=== PATIENT | female | born 1945 | race Caucasian/White ===

== ENCOUNTER 2018-06-11 03:56 | Emergency (ER) | payer MEDICARE, BC ==
[2018-06-11] MEDS: SINEMET 25-100 MG TAB PO (06:25)
== END 2018-06-11 06:48 | disposition home or self-care (01) ==
LOC: M ED 03:56
DX: F41.1 Generalized anxiety disorder (principal); G20 Parkinson's disease
CPT/HCPCS: 99284

== ENCOUNTER → 2019-07-09 | Outpatient (REF) | payer MEDICARE, BC ==
[2019-07-09 09:12] LABS: HEMATOCRIT 44.6 % (36.0-47.0); HEMOGLOBIN 15.5 g/dl (12.0-15.5); MEAN CORPUSCULAR HEMOGLOBIN 31.7 pg (27.0-33.0); MEAN CORPUSCULAR HGB CONC 34.8 g/dl (32.0-36.5); MEAN CORPUSCULAR VOLUME 91.2 fl (80.0-96.0); PLATELET COUNT, AUTOMATED 285 10^3/uL (150-450); RED BLOOD COUNT 4.89 10^6/uL (4.00-5.40); WHITE BLOOD COUNT 6.7 10^3/uL (4.0-10.0)
[2019-07-09 09:35] LABS: CALCIUM LEVEL 9.6 MG/DL (8.8-10.2); CREATININE FOR GFR 1.03 MG/DL (0.55-1.30); GLOMERULAR FILTRATION RATE 55.6 (>39); POTASSIUM SERUM 4.6 MEQ/L (3.5-5.1); THYROID STIMULATING HORMONE 1.45 uIU/ML (0.358-3.740)
== END ==
PROVIDERS: ATTEND Internal Medicine
DX: I12.9 Hypertensive chronic kidney disease with stage 1 through stage 4 chronic kidney disease, or unspecified chronic kidney disease (principal); K59.00 Constipation, unspecified

== ENCOUNTER → 2019-10-13 | Outpatient (CLI) | payer MEDICARE, BC ==
--- NOTE | 2019-10-13 13:54 | REP ---
Bilateral carotid duplex sonography: History: Followup carotid stenosis. No comparison study. Report of a previous outside study describes 16-49% narrowing in the right internal carotid artery. Findings: Flow could not be confirmed in the right vertebral artery. Antegrade flow was observed in the left vertebral artery. Right carotid: The right common carotid artery is unremarkable. There is moderate mixed plaquing in the bulb, proximal ICA and proximal ECA on the right side. Color flow and spectral Doppler interrogation are unremarkable. Velocity chart right carotid: PSV EDV Right CCA 55.0 cm/s Right ICA 109.0 26.0 Right ECA 89.0 Right ICA/CCA ratio normal 2.0. Impression: Less than 50% category narrowing in the right ICA by Doppler velocity criteria. Moderate mixed plaquing. Flow could not be confirmed in the right vertebral artery. Left carotid: The left common carotid artery is unremarkable. There is mild to moderate mixed plaquing in the left carotid bulb and proximal ICA. Color flow and spectral Doppler interrogation are unremarkable on the left. Velocity chart left carotid: PSV EDV Left CCA 82.0 cm/s Left ICA 107.0 30.0 Left ECA 44.0 Left ICA/CCA ratio 1.3. Impression: Less than 50% category narrowing in the left ICA. Electronically Signed by Jenaro Read MD 10/13/2019 03:32 P
== END ==
LOC: M RAD 12:35
PROVIDERS: ATTEND Internal Medicine
DX: I65.29 Occlusion and stenosis of unspecified carotid artery (principal)

== ENCOUNTER 2019-12-12 19:30 | Emergency (ER) | payer MEDICARE, BC ==
[~2019-12-12] VITALS: Ht 154.9 cm; Wt 65.4 kg
[2019-12-12] MEDS ORDERED: COLA100C5 PO (20:09)
[2019-12-12] MEDS ORDERED: CHILCHW27 PO (20:09)
[2019-12-12] MEDS ORDERED: ENTA1TAB PO (20:09)
[2019-12-12] MEDS ORDERED: CHLO1.4S2 MT (20:09)
[2019-12-12] MEDS ORDERED: MAGN400C2 PO (20:09)
[2019-12-12] MEDS ORDERED: PROC2.5C3 PR (20:09)
[2019-12-12] MEDS ORDERED: QC A650T3 PO (20:09)
[2019-12-12] MEDS ORDERED: PROP60TA18 PO (20:09)
[2019-12-12] MEDS ORDERED: CARB25TA9 PO (20:09)
[2019-12-12] MEDS ORDERED: AZEL0.1S NARES (20:09)
[2019-12-12] MEDS ORDERED: BISA10SU20 PR (20:09)
[2019-12-12] MEDS ORDERED: DICL1GEL3 TOP (20:09)
[2019-12-12] MEDS ORDERED: ASPI81CH2 PO (20:09)
[2019-12-12] MEDS ORDERED: LORA0.5T5 PO (20:09)
[2019-12-12] MEDS ORDERED: LOSA50TA88 PO (20:09)
[2019-12-12] MEDS ORDERED: HYDR1CRE93 TOP (20:09)
[2019-12-12] MEDS ORDERED: CITRTAB13 PO (20:09)
[2019-12-12] MEDS ORDERED: PRAV40TA2 PO (20:09)
[2019-12-12] MEDS ORDERED: MIRA3350 PO (20:09)
[2019-12-12] MEDS ORDERED: SERT50TA29 PO (20:09)
[2019-12-12] MEDS ORDERED: VITA500079 PO (20:09)
[2019-12-12] MEDS ORDERED: LOSARTAN 50 MG TAB PO ONE (20:30)
[2019-12-12] MEDS ORDERED: SINEMET 25-100 MG TAB PO ONE (20:30)
[2019-12-12] MEDS ORDERED: PROPRANOLOL 20 MG TAB PO ONE (20:30)
[2019-12-12 21:02] VITALS: BP 192/112
[2019-12-12 22:03] VITALS: BP 158/98
--- NOTE | 2019-12-13 09:02 | REP ---
Clinical: Trauma. Fall. Technique: AP and lateral views of the left tibia / fibula. Findings: No acute fracture or dislocation. Skeletal structures, joint spaces, and surrounding soft tissues are normal. Impression: No acute fracture or dislocation. Electronically Signed by Alex Lugo MD 12/13/2019 08:53 A
--- NOTE | 2019-12-13 09:07 | REP ---
Clinical: Trauma. Fall. Technique: AP and frog lateral views of the left femur. Findings: Age-related changes at the hip and knee joint. No acute fracture or dislocation. No subcutaneous emphysema or foreign body. Impression: Degenerative changes. No acute fracture or dislocation. Electronically Signed by Alex Lugo MD 12/13/2019 08:59 A
== END 2019-12-12 22:04 | disposition home or self-care (01) ==
LOC: M ED 19:30
DX: S76.212A Strain of adductor muscle, fascia and tendon of left thigh, initial encounter (principal); W01.0XXA Fall on same level from slipping, tripping and stumbling without subsequent striking against object, initial encounter; Y92.129 Unspecified place in nursing home as the place of occurrence of the external cause; I10 Essential (primary) hypertension; F41.9 Anxiety disorder, unspecified; Z79.52 Long term (current) use of systemic steroids; Z79.82 Long term (current) use of aspirin; Z79.899 Other long term (current) drug therapy

== ENCOUNTER → 2020-09-06 | Outpatient (REF) | payer MEDICARE, BC ==
[~2020-09-06] MED LIST: ASPI81CH2 PO; AZEL0.1S NARES; BISA10SU20 PR; CARB25TA9 PO; CHILCHW28 PO; CHLO1.4S2 MT; CITRTAB16 PO; COLA100C5 PO; DICL1GEL3 TOP; ENTA1TAB PO; HYDR1CRE93 TOP; LORA0.5T5 PO; LOSA50TA88 PO; MAGN400C2 PO; MIRA3350 PO; PRAV40TA2 PO; PROC2.5C3 PR; PROP60TA18 PO; QC A650T3 PO; SERT50TA29 PO; VITA500079 PO
== END ==
LOC: M LAB REF 17:06
PROVIDERS: ATTEND Radiology Diagnostic Radiology
DX: N60.92 Unspecified benign mammary dysplasia of left breast (principal); D24.2 Benign neoplasm of left breast

== ENCOUNTER → 2020-09-17 | Outpatient (CLI) | payer SELFPAY | LOC: M LABSMTC 10:56 | PROVIDERS: ATTEND Pediatrics | DX: Z20.828 Contact with and (suspected) exposure to other viral communicable diseases (principal) ==

== ENCOUNTER → 2020-10-08 | Outpatient (REF) | payer SELFPAY | PROVIDERS: ATTEND Internal Medicine | DX: Z20.828 Contact with and (suspected) exposure to other viral communicable diseases (principal) ==

== ENCOUNTER → 2020-10-13 | Outpatient (REF) | payer SELFPAY ==
[2020-10-14 09:23] LABS: INFLUENZA A AMPLIFICATION NEGATIVE (NEGATIVE); INFLUENZA B AMPLIFICATION NEGATIVE (NEGATIVE)
== END ==
PROVIDERS: ATTEND Internal Medicine
DX: Z20.828 Contact with and (suspected) exposure to other viral communicable diseases (principal)
CPT/HCPCS: 87502; U0003

== ENCOUNTER → 2020-10-18 | Outpatient (REF) | payer SELFPAY | PROVIDERS: ATTEND Internal Medicine | DX: Z20.828 Contact with and (suspected) exposure to other viral communicable diseases (principal) ==

== ENCOUNTER → 2020-10-25 | Outpatient (REF) | payer SELFPAY | PROVIDERS: ATTEND Internal Medicine | DX: Z20.828 Contact with and (suspected) exposure to other viral communicable diseases (principal) ==

== ENCOUNTER → 2020-11-01 | Outpatient (REF) | payer SELFPAY | PROVIDERS: ATTEND Internal Medicine | DX: Z11.52 Encounter for screening for COVID-19 (principal) ==

== ENCOUNTER → 2020-11-08 | Outpatient (REF) | payer SELFPAY | PROVIDERS: ATTEND Internal Medicine | DX: Z20.822 Contact with and (suspected) exposure to COVID-19 (principal) ==

== ENCOUNTER → 2020-11-15 | Outpatient (REF) | payer SELFPAY | PROVIDERS: ATTEND Internal Medicine | DX: Z20.822 Contact with and (suspected) exposure to COVID-19 (principal) ==

== ENCOUNTER → 2020-11-22 | Outpatient (REF) | payer SELFPAY | PROVIDERS: ATTEND Internal Medicine | DX: Z20.822 Contact with and (suspected) exposure to COVID-19 (principal) ==

== ENCOUNTER → 2020-11-29 | Outpatient (REF) | payer SELFPAY | PROVIDERS: ATTEND Internal Medicine | DX: Z20.822 Contact with and (suspected) exposure to COVID-19 (principal) ==

== ENCOUNTER → 2020-12-01 | Outpatient (CLI) | payer MEDICARE, BC, MEDICAID ==
--- NOTE | 2020-12-01 14:53 | REP ---
INDICATION: STENOSIS COMPARISON: 10/13/2019. TECHNIQUE: Real-time ultrasound evaluation and duplex Doppler interrogation of the extracranial carotid vasculature is performed. FINDINGS: There is mild plaquing and narrowing in both carotid bulbs extending into the internal and external carotid arteries. Luminal narrowing is less than 50%. There is no evidence of hemodynamically significant stenosis of either internal carotid artery. Normal flow velocities are seen. The vertebral arteries demonstrate normal direction of flow. RIGHT LEFT Peak systolic velocity ICA 114.0 cm/s 102.5 cm/s End diastolic velocity ICA 26.7 cm/s 25.8 cm/s Peak systolic velocity CCA 55.1 cm/s 66.3cm/s Peak systolic velocity ECA 101.4 cm/s 76.6 cm/s ICA/CCA ratio 2.0 1.5 IMPRESSION: Bilateral luminal narrowing of the internal carotid arteries less than 50%. No evidence of hemodynamically significant stenosis. <Electronically signed by Isael Chen > 12/01/20 [id number]
== END ==
LOC: M RAD 13:40
PROVIDERS: ATTEND Internal Medicine
DX: I65.23 Occlusion and stenosis of bilateral carotid arteries (principal)

== ENCOUNTER → 2020-12-06 | Outpatient (REF) | payer MEDICARE, BC, MEDICAID | PROVIDERS: ATTEND Internal Medicine | DX: Z20.822 Contact with and (suspected) exposure to COVID-19 (principal) ==

== ENCOUNTER → 2020-12-13 | Outpatient (REF) | payer MEDICARE, BC, MEDICAID | PROVIDERS: ATTEND Internal Medicine | DX: Z20.822 Contact with and (suspected) exposure to COVID-19 (principal) ==

== ENCOUNTER → 2020-12-20 | Outpatient (REF) | payer MEDICARE, BC, MEDICAID | PROVIDERS: ATTEND Internal Medicine | DX: Z20.822 Contact with and (suspected) exposure to COVID-19 (principal) ==

== ENCOUNTER → 2021-01-06 | Outpatient (CLI) | payer MEDICARE, BC, MEDICAID ==
[~2021-01-06] MED LIST changes: +ARTIDRO OP; +D3 +TAB PO; +LORA2CON5 PO; +[UNRECOGNIZED DRUG - CODE] PO
== END ==
LOC: M LABSMTC 10:36
PROVIDERS: ATTEND Anesthesiology
DX: Z01.812 Encounter for preprocedural laboratory examination (principal); Z20.822 Contact with and (suspected) exposure to COVID-19

== ENCOUNTER → 2021-01-07 | Outpatient (CLI) | payer MEDICARE, BC, MEDICAID ==
--- NOTE | 2021-01-07 13:05 | REP ---
INDICATION: UNSPECIFIED BENIGN MAMMARY DYSPLASIA OF UNSPECIFIED BREAST COMPARISON: 12/04/2008 TECHNIQUE: PA and lateral. FINDINGS: The mediastinum and cardiac silhouette are stable with mild cardiomegaly again suggested. The lung estevez are clear and without acute consolidation, effusion, or pneumothorax. The skeletal structures are intact and normal. IMPRESSION: No acute cardiopulmonary process. <Electronically signed by Alex Lugo > 01/07/21 [id number]
== END ==
LOC: M RAD 12:43
PROVIDERS: ATTEND Internal Medicine
DX: N60.99 Unspecified benign mammary dysplasia of unspecified breast (principal)

== ENCOUNTER 2021-01-11 06:08 | Day surgery (SDC) | payer MEDICARE, BC, MEDICAID ==
[~2021-01-11] VITALS: Ht 154.9 cm; Wt 63.7 kg
[2021-01-11] MEDS ORDERED: HEPARIN SOD (PORCINE) 5000UNITS/ML 1ML VIAL/SYRINGE SQ ONE (07:00)
[2021-01-11] MEDS ORDERED: LR 1,000 ML IV ONE (07:00)
[2021-01-11] MEDS ORDERED: ceFAZolin SOD 2 GM in IV 1 EA IV ONE (07:00)
[2021-01-11] MEDS ORDERED: BUPIVACAINE HCL 0.25% 30ML VIAL As Ordered ONE (07:14)
[2021-01-11] MEDS ORDERED: LIDOCAINE 1% SDV 30ML VIAL As Ordered ONE (07:14)
[2021-01-11] MEDS ORDERED: propofoL 200 MG/20 ML VIAL As Ordered ONE (07:25)
[2021-01-11] MEDS ORDERED: dexameTHASONE 4 MG/ML 1ML VIAL (J1100 PER 1MG) As Ordered ONE (07:25)
[2021-01-11] MEDS ORDERED: fentaNYL 250 MCG/5 ML INJECTION (J3010) As Ordered ONE (07:25)
[2021-01-11] MEDS ORDERED: LIDOCAINE 2% 100MG/5ML SDV (FOR ANES.) As Ordered ONE (07:25)
[2021-01-11] MEDS ORDERED: MIDAZOLAM INJ 2MG/2ML VIAL (J2250 PER 1MG) As Ordered ONE (07:26)
[2021-01-11] MEDS ORDERED: ONDANSETRON 4MG/2ML VIAL As Ordered ONE (08:15)
[2021-01-11] MEDS ORDERED: GLYCOPYRROLATE INJ 0.2 MG/ML 2 ML VIAL As Ordered ONE (08:20)
[2021-01-11] MEDS ORDERED: ACETAMINOPHEN 1000MG 100ML IV BTL (OFIRMEV) (J0131 PER 10MG) As Ordered ONE (08:24)
[2021-01-11] MEDS ORDERED: ePHEDrine SULFATE 25 MG/5 ML(5MG/ML) SYRINGE As Ordered ONE (08:25)
[2021-01-11] MEDS ORDERED: ROXI1TAB2 PO (09:29)
[2021-01-11] MEDS ORDERED: ONDANSETRON 4MG/2ML VIAL IV PRN (09:45)
[2021-01-11] MEDS ORDERED: fentaNYL 100 MCG/2 ML INJECTION (J3010) IV PRN (09:45)
[2021-01-11] MEDS ORDERED: LR 1,000 ML IV SCH (09:45)
[2021-01-11] MEDS ORDERED: oxyCODONE 5MG TAB PO PRN (09:45)
[2021-01-11] MEDS ORDERED: HYDROMORPHONE HCL 0.5 MG/ 0.5 ML SYRINGE (J1170 PER 1) IV PRN (09:45)
[2021-01-11 11:00] VITALS: BP 150/82
--- NOTE | 2021-01-11 11:09 | REP ---
INDICATION: LEFT BREAST EXCISIONAL BIOPSY. COMPARISON: Comparison mammography September 06, 2020.. TECHNIQUE: Sonographic guidance. FINDINGS: Ultrasound guidance is provided to Dr. Park performed a sonographically guided needle wire localization procedure. IMPRESSION: Ultrasound guidance. Procedural imaging. <Electronically signed by Arun Read > 01/11/21 1103
--- NOTE | 2021-01-11 21:04 | ROOPDOC ---
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 COMPLICATIONS: none REMARKS: clip and calcifications seen in the specimen DESCRIPTION OF PROCEDURE: INDICATIONS: Ms. Carole Becker is a 75 -year-old woman who was found to have a suspicious left breast nodule on screening mammogram. She underwent left breast stereotactic biopsy with radiology team. Hydromark clip was placed. Biopsy showed atypical ductal hyperplasia and atypical intraductal papilloma. Excisional biopsy of the left breast was offered to the patient. She was medically cleared for surgery by her primary care doctor. Risks and possible complications of surgical procedure including bleeding, inf ection and injury to surrounding structures were explained to the patient and she wished to proceed. Consent was signed. My initials were placed on the operative site. Subcutaneous injection of 5000 units of heparin was done. DETAILS: Patient was taken to the operating room and placed on the operating room table. A sign in was called stating patients name, date of and the procedure to be done. Preoperative antibiotics were infused. Smooth induction of general anesthesia was done. Patients hands were extended on arm rests. Care was taken not to over extend the arms. Pillow was placed under the knees and a foam was placed under the heels. Sequential compression devices were placed and assured to function correctly. Procedure was started with left breast intraop wire localization. Appropriate time out was done and patients name, date of , and the procedure to be done were confirmed. Left breast was cleaned by me. Intraoperative ultrasound was used to confirm location of the Hydromark clip. Location of the clip was marked on the skin as well. 21 G Kopans Breast Lesion Localization Needle was used to place 25 cm wire. The wire was placed next to the clip. The end of the wire was passed slightly distal to the clip. The images were captured confirming adequate placement of the localizing wire. Voip Technician assisted with the wire placement. Next, patients left breast and axilla were prepped and draped in the usual fashion. Care was taken not to displace the wire. Appropriate time out was done again prior second part of the procedure. Patients name, date of , and the procedure to be done were confirmed. Next, local anesthetic using 1% lidocaine and 0.25 % Marcaine 50/50 mix was injected at the site of planned periareolar incision. The incision was made with the scalpel. Subcutaneous skin flaps were raised and the guide wire was carefully pulled into the wound. Dissection was carries along the wire until the previously marked on the skin area of target lesion location was encountered. At this point, wider excision of the tissue surrounding the wire was done. The Hydromark clip was identified in the tissue with intraoperative hockey stick ultrasound probe. The end of the wire was identified with palpation. The excisional biopsy specimen was carefully removed from the breast keeping its proper orientation and moved to the back table where margins were marked with the surgical inking kit following the standard colors recommendations. Specimen was then placed on the grid and placed in [facility] Specimen Imaging System. The image revealed the wire, Hydromark in the specimen and some calcifications. The specimen measured 3.5 x 4.5 cm. It was labeled with patients name and left excisional biopsy and sent to pathology. Next, the wound was irrigated thoroughly and adequate hemostasis was assured. Additional local anesthetic was injected into surrounding tissues. space wa s approximated with 2-0 Vicryl. The dermis was closed with 3-0 Vicryl and skin was closed with 4-0 Monocryl. Surgical glue was placed over the incision. Patient emerged from the anesthesia without any problems. Fluffs were placed over the operative site and patients chest was wrapped snuggly in the IRIS wrap. Sponge and instrument counts were done and were correct. Patient tolerated procedure well and was taken to recovery unit in stable condition. PORTIA ORTA DO Jan 11, 2021 21:04
--- NOTE | 2021-01-12 10:14 | REP ---
INDICATION: NEEDLE BIOPSY. Left breast excisional biopsy. COMPARISON: Comparison mammography August 25, 2020 and August 19, 2020.. TECHNIQUE: Single specimen radiograph. FINDINGS: Specimen radiography demonstrates a Kopan's wire localization device adjacent to a needle biopsy marker clip which isr seen within ar 9 mm nodule centrally located in the specimen. IMPRESSION: Marker clip, soft tissue nodule, and Kopan's localization wire are seen within the specimen. <Electronically signed by Arun Read > 01/12/21 1012
== END 2021-01-11 11:17 | disposition home or self-care (01) ==
LOC: M SDC 06:08
PROVIDERS: ATTEND Surgery
DX: D05.12 Intraductal carcinoma in situ of left breast (principal); I10 Essential (primary) hypertension; E78.5 Hyperlipidemia, unspecified; I73.9 Peripheral vascular disease, unspecified; G20 Parkinson's disease; M81.0 Age-related osteoporosis without current pathological fracture; F41.9 Anxiety disorder, unspecified; Z79.82 Long term (current) use of aspirin; Z79.899 Other long term (current) drug therapy; Z88.8 Allergy status to other drugs, medicaments and biological substances
CPT/HCPCS: 19125; 36415; 76942; 86850; 86900; 86901; 88307; J0131; J0690; J1100; J1644; J2250; J2405; J3010

== ENCOUNTER → 2021-01-26 | Outpatient (CLI) | payer MEDICARE, BC, MEDICAID ==
[~2021-01-26] MED LIST changes: +PROC2.5C TOP; +ROXI1TAB2 PO
--- NOTE | 2021-01-26 16:18 | RADONC.CN ---
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 Park on 01/11/21. She is seen for consideration of adjuvant RT. Diagnosis/Treatment History Oncologic History 08/19/20 Mammogram with left 9 o'clock density 08/25/20 US and diagnostic mammogram with nodular density 09/06/20 biopsy with ADH and intraductal papilloma 01/11/21 Lumpectomy (Xavier) DCIS Grade 3 ER/MN+ background of ADH, margins <1mm superior and lateral 01/20/21 Medical oncology (Camila) AI discussed Interval History Here with her supportive daughter Norma. Carole reports no post-operative pain or numbness. No swelling or impaired ROM. Her energy levels are good. She does have PD and tremor which is worse when she is nervous. She expressed she is reticent to take AI after discussion of possible side effects at her recent medical oncology appointment. Lives in assisted living at [facility] Past Medical History: Anxiety CKD IPD HPL HTN Breast history: OCP for 2 years No HRT first @ 17 Menses @ 10 Menopause @ 48 Osteoporosis PVD Past Surgical History: C section x 2 Hernia repair Family History: Mother lung cancer Social History: Never smoker Non-drinker Allergies / Meds Allergies: Coded Allergies: enalaprilat (Verified Allergy, Unknown, anaphalaxis, 01/11/21) Home Meds Reported Medications Hydrocortisone (Proctosol-Hc) 28.35 Gm Crm.pe.gato, 1 APLCT TOP DAILY for 15 Days, #60 GRAM 01/20/21 Lorazepam (Lorazepam) 2 Mg/1 Ml Oral.conc, 0.25 MG PO BID PRN for ANXIETY, CON 01/05/21 Cholecalciferol (Vitd3)/Vit K2 (D3 + K2 Dots 1,000 Units Tab) 1 Each Tab.rapdis, 1 TAB PO DAILY 01/05/21 Multivitamin with Iron (Child Chew + Iron) 1 Each Tab.chew, 1 CHW PO DAILY 01/05/21 Glycerin/Propylene Glycol (Artificial Tears Drops) 15 Ml Drops, 1 HERIBERTO OP BID, CONTAINER 01/05/21 Magnesium Oxide (Magnesium) 400 Mg Capsule, 400 MG PO, CAP 12/12/19 Calcium Citrate/Vitamin D3 (Citracal + D Maximum Caplet) 1 Each Tablet, 1 TAB PO, TAB 12/12/19 Bisacodyl (Bisacodyl) 10 Mg Supp.rect, 10 MG MN 12/12/19 Polyethylene Glycol 3350 (Miralax) 119 Gm Powder, 17 GM PO DAILY PRN for CONSTIPATION, #1 BOTTLE dilute in 8 ounces of water or juice 12/12/19 Azelastine HCl (Azelastine HCl) 0.1% [place].pump, 2 SPRAY NARES BID for 30 Days, #30 ML 12/12/19 Docusate Sodium (Colace) 100 Mg Capsule, 100 MG PO DAILY, CAP 12/12/19 Aspirin (Aspirin) 81 Mg Tab.chew, 81 MG PO QHS 12/12/19 Acetaminophen (Acetaminophen 8 Hour) 650 Mg Tablet.er, 650 MG PO TID 12/12/19 Hydrocortisone/Aloe Vera (Hydrocortisone-Aloe 1% Cream) 28 Gm Cream..g., 1 APLCT TOP BID for 10 Days, #60 GRAM apply to affected area(s) 12/12/19 Diclofenac Sodium (Diclofenac Sodium) 1% 100GM Gel..gram., 4 GM TOP TIDP 12/12/19 Propranolol HCl (Propranolol HCl) 60 Mg Tablet, 60 MG PO BID 12/12/19 Sertraline HCl (Sertraline HCl) 50 Mg Tablet, 100 MG PO QHS 12/12/19 Entacapone (Entacapone) 200 Mg Tablet, 200 MG PO QID 12/12/19 Pravastatin Sodium (Pravastatin Sodium) 40 Mg Tablet, 40 MG PO QHS 12/12/19 Losartan Potassium (Losartan Potassium) 50 Mg Tablet, 50 MG PO QHS 12/12/19 Carbidopa/Levodopa (Carbidopa-Levodopa 25-100 Tab) 1 Each Tablet, 25-100 TAB PO QID 12/12/19 Discontinued Reported Medications Hydrocortisone (Procto-Med Hc) 30 Gm Crm.pe.gato, 1 % MN 12/12/19 Discontinued Scripts Oxycodone HCl (Roxicodone) 5 Mg Tablet, 5 MG PO Q6HP PRN for pain MDD 4 Tablet(s) for 3 Days, #10 TAB Prov:PORTIA PARK DO 01/11/21 Review of Systems General: Reports: Normal Appetite Constitutional: Denies: Chills, Fever, Night Sweats Eyes: Denies: Pain, Vision change HEENT: Denies: Head Aches, Dysphagia, Sore Throat Skin: Denies: Rash, Lesions, Bruising Pulmonary: Denies: Dyspnea, Cough Cardiovascular: Denies: Chest Pain, Palpitations, Edema Breast: Denies: New Breast Lumps / Masses, Nipple Retraction, Nipple Discharge, Breast Skin Changes, Breast Pain or Tenderness Gastrointestinal: Denies: Nausea, Vomiting, Abdominal Pain, Diarrhea Genitourinary: Denies: Dysuria, Frequency, Incontinence Hematologic: Denies: Bruising, Petecchia, Enlarged Lymph Nodes Musculoskeletal: Denies: Neck pain, Back pain Neurological: Denies: Weakness, Numbness, Incoordination Psych: Reports: Mood Normal; Denies: Memory Issues, Thoughts of Self Harm Vital Signs Ht 61" Wt 142 BMI 27 T 98 P 61 RR 18 BP 180/91 O2 98 Pain 0 Fatigue 1 General Exam: Positive: Alert, Cooperative, No Acute Distress Eye Exam: Positive: PERRLA, EOMI ENT EXAM: Positive: Other ENT (Masked facies) Neck Exam: Positive: Supple Breast Exam: Positive: Symmetric Bilaterally (Atrophic, mild ptosis), Other Breast Findings (Healed left medial periareolar incision); Negative: Lumps or Masses, Nipple Retraction Extremity Exam: Negative: Edema Skin Exam: Positive: Nl turgor and temperature Neuro Exam: Positive: Normal Speech, Cranial Nerves 3-12 NL Psych Exam: Positive: Mental status NL Diagnostic and Laboratory Diagnostic Review Radiologic images, relevant labs and pathology reports were personally reviewed and discussed with Ms. Becker. Assessment and Plan Impression Ms. 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 Park on 01/11/21. She is seen for consideration of adjuvant RT. Stage Stage 0 pTisNXMX ER/MN+ Grade 3 Performance Status ECOG 1 Plan We had an extensive discussion with Ms. Becker regarding the diagnosis at hand and available therapeutic options. She is reasonably fit. The resection margins were close but negative. She is reticent to consider AI due to side effects and is overall averse to side effects. I reviewed her pathology in detail with her. I do not think that she would benefit from additional margin directed re-excision. I think left whole breast RT without a boost would be the optimal strategy to mitigate the risk of local recurrence and maximally spare her unnecessary toxicity and treatment time. I recommended 40 Gy in 15 fractions WBI. I think her anatomy is conducive to supine treatment and that this will confer minimal toxicity risk. She could then consider at the end of treatment [id number] endocrine therapy would be in her best interests with Dr. Jensen. We discussed the logistics of receiving radiation therapy in detail including the need for a 1-time planning session. This can occur next week. We reviewed anticipated side effects of treatment including fatigue, skin reaction and late fibrosis. After discussing the risks, benefits and alternatives to radiation therapy, Ms. Becker was amenable to pursuing radiotherapy. All questions were answered to the patient's satisfaction. We instructed the patient that if there were any questions,concerns or changes in clinical status in the interim to contact us. Recommendations Whole breast RT 40 Gy in 15 fractions Simulation in the next week Can follow up with Dr. Jensen after RT for AI decision making Billing Statement Total time of [35] minutes was spent preparing for the visit [2], obtaining HPI [3], examining the patient [2], reviewing diagnostic tests [5], discussing management options [15], coordinating care [1], and writing this note [7]. CAROL CAMACHO MD Jan 26, 2021 16:18
== END ==
LOC: M ONCR 14:49
PROVIDERS: ATTEND General Practice
DX: D05.12 Intraductal carcinoma in situ of left breast (principal); N18.9 Chronic kidney disease, unspecified; I12.9 Hypertensive chronic kidney disease with stage 1 through stage 4 chronic kidney disease, or unspecified chronic kidney disease; E78.5 Hyperlipidemia, unspecified; Z79.899 Other long term (current) drug therapy

== ENCOUNTER → 2021-02-25 | Outpatient (RCR) | payer MEDICARE, BC, MEDICAID | LOC: M ONCR 02-04 13:55 | PROVIDERS: ATTEND General Practice | DX: D05.12 Intraductal carcinoma in situ of left breast (principal) ==

== ENCOUNTER 2021-03-11 12:40 | Outpatient (RCR) | payer MEDICARE, BC, MEDICAID | END 2021-03-28 | LOC: M ONCR 12:40 | PROVIDERS: ATTEND General Practice | DX: D05.12 Intraductal carcinoma in situ of left breast (principal) ==

== ENCOUNTER 2021-05-02 10:24 | Emergency (ER) | payer MEDICARE, BC, MEDICAID ==
[~2021-05-02] VITALS: Ht 154.9 cm; Wt 61.4 kg
[~2021-05-02 10:24] MED LIST changes: -HYDR1CRE93 TOP; +HYDR28CR33 TOP
--- NOTE | 2021-05-02 11:09 | REP ---
INDICATION: fall, right sided head injury COMPARISON: None. TECHNIQUE: Axial noncontrast images from the skull base to the thoracic inlet with coronal reformations. This CT examination was performed using the following dose reduction techniques: Automated exposure control, adjustment of mA and/or kv according to the patient's size, and use of iterative reconstruction technique. FINDINGS: Atrophy with periventricular leukomalacia and microvascular ischemic changes are appreciated. The ventricles and sulci are symmetric. Chen-white differentiation is maintained. There is no evidence for acute intracranial hemorrhage, mass/mass effect, pathology or infarction. No extra-axial fluid collection. Calvarium is intact. Mild right periorbital soft tissue swelling noted. There is a fluid level in the right maxillary sinus with suggestions for possible orbital floor and lateral maxillary wall fracture. IMPRESSION: Atrophy and microvascular ischemic changes. No acute intracranial hemorrhage, infarction, or mass/mass effect. Possible right facial trauma. <Electronically signed by Alex Lugo > 05/02/21 [id number]
--- NOTE | 2021-05-02 11:09 | REP ---
INDICATION: fall COMPARISON: 01/07/2021 TECHNIQUE: Portable AP view of the chest FINDINGS: The mediastinum and cardiac silhouette are stable and within normal limits for portable technique. The lung estevez are clear without acute consolidation, effusion, or pneumothorax. Skeletal structures are intact. Incidental prior left neck/thyroid surgery. IMPRESSION: No acute cardiopulmonary process appreciated. <Electronically signed by Alex Lugo > 05/02/21 1103
--- NOTE | 2021-05-02 11:10 | REP ---
INDICATION: fall COMPARISON: None. TECHNIQUE: Internal rotation, external rotation, and Y view. FINDINGS: Age-related degenerative changes noted. No acute fracture or dislocation. The acromioclavicular and glenohumeral joints are intact. Sub acromial space is normal. Surrounding soft tissues are unremarkable. IMPRESSION: Age-related changes. No evidence for acute fracture or dislocation. <Electronically signed by Alex Lugo > 05/02/21 [id number]
--- NOTE | 2021-05-02 11:13 | REP ---
INDICATION: fall, right sided head injury COMPARISON: None. TECHNIQUE: Axial noncontrast images from the skull base to the thoracic inlet with coronal and sagittal re-formations This CT examination was performed using the following dose reduction techniques: Automated exposure control, adjustment of mA and/or kv according to the patient's size, and use of iterative reconstruction technique. FINDINGS: Alignment and lordosis is relatively maintained. Moderate to advanced multilevel degenerative changes centered at C1-2 and C4-6 include osteophytosis, endplate sclerosis/heterogeneity, disc space narrowing, and facet hypertrophy. No obvious acute fracture/compression injury or subluxation. Spinal canal is relatively patent. Paravertebral soft tissues are grossly normal.. IMPRESSION: Moderate to advanced degenerative spondylosis. No acute fracture/compression injury or acute subluxation appreciated. <Electronically signed by Alex Lugo > 05/02/21 [id number]
--- NOTE | 2021-05-02 11:20 | REP ---
INDICATION: fall, right sided head injury COMPARISON: None. TECHNIQUE: Axial noncontrast images through the facial bones to include the mandible with coronal and sagittal re-formations. FINDINGS: Coronal images best demonstrate a depressed fracture of the right orbital floor with subtle associated herniation of the inferior rectus muscle and orbital fat along with possible subtle fracture along the lateral right maxillary wall as well. There is subtle traumatic infiltration to the right intraorbital and intraconal fat with mild traumatic proptosis and overlying right periorbital soft tissue swelling. The right globe itself appears intact. A 2 mm density is identified along the lateral aspect of the globe which may represent small foreign body (series 302; image 17). There is an associated hemorrhagic fluid level in the right maxillary sinus. Remainder of the examination appears normal. IMPRESSION: Depressed right orbital floor fracture with herniated fat and partial herniation to the inferior rectus muscle as well as associated posttraumatic changes detailed above. <Electronically signed by Alex Lugo > 05/02/21 1118
[2021-05-02 12:28] LABS: BASO % 0.3 % (0.0-1.0); EOS # 0.2 10^3/uL (0.0-0.5); EOS % 1.4 % (0.0-3.0); HEMOGLOBIN 14.4 g/dl (12.0-15.5); LYMPH # 0.9 10^3/uL (1.5-5.0); LYMPH % 8.1 % (24.0-44.0); MEAN CORPUSCULAR HEMOGLOBIN 30.8 pg (27.0-33.0); MEAN CORPUSCULAR HGB CONC 33.5 g/dl (32.0-36.5); MEAN CORPUSCULAR VOLUME 91.9 fl (80.0-96.0); MONO # 0.5 10^3/uL (0.0-0.8); MONO % 4.6 % (2.0-8.0); PLATELET COUNT, AUTOMATED 257 10^3/uL (150-450); RED BLOOD COUNT 4.68 10^6/uL (4.00-5.40); WHITE BLOOD COUNT 10.5 10^3/uL (4.0-10.0)
[2021-05-02 12:55] LABS: BLOOD UREA NITROGEN 16 MG/DL (7-18); CALCIUM LEVEL 9.2 MG/DL (8.8-10.2); CARBON DIOXIDE LEVEL 31 MEQ/L (21-32); CHLORIDE LEVEL 107 MEQ/L (98-107); CREATININE FOR GFR 0.87 MG/DL (0.55-1.30); GLOMERULAR FILTRATION RATE > 60.0 (>39); GLUCOSE, FASTING 132 MG/DL (70-100); SODIUM LEVEL 140 MEQ/L (136-145)
[2021-05-02 14:12] VITALS: BP 235/105
[2021-05-02] MEDS ORDERED: LOSARTAN 50MG TABLET PO ONE (14:30)
[2021-05-02 14:34] VITALS: BP 235/105
== END 2021-05-02 14:42 | disposition short-term general hospital (02) ==
LOC: M ED 10:24 → EDBD 10:24 → M ED 14:42
DX: S09.90XA Unspecified injury of head, initial encounter (principal); S02.31XA Fracture of orbital floor, right side, initial encounter for closed fracture; H49.9 Unspecified paralytic strabismus; S20.211A Contusion of right front wall of thorax, initial encounter; S40.011A Contusion of right shoulder, initial encounter; W01.0XXA Fall on same level from slipping, tripping and stumbling without subsequent striking against object, initial encounter; Y92.122 Bedroom in nursing home as the place of occurrence of the external cause; Y93.9 Activity, unspecified; Y99.9 Unspecified external cause status; M47.812 Spondylosis without myelopathy or radiculopathy, cervical region; I10 Essential (primary) hypertension; E78.5 Hyperlipidemia, unspecified; G20 Parkinson's disease; E11.9 Type 2 diabetes mellitus without complications; Z79.899 Other long term (current) drug therapy

== ENCOUNTER → 2021-05-13 | Outpatient (REF) | payer MEDICARE, BC, MEDICAID, SELFPAY ==
[2021-05-13 15:58] LABS: HEMATOCRIT 43.2 % (36.0-47.0); HEMOGLOBIN 14.1 g/dl (12.0-15.5); MEAN CORPUSCULAR HEMOGLOBIN 30.3 pg (27.0-33.0); MEAN CORPUSCULAR HGB CONC 32.6 g/dl (32.0-36.5); MEAN CORPUSCULAR VOLUME 92.7 fl (80.0-96.0); PLATELET COUNT, AUTOMATED 301 10^3/uL (150-450); RED BLOOD COUNT 4.66 10^6/uL (4.00-5.40); WHITE BLOOD COUNT 5.1 10^3/uL (4.0-10.0)
[2021-05-13 16:33] LABS: BLOOD UREA NITROGEN 16 MG/DL (7-18); CALCIUM LEVEL 9.4 MG/DL (8.8-10.2); CARBON DIOXIDE LEVEL 26 MEQ/L (21-32); CHLORIDE LEVEL 110 MEQ/L (98-107); CREATININE FOR GFR 0.83 MG/DL (0.55-1.30); GLOMERULAR FILTRATION RATE > 60.0 (>39); GLUCOSE, FASTING 86 MG/DL (70-100); MAGNESIUM LEVEL 2.2 MG/DL (1.8-2.4); POTASSIUM SERUM 4.3 MEQ/L (3.5-5.1); SODIUM LEVEL 141 MEQ/L (136-145)
== END ==
PROVIDERS: ATTEND Internal Medicine
DX: R53.83 Other fatigue (principal)

== ENCOUNTER → 2021-07-14 | Outpatient (REF) | payer MEDICARE, BC, MEDICAID ==
[2021-07-14 09:09] LABS: HEMATOCRIT 36.7 % (36.0-47.0); HEMOGLOBIN 12.5 g/dl (12.0-15.5); MEAN CORPUSCULAR HEMOGLOBIN 31.9 pg (27.0-33.0); MEAN CORPUSCULAR HGB CONC 34.1 g/dl (32.0-36.5); MEAN CORPUSCULAR VOLUME 93.6 fl (80.0-96.0); PLATELET COUNT, AUTOMATED 286 10^3/uL (150-450); RED BLOOD COUNT 3.92 10^6/uL (4.00-5.40); WHITE BLOOD COUNT 5.7 10^3/uL (4.0-10.0)
[2021-07-14 09:44] LABS: ALBUMIN 3.1 GM/DL (3.2-5.2); BILIRUBIN,TOTAL 0.5 MG/DL (0.2-1.0); CALCIUM LEVEL 8.8 MG/DL (8.8-10.2); CREATININE FOR GFR 1.04 MG/DL (0.55-1.30); GLOMERULAR FILTRATION RATE 54.7 (>39); THYROID STIMULATING HORMONE 1.57 uIU/ML (0.358-3.740); TOTAL PROTEIN 6.2 GM/DL (6.4-8.2)
== END ==
PROVIDERS: ATTEND Internal Medicine
DX: R25.1 Tremor, unspecified (principal)

== ENCOUNTER → 2021-07-22 | Outpatient (REF) | payer MEDICARE, BC, MEDICAID ==
[2021-07-22 21:41] LABS: BLOOD UREA NITROGEN 20 MG/DL (7-18); CALCIUM LEVEL 9.1 MG/DL (8.8-10.2); CARBON DIOXIDE LEVEL 26 MEQ/L (21-32); CHLORIDE LEVEL 112 MEQ/L (98-107); CREATININE FOR GFR 0.92 MG/DL (0.55-1.30); GLOMERULAR FILTRATION RATE > 60.0 (>39); GLUCOSE, FASTING 114 MG/DL (70-100); POTASSIUM SERUM 3.9 MEQ/L (3.5-5.1); SODIUM LEVEL 143 MEQ/L (136-145)
== END ==
PROVIDERS: ATTEND Internal Medicine
DX: R00.9 Unspecified abnormalities of heart beat (principal)

== ENCOUNTER → 2021-07-27 | Outpatient (CLI) | payer MEDICARE, BC, MEDICAID ==
--- NOTE | 2021-07-27 11:37 | REPVR ---
PROCEDURE INFORMATION: Exam: CT Head Without Contrast Exam date and time: 07/27/2021 11:11 AM Age: 76 years old Clinical indication: Injury or trauma; Fall; Concussion/head injury; Additional info: Parkinsons TECHNIQUE: Imaging protocol: Computed tomography of the head without contrast. Radiation optimization: All CT scans at this facility use at least one of these dose optimization techniques: automated exposure control; mA and/or kV adjustment per patient size (includes targeted exams where dose is matched to clinical indication); or iterative reconstruction. COMPARISON: CT Head without contrast 05/02/2021 10:47 AM FINDINGS: Brain: There is no acute intracranial hemorrhage or mass effect. Mild diffuse volume loss is within the range of normal for patient age. There are small vessel ischemic changes within the periventricular and subcortical white matter, but the normal vargas/white matter delineation is maintained. Cerebral ventricles: No ventriculomegaly. Paranasal sinuses: Visualized sinuses are unremarkable. No fluid levels. Mastoid air cells: Visualized mastoid air cells are well aerated. Bones/joints: Unremarkable. No acute fracture. Soft tissues: Unremarkable. IMPRESSION: No acute hemorrhage or calvarial fracture. Electronically signed by: Hilda River On 07/27/2021 11:37:09 AM
== END ==
LOC: M PLAIMG 10:48
PROVIDERS: ATTEND Physician Assistant
DX: G20 Parkinson's disease (principal)

== ENCOUNTER → 2021-07-29 | Outpatient (REF) | payer MEDICARE, BC, MEDICAID ==
[~2021-07-29] MED LIST changes: +ARTIDRO OU; +ENEMENE PR; +LORA1TAB4 PO; +TRAZ-252 PO; +ZOLO100T PO
[2021-07-29 22:57] LABS: HEMATOCRIT 37.5 % (36.0-47.0); HEMOGLOBIN 12.6 g/dl (12.0-15.5); MEAN CORPUSCULAR HEMOGLOBIN 31.6 pg (27.0-33.0); MEAN CORPUSCULAR HGB CONC 33.6 g/dl (32.0-36.5); PLATELET COUNT, AUTOMATED 290 10^3/uL (150-450); RED BLOOD COUNT 3.99 10^6/uL (4.00-5.40)
[2021-07-29 23:03] LABS: CALCIUM LEVEL 9.1 MG/DL (8.8-10.2); CREATININE FOR GFR 1.52 MG/DL (0.55-1.30); GLOMERULAR FILTRATION RATE 35.2 (>39); POTASSIUM SERUM 4.1 MEQ/L (3.5-5.1)
[2021-07-29 23:10] LABS: APPEARANCE, URINE MANUAL HAZY (CLEAR); BILIRUBIN, URINE MANUAL OBSCURED (NEGATIVE); BLOOD URINE MANUAL OBSCURED (NEGATIVE); COLOR, URINE MANUAL ORANGE (YELLOW); GLUCOSE, URINE (UA) MANUAL OBSCURED mg/dL (NEGATIVE); KETONE, URINE MANUAL OBSCURED mg/dL (NEGATIVE); LEUKOCYTE ESTERASE, URINE MAN OBSCURED (NEGATIVE); NITRITE, URINE MANUAL OBSCURED (NEGATIVE); PROTEIN, URINE MANUAL OBSCURED mg/dL (NEGATIVE); UROBILINOGEN, URINE MANUAL OBSCURED mg/dl (NORMAL)
[2021-07-29 23:29] LABS: BACTERIA, URINE SMALL AMOUNT; MUCUS, URINE LARGE AMOUNT (NEGATIVE); RBC, URINE NONE SEEN /hpf (0-3); SQUAMOUS EPITHELIAL CELL URINE SMALL AMOUNT /hpf (SMALL AMT)
[2021-07-29 23:31] LABS: CALCIUM OXALATE CRYSTALS,URINE MOD AMOUNT /hpf; HYALINE CAST, URINE 0-1 /lpf (0-1)
== END ==
PROVIDERS: ATTEND Physician Assistant
DX: N39.0 Urinary tract infection, site not specified (principal)

== ENCOUNTER → 2021-07-30 | Outpatient (REF) | payer MEDICARE, BC, MEDICAID ==
[2021-07-30 17:51] LABS: COLOR, URINE MANUAL ORANGE (YELLOW)
[2021-07-30 17:52] LABS: BILIRUBIN, URINE MANUAL OBSCURED (NEGATIVE); BLOOD URINE MANUAL NEGATIVE (NEGATIVE); GLUCOSE, URINE (UA) MANUAL NEGATIVE (NEGATIVE); KETONE, URINE MANUAL NEGATIVE (NEGATIVE); LEUKOCYTE ESTERASE, URINE MAN NEGATIVE (NEGATIVE); NITRITE, URINE MANUAL OBSCURED (NEGATIVE); PROTEIN, URINE MANUAL TRACE mg/dL (NEGATIVE); UROBILINOGEN, URINE MANUAL OBSCURED mg/dl (NORMAL)
[2021-07-30 17:53] LABS: APPEARANCE, URINE MANUAL CLEAR (CLEAR)
[2021-07-30 18:05] LABS: SQUAMOUS EPITHELIAL CELL URINE NONE SEEN /hpf (SMALL AMT)
[2021-07-30 18:06] LABS: BACTERIA, URINE SMALL AMOUNT
[2021-07-30 18:07] LABS: HYALINE CAST, URINE 20-30 /lpf (0-1); MUCUS, URINE MOD AMOUNT (NEGATIVE)
== END ==
PROVIDERS: ATTEND Internal Medicine
DX: N39.0 Urinary tract infection, site not specified (principal)

== ENCOUNTER 2021-08-01 14:06 | Inpatient (IN) | payer MEDICARE, BC, MEDICAID ==
[~2021-08-01] VITALS: Ht 154.9 cm; Wt 56.4 kg
[~2021-08-01 14:06] MED LIST changes: -ARTIDRO OU; -ENEMENE PR; -LORA1TAB4 PO; -TRAZ-252 PO; -ZOLO100T PO
[2021-08-01] MEDS ORDERED: ARTIDRO OU (15:37)
[2021-08-01] MEDS ORDERED: ZOLO100T PO (15:37)
[2021-08-01] MEDS ORDERED: LORA1TAB4 PO (15:37)
[2021-08-01] MEDS ORDERED: ENEMENE PR (15:37)
[2021-08-01] MEDS ORDERED: TRAZ-252 PO (15:37)
[2021-08-01] MEDS ORDERED: HOME MED LIST COMPLETE! XX SCH (15:40)
--- NOTE | 2021-08-01 15:55 | REP ---
INDICATION: Altered Mental Status COMPARISON: 07/27/2021 TECHNIQUE: Axial noncontrast images from the skull base to the thoracic inlet with coronal reformations. This CT examination was performed using the following dose reduction techniques: Automated exposure control, adjustment of mA and/or kv according to the patient's size, and use of iterative reconstruction technique. FINDINGS: Evaluation is significantly limited due to motion artifact. Atrophy with periventricular leukomalacia and microvascular ischemic changes are appreciated. The ventricles and cisterns appear patent. There is no evidence for acute intracranial hemorrhage, mass/mass effect, pathology or infarction. No extra-axial fluid collection. Calvarium is intact. Paranasal sinuses and mastoid air cells are clear. IMPRESSION: Limited examination. Atrophy and microvascular ischemic changes. No obvious acute intracranial hemorrhage, or mass/mass effect. <Electronically signed by Alex Lugo > 08/01/21 0939
[2021-08-01] MEDS ORDERED: LORazepam 2 MG/ML VIAL IV STA (16:35)
[2021-08-01 16:36] LABS: BASO % 0.6 % (0.0-1.0); EOS # 0.2 10^3/uL (0.0-0.5); EOS % 3.8 % (0.0-3.0); HEMATOCRIT 35.8 % (36.0-47.0); HEMOGLOBIN 12.4 g/dl (12.0-15.5); LYMPH # 1.3 10^3/uL (1.5-5.0); LYMPH % 25.2 % (24.0-44.0); MEAN CORPUSCULAR HGB CONC 34.6 g/dl (32.0-36.5); MEAN CORPUSCULAR VOLUME 92.5 fl (80.0-96.0); MONO # 0.6 10^3/uL (0.0-0.8); MONO % 11.3 % (2.0-8.0); NEUTROPHILS # 3.1 10^3/uL (1.5-8.5); NEUTROPHILS % 58.7 % (36.0-66.0); PLATELET COUNT, AUTOMATED 276 10^3/uL (150-450); RED BLOOD COUNT 3.87 10^6/uL (4.00-5.40); WHITE BLOOD COUNT 5.3 10^3/uL (4.0-10.0)
[2021-08-01 17:30] LABS: ALBUMIN 3.1 GM/DL (3.2-5.2); ALT/SGPT 10 U/L (12-78); BILIRUBIN,DIRECT 0.1 MG/DL (0.0-0.2); BILIRUBIN,TOTAL 0.6 MG/DL (0.2-1.0); BLOOD UREA NITROGEN 16 MG/DL (7-18); CALCIUM LEVEL 9.2 MG/DL (8.8-10.2); CARBON DIOXIDE LEVEL 27 MEQ/L (21-32); CHLORIDE LEVEL 110 MEQ/L (98-107); CK-MB VALUE MASS 1.7 NG/ML (<3.6); CPK CREATINE PHOSPHOKINASE 130 U/L (26-192); CREATININE FOR GFR 0.83 MG/DL (0.55-1.30); GLOMERULAR FILTRATION RATE > 60.0 (>39); GLUCOSE, FASTING 100 MG/DL (70-100); MB/CK RELATIVE INDEX 1.31 (< OR =4); POTASSIUM SERUM 4.6 MEQ/L (3.5-5.1); SODIUM LEVEL 142 MEQ/L (136-145); TROPONIN I < 0.02 NG/ML (< 0.10)
[2021-08-01] MEDS ORDERED: LORazepam 1 MG TAB PO STA (19:22)
[2021-08-01 19:36] LABS: RSV AMPLIFICATION NEGATIVE (NEGATIVE)
[2021-08-01] MEDS ORDERED: MAALOX 30 ML SUSP *UDC PO PRN (20:35)
--- NOTE | 2021-08-01 21:12 | HPEPDOC ---
[facility] Medical History & Physical Date of Admission Aug 01, 2021 Date of Service: Aug 01, 2021 History and Physical CHIEF COMPLAINT: frequent falls HISTORY OF PRESENT ILLNESS: 76 yo F with a PMHx of breast Ca, Parkinson's dis ease with dyskinesia, CKD, HTN, frequent falls, sent to ER from [facility] for unsteady gait and frequent falls. She follows with Dr. Aranda of [facility]. She has been taking carbidopa/levidopa since her diagnosis, and has been started on aracept, which was discontinued in the past week as it was thought to cause short term memory loss and atypical behaviours, such as undressing and worsening confusion. A urine culture was obtained at [facility] which was negative for infection on 07/29/21. Her UA today shows mild LE+ and WBC of 16. She is afebrile without leukocytosis. LA 1.3. Trop < 0.02. CT head wo contrast negative in ER. Patient will be admitted to hospitalist service. Neurology consult was placed with Dr. Bustillos. 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 Park SOCIAL HISTORY: [facility] resident Denies hx of smoking, etoh use FAMILY HISTORY: unable to obtain from patient ALLERGIES: Please see below. REVIEW OF SYSTEMS: 10 point ROS conducted, relevant findings are noted in HPI. HOME MEDICATIONS: Please see below. PHYSICAL EXAMINATION: VITAL SIGNS: please see below General: NAD, comfortable HEENT: PERRLA, EOMI, sclerae clear Neck: supple, normal ROM, no JVD Respiratory: lungs CTAB, no wheeze, no rales, no crackles CVS: RRR, normal S1, S2, no murmurs Abdo: soft, no masses, no hepatosplenomegaly, BS+, no rebound tenderness Extremities: no edema, pulses 2+ MSK: no joint deformities, normal ROM Neuro: no focal neuro deficits, moving all 4 extremities, CN2-12 intact. Strength 5/5 in all 4 extremities. No nystagmus. Rigidity noted in upper extre mities. Dyskinesia noted in upper extremities. Psych: calm, cooperative, AAO x 1-2 LABORATORY DATA: See below. IMAGING: CT head wo contrast (10/4/21): IMPRESSION: Limited examination. Atrophy and microvascular ischemic changes. No obvious acute intracranial hemorrhage, or mass/mass effect. MICROBIOLOGY: Please see below. ASSESSMENT: HISTORY OF PRESENT ILLNESS: 76 yo F with a PMHx of breast Ca, Parkinson's disease with dyskinesia, CKD, HTN, frequent falls, sent to ER from [facility] for unsteady gait and frequent falls. . PLAN: Frequent falls/Parkinsonism with dyskinesia: increasing frequency of fall, no report of head injury this episode. Takes carbidopa/levodopa.Aracept stopped 1 week ago as thought to cause short term memory issues and behaviours. Neurology service Dr. Bustillos has been consulted. CKD: Cr 0.83. Monitor. Breast Ca/DCIS: ER/NH+ Grade 3, s/p lumpectomy by Dr. Park on 01/11/21. Follows with Dr. Archuleta and Dr. Martin. Has not been seen since 12/2020. States she is in remission? Needs to be confirmed with rad onc. HTN: c/w propranolol. Depression: c/w sertraline. Vital Signs Vital Signs Date Time Temp Pulse Resp B/P (MAP) Pulse Ox O2 Delivery O2 Flow Rate FiO2 08/01/21 19:05 97.6 94 20 115/79 (91) 94 Room Air Laboratory Data Labs 24H Laboratory Tests 2 08/01/21 15:05: Immature Granulocyte % (Auto) 0.4, Neutrophils (%) (Auto) 58.7, Lymphocytes (%) (Auto) 25.2, Monocytes (%) (Auto) 11.3H, Eosinophils (%) (Auto) 3.8H, Basophils (%) (Auto) 0.6, Neutrophils # (Auto) 3.1, Lymphocytes # (Auto) 1.3L, Monocytes # (Auto) 0.6, Eosinophils # (Auto) 0.2, Basophils # (Auto) 0.0, Nucleated Red Blood Cells % (auto) 0.0, Anion Gap 5L, Glomerular Filtration Rate > 60.0, Lactic Acid Level 1.3, Calcium Level 9.2, Total Bilirubin 0.6, Direct Bilirubin 0.1, Aspartate Amino Transf (AST/SGOT) 20, Alanine Aminotransferase (ALT/SGPT) 10L, Alkaline Phosphatase 59, Ammonia 12, Total Creatine Kinase 130, Creatine Kinase MB 1.7, Creatine Kinase MB Relative Index 1.31, Troponin I < 0.02, Total Protein 6.0L, Albumin 3.1L, Albumin/Globulin Ratio 1.1L, Thyroid Stimulating Hormone (TSH) 1.210 08/01/21 16:20: Urine Color TUCKER, Urine Appearance CLEAR, Urine pH 5.0, Urine Specific [place] 1.025, Urine Protein NEGATIVE, Urine Glucose (UA) NEGATIVE, Urine Ketones TRACEH, Urine Blood NEGATIVE, Urine Nitrite NEGATIVE, Urine Bilirubin 1+H, Urine Urobilinogen 0.2, Urine Leukocyte Esterase 1+H, Urine WBC (Auto) 16H, Urine RBC (Auto) 3, Urine Hyaline Casts (Auto) 0, Urine Bacteria (Auto) NEGATIVE, Urine Squamous Epithelial Cells 1, Urine Transitional Epithelial Cells 2, Urine Calcium Oxalate Cryst (Auto) MODERATE, Urine Mucus (Auto) SMALL, Urine Sperm (Auto) 08/01/21 18:37: Coronavirus (COVID-19)(PCR) NEGATIVE, Influenza Type A (RT-PCR) NEGATIVE, Influenza Type B (RT-PCR) NEGATIVE, Respiratory Syncytial Virus (PCR) NEGATIVE CBC/BMP Laboratory Tests 08/01/21 15:05 Microbiology Microbiology 08/01/21 Urine Culture, Received Pending Home Medications Scheduled Acetaminophen (Acetaminophen 8 Hour) 650 Mg Tablet.er, 650 MG PO TID Aspirin (Aspirin) 81 Mg Tab.chew, 81 MG PO DAILY Azelastine HCl (Azelastine HCl) 0.1% [place].pump, 2 SPRAY NARES BID 0800, 1600 Carbidopa/Levodopa (Carbidopa-Levodopa 25-100 Tab) 1 Each Tablet, 25-100 TAB PO QID Diclofenac Sodium (Diclofenac Sodium) 1% 100GM Gel..gram., 4 GM TOP TID APPLY TO NECK Entacapone (Entacapone) 200 Mg Tablet, 200 MG PO QID Glycerin/Propylene Glycol (Artificial Tears Drops) 15 Ml Drops, 1 DROP OU QHS Losartan Potassium (Losartan Potassium) 50 Mg Tablet, 50 MG PO DAILY Pravastatin Sodium (Pravastatin Sodium) 40 Mg Tablet, 40 MG PO DAILY Propranolol HCl (Propranolol HCl) 60 Mg Tablet, 60 MG PO DAILY Sertraline Hcl (Zoloft) 100 Mg Tablet, 100 MG PO DAILY Trazodone HCl (Trazodone HCl) 50 Mg Tablet, 50 MG PO QHS Scheduled PRN Bisacodyl (Bisacodyl) 10 Mg Supp.rect, 10 MG NH DAILY PRN for CONSTIPATION Lorazepam (Lorazepam) 1 Mg Tablet, 1 MG PO TID PRN for ANXIETY/AGITATION Polyethylene Glycol 3350 (Miralax) 119 Gm Powder, 17 GM PO DAILY PRN for CONSTIPATION dilute in 8 ounces of water or juice Sodium Phosphate,Bennett-Dibasic (Enema) 133 Ml Enema, 1 JP NH DAILY PRN for CONSTIPATION Allergies Coded Allergies: enalaprilat (Verified Allergy, Unknown, anaphalaxis, 05/02/21) A-FIB/CHADSVASC A-FIB History Current/History of A-Fib/PAF?: No KALEY LING MD Aug 01, 2021 21:12
[2021-08-01] MEDS: HEPARIN SOD (PORCINE) 5000UNITS/ML 1ML VIAL/SYRINGE SC SCH (22:03)
[2021-08-01] MEDS: PRAVASTATIN 20 MG TAB PO SCH (22:04)
[2021-08-01] MEDS: traZODone 50 MG TAB PO SCH (22:04)
[2021-08-01 22:50] VITALS: BP 173/98
[2021-08-02] MEDS: ENTACAPONE 200MG TABLET (COMTAN) PO SCH ×5 (00:54→21:15)
[2021-08-02] MEDS: SINEMET 25-100 MG TAB PO SCH ×5 (00:54→21:16)
[2021-08-02] MEDS: PROPRANOLOL 20 MG TAB PO SCH ×3 (00:54→21:16)
[2021-08-02] MEDS: HEPARIN SOD (PORCINE) 5000UNITS/ML 1ML VIAL/SYRINGE SC SCH ×3 (05:23→21:17)
[2021-08-02 05:47] LABS: BASO % 0.6 % (0.0-1.0); EOS # 0.2 10^3/uL (0.0-0.5); EOS % 5.1 % (0.0-3.0); HEMATOCRIT 34.2 % (36.0-47.0); HEMOGLOBIN 11.7 g/dl (12.0-15.5); LYMPH # 0.8 10^3/uL (1.5-5.0); LYMPH % 23.3 % (24.0-44.0); MEAN CORPUSCULAR HEMOGLOBIN 31.6 pg (27.0-33.0); MEAN CORPUSCULAR HGB CONC 34.2 g/dl (32.0-36.5); MEAN CORPUSCULAR VOLUME 92.4 fl (80.0-96.0); MONO # 0.5 10^3/uL (0.0-0.8); NEUTROPHILS % 56.7 % (36.0-66.0); PLATELET COUNT, AUTOMATED 259 10^3/uL (150-450); WHITE BLOOD COUNT 3.6 10^3/uL (4.0-10.0)
[2021-08-02 06:24] LABS: ALBUMIN 2.8 GM/DL (3.2-5.2); ALT/SGPT 12 U/L (12-78); BILIRUBIN,TOTAL 0.5 MG/DL (0.2-1.0); BLOOD UREA NITROGEN 14 MG/DL (7-18); CALCIUM LEVEL 8.7 MG/DL (8.8-10.2); CARBON DIOXIDE LEVEL 27 MEQ/L (21-32); CHLORIDE LEVEL 111 MEQ/L (98-107); CREATININE FOR GFR 0.77 MG/DL (0.55-1.30); GLOMERULAR FILTRATION RATE > 60.0 (>39); GLUCOSE, FASTING 89 MG/DL (70-100); MAGNESIUM LEVEL 1.8 MG/DL (1.8-2.4); POTASSIUM SERUM 3.6 MEQ/L (3.5-5.1); SODIUM LEVEL 143 MEQ/L (136-145); TOTAL PROTEIN 5.5 GM/DL (6.4-8.2)
[2021-08-02 07:00] VITALS: BP_SYST 137; BP_SYST 164; BP_DIAS 72; BP_DIAS 85
[2021-08-02 07:05] VITALS: BP_SYST 137; BP_SYST 164; BP_SYST 94; BP_DIAS 57; BP_DIAS 72; BP_DIAS 85
[2021-08-02] MEDS: AZELASTINE 137MCG NASAL SPY 30 ML (ASTELIN) SCH ×2 (09:29→16:20)
[2021-08-02] MEDS: ASPIRIN 81 MG CHEW TABLET PO SCH (09:31)
[2021-08-02] MEDS: SERTRALINE 100 MG TAB PO SCH (09:32)
[2021-08-02] MEDS: LOSARTAN 50MG TABLET PO SCH (09:32)
--- NOTE | 2021-08-02 11:55 | IPNPDOC ---
Subjective Date Seen The patient was seen on 08/02/21. Subjective Chief Complaint/HPI Patient did not offer any complaints this morning. As per staff patient needed to be fed this morning. She just answered yes or no to questions. She wanted to sleep. denied any abdominal pain. Denied any dizziness or lightheadedness. Objective Physical Examination General Exam: Positive: Alert, Cooperative, No Acute Distress Eye Exam: Positive: PERRLA, Conjunctiva & lids normal, EOMI; Negative: Sclera icteric Neck Exam: Positive: Supple; Negative: JVD, thyromegaly Chest Exam: Positive: Clear to auscultation, Normal air movement Heart Exam: Positive: Rate Normal, Regular Rhythm, Normal S1, Normal S2; Negative: Murmurs, Rubs Abdomen Exam: Positive: Normal bowel sounds, Soft; Negative: Tenderness Extremity Exam: Negative: Clubbing, Cyanosis, Edema Assessment /Plan Assessment 76 yo F with a PMHx of breast Ca (left atypical ductal hyperplasia and atypical intraductal papilloma) status for left excisional biopsy with intraop wire placement on 01/11/21, Parkinson's disease with dyskinesia, CKD, HTN, frequent fa lls, LBBB sent to ER from [facility] for unsteady gait and frequent falls. She follows with Dr. Aranda of [facility]. She has been taking carbidopa/levidopa since her diagnosis, and has been started on aracept, which was discontinued in the past week as it was thought to cause short term memory loss and atypical behaviours, such as undressing and worsening confusion. A urine culture was obtained at [facility] which was negative for infection on 07/29/21. Her UA on admission showed mild LE+ and WBC of 16. She is afebrile without leukocytosis. LA 1.3. Trop < 0.02. CT head wo contrast negative in ER. She was admitted for evaluation of increased confusion and frequent falls. Neurology consult was placed with Dr. Bustillos. Frequent falls No injury Patient's vital signs are positive for orthostatic changes. Falls are likely due to gait instability from progressive Parkinson's disease and orthostatic hypotension Patient did get an IV fluid. Parkinsonism with dyskinesia/dementia Takes carbidopa/levodopa and entacapone Also on lorazepam and trazodone Aricept stopped 1 week ago as thought to cause short term memory issues and behaviours. Neurology service Dr. Bustillos has been consulted. Dementia Worsening memory issues for the past 3 months On lorazepam, trazodone and sertraline Breast Ca/DCIS: ER/TN+ Grade 3, s/p lumpectomy by Dr. Park on 01/11/21. Follows with Dr. Archuleta and Dr. Martin. Has not been seen since 12/2020. States she is in remission. HTN Has supine hypertension with orthostatic hypotension On propranolol, losartan Depression/insomnia sertraline, trazodone Plan/VTE VTE Prophylaxis Ordered?: Yes VS, I&O, 24H, Fishbone Vital Signs/I&O Vital Signs Date Time Temp Pulse Resp B/P (MAP) Pulse Ox O2 Delivery O2 Flow Rate FiO2 08/02/21 09:31 78 162/78 08/01/21 22:50 98.7 16 94 Room Air I&O- Last 24 Hours up to 6 AM 08/02/21 06:00 Intake Total 120 ml Output Total 275 ml Balance -155 ml Laboratory Data 24H LABS Laboratory Tests 2 08/01/21 15:05: Immature Granulocyte % (Auto) 0.4, Neutrophils (%) (Auto) 58.7, Lymphocytes (%) (Auto) 25.2, Monocytes (%) (Auto) 11.3H, Eosinophils (%) (Auto) 3.8H, Basophils (%) (Auto) 0.6, Neutrophils # (Auto) 3.1, Lymphocytes # (Auto) 1.3L, Monocytes # (Auto) 0.6, Eosinophils # (Auto) 0.2, Basophils # (Auto) 0.0, Nucleated Red Blood Cells % (auto) 0.0, Anion Gap 5L, Glomerular Filtration Rate > 60.0, Lactic Acid Level 1.3, Calcium Level 9.2, Total Bilirubin 0.6, Direct Bilirubin 0.1, Aspartate Amino Transf (AST/SGOT) 20, Alanine Aminotransferase (ALT/SGPT) 10L, Alkaline Phosphatase 59, Ammonia 12, Total Creatine Kinase 130, Creatine Kinase MB 1.7, Creatine Kinase MB Relative Index 1.31, Troponin I < 0.02, Total Protein 6.0L, Albumin 3.1L, Albumin/Globulin Ratio 1.1L, Thyroid Stimulating Hormone (TSH) 1.210 08/01/21 16:20: Urine Color TUCKER, Urine Appearance CLEAR, Urine pH 5.0, Urine Specific [place] 1.025, Urine Protein NEGATIVE, Urine Glucose (UA) NEGATIVE, Urine Ketones TRACEH, Urine Blood NEGATIVE, Urine Nitrite NEGATIVE, Urine Bilirubin 1+H, Urine Urobilinogen 0.2, Urine Leukocyte Esterase 1+H, Urine WBC (Auto) 16H, Urine RBC (Auto) 3, Urine Hyaline Casts (Auto) 0, Urine Bacteria (Auto) NEGATIVE, Urine Squamous Epithelial Cells 1, Urine Transitional Epithelial Cells 2, Urine Calcium Oxalate Cryst (Auto) MODERATE, Urine Mucus (Auto) SMALL, Urine Sperm (Auto) 08/01/21 18:37: Coronavirus (COVID-19)(PCR) NEGATIVE, Influenza Type A (RT-PCR) NEGATIVE, Influenza Type B (RT-PCR) NEGATIVE, Respiratory Syncytial Virus (PCR) NEGATIVE 08/02/21 05:13: Immature Granulocyte % (Auto) 0.3, Neutrophils (%) (Auto) 56.7, Lymphocytes (%) (Auto) 23.3L, Monocytes (%) (Auto) 14.0H, Eosinophils (%) (Auto) 5.1H, Basophils (%) (Auto) 0.6, Neutrophils # (Auto) 2.0, Lymphocytes # (Auto) 0.8L, Monocytes # (Auto) 0.5, Eosinophils # (Auto) 0.2, Basophils # (Auto) 0.0, Nucleated Red Blood Cells % (auto) 0.0, Anion Gap 5L, Glomerular Filtration Rate > 60.0, Calcium Level 8.7L, Total Bilirubin 0.5, Aspartate Amino Transf (AST/SGOT) 13, Alanine Aminotransferase (ALT/SGPT) 12, Alkaline Phosphatase 57, Total Protein 5.5L, Albumin 2.8L, Albumin/Globulin Ratio 1.0L, Magnesium Level 1.8 CBC/BMP Laboratory Tests 08/01/21 15:05 08/02/21 05:13 Microbiology Microbiology 08/01/21 Urine Culture, Received Pending Sultana Goodman MD Aug 02, 2021 11:55
[2021-08-02 14:00] VITALS: BP 198/86
[2021-08-02 14:05] VITALS: BP_SYST 142; BP_SYST 184; BP_SYST 98; BP_DIAS 60; BP_DIAS 76; BP_DIAS 80
[2021-08-02] MEDS: traZODone 50 MG TAB PO SCH (21:15)
[2021-08-02] MEDS: PRAVASTATIN 20 MG TAB PO SCH (21:16)
[2021-08-02 22:00] VITALS: BP 201/85
[2021-08-02 22:45] VITALS: BP_SYST 106; BP_SYST 162; BP_SYST 167; BP_DIAS 58; BP_DIAS 79
[2021-08-02] MEDS ORDERED: NS 1,000 ML IV SCH (23:15)
[2021-08-03] MEDS: HEPARIN SOD (PORCINE) 5000UNITS/ML 1ML VIAL/SYRINGE SC SCH ×3 (05:12→20:32)
[2021-08-03 05:39] LABS: BASO % 0.8 % (0.0-1.0); EOS # 0.2 10^3/uL (0.0-0.5); EOS % 3.8 % (0.0-3.0); HEMATOCRIT 34.7 % (36.0-47.0); LYMPH % 26.4 % (24.0-44.0); MEAN CORPUSCULAR HEMOGLOBIN 31.4 pg (27.0-33.0); MEAN CORPUSCULAR HGB CONC 34.6 g/dl (32.0-36.5); MEAN CORPUSCULAR VOLUME 90.8 fl (80.0-96.0); MONO # 0.5 10^3/uL (0.0-0.8); MONO % 12.4 % (2.0-8.0); NEUTROPHILS # 2.2 10^3/uL (1.5-8.5); NEUTROPHILS % 56.1 % (36.0-66.0); PLATELET COUNT, AUTOMATED 249 10^3/uL (150-450); RED BLOOD COUNT 3.82 10^6/uL (4.00-5.40); WHITE BLOOD COUNT 3.9 10^3/uL (4.0-10.0)
[2021-08-03 06:00] VITALS: BP 208/88
[2021-08-03 06:04] LABS: BLOOD UREA NITROGEN 14 MG/DL (7-18); CALCIUM LEVEL 8.6 MG/DL (8.8-10.2); CARBON DIOXIDE LEVEL 27 MEQ/L (21-32); CHLORIDE LEVEL 113 MEQ/L (98-107); CREATININE FOR GFR 0.71 MG/DL (0.55-1.30); GLOMERULAR FILTRATION RATE > 60.0 (>39); GLUCOSE, FASTING 99 MG/DL (70-100); POTASSIUM SERUM 3.8 MEQ/L (3.5-5.1); SODIUM LEVEL 144 MEQ/L (136-145)
[2021-08-03 06:15] VITALS: BP_SYST 120; BP_SYST 205; BP_SYST 208; BP_DIAS 68; BP_DIAS 88; BP_DIAS 91
[2021-08-03] MEDS: ENTACAPONE 200MG TABLET (COMTAN) PO SCH ×4 (09:50→20:32)
[2021-08-03] MEDS: PROPRANOLOL 20 MG TAB PO SCH ×2 (09:52→19:26)
[2021-08-03] MEDS: SINEMET 25-100 MG TAB PO SCH ×4 (09:52→20:32)
[2021-08-03] MEDS: ASPIRIN 81 MG CHEW TABLET PO SCH (09:53)
[2021-08-03] MEDS: LOSARTAN 50MG TABLET PO SCH (09:53)
[2021-08-03] MEDS: SERTRALINE 100 MG TAB PO SCH (09:53)
[2021-08-03] MEDS: AZELASTINE 137MCG NASAL SPY 30 ML (ASTELIN) SCH ×2 (09:54→16:00)
--- NOTE | 2021-08-03 17:23 | ECGEPIP ---
[facility] - ED Test Date: 2021-08-01 Pat Name: CHRISTIAN CHAMPION Department: Room: - Gender: Female Location Director: alexandra : 1945 Requested By: YOAN PALOMINO Order Number: [id number] Reading MD: Noemi Babb Measurements Intervals [place] Rate: 64 P: 65 MT: 178 QRS: 72 QRSD: 124 T: -82 QT: 466 QTc: 480 Interpretive Statements Normal sinus rhythm Left ventricular hypertrophy with QRS widening and repolarization abnormality ( Kulwinder product ) ST elevation, consider acute infarct, clinical correlation baseline artifact may affect interpretation Electronically Signed on 08-03-2021 17:23:19 EDT by Noemi Babb
--- NOTE | 2021-08-03 19:01 | IPNPDOC ---
Subjective Date Seen The patient was seen on 08/03/21. Subjective Chief Complaint/HPI Patient more interactive today. Answers questions appropriately. Says that has been really bad for the past 2 to 3 months. During interviews continues ot have constant movement of legs and fidgety movement of the upper extremities. Says has not been able to eat much in last month. Spoke with Son Ernesto and updated him on the patient. Objective Physical Examination General Exam: Positive: Alert, Cooperative, No Acute Distress Eye Exam: Positive: PERRLA, Conjunctiva & lids normal, EOMI; Negative: Sclera icteric Neck Exam: Positive: Supple; Negative: JVD, thyromegaly Chest Exam: Positive: Clear to auscultation, Normal air movement Heart Exam: Positive: Rate Normal, Regular Rhythm, Normal S1, Normal S2; Negative: Murmurs, Rubs Abdomen Exam: Positive: Normal bowel sounds, Soft; Negative: Tenderness Extremity Exam: Negative: Clubbing, Cyanosis, Edema Assessment /Plan Assessment 76 yo F with a PMHx of breast Ca (left atypical ductal hyperplasia and atypical intraductal papilloma) status for left excisional biopsy with intraop wire placement on 01/11/21, Dementia, essential tremors, Parkinson's disease, dyskinesia, CKD, HTN, frequent falls, LBBB sent to ER from [facility] for unsteady gait and frequent falls. She follows with Dr. Aranda of [facility]. She has been taking carbidopa/levidopa since her diagnosis, and has been started on aricept, which was discontinued in the past week as it was thought to cause short term memory loss and atypical behaviours, such as undressing and worsening confusion. A urine culture was obtained at [facility] which was negative for infection on 07/29/21. Her UA on admission showed mild LE+ and WBC of 16. She is afebrile without leukocytosis. LA 1.3. Trop < 0.02. CT head wo contrast negative in ER. She was admitted for evaluation of increased confusion and frequent falls. Neurology consult was placed with Dr. Bustillos. Frequent falls No injury Patient's vital signs are positive for orthostatic changes. Falls are likely due to gait instability from dyskinesias, Parkinson's disease and orthostatic hypotension PT/OT Essential tremors/ Parkinson's dis + dyskinesias Spoke with neurology here they think it it most likely essential tremors as present from when patient was in her 30s. Though she was diagnosed as a combination of parkinsons and essential tremors by a neurologist in [place]. Now complicated by dyskinesias related to antiparkinsonian medications. Sinemet (25/100) dose has been reduced by 50 % from 2 tabs qid to 1 tab qid. Will also reduce entacapone by 50% as dyskinesia is persisting causing problem with ambulation. Entacapone for 200 mg qid to 100 mg qid . Discussed with Dr Bustillos Continue propranolol for essential tremors. Alzheimer Dementia with behaviors ( paranoia, aggression) worsening symptoms in the past 3 months Donepezil stopped 1 week ago as thought to cause short term memory issues and behaviours. On orazepam prn Also on trazodone and sertraline. Breast Ca/DCIS: ER/GA+ Grade 3, s/p lumpectomy by Dr. Park on 01/11/21. Follows with Dr. Archuleta and Dr. Martin. Has not been seen since 12/2020. States she is in remission. HTN Has supine hypertension with orthostatic hypotension On propranolol 60 mg bid, losartan 50 mg daily. Depression/insomnia sertraline, trazodone H/o Right orbital floor # in april 2021 after a fall was managed at [facility] will request records from there. Plan/VTE VTE Prophylaxis Ordered?: Yes VS, I&O, 24H, Fishbone Vital Signs/I&O Vital Signs Date Time Temp Pulse Resp B/P (MAP) Pulse Ox O2 Delivery O2 Flow Rate FiO2 08/03/21 09:53 120/68 08/03/21 09:52 67 08/03/21 06:00 98.9 18 96 Room Air I&O- Last 24 Hours up to 6 AM 08/03/21 07:00 Intake Total 1035 ml Output Total 375 ml Balance 660 ml Laboratory Data 24H LABS Laboratory Tests 2 08/03/21 05:14: Immature Granulocyte % (Auto) 0.5, Neutrophils (%) (Auto) 56.1, Lymphocytes (%) (Auto) 26.4, Monocytes (%) (Auto) 12.4H, Eosinophils (%) (Auto) 3.8H, Basophils (%) (Auto) 0.8, Neutrophils # (Auto) 2.2, Lymphocytes # (Auto) 1.0L, Monocytes # (Auto) 0.5, Eosinophils # (Auto) 0.2, Basophils # (Auto) 0.0, Nucleated Red Blood Cells % (auto) 0.0, Anion Gap 4L, Glomerular Filtration Rate > 60.0, Calcium Level 8.6L CBC/BMP Laboratory Tests 08/03/21 05:14 Microbiology Microbiology 08/01/21 Urine Culture - Final, Complete Sultana Goodman MD Aug 03, 2021 18:25
[2021-08-03 19:57] VITALS: BP 202/92
[2021-08-03 20:03] VITALS: BP 198/88
[2021-08-03] MEDS: PRAVASTATIN 20 MG TAB PO SCH (20:32)
[2021-08-03] MEDS: traZODone 50 MG TAB PO SCH (20:32)
[2021-08-03] MEDS ORDERED: **hydrALAZINE** 10 MG TAB PO ONE (21:05)
[2021-08-03 22:54] VITALS: BP 132/62
[2021-08-04] VITALS (9 sets, daily range): BP systolic 114–226; BP diastolic 63–110
[2021-08-04] MEDS ORDERED: **hydrALAZINE HCL** 25 MG TAB PO SCH (06:00)
[2021-08-04 06:01] LABS: BASO % 0.6 % (0.0-1.0); EOS # 0.1 10^3/uL (0.0-0.5); EOS % 2.4 % (0.0-3.0); HEMATOCRIT 35.6 % (36.0-47.0); HEMOGLOBIN 12.2 g/dl (12.0-15.5); LYMPH % 20.3 % (24.0-44.0); MEAN CORPUSCULAR HEMOGLOBIN 31.4 pg (27.0-33.0); MEAN CORPUSCULAR HGB CONC 34.3 g/dl (32.0-36.5); MEAN CORPUSCULAR VOLUME 91.8 fl (80.0-96.0); MONO # 0.4 10^3/uL (0.0-0.8); MONO % 8.8 % (2.0-8.0); NEUTROPHILS # 3.4 10^3/uL (1.5-8.5); NEUTROPHILS % 67.5 % (36.0-66.0); PLATELET COUNT, AUTOMATED 254 10^3/uL (150-450); RED BLOOD COUNT 3.88 10^6/uL (4.00-5.40)
[2021-08-04] MEDS: HEPARIN SOD (PORCINE) 5000UNITS/ML 1ML VIAL/SYRINGE SC SCH ×3 (06:02→21:27)
[2021-08-04 06:23] LABS: BLOOD UREA NITROGEN 11 MG/DL (7-18); CALCIUM LEVEL 8.9 MG/DL (8.8-10.2); CARBON DIOXIDE LEVEL 26 MEQ/L (21-32); CHLORIDE LEVEL 108 MEQ/L (98-107); CREATININE FOR GFR 0.68 MG/DL (0.55-1.30); GLOMERULAR FILTRATION RATE > 60.0 (>39); GLUCOSE, FASTING 100 MG/DL (70-100); POTASSIUM SERUM 3.4 MEQ/L (3.5-5.1); SODIUM LEVEL 140 MEQ/L (136-145)
[2021-08-04] MEDS: LOSARTAN 50MG TABLET PO SCH (06:29)
[2021-08-04] MEDS: PROPRANOLOL 20 MG TAB PO SCH ×2 (06:30→21:26)
[2021-08-04] MEDS ORDERED: POTASSIUM CHLORIDE 10MEQ SR TABLET PO ONE (06:40)
--- NOTE | 2021-08-04 08:57 | IPNPDOC ---
Subjective Date Seen The patient was seen on 08/04/21. Subjective Chief Complaint/HPI Doing much better today. Just has some tremors in her hands. I did not see any dyskinetic movements. She was able to get out of bed by herself and use the bed side commode. Needed some direction to pull her pants down. Her blood pressures have been a challenge. Will wide fluctuations and orthostatic hypotensive changes. This am SBP 210/110 added hydralazine and increased losartan. Objective Physical Examination General Exam: Positive: Alert, Cooperative, No Acute Distress Eye Exam: Positive: PERRLA, Conjunctiva & lids normal, EOMI; Negative: Sclera icteric Neck Exam: Positive: Supple; Negative: JVD, thyromegaly Chest Exam: Positive: Clear to auscultation, Normal air movement Heart Exam: Positive: Rate Normal, Regular Rhythm, Normal S1, Normal S2; Negative: Murmurs, Rubs Abdomen Exam: Positive: Normal bowel sounds, Soft; Negative: Tenderness Extremity Exam: Negative: Clubbing, Cyanosis, Edema Assessment /Plan Assessment 76 yo F with a PMHx of breast Ca (left atypical ductal hyperplasia and atypical intraductal papilloma) status for left excisional biopsy with intraop wire placement on 01/11/21, Dementia, essential tremors, Parkinson's disease, dyskinesia, CKD, HTN, frequent falls, LBBB sent to ER from [facility] for unsteady gait and frequent falls. She follows with Dr. Aranda of [facility]. She has been taking carbidopa/levidopa since her diagnosis, and has been started on aricept, which was discontinued in the past week as it was thought to cause short term memory loss and atypical behaviours, such as undressing and worsening confusion. A urine culture was obtained at [facility] which was negative for infection on 07/29/21. Her UA on admission showed mild LE+ and WBC of 16. She is afebrile without leukocytosis. LA 1.3. Trop < 0.02. CT head wo contrast negative in ER. She was admitted for evaluation of increased confusion and frequent falls. Neurology consult was placed with Dr. Bustillos. Frequent falls No injury Patient's vital signs are positive for orthostatic changes. Falls are likely due to gait instability from dyskinesias, Parkinson's disease and orthostatic hypotension PT/OT Essential tremors/ Parkinson's dis + dyskinesias Spoke with neurology here they think it it most likely essential tremors as present from when patient was in her 30s. Though she was diagnosed as a comb ination of parkinsons and essential tremors by a neurologist in [place]. Now complicated by dyskinesias related to antiparkinsonian medications. Sinemet (25/100) dose has been reduced by 50 % from 2 tabs qid to 1 tab qid. Will also reduce entacapone by 50% as dyskinesia is persisting causing problem with ambulation. Entacapone for 200 mg qid to 100 mg qid . Discussed with Dr Bustillos Continue propranolol for essential tremors. Alzheimer Dementia with behaviors ( paranoia, aggression) worsening symptoms in the past 3 months Donepezil stopped 1 week ago as thought to cause short term memory issues and behaviours. On orazepam prn Also on trazodone and sertraline. Breast Ca/DCIS: ER/AL+ Grade 3, s/p lumpectomy by Dr. Park on 01/11/21. Follows with Dr. Archuleta and Dr. Martin. Has not been seen since 12/2020. States she is in remission. HTN often uncontrolled with wide variations Has supine hypertension with orthostatic hypotension On propranolol 60 mg bid, losartan 50 mg daily. started on hydralazine and added losartan 25 at HS also. Depression/insomnia sertraline, trazodone H/o Right orbital floor # in april 2021 after a fall was managed at [facility] will request records from there. Plan/VTE VTE Prophylaxis Ordered?: Yes VS, I&O, 24H, Fishbone Vital Signs/I&O Vital Signs Date Time Temp Pulse Resp B/P (MAP) Pulse Ox O2 Delivery O2 Flow Rate FiO2 08/04/21 08:28 204/102 (136) 08/04/21 07:56 72 08/04/21 06:00 98.7 14 95 08/03/21 19:57 Room Air I&O- Last 24 Hours up to 6 AM 08/04/21 06:00 Intake Total 120 ml Output Total 1040 ml Balance -920 ml Laboratory Data 24H LABS Laboratory Tests 2 08/04/21 05:14: Immature Granulocyte % (Auto) 0.4, Neutrophils (%) (Auto) 67.5H, Lymphocytes (%) (Auto) 20.3L, Monocytes (%) (Auto) 8.8H, Eosinophils (%) (Auto) 2.4, Basophils (%) (Auto) 0.6, Neutrophils # (Auto) 3.4, Lymphocytes # (Auto) 1.0L, Monocytes # (Auto) 0.4, Eosinophils # (Auto) 0.1, Basophils # (Auto) 0.0, Nucleated Red Blood Cells % (auto) 0.0, Anion Gap 6L, Glomerular Filtration Rate > 60.0, Calcium Level 8.9 CBC/BMP Laboratory Tests 08/04/21 05:14 Microbiology Microbiology 08/01/21 Urine Culture - Final, Complete RaySultana MD Aug 04, 2021 08:57
[2021-08-04] MEDS: AZELASTINE 137MCG NASAL SPY 30 ML (ASTELIN) SCH ×2 (09:42→17:24)
[2021-08-04] MEDS: ASPIRIN 81 MG CHEW TABLET PO SCH (09:42)
[2021-08-04] MEDS: SINEMET 25-100 MG TAB PO SCH ×4 (09:42→21:25)
[2021-08-04] MEDS: SERTRALINE 100 MG TAB PO SCH (09:42)
[2021-08-04] MEDS: ENTACAPONE 200MG TABLET (COMTAN) PO SCH ×4 (09:43→21:26)
[2021-08-04] MEDS: **hydrALAZINE HCL** 25 MG TAB PO SCH ×2 (11:25→17:22)
[2021-08-04] MEDS ORDERED: LOSARTAN 25 MG TAB PO SCH (21:00)
[2021-08-04] MEDS: PRAVASTATIN 20 MG TAB PO SCH (21:25)
[2021-08-04] MEDS: traZODone 50 MG TAB PO SCH (21:26)
[2021-08-05] MEDS: **hydrALAZINE HCL** 25 MG TAB PO SCH ×4 (00:33→17:16)
[2021-08-05] MEDS: ACETAMINOPHEN TAB 650MG DOSE (2X325MG) PO PRN (01:20)
[2021-08-05] MEDS: LORazepam 1 MG TAB PO PRN ×2 (01:20→09:40)
[2021-08-05 05:49] LABS: BASO % 0.6 % (0.0-1.0); EOS # 0.1 10^3/uL (0.0-0.5); EOS % 2.1 % (0.0-3.0); HEMATOCRIT 34.4 % (36.0-47.0); HEMOGLOBIN 11.7 g/dl (12.0-15.5); LYMPH # 1.3 10^3/uL (1.5-5.0); LYMPH % 27.3 % (24.0-44.0); MEAN CORPUSCULAR HEMOGLOBIN 31.3 pg (27.0-33.0); MONO # 0.5 10^3/uL (0.0-0.8); MONO % 10.7 % (2.0-8.0); NEUTROPHILS # 2.8 10^3/uL (1.5-8.5); NEUTROPHILS % 58.7 % (36.0-66.0); PLATELET COUNT, AUTOMATED 241 10^3/uL (150-450); RED BLOOD COUNT 3.74 10^6/uL (4.00-5.40); WHITE BLOOD COUNT 4.8 10^3/uL (4.0-10.0)
[2021-08-05 06:00] VITALS: BP 130/57
[2021-08-05 06:17] LABS: CREATININE FOR GFR 0.98 MG/DL (0.55-1.30); GLOMERULAR FILTRATION RATE 58.4 (>39); POTASSIUM SERUM 3.9 MEQ/L (3.5-5.1)
[2021-08-05] MEDS: HEPARIN SOD (PORCINE) 5000UNITS/ML 1ML VIAL/SYRINGE SC SCH ×3 (06:17→21:45)
[2021-08-05] MEDS: SERTRALINE 100 MG TAB PO SCH (08:55)
[2021-08-05] MEDS: ENTACAPONE 200MG TABLET (COMTAN) PO SCH ×5 (08:55→19:58)
[2021-08-05] MEDS: ASPIRIN 81 MG CHEW TABLET PO SCH (08:55)
[2021-08-05] MEDS: SINEMET 25-100 MG TAB PO SCH ×4 (08:55→19:59)
[2021-08-05] MEDS: PROPRANOLOL 20 MG TAB PO SCH ×2 (08:55→19:58)
[2021-08-05] MEDS: LOSARTAN 50MG TABLET PO SCH (08:56)
[2021-08-05] MEDS: AZELASTINE 137MCG NASAL SPY 30 ML (ASTELIN) SCH ×2 (08:56→15:31)
[2021-08-05 11:33] VITALS: BP 108/70
--- NOTE | 2021-08-05 12:41 | CR ---
NEUROLOGY CONSULTATION DATE: 08/05/2021 REFERRING PROVIDER: Sultana Goodman M.D. REASON FOR CONSULTATION: Dyskinesias, unsteady gait, frequent falls. HISTORY OF PRESENT ILLNESS: The patient is a 76-year-old female with history of Parkinson's disease and essential tremor with significant dyskinesias and unsteady gait. The patient is currently at [facility]. She has been experiencing unsteady gait. She responded extremely well in the outpatient setting to propranolol for controlling her essential tremors. She has been asked numerous times by her neurologist to cut back on her carbidopa/levodopa; however, the patient herself will increase her dosage back up again, as she feels convinced that her tremors may improve with carbidopa/levodopa. The patient is taking 25/100 mg two tablets by mouth four times a day dosage at home with entacapone 200 mg four times a day as well. She was placed on Aricept but due to increased tremor, insomnia, mood and appetite changes, donepezil was discontinued. The patient was admitted to [facility] and placed on a 50% lower dosage of carbidopa/levodopa one tablet by mouth four times a day. She was noted to have less dyskinesias during her hospital stay so far. Patient continues to have short term memory loss and is suspected of having dementia. The patient denies any diplopia, dysarthria, dysphagia, vertigo or dizziness at the present time. She denies any headache, chest pain, shortness of breath or weakness. PAST MEDICAL HISTORY: 1. Breast cancer, left atypical ductal hyperplasia, atypical intraductal papilloma. 2. Chronic kidney disease. 3. Hypertension. 4. Parkinson's disorder. 5. Chronic low back pain. 6. Hypomagnesemia. 7. Essential tremor. PAST SURGICAL HISTORY: Excisional biopsy with intraoperative wire placement 01/11/[address] Santos. SOCIAL HISTORY: Patient denies use of alcohol, tobacco or illicit drugs. FAMILY HISTORY: Significant for multiple other family members with tremors. PHYSICAL EXAMINATION: VITAL SIGNS: Blood pressure 162/79, pulse rate 71, respiratory rate 20, temperature 98.6 degrees Fahrenheit, oxygenation 96% on room air. GENERAL: Patient is oriented to her name and location. She follows basic commands. HEENT: Pupils are 2.5 mm, reactive to light. Extraocular movements are intact. NEUROLOGICAL: There is no facial weakness. Tongue is midline. Hearing is equal to finger rub. There is no ataxia, dysmetria, or tremor. There is no pronator drift. There is no resting tremor. There is no increased tome. There is no cogwheel rigidity. Very minimal dyskinesia of the head is noted. There is no increased tone of the lower extremities. Patient has normal strength in bilateral deltoids, biceps, triceps, quadriceps, anterior tibialis. She has weakness in bilateral iliopsoas, grade 4/5. Sensory is intact to light touch in all four extremities. Cranial nerves II-XII are intact. IMAGING DATA: Patient had a head CT on 08/01/2021 revealing atrophy and microvascular disease. ASSESSMENT: A 76-year-old female with essential tremor and suspected Parkinsonism as diagnosed by Dr. Yaya Jones at [place], [place] many years ago, seen at [facility], diagnosed with Parkinsonism and essential tremor with ongoing increased dyskinesias, likely secondary to higher dosages of dopaminergic therapy. The patient has been proved in regards to dyskinesias in lower dosage of carbidopa/levodopa. PLAN: Plan for now to remain at 25/100 mg one tablet by mouth four times a day of carbidopa/levodopa. Continue entacapone 200 mg by mouth four times a day. Consider gradually lowering that dosage in the future. Continue propranolol 60 mg twice a day, which is quite helpful. Patient will follow up in the [facility] Neurology Office with Dr. Aranda, as scheduled, recently seen in the clinic on 07/26/2021. Patient was encouraged to use a rolling walker at all times to ambulate to prevent falls. Recommend physical therapy (PT) and occupational therapy (OT) evaluation and rehabilitation evaluation.
[2021-08-05 14:00] VITALS: BP 100/54
[2021-08-05 15:36] VITALS: BP 100/54
--- NOTE | 2021-08-05 17:10 | IPNPDOC ---
Text Note Date of Service The patient was seen on 08/05/21. NOTE COVID exposure quarantine till 08/15/21 VS,Kavitha, I+O VS, Kavitha, I+O Laboratory Tests 08/05/21 05:14 Vital Signs Date Time Temp Pulse Resp B/P (MAP) Pulse Ox O2 Delivery O2 Flow Rate FiO2 08/05/21 15:36 100/54 (69) 08/05/21 14:00 98.3 68 17 95 Room Air I&O- Last 24 Hours up to 6 AM 08/05/21 07:00 Intake Total 120 ml Output Total 550 ml Balance -430 ml Sultana Goodman MD Aug 05, 2021 17:10
[2021-08-05 17:13] VITALS: BP 114/68
[2021-08-05] MEDS: traZODone 50 MG TAB PO SCH (19:59)
[2021-08-05] MEDS: PRAVASTATIN 20 MG TAB PO SCH (19:59)
[2021-08-05] MEDS: LORazepam 0.5 MG TAB PO PRN (19:59)
[2021-08-05 22:00] VITALS: BP 109/70
[2021-08-06 06:00] VITALS: BP 141/64
[2021-08-06] MEDS: **hydrALAZINE HCL** 25 MG TAB PO SCH ×4 (06:00→17:19)
[2021-08-06] MEDS: HEPARIN SOD (PORCINE) 5000UNITS/ML 1ML VIAL/SYRINGE SC SCH ×3 (06:31→22:37)
[2021-08-06] MEDS: SINEMET 25-100 MG TAB PO SCH ×4 (08:03→22:37)
[2021-08-06] MEDS: SERTRALINE 100 MG TAB PO SCH (08:03)
[2021-08-06] MEDS: ENTACAPONE 200MG TABLET (COMTAN) PO SCH ×4 (08:03→22:37)
[2021-08-06] MEDS: ASPIRIN 81 MG CHEW TABLET PO SCH (08:03)
[2021-08-06] MEDS: LORazepam 0.5 MG TAB PO PRN ×3 (08:03→22:37)
[2021-08-06] MEDS: PROPRANOLOL 20 MG TAB PO SCH ×2 (08:04→22:41)
[2021-08-06] MEDS: AZELASTINE 137MCG NASAL SPY 30 ML (ASTELIN) SCH ×2 (08:04→16:00)
[2021-08-06] MEDS: LOSARTAN 50MG TABLET PO SCH (08:04)
[2021-08-06 08:11] LABS: BASO # 0.1 10^3/uL (0.0-0.2); BASO % 0.9 % (0.0-1.0); EOS # 0.2 10^3/uL (0.0-0.5); EOS % 3.1 % (0.0-3.0); HEMATOCRIT 36.5 % (36.0-47.0); HEMOGLOBIN 12.4 g/dl (12.0-15.5); LYMPH # 1.2 10^3/uL (1.5-5.0); LYMPH % 20.8 % (24.0-44.0); MEAN CORPUSCULAR HEMOGLOBIN 31.4 pg (27.0-33.0); MEAN CORPUSCULAR VOLUME 92.4 fl (80.0-96.0); MONO # 0.6 10^3/uL (0.0-0.8); MONO % 10.1 % (2.0-8.0); NEUTROPHILS # 3.7 10^3/uL (1.5-8.5); NEUTROPHILS % 64.6 % (36.0-66.0); PLATELET COUNT, AUTOMATED 252 10^3/uL (150-450); RED BLOOD COUNT 3.95 10^6/uL (4.00-5.40); WHITE BLOOD COUNT 5.7 10^3/uL (4.0-10.0)
[2021-08-06 08:34] LABS: BLOOD UREA NITROGEN 21 MG/DL (7-18); CALCIUM LEVEL 9.1 MG/DL (8.8-10.2); CARBON DIOXIDE LEVEL 26 MEQ/L (21-32); CHLORIDE LEVEL 111 MEQ/L (98-107); CREATININE FOR GFR 0.87 MG/DL (0.55-1.30); GLOMERULAR FILTRATION RATE > 60.0 (>39); GLUCOSE, FASTING 92 MG/DL (70-100); POTASSIUM SERUM 4.2 MEQ/L (3.5-5.1); SODIUM LEVEL 141 MEQ/L (136-145)
[2021-08-06] MEDS: MIRALAX *UNIT DOSE* 17GM PACKET PO PRN (13:08)
[2021-08-06] MEDS: MOM 30ML SUSPENSION UDC PO PRN (13:09)
[2021-08-06 14:00] VITALS: BP 145/67
[2021-08-06 22:00] VITALS: BP 159/89
[2021-08-06] MEDS: traZODone 50 MG TAB PO SCH (22:37)
[2021-08-06] MEDS: PRAVASTATIN 20 MG TAB PO SCH (22:37)
[2021-08-07 06:00] VITALS: BP 169/85
[2021-08-07] MEDS: HEPARIN SOD (PORCINE) 5000UNITS/ML 1ML VIAL/SYRINGE SC SCH ×3 (06:23→22:00)
[2021-08-07] MEDS: **hydrALAZINE HCL** 25 MG TAB PO SCH ×5 (06:23→23:50)
[2021-08-07 06:40] LABS: BASO % 0.4 % (0.0-1.0); EOS # 0.3 10^3/uL (0.0-0.5); EOS % 4.8 % (0.0-3.0); HEMOGLOBIN 11.8 g/dl (12.0-15.5); LYMPH # 1.1 10^3/uL (1.5-5.0); LYMPH % 22.1 % (24.0-44.0); MEAN CORPUSCULAR HEMOGLOBIN 31.5 pg (27.0-33.0); MEAN CORPUSCULAR HGB CONC 33.7 g/dl (32.0-36.5); MEAN CORPUSCULAR VOLUME 93.3 fl (80.0-96.0); MONO # 0.6 10^3/uL (0.0-0.8); MONO % 11.4 % (2.0-8.0); NEUTROPHILS # 3.1 10^3/uL (1.5-8.5); NEUTROPHILS % 60.7 % (36.0-66.0); PLATELET COUNT, AUTOMATED 235 10^3/uL (150-450); RED BLOOD COUNT 3.75 10^6/uL (4.00-5.40); WHITE BLOOD COUNT 5.2 10^3/uL (4.0-10.0)
[2021-08-07 06:54] LABS: BLOOD UREA NITROGEN 17 MG/DL (7-18); CALCIUM LEVEL 9.1 MG/DL (8.8-10.2); CARBON DIOXIDE LEVEL 27 MEQ/L (21-32); CHLORIDE LEVEL 110 MEQ/L (98-107); CREATININE FOR GFR 0.81 MG/DL (0.55-1.30); GLOMERULAR FILTRATION RATE > 60.0 (>39); GLUCOSE, FASTING 84 MG/DL (70-100); SODIUM LEVEL 141 MEQ/L (136-145)
[2021-08-07] MEDS: AZELASTINE 137MCG NASAL SPY 30 ML (ASTELIN) SCH ×2 (08:00→16:00)
[2021-08-07] MEDS: MIRALAX *UNIT DOSE* 17GM PACKET PO PRN (08:19)
[2021-08-07] MEDS: SERTRALINE 100 MG TAB PO SCH (08:20)
[2021-08-07] MEDS: SINEMET 25-100 MG TAB PO SCH ×4 (08:20→19:56)
[2021-08-07] MEDS: ACETAMINOPHEN TAB 650MG DOSE (2X325MG) PO PRN (08:20)
[2021-08-07] MEDS: ASPIRIN 81 MG CHEW TABLET PO SCH (08:20)
[2021-08-07] MEDS: ENTACAPONE 200MG TABLET (COMTAN) PO SCH ×4 (08:20→19:56)
[2021-08-07] MEDS: LOSARTAN 50MG TABLET PO SCH (08:23)
[2021-08-07] MEDS: PROPRANOLOL 20 MG TAB PO SCH ×2 (08:24→22:00)
[2021-08-07] MEDS: QUEtiapine FUMARATE 12.5 MG HALF-TAB PO SCH ×2 (11:29→19:56)
[2021-08-07] MEDS: PRAVASTATIN 20 MG TAB PO SCH (19:56)
[2021-08-07] MEDS: traZODone 50 MG TAB PO SCH (19:56)
[2021-08-08] MEDS ORDERED: hydrOXYzine 50 MG TAB PO ONE (01:05)
[2021-08-08] MEDS: **hydrALAZINE HCL** 25 MG TAB PO SCH ×4 (05:25→23:58)
[2021-08-08] MEDS: HEPARIN SOD (PORCINE) 5000UNITS/ML 1ML VIAL/SYRINGE SC SCH ×3 (05:26→22:01)
[2021-08-08 06:00] VITALS: BP 148/86
[2021-08-08 06:17] LABS: BASO % 0.6 % (0.0-1.0); EOS # 0.2 10^3/uL (0.0-0.5); HEMATOCRIT 34.8 % (36.0-47.0); HEMOGLOBIN 11.7 g/dl (12.0-15.5); LYMPH # 1.1 10^3/uL (1.5-5.0); LYMPH % 22.3 % (24.0-44.0); MEAN CORPUSCULAR HEMOGLOBIN 31.5 pg (27.0-33.0); MEAN CORPUSCULAR HGB CONC 33.6 g/dl (32.0-36.5); MEAN CORPUSCULAR VOLUME 93.8 fl (80.0-96.0); MONO # 0.5 10^3/uL (0.0-0.8); MONO % 11.3 % (2.0-8.0); NEUTROPHILS # 2.9 10^3/uL (1.5-8.5); PLATELET COUNT, AUTOMATED 231 10^3/uL (150-450); RED BLOOD COUNT 3.71 10^6/uL (4.00-5.40); WHITE BLOOD COUNT 4.7 10^3/uL (4.0-10.0)
[2021-08-08 06:46] LABS: BLOOD UREA NITROGEN 16 MG/DL (7-18); CALCIUM LEVEL 8.6 MG/DL (8.8-10.2); CARBON DIOXIDE LEVEL 29 MEQ/L (21-32); CHLORIDE LEVEL 106 MEQ/L (98-107); CREATININE FOR GFR 0.89 MG/DL (0.55-1.30); GLOMERULAR FILTRATION RATE > 60.0 (>39); GLUCOSE, FASTING 86 MG/DL (70-100); POTASSIUM SERUM 3.9 MEQ/L (3.5-5.1); SODIUM LEVEL 139 MEQ/L (136-145)
[2021-08-08] MEDS: ASPIRIN 81 MG CHEW TABLET PO SCH (08:19)
[2021-08-08] MEDS: AZELASTINE 137MCG NASAL SPY 30 ML (ASTELIN) SCH ×2 (08:19→16:05)
[2021-08-08] MEDS: PROPRANOLOL 20 MG TAB PO SCH ×2 (08:19→20:53)
[2021-08-08] MEDS: SINEMET 25-100 MG TAB PO SCH ×4 (08:20→20:48)
[2021-08-08] MEDS: QUEtiapine FUMARATE 12.5 MG HALF-TAB PO SCH ×3 (08:20→20:50)
[2021-08-08] MEDS: LOSARTAN 50MG TABLET PO SCH (08:20)
[2021-08-08] MEDS: ENTACAPONE 200MG TABLET (COMTAN) PO SCH ×4 (08:20→20:48)
[2021-08-08] MEDS: SERTRALINE 100 MG TAB PO SCH (08:20)
[2021-08-08] MEDS: PRAVASTATIN 20 MG TAB PO SCH (20:49)
[2021-08-08] MEDS: traZODone 50 MG TAB PO SCH (20:50)
[2021-08-08 22:00] VITALS: BP 165/88
[2021-08-09] MEDS: **hydrALAZINE HCL** 25 MG TAB PO SCH ×4 (05:51→23:43)
[2021-08-09 05:52] VITALS: BP 200/96
[2021-08-09] MEDS: HEPARIN SOD (PORCINE) 5000UNITS/ML 1ML VIAL/SYRINGE SC SCH ×3 (05:52→20:11)
[2021-08-09 06:30] LABS: BASO % 0.6 % (0.0-1.0); EOS # 0.2 10^3/uL (0.0-0.5); EOS % 4.8 % (0.0-3.0); HEMATOCRIT 35.2 % (36.0-47.0); HEMOGLOBIN 11.6 g/dl (12.0-15.5); LYMPH # 1.1 10^3/uL (1.5-5.0); LYMPH % 22.4 % (24.0-44.0); MEAN CORPUSCULAR HEMOGLOBIN 30.9 pg (27.0-33.0); MEAN CORPUSCULAR VOLUME 93.6 fl (80.0-96.0); MONO # 0.5 10^3/uL (0.0-0.8); MONO % 10.8 % (2.0-8.0); NEUTROPHILS % 60.6 % (36.0-66.0); PLATELET COUNT, AUTOMATED 235 10^3/uL (150-450); RED BLOOD COUNT 3.76 10^6/uL (4.00-5.40)
[2021-08-09 07:03] LABS: BLOOD UREA NITROGEN 14 MG/DL (7-18); CALCIUM LEVEL 9.4 MG/DL (8.8-10.2); CARBON DIOXIDE LEVEL 28 MEQ/L (21-32); CHLORIDE LEVEL 109 MEQ/L (98-107); CREATININE FOR GFR 0.86 MG/DL (0.55-1.30); GLOMERULAR FILTRATION RATE > 60.0 (>39); GLUCOSE, FASTING 89 MG/DL (70-100); POTASSIUM SERUM 4.3 MEQ/L (3.5-5.1); SODIUM LEVEL 141 MEQ/L (136-145)
[2021-08-09] MEDS: ENTACAPONE 200MG TABLET (COMTAN) PO SCH ×4 (08:03→20:11)
[2021-08-09] MEDS: SINEMET 25-100 MG TAB PO SCH ×4 (08:03→20:11)
[2021-08-09] MEDS: ASPIRIN 81 MG CHEW TABLET PO SCH (08:03)
[2021-08-09] MEDS: QUEtiapine FUMARATE 12.5 MG HALF-TAB PO SCH ×2 (08:03→20:11)
[2021-08-09] MEDS: AZELASTINE 137MCG NASAL SPY 30 ML (ASTELIN) SCH ×2 (08:03→16:16)
[2021-08-09] MEDS: SERTRALINE 100 MG TAB PO SCH (08:03)
[2021-08-09] MEDS: LOSARTAN 50MG TABLET PO SCH (08:05)
[2021-08-09] MEDS: PROPRANOLOL 20 MG TAB PO SCH ×2 (08:10→20:14)
[2021-08-09 09:29] VITALS: BP 138/70
[2021-08-09 11:46] VITALS: BP 142/75
[2021-08-09] MEDS: PRAVASTATIN 20 MG TAB PO SCH (20:11)
[2021-08-09] MEDS: traZODone 50 MG TAB PO SCH (20:12)
[2021-08-10] MEDS: **hydrALAZINE HCL** 25 MG TAB PO SCH ×4 (05:41→23:22)
[2021-08-10] MEDS: HEPARIN SOD (PORCINE) 5000UNITS/ML 1ML VIAL/SYRINGE SC SCH ×3 (05:41→20:18)
[2021-08-10 06:00] VITALS: BP 162/72
[2021-08-10] MEDS: AZELASTINE 137MCG NASAL SPY 30 ML (ASTELIN) SCH ×2 (08:29→16:16)
[2021-08-10] MEDS: QUEtiapine FUMARATE 12.5 MG HALF-TAB PO SCH ×2 (08:30→20:18)
[2021-08-10] MEDS: PROPRANOLOL 20 MG TAB PO SCH ×2 (08:30→20:24)
[2021-08-10] MEDS: ENTACAPONE 200MG TABLET (COMTAN) PO SCH ×4 (08:30→20:18)
[2021-08-10] MEDS: SERTRALINE 100 MG TAB PO SCH (08:30)
[2021-08-10] MEDS: LOSARTAN 50MG TABLET PO SCH (08:30)
[2021-08-10] MEDS: ASPIRIN 81 MG CHEW TABLET PO SCH (08:31)
[2021-08-10] MEDS: SINEMET 25-100 MG TAB PO SCH ×4 (08:31→20:18)
[2021-08-10] MEDS: PRAVASTATIN 20 MG TAB PO SCH (20:18)
[2021-08-10] MEDS: ACETAMINOPHEN TAB 650MG DOSE (2X325MG) PO PRN (20:18)
[2021-08-10] MEDS: RAMELTEON 8 MG TAB (ROZEREM) PO PRN (20:18)
[2021-08-10] MEDS: traZODone 50 MG TAB PO SCH (20:18)
[2021-08-11 06:00] VITALS: BP 131/74
[2021-08-11] MEDS: **hydrALAZINE HCL** 25 MG TAB PO SCH ×4 (06:00→23:46)
[2021-08-11] MEDS: HEPARIN SOD (PORCINE) 5000UNITS/ML 1ML VIAL/SYRINGE SC SCH ×3 (06:31→20:55)
[2021-08-11] MEDS: MIRALAX *UNIT DOSE* 17GM PACKET PO PRN (06:32)
[2021-08-11] MEDS: SINEMET 25-100 MG TAB PO SCH ×4 (08:23→20:43)
[2021-08-11] MEDS: QUEtiapine FUMARATE 12.5 MG HALF-TAB PO SCH ×3 (08:23→20:43)
[2021-08-11] MEDS: ACETAMINOPHEN TAB 650MG DOSE (2X325MG) PO PRN ×2 (08:23→20:44)
[2021-08-11] MEDS: ASPIRIN 81 MG CHEW TABLET PO SCH (08:25)
[2021-08-11] MEDS: ENTACAPONE 200MG TABLET (COMTAN) PO SCH ×4 (08:25→20:43)
[2021-08-11] MEDS: SERTRALINE 100 MG TAB PO SCH (08:25)
[2021-08-11] MEDS: PROPRANOLOL 20 MG TAB PO SCH ×2 (08:25→20:49)
[2021-08-11] MEDS: LOSARTAN 50MG TABLET PO SCH ×2 (08:25→09:00)
[2021-08-11] MEDS: AZELASTINE 137MCG NASAL SPY 30 ML (ASTELIN) SCH ×2 (08:34→16:00)
[2021-08-11] MEDS ORDERED: ONDANSETRON 4 MG TAB PO PRN (10:00)
[2021-08-11 12:30] VITALS: BP 172/70
[2021-08-11] MEDS: PRAVASTATIN 20 MG TAB PO SCH (20:43)
[2021-08-11] MEDS: traZODone 50 MG TAB PO SCH (20:43)
[2021-08-11] MEDS: RAMELTEON 8 MG TAB (ROZEREM) PO PRN (20:43)
[2021-08-12 05:50] VITALS: BP 152/74
[2021-08-12] MEDS: **hydrALAZINE HCL** 25 MG TAB PO SCH ×3 (06:00→17:13)
[2021-08-12] MEDS: HEPARIN SOD (PORCINE) 5000UNITS/ML 1ML VIAL/SYRINGE SC SCH ×3 (06:16→21:03)
[2021-08-12] MEDS: SINEMET 25-100 MG TAB PO SCH ×4 (09:07→20:14)
[2021-08-12] MEDS: SERTRALINE 100 MG TAB PO SCH (09:07)
[2021-08-12] MEDS: PROPRANOLOL 20 MG TAB PO SCH ×2 (09:08→20:15)
[2021-08-12] MEDS: QUEtiapine FUMARATE 12.5 MG HALF-TAB PO SCH ×2 (09:08→20:14)
[2021-08-12] MEDS: ENTACAPONE 200MG TABLET (COMTAN) PO SCH ×4 (09:08→20:13)
[2021-08-12] MEDS: LOSARTAN 50MG TABLET PO SCH (09:08)
[2021-08-12] MEDS: ASPIRIN 81 MG CHEW TABLET PO SCH (09:08)
[2021-08-12] MEDS: AZELASTINE 137MCG NASAL SPY 30 ML (ASTELIN) SCH ×3 (09:09→15:32)
[2021-08-12] MEDS: MOM 30ML SUSPENSION UDC PO PRN (15:03)
--- NOTE | 2021-08-12 16:25 | IPNPDOC ---
Text Note Date of Service The patient was seen on 08/12/21. NOTE Subjective: 76-year-old female presented to the hospital with frequent falls and increased confusion. Patient is doing much better. Patient does not have any complaints at this time. Patient was exposed to a COVID-19 positive staff member and is currently on quarantine. Review of systems: General: Patient denies fevers HEENT: Patient denies headaches Cardiovascular: Patient denies chest pain Respiratory: Patient denies shortness of breath, cough GI: Patient denies abdominal pain, nausea, vomiting, diarrhea : Patient denies increased frequency or pain with urination Extremities: Patient denies swelling or pain in extremities Neurological: Patient denies numbness or tingling in legs Physical exam: Vitals: See below General: Alert and oriented female patient who was sleeping in bed when I walked in. Patient was easily awoken and did not appear to be in any acute distress. HEENT: Normocephalic, atraumatic, moist mucous membranes. Neck: No lymphadenopathy or thyromegaly Cardiac: Regular rate and rhythm, no murmurs, normal S1, normal S2 Pulm: Clear to auscultation bilaterally. No wheezes, rhonchi, rales Abd: Nondistended, nontender to palpation, normal bowel sounds Ext: No edema bilateral lower extremities Labs: See below Imaging: No new imaging is been performed Assessment/plan: 76-year-old female past medical history of breast cancer status post left excisional biopsy with Intra-Op wire placement, dementia, essential tremors, Parkinson's disease, dyskinesia, CKD, hypertension, frequent falls who was sent to the ER from [facility] for unsteady gait and frequent falls. She follows with Dr. Aranda of [facility] neurology. Patient has been taking carbidopa/levodopa since her diagnosis. 1. Frequent falls. No injury. We will continue to monitor. Patient will work with PT and OT until she is able to be discharged back to [facility] on Sunday. 2. Essential tremor/Parkinson's disease. Neurology most likely thinks there are essential tremors that have been present since the patient was in her 30s. Sinemet has been reduced by 50% and her entacapone was also decreased by 50%. Continue propanolol. 3. Alzheimer's dementia with behaviors (paranoia and aggression) worsening symptoms with past 3 months. Donepezil stopped 1 week ago as it was thought to be the cause. Olanzapine as needed. Trazodone and sertraline. 4. Breast cancer. Has not been seen since December and states she is in remission. 5. Hypertension. Wide variations in her blood pressure most likely due to Parkinson's disease. Continue to monitor. 6. Depression and insomnia. Sertraline and trazodone. DVT Prophylaxis: Heparin Disposition: Discharge to [facility] on Sunday after Covid quarantine VS,Kavitha, I+O VS, Kavitha, I+O Vital Signs Date Time Temp Pulse Resp B/P (MAP) Pulse Ox O2 Delivery O2 Flow Rate FiO2 08/12/21 12:00 116/74 08/12/21 09:08 66 08/12/21 05:50 98.1 16 97 Room Air I&O- Last 24 Hours up to 6 AM 08/12/21 06:00 Intake Total 340 ml Output Total 100 ml Balance 240 ml ALYSA ALCARAZ DO Aug 12, 2021 16:25
[2021-08-12] MEDS: traZODone 50 MG TAB PO SCH (20:13)
[2021-08-12] MEDS: PRAVASTATIN 20 MG TAB PO SCH (20:14)
[2021-08-12] MEDS: OLANZapine INTRAMUSCULAR 10MG VIAL IM PRN (23:02)
[2021-08-13 06:00] VITALS: BP 137/63
[2021-08-13] MEDS: HEPARIN SOD (PORCINE) 5000UNITS/ML 1ML VIAL/SYRINGE SC SCH ×3 (06:00→20:06)
[2021-08-13] MEDS: **hydrALAZINE HCL** 25 MG TAB PO SCH ×5 (06:00→23:58)
[2021-08-13] MEDS: ASPIRIN 81 MG CHEW TABLET PO SCH (11:08)
[2021-08-13] MEDS: SINEMET 25-100 MG TAB PO SCH ×4 (11:08→20:03)
[2021-08-13] MEDS: QUEtiapine FUMARATE 12.5 MG HALF-TAB PO SCH ×2 (11:08→20:03)
[2021-08-13] MEDS: AZELASTINE 137MCG NASAL SPY 30 ML (ASTELIN) SCH ×2 (11:08→16:00)
[2021-08-13] MEDS: LOSARTAN 50MG TABLET PO SCH (11:13)
[2021-08-13] MEDS: SERTRALINE 100 MG TAB PO SCH (11:13)
[2021-08-13] MEDS: ENTACAPONE 200MG TABLET (COMTAN) PO SCH ×4 (11:13→20:04)
[2021-08-13] MEDS: PROPRANOLOL 20 MG TAB PO SCH ×2 (11:17→20:05)
[2021-08-13] MEDS: PRAVASTATIN 20 MG TAB PO SCH (20:03)
[2021-08-13] MEDS: traZODone 50 MG TAB PO SCH (20:04)
[2021-08-14] MEDS: ACETAMINOPHEN TAB 650MG DOSE (2X325MG) PO PRN ×2 (03:51→09:40)
[2021-08-14] MEDS: **hydrALAZINE HCL** 25 MG TAB PO SCH ×3 (05:02→18:00)
[2021-08-14] MEDS: HEPARIN SOD (PORCINE) 5000UNITS/ML 1ML VIAL/SYRINGE SC SCH ×3 (05:03→21:43)
[2021-08-14 06:00] VITALS: BP 150/68
[2021-08-14] MEDS: AZELASTINE 137MCG NASAL SPY 30 ML (ASTELIN) SCH ×2 (08:00→16:00)
[2021-08-14] MEDS: ENTACAPONE 200MG TABLET (COMTAN) PO SCH ×4 (09:33→21:44)
[2021-08-14] MEDS: SINEMET 25-100 MG TAB PO SCH ×4 (09:33→21:44)
[2021-08-14] MEDS: ASPIRIN 81 MG CHEW TABLET PO SCH (09:33)
[2021-08-14] MEDS: PROPRANOLOL 20 MG TAB PO SCH ×2 (09:33→21:45)
[2021-08-14] MEDS: QUEtiapine FUMARATE 12.5 MG HALF-TAB PO SCH ×2 (09:33→21:44)
[2021-08-14] MEDS: SERTRALINE 100 MG TAB PO SCH (09:34)
[2021-08-14] MEDS: LOSARTAN 50MG TABLET PO SCH (09:34)
[2021-08-14] MEDS: OLANZapine INTRAMUSCULAR 10MG VIAL IM PRN (10:20)
[2021-08-14] MEDS: traZODone 50 MG TAB PO SCH (21:44)
[2021-08-14] MEDS: PRAVASTATIN 20 MG TAB PO SCH (21:45)
[2021-08-15 00:02] VITALS: BP 138/50
[2021-08-15] MEDS: **hydrALAZINE HCL** 25 MG TAB PO SCH ×4 (05:00→17:02)
[2021-08-15] MEDS: HEPARIN SOD (PORCINE) 5000UNITS/ML 1ML VIAL/SYRINGE SC SCH ×3 (05:00→21:20)
[2021-08-15 05:48] VITALS: BP 156/74
[2021-08-15] MEDS: OLANZapine INTRAMUSCULAR 10MG VIAL IM PRN (10:28)
[2021-08-15] MEDS: PROPRANOLOL 20 MG TAB PO SCH ×2 (10:29→21:23)
[2021-08-15] MEDS: LOSARTAN 50MG TABLET PO SCH (10:29)
[2021-08-15] MEDS: SERTRALINE 100 MG TAB PO SCH (10:29)
[2021-08-15] MEDS: SINEMET 25-100 MG TAB PO SCH ×4 (10:29→21:20)
[2021-08-15] MEDS: ENTACAPONE 200MG TABLET (COMTAN) PO SCH ×4 (10:29→21:20)
[2021-08-15] MEDS: QUEtiapine FUMARATE 12.5 MG HALF-TAB PO SCH ×2 (10:30→21:19)
[2021-08-15] MEDS: ASPIRIN 81 MG CHEW TABLET PO SCH (10:30)
[2021-08-15] MEDS: AZELASTINE 137MCG NASAL SPY 30 ML (ASTELIN) SCH ×2 (10:30→17:02)
--- NOTE | 2021-08-15 14:14 | DS.PDOC ---
Discharge Summary General Date of Admission Aug 01, 2021 at 20:31 Date of Discharge 08/19/2021 Primary Care Physician: FRANSISCO ALVAREZ DO Attending Physician: ALYSA SENIOR DO Specialist/Consultants Involve: HANNAH ESCOBAR MD Discharge Summary Addendum to Dr. Senior's Discharge summary by Dr. Oconnor on 08/19/2021 Patient's discharge was delayed due to concerns of agitation and dyskinesia. Patient's IM Zyprexa was discontinued, and patient was kept on Seroquel. Upon return to [facility], patient may not need Seroquel as she is in a more familiar environment. The sitter was discontinued and patient did well. In terms of dyskinesia, I reached out to neurology, Dr. Escobar. Neurology felt that patient had more essential tremor than parkinsonism. Recommended weaning off of the carbidopa/levodopa and entacapone. Carbidopa/levodopa was switched from QID to TID. Entacapone was decreased from 200mg QID to 100mg TID. Otherwise, on 08/18/2020, we had planned return to [facility], but patient developed an acute episode of dyskinesia and hypotension of 76/44. It was manually rechecked and confirmed. Patient denied any lightheadedness or dizziness, chest pain, shortness of breath. The dyskinesia rapidly resolved. She was able to get up and ambulate despite having this low blood pressure. Patient was given IV fluids and hydralazine was discontinued. Blood pressure rapidly improved. Also, we decreased her losartan from 50 mg at bedtime to 25 mg at bedtime. The following morning, she did well. Denied any chest pain or dyspnea. She was asking to return home blood pressure was controlled with SBP in the 140s to 150s. Heart rate was in the 60s. Patient was returned to [facility] today. Discharge Physical Exam GENERAL: Comfortable, in no apparent distress NECK: Supple CARDIOVASCULAR EXAMINATION: Regular rate and rhythm RESPIRATORY EXAMINATION: Lungs clear to auscultation bilaterally ABDOMINAL EXAMINATION: Soft, non-tender, normal bowel sounds EXTREMITIES: No pitting edema bilaterally SKIN: Warm and dry PSYCHIATRIC EXAMINATION: Normal mood and affect End of Dr. Oconnor's addendum PROCEDURES PERFORMED DURING STAY: None. ADMITTING DIAGNOSES: 1. Frequent falls. 2. Parkinsonism with dyskinesia 3. CKD 4. History of breast cancer 5. Hypertension 6. Depression DISCHARGE DIAGNOSES: 1. Frequent falls. 2. Parkinsonism with dyskinesia 3. CKD 4. History of breast cancer 5. Hypertension 6. Depression COMPLICATIONS/CHIEF COMPLAINT: Multiple Falls, Parkinsons Disease. HISTORY OF PRESENT ILLNESS: Patient is a 68-year-old female who presented to the emergency department from [facility] for unsteady gait and frequent falls. Patient follows with Dr. Aranda of [facility] neurology. Patient has been taking carbidopa/levodopa since her diagnosis and has been started on Aricept which was discontinued in the past week as is not the cause short-term memory loss and atypical behavior such as undressing worsening confusion. Urine culture was obtained at [facility] which was negative for infection on 07/29/2021. Urinalysis today shows mild leukocyte esterase and white blood cell count of 16. She is afebrile at leukocytosis. Lactic acid 1.3. Troponin negative. CT head without contrast negative in the emergency department. Patient was admitted to the hospital service. Neurology consult was placed. HOSPITAL COURSE: Patient worked with physical and Occupational Therapy throughout her time here. Neurology consultation was performed and was recommended to remain at 25/100 mg 1 tablet by mouth 4 times a day of carbidopa/levodopa. Continue entacapone 200 mg by mouth 4 times a day as well. The plan was to gradually lower the dose in the future. Continue propranolol 60 mg twice a day which is quite helpful. Patient can be seen in the clinic as scheduled for neurology. Patient was doing well physical therapy. Patient was going to be discharged back to [facility] however, patient was exposed to a staff member who was tested positive for COVID-19. Patient needed to remain in the hospital for the duration of her quarantine. Patient did well throughout the time that she was here and the patient was deemed ready for discharge back to [facility] after her quarantine ended on 08/16/2021. Patient will be going back in the morning on 08/16/2021. DISCHARGE MEDICATIONS: Please see below. ALLERGIES: Please see below. PHYSICAL EXAMINATION ON DISCHARGE: VITAL SIGNS: Please see below. General: Alert but not oriented female who was sitting up in bed when I walked in. Patient did not appear to be in any acute distress. HEENT: Normocephalic, atraumatic, moist mucous membranes. Neck: No lymphadenopathy or thyromegaly Cardiac: Regular rate and rhythm, no murmurs, normal S1, normal S2 Pulm: Clear to auscultation bilaterally. No wheezes, rhonchi, rales Abd: Nondistended, nontender to palpation, normal bowel sounds Ext: No edema bilateral lower extremities LABORATORY DATA: Please see below. IMAGING: CT of the head performed without contrast on 08/01/2021 was reported to show limited examination. Atrophy and microvascular ischemic change. No obvious acute intracranial hemorrhage or mass/mass-effect PROGNOSIS: Fair ACTIVITY: As tolerated. DIET: Regular DISCHARGE PLAN: Discharge to [facility] DISPOSITION: . DISCHARGE INSTRUCTIONS: 1. Follow-up with your provider [facility] ITEMS TO FOLLOWUP ON ON OUTPATIENT: 1. None. DISCHARGE CONDITION: Stable. TIME SPENT ON DISCHARGE: 35 minutes. Vital Signs/I&Os Vital Signs Date Time Temp Pulse Resp B/P (MAP) Pulse Ox O2 Delivery O2 Flow Rate FiO2 08/15/21 06:00 98.3 64 17 96 Room Air 08/15/21 05:48 156/74 (101) I&O- Last 24 Hours up to 6 AM 08/15/21 06:00 Intake Total 600 ml Output Total 0 ml Balance 600 ml Laboratory Data Labs 24H Laboratory Tests 2 08/15/21 12:46: Coronavirus (COVID-19)(PCR) NEGATIVE Discharge Medications Scheduled Acetaminophen (Acetaminophen 8 Hour) 650 Mg Tablet.er, 650 MG PO TID, (Reported) Aspirin (Aspirin) 81 Mg Tab.chew, 81 MG PO DAILY, (Reported) Azelastine HCl (Azelastine HCl) 0.1% [place].pump, 2 SPRAY NARES BID, (Reported) 0800, 1600 Carbidopa/Levodopa (Carbidopa-Levodopa 25-100 Tab) 1 Each Tablet, 25-100 TAB PO TID Diclofenac Sodium (Diclofenac Sodium) 1% 100GM Gel..gram., 4 GM TOP TID, (Reported) APPLY TO NECK Entacapone (Entacapone) 200 Mg Tablet, 100 MG PO TID Glycerin/Propylene Glycol (Artificial Tears Drops) 15 Ml Drops, 1 DROP OU QHS, (Reported) Losartan Potassium (Losartan Potassium) 25 Mg Tablet, 25 MG PO QHS Pravastatin Sodium (Pravastatin Sodium) 40 Mg Tablet, 40 MG PO DAILY, (Reported) Propranolol HCl (Propranolol HCl) 60 Mg Tablet, 60 MG PO DAILY, (Reported) Quetiapine Fumarate (Quetiapine Fumarate) 25 Mg Tablet, 12.5 MG PO BID Sertraline Hcl (Zoloft) 100 Mg Tablet, 100 MG PO DAILY, (Reported) Trazodone HCl (Trazodone HCl) 50 Mg Tablet, 50 MG PO QHS, (Reported) Scheduled PRN Bisacodyl (Bisacodyl) 10 Mg Supp.rect, 10 MG NH DAILY PRN for CONSTIPATION, (Reported) Lorazepam (Lorazepam) 1 Mg Tablet, 1 MG PO TID PRN for ANXIETY/AGITATION, (Reported) Polyethylene Glycol 3350 (Miralax) 119 Gm Powder, 17 GM PO DAILY PRN for CONSTIPATION, (Reported) dilute in 8 ounces of water or juice Sodium Phosphate,Bland-Dibasic (Enema) 133 Ml Enema, 1 JP NH DAILY PRN for CONSTIPATION, (Reported) Allergies Coded Allergies: enalaprilat (Verified Allergy, Unknown, anaphalaxis, 05/02/21) ALYSA SENIOR DO Aug 15, 2021 14:14 REMY OCONNOR DO Aug 19, 2021 21:31
[2021-08-15] MEDS: PRAVASTATIN 20 MG TAB PO SCH (21:20)
[2021-08-15] MEDS: traZODone 50 MG TAB PO SCH (21:20)
[2021-08-16] MEDS: **hydrALAZINE HCL** 25 MG TAB PO SCH ×4 (05:11→18:00)
[2021-08-16] MEDS: HEPARIN SOD (PORCINE) 5000UNITS/ML 1ML VIAL/SYRINGE SC SCH ×3 (05:13→21:18)
[2021-08-16 07:20] VITALS: BP 130/52
[2021-08-16] MEDS: AZELASTINE 137MCG NASAL SPY 30 ML (ASTELIN) SCH ×2 (08:00→16:13)
[2021-08-16] MEDS: ASPIRIN 81 MG CHEW TABLET PO SCH (10:15)
[2021-08-16] MEDS: SERTRALINE 100 MG TAB PO SCH (10:15)
[2021-08-16] MEDS: LOSARTAN 50MG TABLET PO SCH (10:15)
[2021-08-16] MEDS: ENTACAPONE 200MG TABLET (COMTAN) PO SCH ×4 (10:15→21:17)
[2021-08-16] MEDS: QUEtiapine FUMARATE 12.5 MG HALF-TAB PO SCH (10:15)
[2021-08-16] MEDS: SINEMET 25-100 MG TAB PO SCH ×4 (10:15→21:17)
[2021-08-16] MEDS: PROPRANOLOL 20 MG TAB PO SCH ×2 (10:15→21:22)
[2021-08-16] MEDS: MOM 30ML SUSPENSION UDC PO PRN (14:21)
--- NOTE | 2021-08-16 17:52 | IPNPDOC ---
Subjective Date Seen The patient was seen on 08/16/21. Subjective Chief Complaint/HPI Mrs. Becker is a 76-year-old female with Parkinson's disease who is here with frequent falls. Patient had completed her Covid quarantine and was supposed to go back to [facility] today. They delayed her discharge, because she was on PRN Zyprexa. When I saw patient this afternoon, she appeared calm. She was rocking back and forth in bed. Denied any chest pain or dyspnea. Objective Physical Examination General Exam: Positive: Alert, Cooperative, No Acute Distress Eye Exam: Negative: Sclera icteric Neck Exam: Positive: Supple Chest Exam: Positive: Clear to auscultation Heart Exam: Positive: Rate Normal, Regular Rhythm Abdomen Exam: Positive: Normal bowel sounds, Soft; Negative: Tenderness Extremity Exam: Negative: Edema Neuro Exam: Positive: Normal Speech Assessment /Plan Assessment Mrs. Becker is a 76-year-old female with Parkinson's disease who is here with frequent falls. While here, patient was seen by neurology. Recommend continuing carbidopa/levodopa and continuing entacapone. Patient was medically ready to return to [facility], but then she was exposed to Covid positive person. She was quarantined and completed quarantine on 08/16/2021. Patient was supposed to be discharged today, but delayed due to IM Zyprexa being on her med list. I have discontinued the IM Zyprexa. Plan/VTE VTE Prophylaxis Ordered?: Yes Plan 1. Frequent falls Most likely secondary to Parkinson's disease Neurology evaluated patient, recommended continue carbidopa levodopa and entacapone PT/OT following 2. Dementia Donepezil was discontinued as it was thought to be the cause Continue trazodone and Seroquel 3. Hypertension Continue losartan and propanolol 4. Hyperlipidemia Continue pravastatin 5. DVT prophylaxis Subcu heparin Disposition: PRN olanzapine discontinued so that patient may return to [facility] tomorrow. VS, I&O, 24H, Fishbone Vital Signs/I&O Vital Signs Date Time Temp Pulse Resp B/P (MAP) Pulse Ox O2 Delivery O2 Flow Rate FiO2 08/16/21 12:00 140/75 08/16/21 10:15 93 08/16/21 07:20 98.1 18 94 Room Air I&O- Last 24 Hours up to 6 AM 08/16/21 06:00 Intake Total 0 ml Balance 0 ml REMY WYMAN DO Aug 16, 2021 17:52
[2021-08-16] MEDS: PRAVASTATIN 20 MG TAB PO SCH (21:17)
[2021-08-16] MEDS: traZODone 50 MG TAB PO SCH (21:17)
[2021-08-16] MEDS: QUEtiapine FUMARATE 25 MG TAB PO SCH (21:18)
[2021-08-17] MEDS: **hydrALAZINE HCL** 25 MG TAB PO SCH ×4 (00:50→18:00)
[2021-08-17 06:00] VITALS: BP 147/62
[2021-08-17] MEDS: HEPARIN SOD (PORCINE) 5000UNITS/ML 1ML VIAL/SYRINGE SC SCH ×3 (06:00→21:26)
--- NOTE | 2021-08-17 07:23 | ECGEPIP ---
[facility] Test Date: 2021-08-16 Pat Name: CHRISTIAN CHAMPION Department: Room: [place] [address] Gender: Female Sink Maker: GUERDA : 1945 Requested By: REMY Dasilva Order Number: [id number] Reading MD: Lucas Gale Measurements Intervals [place] Rate: 58 P: 57 TN: 194 QRS: 7 QRSD: 130 T: 158 QT: 484 QTc: 475 Interpretive Statements Sinus bradycardia Left bundle branch block No significant change when compared to prior tracing of 08/01/2021 Electronically Signed on 08-17-2021 7:22:54 EDT by Lucsa Gale
[2021-08-17] MEDS: AZELASTINE 137MCG NASAL SPY 30 ML (ASTELIN) SCH ×2 (08:00→15:18)
[2021-08-17] MEDS: ASPIRIN 81 MG CHEW TABLET PO SCH (09:25)
[2021-08-17] MEDS: SERTRALINE 100 MG TAB PO SCH (09:26)
[2021-08-17] MEDS: QUEtiapine FUMARATE 25 MG TAB PO SCH (09:26)
[2021-08-17] MEDS: SINEMET 25-100 MG TAB PO SCH ×3 (09:26→20:34)
[2021-08-17] MEDS: ENTACAPONE 200MG TABLET (COMTAN) PO SCH ×3 (09:26→20:33)
[2021-08-17] MEDS: LOSARTAN 50MG TABLET PO SCH (09:26)
[2021-08-17] MEDS: PROPRANOLOL 20 MG TAB PO SCH ×2 (09:28→20:34)
[2021-08-17] MEDS ORDERED: QUET1TAB17 PO (09:39)
[2021-08-17] MEDS ORDERED: PILL CUTTER 1 EACH XX PRN (13:05)
--- NOTE | 2021-08-17 20:29 | IPNPDOC ---
Subjective Date Seen The patient was seen on 08/17/21. Subjective Chief Complaint/HPI Mrs. Becker is a 76-year-old female with Parkinson's disease who is here with frequent falls. Initially planned for discharge back to [facility], but there was concerns about patient's agitation and movement disorder. [facility] does not have a sitter available if needed. Will discontinue sitter and I have decreased patient's Seroquel from 25 mg twice a day to 12.5 mg twice a day. Otherwise, I reached out to neurology. They feel that patient's movement disorder is more essential tremors. Recommend weaning down on carbidopa levodopa and entacapone. I decreased both medications today. Objective Physical Examination General Exam: Positive: Alert, Cooperative Eye Exam: Negative: Sclera icteric Neck Exam: Positive: Supple Chest Exam: Positive: Clear to auscultation Heart Exam: Positive: Rate Normal, Regular Rhythm Abdomen Exam: Positive: Normal bowel sounds, Soft; Negative: Tenderness Extremity Exam: Negative: Edema Neuro Exam: Positive: Normal Speech Assessment /Plan Assessment Mrs. Becker is a 76-year-old female with Parkinson's disease who is here with frequent falls. While here, patient was seen by neurology. Recommend continuing carbidopa/levodopa and continuing entacapone. Patient was medically ready to return to [facility], but then she was exposed to Covid positive person. She was quarantined and completed quarantine on 08/16/2021. Plan/VTE VTE Prophylaxis Ordered?: Yes Plan 1. Frequent falls Most likely secondary to Parkinson's disease versus essential tremor Neurology evaluated patient, recommended decreasing carbidopa levodopa and entacapone PT/OT following 2. Dementia Donepezil was discontinued as it was thought to be the cause Continue trazodone and Seroquel 3. Hypertension Continue losartan and propanolol 4. Hyperlipidemia Continue pravastatin 5. DVT prophylaxis Subcu heparin VS, I&O, 24H, Fishbone Vital Signs/I&O Vital Signs Date Time Temp Pulse Resp B/P (MAP) Pulse Ox O2 Delivery O2 Flow Rate FiO2 08/17/21 06:00 97.8 60 18 147/62 (90) 97 Room Air I&O- Last 24 Hours up to 6 AM 08/17/21 06:00 Intake Total 600 ml Balance 600 ml REMY WYMAN DO Aug 17, 2021 20:29
[2021-08-17] MEDS: QUEtiapine FUMARATE 12.5 MG HALF-TAB PO SCH (20:33)
[2021-08-17] MEDS: RAMELTEON 8 MG TAB (ROZEREM) PO PRN (20:33)
[2021-08-17] MEDS: traZODone 50 MG TAB PO SCH (20:33)
[2021-08-17] MEDS: ACETAMINOPHEN TAB 650MG DOSE (2X325MG) PO PRN (20:33)
[2021-08-17] MEDS: PRAVASTATIN 20 MG TAB PO SCH (20:34)
[2021-08-18 05:04] VITALS: BP 157/72
[2021-08-18] MEDS: **hydrALAZINE HCL** 25 MG TAB PO SCH ×2 (05:04)
[2021-08-18] MEDS: HEPARIN SOD (PORCINE) 5000UNITS/ML 1ML VIAL/SYRINGE SC SCH ×3 (05:05→19:42)
[2021-08-18] MEDS: MIRALAX *UNIT DOSE* 17GM PACKET PO PRN (05:05)
[2021-08-18] MEDS ORDERED: BISACODYL 10 MG SUPP PR ONE (07:55)
[2021-08-18] MEDS ORDERED: DOCUSATE SODIUM 100MG CAPSULE PO ONE (07:55)
[2021-08-18] MEDS: MOM 30ML SUSPENSION UDC PO PRN (08:37)
[2021-08-18] MEDS: ASPIRIN 81 MG CHEW TABLET PO SCH (08:43)
[2021-08-18] MEDS: ENTACAPONE 200MG TABLET (COMTAN) PO SCH ×3 (08:43→19:34)
[2021-08-18] MEDS: QUEtiapine FUMARATE 12.5 MG HALF-TAB PO SCH ×2 (08:43→19:35)
[2021-08-18] MEDS: SINEMET 25-100 MG TAB PO SCH ×3 (08:43→19:34)
[2021-08-18] MEDS: LOSARTAN 50MG TABLET PO SCH (08:44)
[2021-08-18] MEDS: AZELASTINE 137MCG NASAL SPY 30 ML (ASTELIN) SCH ×2 (08:44→16:00)
[2021-08-18] MEDS: SERTRALINE 100 MG TAB PO SCH (08:46)
[2021-08-18] MEDS: PROPRANOLOL 20 MG TAB PO SCH ×2 (08:47→19:36)
[2021-08-18] MEDS ORDERED: QUET1TAB17 PO (10:40)
[2021-08-18] MEDS ORDERED: ENTA1TAB PO (11:39)
[2021-08-18] MEDS ORDERED: CARB25TA9 PO (11:39)
[2021-08-18 12:10] VITALS: BP 76/44
[2021-08-18] MEDS ORDERED: NS 1,000 ML IV ONE (12:15)
[2021-08-18 13:00] VITALS: BP 157/65
[2021-08-18 13:23] LABS: HEMATOCRIT 34.9 % (36.0-47.0); HEMOGLOBIN 11.6 g/dl (12.0-15.5); MEAN CORPUSCULAR HEMOGLOBIN 31.9 pg (27.0-33.0); MEAN CORPUSCULAR HGB CONC 33.2 g/dl (32.0-36.5); MEAN CORPUSCULAR VOLUME 95.9 fl (80.0-96.0); PLATELET COUNT, AUTOMATED 265 10^3/uL (150-450); RED BLOOD COUNT 3.64 10^6/uL (4.00-5.40); WHITE BLOOD COUNT 4.2 10^3/uL (4.0-10.0)
[2021-08-18 13:44] LABS: ALBUMIN 2.7 GM/DL (3.2-5.2); ALT/SGPT 14 U/L (12-78); BILIRUBIN,TOTAL 0.4 MG/DL (0.2-1.0); BLOOD UREA NITROGEN 16 MG/DL (7-18); CALCIUM LEVEL 9.1 MG/DL (8.8-10.2); CARBON DIOXIDE LEVEL 25 MEQ/L (21-32); CHLORIDE LEVEL 115 MEQ/L (98-107); CREATININE FOR GFR 0.93 MG/DL (0.55-1.30); GLOMERULAR FILTRATION RATE > 60.0 (>39); GLUCOSE, FASTING 119 MG/DL (70-100); POTASSIUM SERUM 3.8 MEQ/L (3.5-5.1); SODIUM LEVEL 144 MEQ/L (136-145); TOTAL PROTEIN 6.1 GM/DL (6.4-8.2)
[2021-08-18 14:00] VITALS: BP 165/71
[2021-08-18 14:29] VITALS: BP 162/73
--- NOTE | 2021-08-18 18:23 | IPNPDOC ---
Subjective Date Seen The patient was seen on 08/18/21. Subjective Chief Complaint/HPI Mrs. Becker is a 76-year-old female with Parkinson's disease who is here with frequent falls. Yesterday, patient seizure was discontinued and she did well overnight. This morning plan for return to [facility], but as patient's last blood pressure was checked, it was low at 76/44. It was manually rechecked and confirmed. Patient denied any lightheadedness or dizziness, chest pain, shortness of breath. She is able to get up and ambulate despite having this low blood pressure. Patient was given IV fluids and hydralazine was discontinued. We will decrease her losartan from 50 mg at bedtime to 25 mg at bedtime. Objective Physical Examination General Exam: Positive: Alert, Cooperative Eye Exam: Negative: Sclera icteric Neck Exam: Positive: Supple Chest Exam: Positive: Clear to auscultation Heart Exam: Positive: Rate Normal, Regular Rhythm Abdomen Exam: Positive: Normal bowel sounds, Soft; Negative: Tenderness Extremity Exam: Negative: Edema Neuro Exam: Positive: Normal Speech Assessment /Plan Assessment Mrs. eBcker is a 76-year-old female with Parkinson's disease who is here with frequent falls. While here, patient was seen by neurology. Recommend continuing carbidopa/levodopa and continuing entacapone. Patient was medically ready to return to [facility], but then she was exposed to Covid positive person. She was quarantined and completed quarantine on 08/16/2021. Plan/VTE VTE Prophylaxis Ordered?: Yes Plan 1. Frequent falls Most likely secondary to Parkinson's disease versus essential tremor Neurology evaluated patient, recommended decreasing carbidopa levodopa and entacapone PT/OT following 2. Dementia Donepezil was discontinued as it was thought to be the cause Continue trazodone and Seroquel 3. Hypertension Continue propanolol. May help with essential tremors Discontinue hydralazine Decrease losartan from 50 mg at bedtime to 25 mg at bedtime 4. Hyperlipidemia Continue pravastatin 5. DVT prophylaxis Subcu heparin VS, I&O, 24H, Fishbone Vital Signs/I&O Vital Signs Date Time Temp Pulse Resp B/P (MAP) Pulse Ox O2 Delivery O2 Flow Rate FiO2 08/18/21 14:29 63 162/73 (102) 08/18/21 14:00 97.2 18 96 Room Air I&O- Last 24 Hours up to 6 AM 08/18/21 06:00 Intake Total 180 ml Balance 180 ml Laboratory Data 24H LABS Laboratory Tests 2 08/18/21 13:01: Nucleated Red Blood Cells % (auto) 0.0, Anion Gap 4L, Glomerular Filtration Rate > 60.0, Calcium Level 9.1, Total Bilirubin 0.4, Aspartate Amino Transf (AST/SGOT) 19, Alanine Aminotransferase (ALT/SGPT) 14, Alkaline Phosphatase 55, Total Protein 6.1L, Albumin 2.7L, Albumin/Globulin Ratio 0.8L CBC/BMP Laboratory Tests 08/18/21 13:01 REMY WYMAN DO Aug 18, 2021 18:23
[2021-08-18 19:27] VITALS: BP 164/72
[2021-08-18] MEDS: traZODone 50 MG TAB PO SCH (19:34)
[2021-08-18] MEDS: ACETAMINOPHEN TAB 650MG DOSE (2X325MG) PO PRN (19:34)
[2021-08-18] MEDS: PRAVASTATIN 20 MG TAB PO SCH (19:34)
[2021-08-18] MEDS: RAMELTEON 8 MG TAB (ROZEREM) PO PRN (19:35)
[2021-08-18] MEDS ORDERED: LOSARTAN 25 MG TAB PO SCH (21:00)
[2021-08-19] MEDS: HEPARIN SOD (PORCINE) 5000UNITS/ML 1ML VIAL/SYRINGE SC SCH (05:23)
[2021-08-19 05:24] VITALS: BP 144/67
[2021-08-19 08:46] VITALS: BP 180/90
[2021-08-19 08:54] VITALS: BP 180/90
[2021-08-19] MEDS: AZELASTINE 137MCG NASAL SPY 30 ML (ASTELIN) SCH (08:54)
[2021-08-19] MEDS: PROPRANOLOL 20 MG TAB PO SCH (08:54)
[2021-08-19] MEDS: ASPIRIN 81 MG CHEW TABLET PO SCH (08:55)
[2021-08-19] MEDS: ENTACAPONE 200MG TABLET (COMTAN) PO SCH (08:55)
[2021-08-19] MEDS: QUEtiapine FUMARATE 12.5 MG HALF-TAB PO SCH (08:55)
[2021-08-19] MEDS: SERTRALINE 100 MG TAB PO SCH (08:55)
[2021-08-19] MEDS: SINEMET 25-100 MG TAB PO SCH (08:55)
[2021-08-19] MEDS ORDERED: QUET1TAB17 PO (10:02)
[2021-08-19] MEDS ORDERED: **hydrALAZINE HCL** 25 MG TAB PO ONE (10:15)
[2021-08-19 10:25] VITALS: BP 149/76
[2021-08-19] MEDS ORDERED: LOSA25TA14 PO (11:47)
== END 2021-08-19 13:15 | DRG 92 ==
LOC: M ED 14:06 → M ED INP 20:31 → ENRESERV 22:21 → M MSPAV 22:53
PROVIDERS: ADMIT Family Medicine; ATTEND Internal Medicine
DX: R29.6 Repeated falls (principal); F02.81 Dementia in other diseases classified elsewhere, unspecified severity, with behavioral disturbance; G20 Parkinson's disease; I95.1 Orthostatic hypotension; I10 Essential (primary) hypertension; G24.9 Dystonia, unspecified; Z85.3 Personal history of malignant neoplasm of breast; Z79.899 Other long term (current) drug therapy; Z79.82 Long term (current) use of aspirin; Z88.8 Allergy status to other drugs, medicaments and biological substances; G30.9 Alzheimer's disease, unspecified; G47.00 Insomnia, unspecified; Z20.818 Contact with and (suspected) exposure to other bacterial communicable diseases; E78.5 Hyperlipidemia, unspecified

== ENCOUNTER → 2021-08-01 | Outpatient (REF) | payer MEDICARE, BC, MEDICAID ==
[2021-08-01 11:38] LABS: HEMATOCRIT 36.5 % (36.0-47.0); HEMOGLOBIN 12.4 g/dl (12.0-15.5); MEAN CORPUSCULAR HEMOGLOBIN 31.4 pg (27.0-33.0); MEAN CORPUSCULAR VOLUME 92.4 fl (80.0-96.0); PLATELET COUNT, AUTOMATED 257 10^3/uL (150-450); RED BLOOD COUNT 3.95 10^6/uL (4.00-5.40); WHITE BLOOD COUNT 3.5 10^3/uL (4.0-10.0)
[2021-08-01 12:50] LABS: ALT/SGPT 13 U/L (12-78); BILIRUBIN,DIRECT 0.2 MG/DL (0.0-0.2); BILIRUBIN,TOTAL 0.5 MG/DL (0.2-1.0); BLOOD UREA NITROGEN 18 MG/DL (7-18); CALCIUM LEVEL 9.5 MG/DL (8.8-10.2); CARBON DIOXIDE LEVEL 29 MEQ/L (21-32); CHLORIDE LEVEL 110 MEQ/L (98-107); CREATININE FOR GFR 0.82 MG/DL (0.55-1.30); GLOMERULAR FILTRATION RATE > 60.0 (>39); GLUCOSE, FASTING 110 MG/DL (70-100); POTASSIUM SERUM 3.8 MEQ/L (3.5-5.1); SODIUM LEVEL 142 MEQ/L (136-145); TOTAL PROTEIN 5.6 GM/DL (6.4-8.2)
== END ==
PROVIDERS: ATTEND Physician Assistant
DX: G20 Parkinson's disease (principal)

== ENCOUNTER → 2021-08-15 | Outpatient (REF) | payer MEDICARE, BC, MEDICAID ==
[~2021-08-15] MED LIST changes: +ARTIDRO OU; +ENEMENE PR; +LORA1TAB4 PO; +LOSA25TA14 PO; +QUET1TAB17 PO; +TRAZ-252 PO; +ZOLO100T PO
== END ==
PROVIDERS: ATTEND Internal Medicine
DX: Z53.8 Procedure and treatment not carried out for other reasons (principal)

== ENCOUNTER → 2021-08-30 | Outpatient (REF) | payer MEDICARE, BC, MEDICAID ==
[2021-08-30 15:52] LABS: HEMOGLOBIN 9.5 g/dl (12.0-15.5); MEAN CORPUSCULAR HEMOGLOBIN 31.5 pg (27.0-33.0); MEAN CORPUSCULAR HGB CONC 31.7 g/dl (32.0-36.5); MEAN CORPUSCULAR VOLUME 99.3 fl (80.0-96.0); PLATELET COUNT, AUTOMATED 354 10^3/uL (150-450); RED BLOOD COUNT 3.02 10^6/uL (4.00-5.40); WHITE BLOOD COUNT 5.1 10^3/uL (4.0-10.0)
[2021-08-30 16:12] LABS: BLOOD UREA NITROGEN 12 MG/DL (7-18); CALCIUM LEVEL 9.3 MG/DL (8.8-10.2); CARBON DIOXIDE LEVEL 25 MEQ/L (21-32); CHLORIDE LEVEL 114 MEQ/L (98-107); CREATININE FOR GFR 0.84 MG/DL (0.55-1.30); GLOMERULAR FILTRATION RATE > 60.0 (>39); GLUCOSE, FASTING 93 MG/DL (70-100); POTASSIUM SERUM 4.4 MEQ/L (3.5-5.1); SODIUM LEVEL 144 MEQ/L (136-145)
== END ==
PROVIDERS: ATTEND Internal Medicine
DX: G20 Parkinson's disease (principal); I10 Essential (primary) hypertension

== ENCOUNTER 2021-09-07 10:35 | Inpatient (IN) | payer MEDICARE, BC, MEDICAID ==
[~2021-09-07 10:35] MED LIST changes: -APAP325T4 PO; -ASPI-161 PO; -CARB-89 PO; -COMT200T PO; -ENSU1LIQ50 PO; -MILKSUS3 PO; -PROP20TA PO; -SERO1TAB3 PO; -[UNRECOGNIZED DRUG - CODE] IM
--- NOTE | 2021-09-07 11:17 | REP ---
INDICATION: CVA - Nursing interventions must not delay CT. COMPARISON: 08/01/2021 TECHNIQUE: 5 mm axial images through the head without contrast. FINDINGS: Scans windowed for bone demonstrate normal appearing paranasal sinuses with no air-fluid levels. The mastoids are normally aerated. Evidence for previous cataract surgery is incidentally noted. Scans windowed for brain parenchyma show no mass, hemorrhage or extra axial fluid collections. Low-density areas adjacent to the anterior horns of the lateral ventricles are consistent with ischemic demyelinization. No evidence of an acute infarct is identified. If the patient has symptoms of CVA then follow-up exam in 24 hours may be of value. IMPRESSION: No acute change is identified. <Electronically signed by Lawson Rios > 09/07/21 [id number]
--- OUTSIDE RECORDS SUMMARY | 2021-09-07 11:35 | CCD ---
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 [id number] ALLERGIES Allergen (clinical drug ingredient) Drug/Non Drug Allergy do cumented on EMR Reaction Allergy Type Onset Date Status enalapril Vasotec([facility] Code:[address]-59) throat swells Drug Allergy Active ENCOUNTERS from 1945 to 2021-08-30 Encounter Location Date Provider Diagnosis [facility] [address] [place] [address] [place] [address] Jun, Sonia Park IMMUNIZATIONS No Information SOCIAL HISTORY Tobacco Use: Social History Observation Description Date Details (start date - stop date) Never Smoker Sex Assigned At : Social History Observation Description Sex Assigned At Unknown Tobacco Use: Question Answer Notes Are you a: never smoker REASON FOR REFERRAL No Information VITAL SIGNS No information MEDICATIONS Medication SIG (Take, Route, Frequency, Duration) Notes Start Da te End Date Status Carbidopa-Levodopa 25-100 MG 1 tablet Orally Once a day Active Tylenol Extra Strength 500 MG 1 tablet as needed Orally every 6 hrs Active Multivitamin Adults - as directed Orally with iron Active Entacapone 200 MG 1 tablet Orally Twice a day Active Hydrocortisone 1 % 1 application Externally Once a day Active Vitamin D3 1.25 MG (33473 UT) 1 tablet Orally Active Colace 100 MG 1 capsule as needed Orally Once a day Not-Taking Pravastatin Sodium 40 MG 1 tablet Orally Once a day Active MiraLax 17 GM/SCOOP as directed Orally Active Procto-Med HC 2.5 % 1 application Externally Twice a day Active Sertraline HCl 100 MG 1 tablet Orally Once a day Active Losartan Potassium 50 MG 1 tablet Orally Once a day Active Voltaren 1 % as directed Externally Active LORazepam 0.5 MG 1 tablet at bedtime as needed Orally Once a day as n eeded Active Propranolol HCl 60 MG 1 tablet Orally Once a day Active Magnesium 400 MG as directed Orally Active Bisacodyl 10 MG 1 suppository as needed Rectal Once a day Not-Taking Aspir-81 Active Azelastine HCl 137 MCG/SPRAY 1 puff in each nostril Nasally Twice a d ay Not-Taking Calcium Citrate + D3 315-250 MG-UNIT 1 tablet Orally Twice a day Active PROCEDURES No Information RESULTS No Results REASON FOR VISIT Breast center follow up/ missed mammo MEDICAL (GENERAL) HISTORY Type Description Date Medical History hypertension Medical History high cholesterol Medical History parkinsons Medical History htn ckd w/ stage 1-4 ckd/uns Medical History ckd stage 3 moderate Medical History isabelle depress d/o single epis uns Medical History anxiety disorder Medical History essential tremor Medical History peripheral vascular disease Medical History constipation Medical History age related osteoporosis Medical History DCIS, left breast Surgical History two cessarians Surgical History hernia Surgical History left breast lump removed December 2020 Goals Section No Information Health Concerns No Information MEDICAL EQUIPMENT No Information MENTAL STATUS No Information FUNCTIONAL STATUS No Information ASSESSMENTS No Information PLAN OF TREATMENT Next Appt Details Provider Name:Sonia Park, [birth year] 09:30:00 AM, [address] [facility], , [place], [address], Insurance Providers Payer Name Payer Address Payer Phone Insured Name Patient Relati onship to Insured Coverage Start Date Coverage End Date MEDICARE Part A and B [address] [facility] [phone] Carole Champion MEDICAID digitalbox [address] [facility] [id number] Carole Champion
--- OUTSIDE RECORDS SUMMARY | 2021-09-07 11:35 | CCD | Continuity of Care Document ---
Author Author Carole ALVAREZ Organization Unknown Address [address] [facility] [address] [place] [address] Phone [phone] Care Team Providers Care Professional Application Designer Name Role Phone Lashell Gonzalez MD AUTM [phone] Michelle Aranda MD AUTM [phone] Ajit Dias OD AUTM [phone] [facility] AUTM [phone] [facility] AUTM [phone] Problems Active Problems Provider Date Gastroesophageal reflux disease Lashell Gonzalez M.D. Onse t: 07/07/2011 Benign essential hypertension Lashell Gonzalez M.D. Onset: 07/07/2011 Pure hypercholesterolemia Lashell Gonzalez M.D. Onset: 06/2011 Depressive disorder Lashell Gonzalez M.D. Onset: 1 Essential hypertension Lashell Gonzalez M.D. Onset: 2014 Osteopenia Lashell Gonzalez M.D. Onset: 7 Social History Type Date Description Comments Sex Unknown ETOH Use Denies alcohol use Tobacco Use Start: Unknown Negative For Patient has never s moked Allergies and adverse reactions Active Allergies Criticality Reaction | Severity Comments Date Vasotec Unable to assess criticality Throat Tight ness 09/08/2008 Medications Active Medications SIG Qnty Indications Ordering Provide r Date Lorazepam 1mg Tablets 1 by mouth three times a day as needed for anxiety and agitation 90tabs Cinda Alvarez DO 07/19/2021 Tab-A-Iftikhar Tablet Take One Tablet By Mouth Daily 30tabs Lashell Gonzalez M.D. 03/14/20 21 Trazodone HCL 50mg Tablets take one tablet by mouth at bedtime 30tabs Cinda Alvarez DO 02/22/2021 Multi Vitamin And Minerals Tablet s 1 by mouth every day 30tabs Lashell Gonzalez M.D. 02/15/20 21 Magnesium-Oxide 400(241.3Mg) mg Ta blets 1 by mouth every day 30tabs Lashell Gonzalez M.D. 02/11 Proctofoam HC 1-1% Foam instill by way of rectum and topical four times a day as needed 10gm Pinky Gonzalez M.D. 09/09/2020 Sertraline HCL 100mg Tablets take 1 tablet qhs 30tabs Lashell Gonzalez M.D. 08/02/20 20 Tylenol Extra Strength 500mg Table ts 1 pill 2x/d as needed for mild pain 60tabs Lashell aguayo M.D. 06/22/2020 Tylenol Extra Strength 500mg Table ts 2 pills 2x/d as needed for moderate-severe pain 60tabs Pinky Gonzalez M.D. 06/22/2020 Hydrocortisone 1% Cream apply twice a day to rash for 2wks then as needed May Keep Bedside 28.350gm Lashell Gonzalez M.D. 12/09/2019 Propranolol HCL 60mg Tablets take one tablet by mouth twice daily 180tabs Jeanette Corrales 08/14/2019 Chloraseptic Mouth Pain 1.4% Liqui d 1 Leadore Q2H/prn. May Keep AT Bedside And Self Administer 1Bottle Lashell Gonzalez M.D. 05/13/2019 Voltaren 1% Gel apply up to 4 grams qid/prn for pain to affected sites, may keep at bedside and self administer 1month Lashell Gonzalez M.D. 04/16/2019 Dulcolax 10mg Suppository [address] of rectum once day as needed may keep at bedside 16units Lashell Gonzalez M.D. 02/28/2019 Miralax Powder dissolve 17 grams in juice or water once daily as needed for constipation May Keep AT Bedside And Self Administer 1Can Lashell Gonzalez M.D. 02/28/20 19 Carbidopa-Levodopa 25-100mg Tablet s 2 by mouth qid 240tabs Lashell Gonzalez M.D. 12/26/19 19 Losartan Potassium 50mg Tablets 1 by mouth every day 30tabs Lashell Gonzalez M.D. 12/03/19 19 Azelastine HCL (Nasal) 0.1% Soluti on Use 1 Sprays In Each Nostril Twice Daily/prn May Keep AT Bedside May Self Admininster 30ml Lashell Gonzalez M.D. 04/26/20 17 Colace 100mg Capsules 1 po hs/prn 30caps Lashell Gonzalez M.D. 07/31/2013 Vitamin D3 5000Unit Tablets 1 po qd 30tabs Lashell Gonzalez M.D. 07/31/2013 Citracal Maximum 064-830xw-Idju Ta blets 1 by mouth three times a day 90tabs Julia Corrales 02/08/2011 Aspir-Low 81mg Tablets DR 1 po qd 30tabs Lashell Gonzalez M.D. 02/08/2011 Pravastatin Sodium 40mg Tablets Take One Tablet By Mouth AT Bedtime 30tabs Julia Corrales 12/22/2009 Entacapone 200mg Tablets 1 four times a day Unknown History Medications Lorazepam 0.5mg Tablets 1/4 tab po bid prn 10tabs Jose Antonio Licea MD 02/28/2021 - 07/19/2021 Buspirone HCL 10mg Tablets 1 by mouth by mouth twice a day 60tabs Cinda Alvarez DO 02/22/2021 - 0 07/15/2021 Magnesium Oxide 400 240mg Packet 1 by mouth twice a day 60units Lashell Gonzalez M.D. 2020 - 02/11/2021 Medications Administered in Office Medication SIG Qnty Indications Ordering Provider Date Covid-19 vaccine, Unspecified Inj ection Unknown 12/13/2020 Covid-19 vaccine, Unspecified Inj ection Unknown 11/22/2020 Administration Of Flu Vaccine Inj albin Gonzalez M.D. 08/02/20 20 Immunization Adminstration,1 Vaccine/Tox oid Injection Lashell Gonzalez M.D. 11/2019 Administration Of Flu Vaccine Inj albin Gonzalez M.D. 08/08/20 18 Administration Of Flu Vaccine Inj philipion Lashell Gonzalez M.D. 07/27/20 16 Administration Of Flu Vaccine Inj philipion Lashell Gonzalez M.D. 09/07/20 15 Administration Of Flu Vaccine Inj philipion Lashell Gonzalez M.D. 08/05/20 14 Administration Of Flu Vaccine Inj philipion Lashell Gonzalez M.D. 07/31/20 13 Administration Of Flu Vaccine Inj albin Gonzalez M.D. 08/14/20 12 Administration Of Flu Vaccine Inj ection Madeleine Woodruff FNP 09/06/2011 Administration Of Flu Vaccine Inj ection Lashell Gonzalez M.D. 08/27/20 08 Immunizations CPT Code Status Date Vaccine Reaction Lot # [id number] Given 08/02/2020 Influenza Vaccin e Quadrivalent Preser/Antibiotic Free Im Use [id number] 01103 Given 03/30/2020 Adacel- Tetanus Diphtheria Pertussis [id number] Given 02/04/2019 PPD -- 0mm negative C5 [id number] 91699 Given 08/08/2018 Influenza Virus Vaccine, Quadrivalent ([id number]), Derived From Cell Q2037 Given 07/27/2016 Fluvirin Virus Vaccine 16 87985 U-PneuC Given 07/14/2016 Prevnar 13 Q2037 Given 09/07/2015 Fluvirin Virus Vaccine 15 31469 Q2037 Given 08/05/2014 Fluvirin Virus Vaccine 14 27596 Q2037 Given 07/31/2013 Fluvirin Virus Vaccine 13 96856 Q2037 Given 08/14/2012 Fluvirin Virus Vaccine 12 15153 74471 Given 02/06/2012 Zoster Vaccine [id number] Q2037 Given 09/06/2011 Fluvirin Virus Vaccine 11 71927 53796 Given 06/17/2009 Pneumovax 23 89389 Given 08/27/2008 Influenza Virus Vaccine Vital Signs Date Vital Result Comment 02/22/2021 9:01am BP Systolic 112 mmHg RT Arm BP Diastolic 54 mmHg RT Arm Heart Rate 76 /min Height 61 inches 5'1" Weight 140.50 lb BMI (Body Mass Index) 26.5 kg/m2 01/04/2021 10:02am BP Systolic 108 mmHg RT Arm BP Diastolic 64 mmHg RT Arm Heart Rate 61 /min Height 61 inches 5'1" Weight 142.00 lb O2 Saturation Level with Exercise 96 % RM Air BMI (Body Mass Index) 26.8 kg/m2 Results Test Acquired Date Facility Test Result H/L Range Note Influenza A/B RSV Covid Amp 08/01/[address] [id number] [phone] Influenza A Amplification NEGATIVE Normal Negati ve 1 Influenza B Amplification NEGATIVE Normal Negative 2 RSV Amplification NEGATIVE Normal Negative 3 Sars Covid-19 Amplification NEGATIVE Normal Negative 4 Ua W/ Reflex To Culture 08/01/[address] [id number] [phone] Appearance, Urine RFX CLEAR Normal Clear Color, Urine RFX TUCKER Normal Yellow PH,Urine RFX 5.0 units Normal 5.0-9.0 Specific Ava Ur Auto RFX 1.025 Normal 1.002-1.035 Protein, Urine Auto RFX NEGATIVE mg/dL Normal Negative Glucose, Urine (Ua) Auto RFX NEGATIVE mg/dL Normal Negative Ketone, Urine Auto RFX TRACE mg/dL High Negative Urobilinogen, Urine Auto RFX 0.2 mg/dL Normal 0.0-2.0 Bilirubin, Urine Auto RFX 1+ High Negative Nitrite, Urine Auto RFX NEGATIVE Normal Negative Leukocyte Esterase Ur Auto RFX 1+ High Negative Blood, Urine Blood RFX NEGATIVE Normal Negative WBC, Urine Auto RFX 16 /HPF High 0-3 RBC, Urine Auto RFX 3 /HPF Normal 0-3 Bacteria, Urine Auto RFX NEGATIVE Normal Negative Squam Epithelial Cell Ur Aurfx 1 /HPF Normal 0-6 Transitional Epithelial AU RFX 2 /HPF Normal None Mucus, Urine RFX SMALL Normal Negative Hyaline Cast, Urine Auto RFX 0 /LPF Normal 0-1 Calcium Oxalate Crystals RFX MODERATE Normal None CBC With Differential 08/01/2021 [address] [place] [address] [phone] White Blood Count 5.3 10 Normal 4.0-10.0 Red Blood Count 3.87 10 Low 4.00-5.40 Hemoglobin 12.4 g/dL Normal 12.0-15.5 Hematocrit 35.8 % Low 36.0-47.0 Mean Corpuscular Volume 92.5 fl Normal 80.0-96.0 Mean Corpuscular Hemoglobin 32.0 pg Normal 27.0-33.0 Mean Corpuscular HGB Conc 34.6 g/dL Normal 32.0-36.5 Red Cell Distribution Width 13.6 % Normal 11.5-14.5 Platelet Count, Automated 276 10 Normal 150-450 Neutrophils % 58.7 % Normal 36.0-66.0 Lymph % 25.2 % Normal 24.0-44.0 Coles % 11.3 % High 2.0-8.0 Eos % 3.8 % High 0.0-3.0 Baso % 0.6 % Normal 0.0-1.0 Immature Granulocyte % 0.4 % Normal 0-3.0 Nucleated Red Blood Cell % 0.0 % Normal 0-0 Neutrophils # 3.1 10 Normal 1.5-8.5 Lymph # 1.3 10 Low 1.5-5.0 Coles # 0.6 10 Normal 0.0-0.8 Eos # 0.2 10 Normal 0.0-0.5 Baso # 0.0 10 Normal 0.0-0.2 Laboratory test finding 08/01/2021 [facility] [address] [place] [address] [phone] Ammonia 12 uMOL/L Normal <32 Lactic Acid Sepsis Protocol 1.3 mmol/L Normal 0.4-2.0 5 Cardiac Marker Panel 08/01/[address] [address] [phone] CPK Creatine Phosphokinase 130 U/L Normal 26-19 2 CK-MB Value Mass 1.7 NG/ML Normal <3.6 MB/CK Relative Index 1.31 Normal < Or =4 6 Troponin I < 0.02 NG/ML Normal < 0.10 7 Liver Profile 08/01/2021 [facility] [address] [place] [address] [phone] Ast/Sgot 20 U/L Normal 7-37 Alt/SGPT 10 U/L Low 12-78 Alkaline Phosphatase 59 U/L Normal 45-117 Bilirubin,Total 0.6 mg/dL Normal 0.2-1.0 Bilirubin,Direct 0.1 mg/dL Normal 0.0-0.2 Total Protein 6.0 GM/DL Low 6.4-8.2 Albumin 3.1 GM/DL Low 3.2-5.2 Albumin/Globulin Ratio 1.1 Low 1.2-2.2 Basic Metabolic Profile 08/01/[address] [address] [phone] Glucose, Fasting 100 mg/dL Normal 70-100 Blood Urea Nitrogen 16 mg/dL Normal 7-18 Creatinine For GFR 0.83 mg/dL Normal 0.55-1.30 Glomerular Filtration Rate > 60.0 Normal >39 8 Sodium Level 142 mEq/L Normal 136-145 Potassium Serum 4.6 mEq/L Significant change down 3.5-5.1 Chloride Level 110 mEq/L High 98-107 Carbon Dioxide Level 27 mEq/L Normal 21-32 Anion Gap 5 mEq/L Low 8-16 Calcium Level 9.2 mg/dL Normal 8.8-10.2 Laboratory test finding 08/01/[address] [address] [phone] Thyroid Stimulating Hormone 1.210 uIU/ML Normal 0. 358-3.740 1 Negative results do not prec lude influenza or RSV virus infection and should not be used as the sole basis for treatment or other patient management decisions. 2 Negative results do not prec lude influenza or RSV virus infection and should not be used as the sole basis for treatment or other patient management decisions. 3 Negative results do not prec lude influenza or RSV virus infection and should not be used as the sole basis for treatment or other patient management decisions. 4 A false negative result may occur if a specimen is improperly collected, transported or handled. False negative results may also occur if inadequate numbers of organisms are present in the specimen. As with any molecular test, mutations within the target regions of Xpert Xpress SARS-CoV-2 could affect primer and/or probe binding resulting in failure to detect the presence of virus. This test cannot rule out diseases caused by other bacterial or viral pathogens. DISCLAIMER: Testing was performed using the [employer] SARS-CoV-2 test. This test was developed and its performance characteristics determined by [employer]. This test has not been FDA cleared or approved. This test has been authorized by FDA under an Emergency Use Authorization (EUA). This test is only authorized for the duration of time the declaration that circumstances exist justifying the authorization of the emergency use of in vitro diagnostic tests for detection of SARS-CoV-2 virus and/or diagnosis of COVID-19 infection under section 564(b)(1) of the Act, 21 U.S.C. 360bbb-3(b)(1), unless the authorization is terminated or revoked sooner. 5 Y/N query for Sepsis Lactate Rule: Y 6 DIAGNOSIS CRITERIA MMB ng/ml Relative Index (RI) NON-AMI < or = 5 N/A WESBTER ZONE > 5 < or = 4 AMI > 5 > 4 7 Troponin I Reference Interva l for Siemens [place] LOCI: 99th Percentile= 0.00-0.045 ng/ml Risk Stratification: <= 0.10 ng/ml Decreased Risk for Adverse Clinical Events. 0.10-1.50 ng/ml Increased Risk for Adv erse Clinical Events. Evaluation of additional criterion and/or repeat testing in 2-6 hours is suggested to rule out myocardial damage. >= 1.50 ng/ml Indicative of Myocardial Injury. 8 Units are mL/min/1.73 m2 Chronic Kidney Disease Staging per NKF: Stage I & II GFR >=60 Normal to Mildly Decreased Stage III GFR 30-59 Moderately Decreased Stage IV GFR 15-29 Severely Decreased Stage V GFR <15 Very Little GFR Left ESRD GFR <15 on RFP WRITER Procedures Date Code Description Status 06/22/2021 10207 Chronic Care MGMT 20 Mins Clinical Staff Time Per Calendar Month Completed 05/12/2021 59044 Initial Nurs Home Exam Level 3 C ompleted 03/10/2021 02780 Chronic Care MGMT 20 Mins Clinical Staff Time Per Calendar Month Completed 02/22/2021 41071 Office/Outpatient Established Mo d MDM 30-39 Min Completed 09/06/2020 [id number] Mammogram Completed 08/26/2020 [id number] Mammogram Completed 08/25/2020 [id number] Mammogram Completed 08/19/2020 [id number] Mammogram Completed 08/13/2019 [id number] Mammogram Completed 07/11/2018 [id number] Mammogram Completed 11/30/2017 [id number] Bone Mineral Density Test Comple benito 06/11/2017 [id number] Mammogram Completed 05/02/2016 [id number] Mammogram Completed 09/14/2015 [id number] Bone Mineral Density Test Comple benito 03/30/2015 [id number] Mammogram Completed 01/13/2015 [id number] Colonoscopy Completed 03/18/2014 [id number] Mammogram Completed 03/12/2013 [id number] Mammogram Completed 03/12/2013 [id number] Bone Mineral Density Test Comple benito 01/08/2013 [id number] Colonoscopy Completed 02/19/2012 [id number] Mammogram Completed 02/15/2011 [id number] Mammogram Completed 02/15/2011 [id number] Bone Mineral Density Test [facility] 01/03/2010 [id number] Mammogram Completed 12/28/2008 [id number] Bone Mineral Density Test Comple [facility] 12/30/2007 [id number] Colonoscopy Completed Medical Devices Description No Information Available Encounters Type Date Location Provider Dx Diagnosis Office Visit 02/22/2021 9:00a [facility] Ad Gonzalez M.D. C50.912 Malignant neoplasm of unspec ified site of left female breast I12.9 Hypertensive chronic kidney disease w stg 1-4/unsp chr kdny N18.31 Chronic kidney disease, stag e 3a G25.0 Essential tremor G20 Parkinson's disease F41.9 Anxiety disorder, unspecifie d K59.00 Constipation, unspecified E78.00 Pure hypercholesterolemia, u nspecified M81.0 Age-related osteoporosis w/o current pathological fracture M19.90 Unspecified osteoarthritis, unspecified site Assessments Date Code Description Provider 06/22/2021 E78.00 Pure hypercholesterolemia, unspe cified Lashell Gonzalez M.D. 06/22/2021 F41.9 Anxiety disorder, unspecified Pinky Gonzalez M.D. 06/22/2021 I12.9 Hypertensive chronic kidney disease with stage 1 through stage 4 chronic kidney disease, or unspecified chronic kidney disease Lashell Gonzalez M.D. 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 03/10/2021 F41.9 Anxiety disorder, unspecified Pinky Gonzalez M.D. 03/10/2021 I12.9 Hypertensive chronic kidney disease with stage 1 through stage 4 chronic kidney disease, or unspecified chronic kidney disease Lashell Gonzalez M.D. 02/22/2021 C50.912 Malignant neoplasm of unspecifie d site of left female breast Lashell Gonzalez M.D. 02/22/2021 I12.9 Hypertensive chronic kidney dise ase with stage 1 through sta Lashell Gonzalez M.D. 02/22/2021 N18.31 Chronic kidney disease, stage 3a Lashell Gonzalez M.D. 02/22/2021 G25.0 Essential tremor Lashell gruber M.D. 02/22/2021 G20 Parkinson's disease Lashell walker M.D. 02/22/2021 F41.9 Anxiety disorder, unspecified Pinky Gonzalez M.D. 02/22/2021 K59.00 Constipation, unspecified Lashell Gonzalez M.D. 02/22/2021 E78.00 Pure hypercholesterolemia, unspe cified Lashell Gonzalez M.D. 02/22/2021 M81.0 Age-related osteoporosis without current pathological fracture Lashell Gonzalez M.D. 02/22/2021 M19.90 Unspecified osteoarthritis, unsp ecified site Lashell Gonzalez M.D. Plan of Treatment Future Appointment(s):* 08/24/2021 1:00 pm - Lashell Gonzalez M.D. at [facility] 02/22/2021 - Lashell Gonzalez M.D.* C50.912 Malignant neoplasm of unspecified site of left female breast * I12.9 Hypertensive chronic kidney disease with stage 1 through sta * N18.31 Chronic kidney disease, stage 3a * G25.0 Essential tremor * G20 Parkinson's disease * F41.9 Anxiety disorder, unspecified * K59.00 Constipation, unspecified * E78.00 Pure hypercholesterolemia, unspecified * M81.0 Age-related osteoporosis without current pathological fracture * M19.90 Unspecified osteoarthritis, unspecified site * All * New Medication:* Trazodone HCL 50 mg - take one tablet by mouth at bedtime * Buspirone HCL 10 mg - 1 by mouth by mouth twice a day * Comments:* 12. Allergic rhinitis. She has Azelastine to use as needed.13. Health maintenance. She's had her COVID vaccine. Functional Status Description No Information Available Mental Status Description No Information Available Referrals Refer to Reason for Referral Status Appt Date Bandar Baker MD CONSULT FOR DOUBLE VISION Created [place] [facility] [address] [facility], [address] [place] [id number] [phone]
--- OUTSIDE RECORDS SUMMARY | 2021-09-07 11:35 | CCD | Continuity of Care Document ---
Author Author Carole ALVAREZ Organization Unknown Address [address] [facility] [address] [place] [address] Phone [phone] Care Team Providers Care Bottle Blower Name Role Phone Lashell Gonzalez MD AUTM [phone] Michelle Aranda MD AUTM [phone] Ajit Dias OD AUTM [phone] [facility] AUTM [phone] [facility] AUTM [phone] Problems Active Problems Provider Date Gastroesophageal reflux [...] Chloraseptic Mouth Pain 1.4% Liqui d 1 [place] Q2H/prn. May Keep AT Bedside And Self [...] AT Bedside And Self Administer 1Can Lashell Gonazlez M.D. 02/28/20 19 Carbidopa-Levodopa 25-100mg Tablet s [...] 30tabs Lashell Gonzalez M.D. 07/31/2013 Citracal Maximum 028-932vs-Iibr Ta blets 1 by mouth three times [...] Code Status Date Vaccine Reaction Lot # [id number] Given 08/02/2020 Influenza Vaccin e Quadrivalent Preser/Antibiotic Free Im Use [id number] 94274 Given 03/30/2020 Adacel- Tetanus Diphtheria Pertussis [id number] 03582 Given 02/04/2019 PPD -- 0mm negative C5 [id number] 11317 Given 08/08/2018 Influenza Virus Vaccine, Quadrivalent (Cciiv4), Derived From Cell Q2037 Given 07/27/2016 Fluvirin Virus Vaccine 16 47274 U-PneuC Given 07/14/2016 Prevnar 13 Q2037 Given 09/07/2015 Fluvirin Virus Vaccine 15 91983 Q2037 Given 08/05/2014 Fluvirin Virus Vaccine 14 59758 Q2037 Given 07/31/2013 Fluvirin Virus Vaccine 13 96810 Q2037 Given 08/14/2012 Fluvirin Virus Vaccine 12 28857 61578 Given 02/06/2012 Zoster Vaccine [id number] Q2037 Given 09/06/2011 Fluvirin Virus Vaccine 11 77705 03803 Given 06/17/2009 Pneumovax 23 29306 Given 08/27/2008 Influenza Virus Vaccine Vital Signs [...] Note Influenza A/B RSV Covid Amp 08/01/[address] [id number] [phone] Influenza A Amplification NEGATIVE Normal Negati ve 1 Influenza B Amplification NEGATIVE Normal Negative 2 RSV Amplification NEGATIVE Normal Negative 3 Sars Covid-19 Amplification NEGATIVE Normal Negative 4 Ua W/ Reflex To Culture 08/01/[address] [id number] [phone] Appearance, Urine RFX CLEAR Normal Clear Color, Urine RFX TUCKER Normal Yellow PH,Urine RFX 5.0 units Normal 5.0-9.0 Specific [place] Ur Auto RFX 1.025 Normal 1.002-1.035 Protein, [...] MODERATE Normal None CBC With Differential 08/01/2021 [address] [place] [address] [phone] White Blood Count 5.3 10 Normal 4.0-10.0 [...] 36.0-66.0 Lymph % 25.2 % Normal 24.0-44.0 [place] % 11.3 % High 2.0-8.0 Eos % 3.8 % High 0.0-3.0 Baso % 0.6 % Normal 0.0-1.0 Immature Granulocyte % 0.4 % Normal 0-3.0 Nucleated Red Blood Cell % 0.0 % Normal 0-0 Neutrophils # 3.1 10 Normal 1.5-8.5 Lymph # 1.3 10 Low 1.5-5.0 [place] # 0.6 10 Normal 0.0-0.8 Eos # 0.2 10 Normal 0.0-0.5 Baso # 0.0 10 Normal 0.0-0.2 Laboratory test finding 08/01/2021 [facility] [address] [place] [address] [phone] Ammonia 12 uMOL/L Normal <32 Lactic Acid Sepsis Protocol 1.3 mmol/L Normal 0.4-2.0 5 Cardiac Marker Panel 08/01/[address] [address] [phone] CPK Creatine Phosphokinase 130 U/L Normal 26-19 2 CK-MB Value Mass 1.7 NG/ML Normal <3.6 MB/CK Relative Index 1.31 Normal < Or =4 6 Troponin I < 0.02 NG/ML Normal < 0.10 7 Liver Profile 08/01/2021 [facility] nter [address] [place] [address] [phone] Ast/Sgot 20 U/L Normal 7-37 Alt/SGPT 10 U/L Low 12-78 Alkaline Phosphatase 59 U/L Normal 45-117 Bilirubin,Total 0.6 mg/dL Normal 0.2-1.0 Bilirubin,Direct 0.1 mg/dL Normal 0.0-0.2 Total Protein 6.0 GM/DL Low 6.4-8.2 Albumin 3.1 GM/DL Low 3.2-5.2 Albumin/Globulin Ratio 1.1 Low 1.2-2.2 Basic Metabolic Profile 08/01/[address] [address] [phone] Glucose, Fasting 100 mg/dL Normal 70-100 Blood [...] mg/dL Normal 8.8-10.2 Laboratory test finding 08/01/[address] [address] [phone] Thyroid Stimulating Hormone 1.210 uIU/ML Normal 0. [...] pathogens. DISCLAIMER: Testing was performed using the [employer] SARS-CoV-2 test. This test was developed and its performance characteristics determined by [employer]. This test has not been FDA cleared [...] (RI) NON-AMI < or = 5 N/A WEBSTER ZONE > 5 < or = 4 AMI > 5 > 4 7 Troponin I Reference Interva l for Siemens [place] LOCI: 99th Percentile= 0.00-0.045 ng/ml Risk Stratification: [...] Little GFR Left ESRD GFR <15 on [employer] Procedures Date Code Description Status 06/22/2021 69196 Chronic Care MGMT 20 Mins Clinical Staff Time Per Calendar Month Completed 05/12/2021 41855 Initial Nurs Home Exam Level 3 C ompleted 03/10/2021 69565 Chronic Care MGMT 20 Mins Clinical Staff Time Per Calendar Month Completed 02/22/2021 72306 Office/Outpatient Established Mo d MDM 30-39 Min Completed 09/06/2020 [id number] Mammogram Completed 08/26/2020 [id number] Mammogram Completed 08/25/2020 [id number] Mammogram Completed 08/19/2020 [id number] Mammogram Completed 08/13/2019 [id number] Mammogram Completed 07/11/2018 [id number] Mammogram Completed 11/30/2017 [id number] Bone Mineral Density Test Comple benito 06/11/2017 [id number] Mammogram Completed 05/02/2016 [id number] Mammogram Completed 09/14/2015 [id number] Bone Mineral Density Test Comple benito 03/30/2015 [id number] Mammogram Completed 01/13/2015 [id number] Colonoscopy Completed 03/18/2014 [id number] Mammogram Completed 03/12/2013 [id number] Mammogram Completed 03/12/2013 [id number] Bone Mineral Density Test Comple benito 01/08/2013 [id number] Colonoscopy Completed 02/19/2012 [id number] Mammogram Completed 02/15/2011 [id number] Mammogram Completed 02/15/2011 [id number] Bone Mineral Density Test [facility] 01/03/2010 [id number] Mammogram Completed 12/28/2008 [id number] Bone Mineral Density Test Comple [facility] 12/30/2007 [id number] Colonoscopy Completed Medical Devices Description No Information Available Encounters Type Date Location Provider Dx Diagnosis Office Visit 02/22/2021 9:00a [facility] Ad Gonzalez M.D. C50.912 Malignant [...] 1:00 pm - Lashell Gonzalez M.D. at [facility] 02/22/2021 - Lashell Gonzalez M.D.* C50.912 [...] Baker MD CONSULT FOR DOUBLE VISION Created [facility] [address] [facility], [address] [place] [id number] [phone]
--- OUTSIDE RECORDS SUMMARY | 2021-09-07 11:36 | CCD | Continuity of Care Document ---
Author Author Carole ARANDA M.D. Organization Unknown Address [address] [place] [address] Phone [phone] Care Team Providers Care Equipment Associate Name Role Phone Lashell Brady M.D. AUTM [phone] Cinda Daugherty D.O. AUTM [phone] Problems Active Problems Provider Date Parkinson's disease Michelle Aranda M.D. Onset: 03/09/2016 Essential tremor Michelle Aranda M.D. Onset: 03/09/2016 Parkinsonism with calcification of basal ganglia Michelle Aranda M.D. 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 Onset: Mild cognitive disorder Michelle Aranda M.D. Onset: Social History Type Date Description Comments Sex Unknown ETOH Use Denies alcohol use Recreational Drug Use Never Used Drugs Tobacco Use Start: Unknown Patient has never smoked Allergies, Adverse Reactions, Alerts Active Allergies Criticality Reaction | Severity Comments Date Primidone Unable to assess criticality drowsiness 07/22/2018 Lorazepam Unable to assess criticality dowsiness 07/22/2018 Donepezil Unable to assess criticality mood, appeti te chnages and tremor 07/26/2021 Inactive Allergies NKDA Unable to assess criticality 03/09/2016 Medications Active Medications SIG Qnty Indications Ordering Provide r Date Propranolol HCL 60mg Tablets take one tablet by mouth 2 times a day 180tabs Michelle Aranda M.D. 0 01/01/2020 Carbidopa-Levodopa 25-100mg Tablet s Take 2 Tablets 4 Times Daily. Maximum Daily Dose: 4 720tajosué Aranda M.D. 06/12/2018 Entacapone 200mg Tablets 1 po qid with Carbidopa/Levodopa. 360manjit Aranda M.D. 03/09/2016 History Medications Donepezil HCL 10mg Tablets half a tab by mouth every morning for 2 weeks, then 1 by mouth qam. 30manjit Aranda M.D. 05/27/2021 - 07/26/2021 Immunizations Description No Information Available Vital Signs Date Vital Result Comment 03/09/2016 9:39am BP Systolic 150 mmHg BP Diastolic 90 mmHg Heart Rate 78 /min Respiratory Rate 16 /min Height 61 inches 5'1" Weight 130.00 lb BMI (Body Mass Index) 24.6 kg/m2 [place] Body Weight 105 lb Results Description No Information Available Procedures Date Code Description Status 07/26/2021 97709 Office/Outpatient Established Mo d MDM 30-39 Min Completed 05/27/2021 80235 Office/Outpatient Established Hi gh MDM 40-54 Min Completed 02/08/2021 45449 Phone Evaluation/Management Phys ician 11-20 Mins Completed Medical Devices Description No Information Available Encounters Type Date Location Provider Dx Diagnosis Office Visit 07/26/2021 3:00p Main office - Julia Herrera G20 Parkinson's disease G25.0 Essential tremor 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 07/26/2021 G24.8 Other dystonia Michelle Aranda M.D. 07/26/2021 S06.0x0S Concussion without loss of consc iousness, sequela Michelle Aranda M.D. 07/26/2021 G31.84 Mild cognitive impairment, so st ated Michelle Aranda M.D. 05/27/2021 G20 Parkinson's disease Michelle Aranda M.D. 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 05/27/2021 G24.8 Other dystonia Michelle Aranda M.D. 02/08/2021 G20 Parkinson's disease Michelle Aranda M.D. 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 02/08/2021 G24.8 Other dystonia Michelle Aranda M.D. Plan of Treatment Future Appointment(s):* 10/12/2021 3:00 pm - Michelle Aranda M.D. at Main office - [place] Functional Status Description No Information Available Mental Status Description No Information Available Referrals Description No Information Available
--- OUTSIDE RECORDS SUMMARY | 2021-09-07 11:36 | CCD | Continuity of Care Document ---
Author Author Carole ARANDA M.D. Organization Unknown Address [address] [place] [address] Phone [phone] Care Team Providers Care Block Hacker Name Role Phone Lashell Brady M.D. AUTM [phone] Cinda Daugherty D.O. AUTM [phone] Problems Active Problems Provider Date Parkinson's disease [...] lb BMI (Body Mass Index) 24.6 kg/m2 [place] Body Weight 105 lb Results Description No Information Available Procedures Date Code Description Status 07/26/2021 29064 Office/Outpatient Established Mo d MDM 30-39 Min Completed 05/27/2021 67274 Office/Outpatient Established Hi gh MDM 40-54 Min Completed 02/08/2021 28463 Phone Evaluation/Management Phys ician 11-20 Mins Completed [...] Michelle Aranda M.D. at Main office - [place] Functional Status Description No Information Available Mental Status Description No Information Available Referrals Description No Information Available
--- OUTSIDE RECORDS SUMMARY | 2021-09-07 11:36 | CCD | Continuity of Care Document ---
Author Author Carole ALVAREZ Organization Unknown Address [address] [facility] [address] [place] [address] Phone [phone] Care Team Providers Care Md Allergy Immunology Name Role Phone Lashell Gonzalez MD AUTM [phone] Michelle Aarnda MD AUTM [phone] Ajit Dias OD AUTM [phone] [facility] AUTM [phone] [facility] AUTM [phone] Problems Active Problems Provider Date Gastroesophageal reflux [...] Chloraseptic Mouth Pain 1.4% Liqui d 1 [place] Q2H/prn. May Keep AT Bedside And Self [...] 30tabs Lashell Gonzalez M.D. 07/31/2013 Citracal Maximum 709-219fo-Ayda Ta blets 1 by mouth three times [...] Code Status Date Vaccine Reaction Lot # [id number] Given 08/02/2020 Influenza Vaccin e Quadrivalent Preser/Antibiotic Free Im Use [id number] 31989 Given 03/30/2020 Adacel- Tetanus Diphtheria Pertussis [id number] 27966 Given 02/04/2019 PPD -- 0mm negative C5 [id number] 60565 Given 08/08/2018 Influenza Virus Vaccine, Quadrivalent (Cciiv4), Derived From Cell Q2037 Given 07/27/2016 Fluvirin Virus Vaccine 16 66345 U-PneuC Given 07/14/2016 Prevnar 13 Q2037 Given 09/07/2015 Fluvirin Virus Vaccine 15 23490 Q2037 Given 08/05/2014 Fluvirin Virus Vaccine 14 64441 Q2037 Given 07/31/2013 Fluvirin Virus Vaccine 13 22135 Q2037 Given 08/14/2012 Fluvirin Virus Vaccine 12 90420 36864 Given 02/06/2012 Zoster Vaccine [id number] Q2037 Given 09/06/2011 Fluvirin Virus Vaccine 11 38861 48932 Given 06/17/2009 Pneumovax 23 92698 Given 08/27/2008 Influenza Virus Vaccine Vital Signs [...] Note Influenza A/B RSV Covid Amp 08/01/[address] 2145398 [phone] Influenza A Amplification NEGATIVE Normal Negati ve 1 Influenza B Amplification NEGATIVE Normal Negative 2 RSV Amplification NEGATIVE Normal Negative 3 Sars Covid-19 Amplification NEGATIVE Normal Negative 4 Ua W/ Reflex To Culture 08/01/[address] [id number] [phone] Appearance, Urine RFX CLEAR Normal Clear Color, Urine RFX TUCKER Normal Yellow PH,Urine RFX 5.0 units Normal 5.0-9.0 Specific [place] Ur Auto RFX 1.025 Normal 1.002-1.035 Protein, [...] MODERATE Normal None CBC With Differential 08/01/2021 [address] [place] [address] [phone] White Blood Count 5.3 10 Normal 4.0-10.0 [...] 36.0-66.0 Lymph % 25.2 % Normal 24.0-44.0 [place] % 11.3 % High 2.0-8.0 Eos % 3.8 % High 0.0-3.0 Baso % 0.6 % Normal 0.0-1.0 Immature Granulocyte % 0.4 % Normal 0-3.0 Nucleated Red Blood Cell % 0.0 % Normal 0-0 Neutrophils # 3.1 10 Normal 1.5-8.5 Lymph # 1.3 10 Low 1.5-5.0 [place] # 0.6 10 Normal 0.0-0.8 Eos # 0.2 10 Normal 0.0-0.5 Baso # 0.0 10 Normal 0.0-0.2 Laboratory test finding 08/01/2021 [facility] [address] [place] [address] [phone] Ammonia 12 uMOL/L Normal <32 Lactic Acid Sepsis Protocol 1.3 mmol/L Normal 0.4-2.0 5 Cardiac Marker Panel 08/01/[address] [address] [phone] CPK Creatine Phosphokinase 130 U/L Normal 26-19 2 CK-MB Value Mass 1.7 NG/ML Normal <3.6 MB/CK Relative Index 1.31 Normal < Or =4 6 Troponin I < 0.02 NG/ML Normal < 0.10 7 Liver Profile 08/01/2021 [facility] nter [address] [place] [address] [phone] Ast/Sgot 20 U/L Normal 7-37 Alt/SGPT 10 U/L Low 12-78 Alkaline Phosphatase 59 U/L Normal 45-117 Bilirubin,Total 0.6 mg/dL Normal 0.2-1.0 Bilirubin,Direct 0.1 mg/dL Normal 0.0-0.2 Total Protein 6.0 GM/DL Low 6.4-8.2 Albumin 3.1 GM/DL Low 3.2-5.2 Albumin/Globulin Ratio 1.1 Low 1.2-2.2 Basic Metabolic Profile 08/01/[address] [address] [phone] Glucose, Fasting 100 mg/dL Normal 70-100 Blood [...] mg/dL Normal 8.8-10.2 Laboratory test finding 08/01/[address] [address] [phone] Thyroid Stimulating Hormone 1.210 uIU/ML Normal 0. [...] pathogens. DISCLAIMER: Testing was performed using the [employer] SARS-CoV-2 test. This test was developed and its performance characteristics determined by [employer]. This test has not been FDA cleared [...] Troponin I Reference Interva l for Siemens [place] LOCI: 99th Percentile= 0.00-0.045 ng/ml Risk Stratification: [...] Little GFR Left ESRD GFR <15 on [employer] Procedures Date Code Description Status 06/22/2021 43296 Chronic Care MGMT 20 Mins Clinical Staff Time Per Calendar Month Completed 05/12/2021 01152 Initial Nurs Home Exam Level 3 C ompleted 03/10/2021 50857 Chronic Care MGMT 20 Mins Clinical Staff Time Per Calendar Month Completed 02/22/2021 10131 Office/Outpatient Established Mo d MDM 30-39 Min Completed 09/06/2020 [id number] Mammogram Completed 08/26/2020 [id number] Mammogram Completed 08/25/2020 [id number] Mammogram Completed 08/19/2020 [id number] Mammogram Completed 08/13/2019 [id number] Mammogram Completed 07/11/2018 [id number] Mammogram Completed 11/30/2017 [id number] Bone Mineral Density Test Comple benito 06/11/2017 [id number] Mammogram Completed 05/02/2016 [id number] Mammogram Completed 09/14/2015 [id number] Bone Mineral Density Test Comple benito 03/30/2015 [id number] Mammogram Completed 01/13/2015 [id number] Colonoscopy Completed 03/18/2014 [id number] Mammogram Completed 03/12/2013 [id number] Mammogram Completed 03/12/2013 [id number] Bone Mineral Density Test Comple benito 01/08/2013 [id number] Colonoscopy Completed 02/19/2012 [id number] Mammogram Completed 02/15/2011 [id number] Mammogram Completed 02/15/2011 [id number] Bone Mineral Density Test [facility] 01/03/2010 [id number] Mammogram Completed 12/28/2008 [id number] Bone Mineral Density Test Comple [facility] 12/30/2007 [id number] Colonoscopy Completed Medical Devices Description No Information Available Encounters Type Date Location Provider Dx Diagnosis Office Visit 02/22/2021 9:00a [facility] Ad Gonzalez M.D. C50.912 Malignant [...] 1:00 pm - Lashell Gonzalez M.D. at [facility] 02/22/2021 - Lashell Gonzalez M.D.* [...] Baker MD CONSULT FOR DOUBLE VISION Created [facility] [address] [facility], [address] [place] [id number] [phone]
[2021-09-07 11:39] LABS: BASO % 0.8 % (0.0-1.0); EOS # 0.1 10^3/uL (0.0-0.5); EOS % 2.9 % (0.0-3.0); HEMOGLOBIN 9.3 g/dl (12.0-15.5); LYMPH # 0.7 10^3/uL (1.5-5.0); LYMPH % 13.8 % (24.0-44.0); MEAN CORPUSCULAR HEMOGLOBIN 31.1 pg (27.0-33.0); MEAN CORPUSCULAR HGB CONC 32.1 g/dl (32.0-36.5); MONO # 0.5 10^3/uL (0.0-0.8); MONO % 9.6 % (2.0-8.0); NEUTROPHILS # 3.5 10^3/uL (1.5-8.5); NEUTROPHILS % 72.5 % (36.0-66.0); PLATELET COUNT, AUTOMATED 317 10^3/uL (150-450); RED BLOOD COUNT 2.99 10^6/uL (4.00-5.40); WHITE BLOOD COUNT 4.8 10^3/uL (4.0-10.0)
[2021-09-07 11:53] LABS: CK-MB VALUE MASS 1.1 NG/ML (<3.6); CPK CREATINE PHOSPHOKINASE 40 U/L (26-192); MB/CK RELATIVE INDEX 2.75 (< OR =4); TROPONIN I < 0.02 NG/ML (< 0.10)
--- NOTE | 2021-09-07 11:59 | REP ---
INDICATION: CVA. COMPARISON: Multiple the latest 05/02/2021 TECHNIQUE: Portable FINDINGS: The technique utilized in obtaining the radiograph has magnified the cardiac silhouette and accentuated the interstitial markings. There is mild cardiomegaly accentuated by technique. The interstitial markings are mildly increased and accentuated by technique. Patchy right upper lobe opacities may be developing. The pleural angles are again seen to be sharp. The osseous structures are stable and intact. IMPRESSION: Possible mild interstitial edema. <Electronically signed by Kadeem Garcia > 09/07/21 0002
[2021-09-07 12:19] LABS: RSV AMPLIFICATION NEGATIVE (NEGATIVE)
[2021-09-07] MEDS ORDERED: MOM 30ML SUSPENSION UDC PO PRN ×2 (13:35→17:10)
[2021-09-07] MEDS ORDERED: ACETAMINOPHEN TAB 650MG DOSE (2X325MG) PO PRN ×2 (13:35→18:33)
--- OUTSIDE RECORDS SUMMARY | 2021-09-07 13:53 | CCD ---
Author Author [facility] Organization [facility] Address Unknown Phone Unavailable Care Team Providers Care Animal Nutrition Consultant Name Role Phone May, Makeda FOREST RANGER Unavailable Unavailable May, Makeda FOREST RANGER Unavailable Unavailable May, Makeda FOREST RANGER Unavailable Unavailable May, Makeda FOREST RANGER Unavailable Unavailable May, Makeda FOREST RANGER Unavailable Unavailable May, Makeda FOREST RANGER Unavailable Unavailable May, Makeda FOREST RANGER Unavailable Unavailable May, Makeda FOREST RANGER Unavailable Unavailable May, Makeda FOREST RANGER Unavailable Unavailable May, Makeda FOREST RANGER Unavailable Unavailable May, Makeda FOREST RANGER Unavailable Unavailable May, Makeda FOREST RANGER Unavailable Unavailable May, Makeda FOREST RANGER Unavailable Unavailable May, Makeda FOREST RANGER Unavailable Unavailable May, Makeda FOREST RANGER Unavailable Unavailable May, Makeda FOREST RANGER Unavailable Unavailable May, Makeda FOREST RANGER Unavailable Unavailable May, Makeda FOREST RANGER Unavailable Unavailable May, Makeda FOREST RANGER Unavailable Unavailable May, Makeda FOREST RANGER Unavailable Unavailable May, Makeda FOREST RANGER Unavailable Unavailable May, Makeda FOREST RANGER Unavailable Unavailable May, Makeda FOREST RANGER Unavailable Unavailable May, Makeda FOREST RANGER Unavailable Unavailable May, Makeda FOREST RANGER Unavailable Unavailable May, Makeda FOREST RANGER Unavailable Unavailable May, Makeda FOREST RANGER Unavailable Unavailable May, Makeda FOREST RANGER Unavailable Unavailable May, Makeda FOREST RANGER Unavailable Unavailable May, Makeda FOREST RANGER Unavailable Unavailable May, Makeda FOREST RANGER Unavailable Unavailable May, Makeda FOREST RANGER Unavailable Unavailable May, Makeda FOREST RANGER Unavailable Unavailable May, Makeda FOREST RANGER Unavailable Unavailable May, Makeda FOREST RANGER Unavailable Unavailable DOMBROWSKA, K PORTIA DO Unavailable Unavailable DOMBROWSKA, K PORTIA DO Unavailable Unavailable DOMBROWSKA, K PORTIA DO Unavailable Unavailable DOMBROWSKA, K PORTIA DO Unavailable Unavailable DOMBROWSKA, K PORTIA DO Unavailable Unavailable DOMBROWSKA, K PORTIA DO Unavailable Unavailable DOMBROWSKA, K PORTIA DO Unavailable Unavailable DOMBROWSKA, K PORTIA DO Unavailable Unavailable DOMBROWSKA, K PORTIA DO Unavailable Unavailable DOMBROWSKA, K PORTIA DO Unavailable Unavailable DOMBROWSKA, K PORTIA DO Unavailable Unavailable DOMBROWSKA, K PORTIA DO Unavailable Unavailable DOMBROWSKA, K PORTIA DO Unavailable Unavailable DOMBROWSKA, K PORTIA DO Unavailable Unavailable DOMBROWSKA, K PROTIA DO Unavailable Unavailable DOMBROWSKA, K PORTIA DO Unavailable Unavailable DOMBROWSKA, K PORTIA DO Unavailable Unavailable DOMBROWSKA, K PORTIA DO Unavailable Unavailable DOMBROWSKA, K PORTIA DO Unavailable Unavailable DOMBROWSKA, K PORTIA DO Unavailable Unavailable DOMBROWSKA, K PORTIA DO Unavailable Unavailable DOMBROWSKA, K PORTIA DO Unavailable Unavailable DOMBROWSKA, K PORTIA DO Unavailable Unavailable Durga, M Sriharsha Unavailable Unavailable Durga, M Sriharsha Unavailable Unavailable Durga, M Sriharsha Unavailable Unavailable Durga, M Sriharsha Unavailable Unavailable Durga, M Sriharsha Unavailable Unavailable Durga, M Sriharsha Unavailable Unavailable Durga, M Sriharsha Unavailable Unavailable Durga, M Sriharsha Unavailable Unavailable Durga, M Sriharsha Unavailable Unavailable Durga, M Sriharsha Unavailable Unavailable Durga, M Sriharsha Unavailable Unavailable Durga, M Sriharsha Unavailable Unavailable Durga, M Sriharsha Unavailable Unavailable Durga, M Sriharsha Unavailable Unavailable Durga, M Sriharsha Unavailable Unavailable Durga, M Sriharsha Unavailable Unavailable Durga, M Sriharsha Unavailable Unavailable Durga, M Sriharsha Unavailable Unavailable Durga, M Sriharsha Unavailable Unavailable Durga, M Sriharsha Unavailable Unavailable Durga, M Sriharsha Unavailable Unavailable Durga, M Sriharsha Unavailable Unavailable Durga, M Sriharsha Unavailable Unavailable Durga, M Sriharsha Unavailable Unavailable Durga, M Sriharsha Unavailable Unavailable Durga, M Sriharsha Unavailable Unavailable Durga, M Sriharsha Unavailable Unavailable Durga, M Sriharsha Unavailable Unavailable Durga, M Sriharsha Unavailable Unavailable Durga, M Sriharsha Unavailable Unavailable VIRGINIA CARABALLO MD Unavailable Unavailable CONCETTA, ALFONZO BOSTON Unavailable Unavailable CONCETTA, ALFONZO BOSTON Unavailable Unavailable CONCETTA, ALFONZO BOSTON Unavailable Unavailable CONCETTA, ALFONZO BOSTON Unavailable Unavailable CONCETTA, ALFONZO BOSTON Unavailable Unavailable CONCETTA, ALFONZO BOSTON Unavailable Unavailable CONCETTA, ALFONZO BOSTON Unavailable Unavailable CHEPAK, ILONA Unavailable Unavailable Concetta, S Amitpal Unavailable Concetta, S Amitpal Unavailable Concetta, S Amitpal Unavailable Concetta, S Amitpal Unavailable Newton Rasta, L Yue DO Unavailable Unavailable Herminio Rasta, L Yue DO Unavailable Unavailable Herminio Rasta, L Yue DO Unavailable Unavailable Newton Rasta, L Yue DO Unavailable Unavailable Newton Rasta, L Yue DO Unavailable Unavailable Newton Rasta, L Yue DO Unavailable Unavailable Newton Rasta, L Yue DO Unavailable Unavailable Michelle Aranda MD Unavailable Unavailable Michelle Aranda MD Unavailable Unavailable Michelle Aranda MD Unavailable Unavailable Michelle Aranda MD Unavailable Unavailable Ali, Michelle MD Unavailable Unavailable Ali, Michelle MD Unavailable Unavailable Ali, Michelle MD Unavailable Unavailable Ali, Michelle MD Unavailable Unavailable Ali, Michelle MD Unavailable Unavailable Ali, Michelle MD Unavailable Unavailable Ali, Michelle MD Unavailable Unavailable Ali, Michelle MD Unavailable Unavailable Ali, Michelle MD Unavailable Unavailable Ali, Michelle MD Unavailable Unavailable Ali, Michelle MD Unavailable Unavailable Ali, Michelle MD Unavailable Unavailable Ali, Michelle MD Unavailable Unavailable Ali, Michelle MD Unavailable Unavailable Ali, Michelle MD Unavailable Unavailable Ali, Michelle MD Unavailable Unavailable Ali, Michelle MD Unavailable Unavailable Ali, Michelle MD Unavailable Unavailable Ali, Michelle MD Unavailable Unavailable Ali, Michelle MD Unavailable Unavailable Ali, Michelle MD Unavailable Unavailable Ali, Michelle MD Unavailable Unavailable Ali, Michelle MD Unavailable Unavailable Ali, Michelle MD Unavailable Unavailable Ali, Michelle MD Unavailable Unavailable Ali, Michelle MD Unavailable Unavailable Ali, Michelle MD Unavailable Unavailable Ali, Michelle MD Unavailable Unavailable Ali, Michelle MD Unavailable Unavailable Ali, Michelle MD Unavailable Unavailable Ali, Michelle MD Unavailable Unavailable Ali, Michelle MD Unavailable Unavailable Ali, Michelle MD Unavailable Unavailable Ali, Michelle MD Unavailable Unavailable Ali, Michelle MD Unavailable Unavailable Ali, Michelle MD Unavailable Unavailable Ali, Michelle MD Unavailable Unavailable Ali, Michelle MD Unavailable Unavailable Ali, Michelle MD Unavailable Unavailable Ali, Michelle MD Unavailable Unavailable Ali, Michelle MD Unavailable Unavailable Ali, Michelle MD Unavailable Unavailable Ali, Michelle MD Unavailable Unavailable Ali, Michelle MD Unavailable Unavailable Ali, Michelle MD Unavailable Unavailable Ali, Michelle MD Unavailable Unavailable Ali, Michelle MD Unavailable Unavailable Zekri, A Hina Unavailable Unavailable Zekri, A Hina Unavailable Unavailable Zekri, A Hina Unavailable Unavailable Zekri, A Hina Unavailable Unavailable Zekri, A Hina Unavailable Unavailable Zekri, A Hina Unavailable Unavailable Zekri, A Hina Unavailable Unavailable Zekri, A Hina Unavailable Unavailable Zekri, A Hina Unavailable Unavailable Zekri, A Hina Unavailable Unavailable Zekri, A Hina Unavailable Unavailable Zekri, A Hina Unavailable Unavailable Zekri, A Hina Unavailable Unavailable Zekri, A Hina Unavailable Unavailable Zekri, A Hina Unavailable Unavailable Zekri, A Hina Unavailable Unavailable Zekri, A Hina Unavailable Unavailable Zekri, A Hina Unavailable Unavailable Zekri, A Hina Unavailable Unavailable Zekri, A Hina Unavailable Unavailable Zekri, A Hina Unavailable Unavailable Zekri, A Hina Unavailable Unavailable Zekri, A Hina Unavailable Unavailable Zekri, A Hina Unavailable Unavailable Zekri, A Hina Unavailable Unavailable Zekri, A Hina Unavailable Unavailable Zekri, A Hina Unavailable Unavailable Zekri, A Hina Unavailable Unavailable Zekri, A Hina Unavailable Unavailable Sharonda Jacobs MD Unavailable [email or web address] Sharonda Jacobs MD Unavailable [email or web address] Sharonda Jacobs MD Unavailable [email or web address] Naranjo, Terrence Unavailable Unavailable Naranjo, Terrence Unavailable Unavailable Naranjo, Terrence Unavailable Unavailable Naranjo, Terrence Unavailable Unavailable Naranjo, Terrence Unavailable Unavailable Naranjo, Terrence Unavailable Unavailable Jeanette Gonzalez MD Unavailable Unavailable Jeanette Gonzalez MD Unavailable Unavailable Jeanette Gonzalez MD Unavailable Unavailable Jeanette Gonzalez MD Unavailable Unavailable Jeanette Gonzalez MD Unavailable Unavailable Jeanette Gonzalez MD Unavailable Unavailable Jeanette Gonzalez MD Unavailable Unavailable Jeanette Gonzalez MD Unavailable Unavailable Jeanette Gonzalez MD Unavailable Unavailable Jeanette Gonzalez MD Unavailable Unavailable Jeanette Gonzalez MD Unavailable Unavailable Jeanette Gonzalez MD Unavailable Unavailable Jeanette Gonzalez MD Unavailable Unavailable Jeanette Gonzalez MD Unavailable Unavailable Jeanette Gonzalez MD Unavailable Unavailable Jeanette Gonzalez MD Unavailable Unavailable Jeanette Gonzalez MD Unavailable Unavailable Jeanette Gonzalez MD Unavailable Unavailable Jeanette Gonzalez MD Unavailable Unavailable Jeanette Gonzalez MD Unavailable Unavailable Jeanette Gonzalez MD Unavailable Unavailable Jeanette Gonzalez MD Unavailable Unavailable Jeanette Gonzalez MD Unavailable Unavailable Jeanette Gonzalez MD Unavailable Unavailable Jeanette Gonzalez MD Unavailable Unavailable Jeanette Gonzalez MD Unavailable Unavailable Jeanette Gonzalez MD Unavailable Unavailable Jeanette Gonzalez MD Unavailable Unavailable Jeanette Gonzalez MD Unavailable Unavailable Jeanette Gonzalez MD Unavailable Unavailable Jeanette Gonzalez MD Unavailable Unavailable Jeanette Gonzalez MD Unavailable Unavailable CarlosJeanette MD Unavailable Unavailable CarlosJeanette MD Unavailable Unavailable CarlosJeanette MD Unavailable Unavailable CarlosJeanette MD Unavailable Unavailable CarlosJeanette MD Unavailable Unavailable CarlosJeanette MD Unavailable Unavailable CarlosJeanette MD Unavailable Unavailable CarlosJeanette MD Unavailable Unavailable CarlosJeanette MD Unavailable Unavailable CarlosJeanette MD Unavailable Unavailable CarlosJeanette MD Unavailable Unavailable CarlosJeanette MD Unavailable Unavailable CarlosJeanette MD Unavailable Unavailable CarlosJeanette MD Unavailable Unavailable CarlosJeanette MD Unavailable Unavailable CarlosJeanette MD Unavailable Unavailable CarlosJeanette MD Unavailable Unavailable CarlosJeanette MD Unavailable Unavailable CarlosJeanette MD Unavailable Unavailable CarlosJeanette MD Unavailable Unavailable Jeanette Gonzalez MD Unavailable Unavailable Jeanette Gonzalez MD Unavailable Unavailable Jeanette Gonzalez MD Unavailable Unavailable CarlosJeanette castle MD Unavailable Unavailable Jeanette Gonzalez MD Unavailable Unavailable Jeanette Gonzalez MD Unavailable Unavailable Jeanette Gonzalez MD Unavailable Unavailable Jeanette Gonzalez MD Unavailable Unavailable Jeanette Gonzalez MD Unavailable Unavailable Jeanette Gonzalez MD Unavailable Unavailable Jeanette Gonzalez MD Unavailable Unavailable Jeanette Gonzalez MD Unavailable Unavailable Jeanette Gonzalez MD Unavailable Unavailable Jeanette Gonzalez MD Unavailable Unavailable Jeanette Gonzalez MD Unavailable Unavailable Jeanette Gonzalez MD Unavailable Unavailable Jeanette Gonzalez MD Unavailable Unavailable Jeanette Gonzalez MD Unavailable Unavailable Jeanette Gonzalez MD Unavailable Unavailable Jeanette Gonzalez MD Unavailable Unavailable Jaenette Gonzalez MD Unavailable Unavailable Jeanette Gonzalez MD Unavailable Unavailable Jeanette Gonzalez MD Unavailable Unavailable Jeanette Gonzalez MD Unavailable Unavailable CarlosJeanette MD Unavailable Unavailable Jeanette Gonzalez MD Unavailable Unavailable Jeanette Gonzalez MD Unavailable Unavailable Jeanette Gonzalez MD Unavailable Unavailable Jeanette Gonzalez MD Unavailable Unavailable CarlosJeanette MD Unavailable Unavailable CarlosJeanette MD Unavailable Unavailable Jeanette Gonzalez MD Unavailable Unavailable Michele Jose Unavailable Michele Jose Unavailable JENNY MILLER MD Unavailable Unavailable JENNY MILLER MD Unavailable Unavailable JENNY MILLER MD Unavailable Unavailable JENNY MILLER MD Unavailable Unavailable JENNY MILLER MD Unavailable Unavailable MILLERJENNY MD Unavailable Unavailable MILLERJENNY MD Unavailable Unavailable MILLERJENNY MD Unavailable Unavailable Re-disclosure Warning The records that you are about to access may contain information from federally-assisted alcohol or drug abuse programs. If such information is present, then the following federally mandated warning applies: This information has been disclosed to you from records protected by federal confidentiality rules (42 CFR part 2). The federal rules prohibit you from making any further disclosure of this information unless further disclosure is expressly permitted by the written consent of the person to whom it pertains or as otherwise permitted by 42 CFR part 2. A general authorization for the release of medical or other information is NOT sufficient for this purpose. The Federal rules restrict any use of the information to criminally investigate or prosecute any alcohol or drug abuse patient.The records that you are about to access may contain highly sensitive health information, the redisclosure of which is protected by Article 27-F of the [facility] Public Health law. If you continue you may have access to information: Regarding HIV / AIDS; Provided by facilities licensed or operated by the [facility] Office of Mental Health; or Provided by the [facility] Office for People With Developmental Disabilities. If such information is present, then the following [facility] mandated warning applies: This information has been disclosed to you from confidential records which are protected by state law. State law prohibits you from making any further disclosure of this information without the specific written consent of the person to whom it pertains, or as otherwise permitted by law. Any unauthorized further disclosure in violation of state law may result in a fine or [place] [facility] sentence or both. A general authorization for the release of medical or other information is NOT sufficient authorization for further disc losure. Allergies and Adverse Reactions Type Description Substance Reaction Status Data Source(s ) Drug allergy ENALAPRILAT ENALAPRILAT Anaphylaxis [facility] Family History Family Member Name Family Member Gender Family Member Status Date o f Status Description Data Source(s) Unknown Female Problem [facility] ([facility] Unknown Female Problem [facility] ([facility]) Unknown Female Problem [facility] ([facility]) Encounters Encounter Providers Location Date Indications Data Source(s ) Outpatient Attender: Michelle Aranda MD Main office - [place] 07/26/2021 03:00:00 PM EDT [facility] ([facility]) [place] [address] [address] 07/15/2021 12:00:00 AM EDT eC ([facility]) Outpatient 06/23/2021 12:00:00 AM [facility] Outpatient Attender: Michelle Aranda MD Main office - [place] 05/27/2021 09:45:00 AM EDT [facility] ([facility]) Outpatient Attender: JENNY MILLER MD 05/19/2021 12:00:00 AM [facility] Outpatient 05/17/2021 12:00:00 AM [facility] Inpatient Attender: Hina Israeltender : Juan J Jacobs MDAttender: Terrence LamasanAttender: Michele ArciniegapakAttender: MICHELE ARCINIEGAPAKAttender: VIRGINIA POLLACK MDAttender: Amitpal NatAttender: ALFONZO CONCETTA MDAttender: Yue Tranh DOAdmitter: ALFONZO CONCETTA MDReferrer: Terrence Ballultant: Aiden Calixto [id number] 05/02/2021 12:00:00 AM EDT - 05/12/2021 01:38:00 PM [facility] Patient discharged. Outpatient Attender: Lashell Kingsley 09:00:00 AM EDT [facility] ([facility] ) Office Visit Attender: Michelle Aranda MD Main office - [place] 02/08/2021 11:30:00 AM EDT [facility] ([facility]) ([facility] PO) [facility] [address] [place] [address] 02/07/2021 12:00:00 AM EDT eCW1 ([facility]) [place] [address] [address] 01/31/2021 12:00:00 AM EDT eCW1 ([facility]) [place] [address] [address] 01/20/2021 12:00:00 AM EDT eCW1 ([facility]) ([facility] PO) [facility] [address] [place] [address] 01/17/2021 12:00:00 AM EDT eCW1 ([facility]) Outpatient Admitter: PORTIA Shah: ZACK ORTA DO 01/13/2021 12:00:00 AM EDT Malignant neoplasm of unspecified site o f unspecified female [facility] Malignant neoplasm of unspecified site o f unspecified female breast Outpatient Attender: Lashell Kingsley 09:00:00 AM EST [facility] ([facility] ) [place] [address] [address] 12/31/2020 12:00:00 AM EST eCW1 ([facility]) [place] [address] [address] 12/17/2020 12:00:00 AM EST eCW1 ([facility]) Outpatient Attender: Lashell Kingsley 08:15:00 AM EST [facility] ([facility] ) [place] [address] [address] 12/09/2020 12:00:00 AM EST eCW1 ([facility]) Outpatient Attender: Lashell Kingsley 12:30:00 PM EST [facility] ([facility] ) Outpatient Attender: Lashell Kingsley 09:45:00 AM EST [facility] ([facility] ) Outpatient Attender: Makeda Kingsley 10:40:00 AM EDT [facility] ([facility] ) Office Visit Attender: Michelle Aranda MD Main office - [place] 08/05/2020 02:15:00 PM EDT [facility] ([facility]) Outpatient Attender: Lashell Kingsley 03:15:00 PM EDT [facility] ([facility] ) Immunizations Vaccine Date Status Description Data Source(s) COVID-19 VACCINE Pfizer 12/13/2020 12:00:00 AM EST completed [facility] Vaccine Series Complete: YESThis Data wa s Submitted to [facility] Via [employer]. COVID-19 VACCINE Pfizer 11/22/2020 12:00:00 AM EST completed [facility] Vaccine Series Complete: NOThis Data was Submitted to [facility] Via [employer]. Influenza, injectable, MDCK, preservative free, narayan valent 08/02/2020 02:48:00 PM EDT completed [facility]) Medications Medication Brand Name Start Date Product Form Dose Route Admi nistrative Instructions Pharmacy Instructions Status Indications Reaction Description Data Source(s) Lorazepam 1 MG Oral Tablet Lorazepam 07/19/2021 12:00:00 AM EDT ORAL active [facility] ([facility]) Donepezil hydrochloride 10 MG Oral Tablet Donepezil HCL 05/27/2021 12:00:00 AM EDT ORAL completed [facility] ([facility]) Losartan Potassium 100 MG Oral Tablet Lo sartan Potassium 100 MG Oral Tablet (COZAAR) Losartan Potassium 100 MG Oral Tablet (COZAAR) 021 12:00:00 AM EDT 100 mg Oral active Take 1 tablet by mouth daily [facility] Cholecalciferol 400 UNT Oral Tablet Liz min D (Cholecalciferol) 10 MCG (400 UNIT) Oral Tablet (CHOLECALCIFEROL) Vitamin D (Cholecalciferol) 10 MCG (400 UNIT) Oral Tablet (CHOLECALCIFEROL) 05/13/2021 12:00:00 AM EDT 400 U Oral active Take 1 tablet by mouth daily [facility] Amlodipine 5 MG Oral Tablet amLODIPine Besylate 5 MG O ral Tablet (NORVASC) amLODIPine Besylate 5 MG Oral Tablet (NORVASC) 05/13/2021 12:00:00 AM EDT 5 mg Oral active Take 1 tablet by mouth d jessica [facility] hypromellose 25 MG/ML Ophthalmic Solutio n Hypromellose 2.5 % Ophthalmic Solution (GONIOSOL) Hypromellose 2.5 % Ophthalmic Solution (GONIOSOL) 04/28 12:00:00 AM EDT 1 [drp] Both Eyes active Place 1 drop into both eyes as needed [facility] Mineral Oil 0.15 MG/MG / Petrolatum 0.83 MG/MG Ophthalmic Ointment [Lubrifresh P.M.] LubriFresh P.M. Ophthalmic Ointment LubriFresh P.M. Ophthalmic Ointment 05/12/2021 12:00:00 AM EDT 0.5 [in_us] Both Eyes active Place 0.5 inches into both eyes Four times daily as needed [facility] Melatonin 5 MG Oral Tablet Melatonin 5 MG Oral Tablet 2020 12:00:00 AM EDT 5 mg Oral active Take 1 tablet by mouth nightly [facility] sennosides, MCFP 8.6 MG Oral Tablet Senna 8.6 MG Oral T ablet Senna 8.6 MG Oral Tablet 05/12/2021 12:00:00 AM EDT 2 {tbl} Oral active Take 2 tablets by mouth nightly as needed [facility] Pravastatin Sodium 40 MG Oral Tablet pravastatin (PRAV ACHOL) tablet 40 mg pravastatin (PRAVACHOL) tablet 40 mg 05/10/2021 09:00:00 AM EDT 40 mg Oral active 40 mg, Oral, Modesta ly Standard, First dose (after last reorder) on Sun05/10/21 at 0900, For 7 doses [facility] Medication administered onsite POLYETHYLENE GLYCOL 3350 142 MG/ML Oral Solution polyethylene glycol (MIRALAX) packet 17 g polyethylene glycol (MIRALAX) packet 17 g 05/08/2021 1 0:00:00 AM EDT 17 g Oral active 17 g, Or al, Daily Standard, First dose on Sun05/08/21 at 1000, For 30 days
Mix in 8 ounces of water, juice or milk. Avoid use in patients who require thickened liquids due to potential increased risk for aspiration.
[facility] Medication administered onsite Amlodipine 5 MG Oral Tablet amlodipine (NORVASC) table t 5 mg amlodipine (NORVASC) tablet 5 mg 05/08/2021 10:00:00 AM EDT 5 mg Oral active 5 mg, Oral, Daily Standard, First dose on 05/08/21 at 1000, For 30 days
Check vital signs before administering
[facility] Medication administered onsite sennosides, MCFP 8.6 MG Oral Tablet senna tablet 2 tablet sen na tablet 2 tablet 05/08/2021 09:49:43 AM EDT 2 {tbl} Oral active 2 tablet, Oral, Nightly PRN, Constipation, Starting on 05/08/21 at 0949, For 30 days [facility] Medication administered onsite Propranolol Hydrochloride 40 MG Oral Tablet propranolo l (INDERAL) tablet 60 mg propranolol (INDERAL) tablet 60 mg 05/07/2021 09:00:00 PM EDT 60 mg Oral active 60 mg, Oral, 2 Times Daily, First dose on 05/07/21 at 2100, For 30 days
Check vital signs before administering
[facility] Medication administered onsite Acetaminophen 325 MG Oral Tablet acetaminophen (TYLENO L) tablet 650 mg acetaminophen (TYLENOL) tablet 650 mg 05/07/2021 07:00:13 AM EDT 65 0 mg Oral active 650 mg, Oral, E very 6 hours PRN, Mild Pain (Pain Scale Score 1- 3), Starting on 05/07/21 at 0700, For 30 days
Maximum daily dose of acetaminophen is 3,000 mg from all sources in 24 hours.
[facility] Medication administered onsite Losartan Potassium 50 MG Oral Tablet losartan (COZAAR) tablet 100 mg losartan (COZAAR) tablet 100 mg 05/06/2021 09:00:00 AM EDT 100 mg Oral active 100 mg, Oral, Daily Standard, First dose (after last modification) on Sun05/06/21 at 0900, For 28 doses
Check vital signs before administering
[facility] Medication administered onsite quetiapine 25 MG Oral Tablet QUEtiapine (SEROquel) tab let 12.5 mg QUEtiapine (SEROquel) tablet 12.5 mg 05/05/2021 10:00:00 PM EDT 12.5 mg Oral aborted 12.5 mg, Oral, Nightly, First dose on 05/05/21 at 2200, For 30 days [facility] Medication administered onsite NaCl infusion 0.9 % [id number] 05/05/2021 12:30:00 PM EDT Intravenous completed at 100 mL/hr, Intrav enous, Continuous, Starting on Sun05/05/21 at 1230, For 24 hours [facility] Medication administered onsite Melatonin 5 MG Oral Tablet melatonin tablet 5 mg melatonin t ablet 5 mg 05/04/2021 10:00:00 PM EDT 5 mg Oral active 5 mg, Oral, Nightly, First dose on Sun05/04/21 at 2200, For 30 days [facility] Medication administered onsite hypromellose 25 MG/ML Ophthalmic Solutio n hydroxypropyl methylcellulose (GONIOSOL) 2.5 % ophthalmic solution 1 drop hydroxypropyl methylcellulose (GONIOSOL) 2.5 % ophthalmic solution 1 drop 05/04/2021 02:48:29 AM EDT 1 [drp] Both Eyes active 1 drop, Sarath th Eyes, PRN, Dry Eyes, Starting on Sun05/04/21 at 0248, For 30 days [facility] Medication administered onsite ondansetron (ZOFRAN) injection 4 mg [id number] 05/04/2021 02:15:0 0 AM EDT 4 mg Intravenous completed 4 mg, In travenous, Once, On Sun05/04/21 at 0215, For 1 dose [facility] Medication administered onsite Melatonin 3 MG Oral Tablet melatonin tablet 3 mg melatonin t ablet 3 mg 05/04/2021 01:15:00 AM EDT 3 mg Oral completed 3 mg, Oral, Once, On Sun05/04/21 at 0115, For 1 dose [facility] Medication administered onsite Mineral Oil 0.15 MG/MG / Petrolatum 0.83 MG/MG Ophthalmic Ointment [Lubrifresh P.M.] lubrifresh P.M. ophthalmic ointment lubrifresh P.M. ophthalmic ointment 05/03/2021 05:09:06 PM EDT Right Eye active Right Eye, Four Times Daily-PRN, Dry Eyes, Starting on Sun05/03/21 at 1709, For 10 days 23 hours [facility] Medication administered onsite NIFEdipine (PROCARDIA XL) 24 hr tablet 30 mg [id number] 05/03/2021 12:30:00 PM EDT 30 mg Oral aborted 30 mg, O ral, Daily Standard, First dose (after last modification) on Sun05/03/21 at 1230, For 29 doses
Do not crush or chew
[facility] Medication administered onsite multivitamin tablet 1 tablet [id number] 05/03/2021 09:00:00 AM EDT 1 {tbl} Oral active 1 tablet, Oral , Daily Standard, First dose on Sun05/03/21 at 0900, For 30 days [facility] Medication administered onsite Cholecalciferol 400 UNT Oral Tablet Liz min D (CHOLECALCIFEROL) tablet 400 Units Vitamin D (CHOLECALCIFEROL) tablet 400 Units 05/03/2021 09:00:00 AM EDT 400 U Oral active 400 Units, Ora l, Daily Standard, First dose on Sun05/03/21 at 0900, For 30 days [facility] Medication administered onsite Magnesium Oxide 400 MG Oral Tablet Magnesium Oxide (MA G-OX) tablet 400 mg Magnesium Oxide (MAG-OX) tablet 400 mg 05/03/2021 09:00:00 AM EDT 4 00 mg Oral active 400 mg, Oral, D aily Standard, First dose on Sun05/03/21 at 0900, For 30 days [facility] Medication administered onsite Pravastatin Sodium 40 MG Oral Tablet pravastatin (PRAV ACHOL) tablet 40 mg pravastatin (PRAVACHOL) tablet 40 mg 05/03/2021 09:00:00 AM EDT 40 mg Oral active 40 mg, Oral, Modesta ly Standard, First dose on Sun05/03/21 at 0900, For 7 doses [facility] Medication administered onsite Losartan Potassium 50 MG Oral Tablet losartan (COZAAR) tablet 100 mg losartan (COZAAR) tablet 100 mg 05/03/2021 09:00:00 AM EDT 100 mg Oral aborted 100 mg, Oral, Daily Standard, First dose (after last modification) on Sun05/03/21 at 0900, For 30 days
Check vital signs before administering
[facility] Medication administered onsite Calcium Citrate 950 MG Oral Tablet calcium citrate (CA LCITRATE) tablet 950 mg calcium citrate (CALCITRATE) tablet 950 mg 05/03/2021 09:00:00 AM EDT 950 mg Oral active 950 mg, Oral, Daily Standard, First dose on Sun05/03/21 at 0900, For 30 days [facility] Medication administered onsite Carbidopa 25 MG / Levodopa 100 MG Oral T ablet carbidopa-levodopa (SINEMET) 25- 100 MG per tablet 2 tablet carbidopa-levodopa (SINEMET) 25-100 MG p er tablet 2 tablet 05/03/2021 09:00:00 AM EDT 2 {tbl} Oral active 2 tablet, Oral, Four Times Daily Standard, First dose on Sun05/03/21 at 0900, For 30 days [facility] Medication administered onsite Docusate Sodium 100 MG Oral Capsule docusate sodium (C OLACE) capsule 100 mg docusate sodium (COLACE) capsule 100 mg 05/03/2021 09:00:00 AM EDT 100 mg Oral aborted 100 mg, Oral, 2 Times Daily, First dose on Sun05/03/21 at 0900, For 30 days [facility] Medication administered onsite entacapone 200 MG Oral Tablet entacapone (COMTAN) tabl et 200 mg entacapone (COMTAN) tablet 200 mg 05/03/2021 09:00:00 AM EDT 200 mg Oral active 200 mg, Oral, Four Times Daily Standard, First dose on Sun05/03/21 at 0900, For 30 days [facility] Medication administered onsite propranolol (INDERAL) tablet 60 mg 05/03/2021 09:00:00 AM EDT 60 mg Oral aborted 60 mg, Oral, 2 T imes Daily, First dose on Sun05/03/21 at 0900, For 30 days
Check vital signs before administering
[facility] Medication administered onsite Sertraline 50 MG Oral Tablet sertraline (ZOLOFT) table t 100 mg sertraline (ZOLOFT) tablet 100 mg 05/03/2021 09:00:00 AM EDT 100 mg Oral active 100 mg, Oral, Daily Standard, First dose on Sun05/03/21 at 0900, For 30 days [facility] Medication administered onsite iohexol (OMNIPAQUE) 350 MG/ML contrast injection 75 mL [id number] 05/03/2021 04:00:00 AM EDT 75 mL Given by IV completed 75 mL, Given by IV, 1 TIME IMAGING, On Sun05/03/21 at 0400, For 1 dose [facility] Medication administered onsite Losartan Potassium 50 MG Oral Tablet losartan (COZAAR) tablet 50 mg losartan (COZAAR) tablet 50 mg 05/02/2021 11:30:00 PM EDT 50 mg Oral completed 50 mg, Oral, Daily Standard, First dose on Sun05/02/21 at 2330, For 1 dose
Check vital signs before administering
[facility] Medication administered onsite Acetaminophen 325 MG Oral Tablet acetaminophen (TYLENO L) tablet 650 mg acetaminophen (TYLENOL) tablet 650 mg 05/02/2021 11:19:06 PM EDT 65 0 mg Oral completed 650 mg, Oral, E very 6 hours PRN, Pain, Starting on Sun05/02/21 at 2319, For 3 days
Maximum dose of acetaminophen is 4000 mg from all sources in 24 hours.
[facility] Medication administered onsite Hydralazine Hydrochloride 20 MG/ML Injec table Solution hydrALAZINE (APRESOLINE) injection 10 mg hydrALAZINE (APRESOLINE) injection 10 mg 05/02/2021 09 :15:00 PM EDT 10 mg Intravenous completed 10 mg, Intravenous, Once, On Sun05/02/21 at 2115, For 1 dose
Dilute in 25-50 mL normal saline. Administer over 30 minutes.
[facility] Medication administered onsite Acetaminophen 325 MG Oral Tablet acetaminophen (TYLENO L) tablet 975 mg acetaminophen (TYLENOL) tablet 975 mg 05/02/2021 06:30:00 PM EDT 97 5 mg Oral completed 975 mg, Oral, O nce, On Sun05/02/21 at 1830, For 1 dose
Maximum daily dose of acetaminophen from all sources 75 mg/kg/day.
[facility] Medication administered onsite Losartan Potassium 50 MG Oral Tablet losartan (COZAAR) tablet 50 mg losartan (COZAAR) tablet 50 mg 05/02/2021 06:30:00 PM EDT 50 mg Oral completed 50 mg, Oral, Once, On Sun05/02/21 at 1830, For 1 dose
Check vital signs before administering
[facility] Medication administered onsite Tab-A-Iftikhar 03/14/2021 12:00:00 AM EDT active [facility] ([facility]) Lorazepam 0.5 MG Oral Tablet Lorazepam 02/28/2021 12:00:00 AM EDT ORAL completed [facility] ([facility]) buspirone hydrochloride 10 MG Oral Tablet Buspirone HCL 02/22/2021 12:00:00 AM EDT ORAL completed [facility] ([facility]) Trazodone Hydrochloride 50 MG Oral Tablet Trazodone HCL 02/22/2021 12:00:00 AM EDT ORAL active [facility] ([facility]) Multi Vitamin And Minerals 02/14/2021 12:00:00 AM EDT OR AL active [facility] ([facility]) Magnesium Oxide 400 02/11/2021 12:00:00 AM EDT ORAL completed [facility] ([facility]) Magnesium Oxide 400 MG Oral Tablet Magnesium-Oxide 02/11/2021 12:00 :00 AM EDT ORAL active [facility] ([facility]) Glycerin 2 MG/ML / hypromellose 2 MG/ML / Polyethylene Glycol 400 10 MG/ML Ophthalmic Solution Artificial Tears 01/04/2021 12:00:00 AM EST OPHTHALMIC completed [facility] ([facility]) Covid-19 vaccine, Unspecified 12/13/2020 12:00:00 AM EST completed [facility] Medication administered onsite Covid-19 vaccine, Unspecified 11/22/2020 12:00:00 AM EST completed [facility] ([facility]) Medication administered onsite hydrocortisone acetate 10 MG/ML / Pramox ine hydrochloride 10 MG/ML Rectal Foam [Proctofoam-HC] Proctofoam HC 09/09/2020 12:00:00 AM EST RECTAL active [facility] ([facility]) Sertraline 100 MG Oral Tablet Sertraline HCL 08/02/2020 12:00:00 AM EDT active [facility] ([facility]) Administration Of Flu Vaccine 08/02/2020 12:00:00 AM EDT completed [facility]) Medication administered onsite Lorazepam 0.5 MG Oral Tablet LORazepam 0.5 MG Oral Tab let (ATIVAN) LORazepam 0.5 MG Oral Tablet (ATIVAN) 0.25 mg Oral aborted Take 0.25 mg by mouth Two times daily as needed for Anxiety [facility] Calcium Citrate 950 MG Oral Tablet Calci um Citrate 950 (200 Ca) MG Oral Tablet (CALCITRATE) Calcium Citrate 950 (200 Ca) MG Oral Tablet (CALCITRATE) 1 {tbl} Oral aborted Take 1 tablet by mouth d [facility] Cholecalciferol 400 UNT Oral Tablet Liz min D (Cholecalciferol) 10 MCG (400 UNIT) Oral Tablet (CHOLECALCIFEROL) Vitamin D (Cholecalciferol) 10 MCG (400 UNIT) Oral Tablet (CHOLECALCIFEROL) 5000 U Oral ab orted Take 5,000 Units by mouth daily [facility] Azelastine hydrochloride 0.5 MG/ML Ophth almic Solution azelastine (OPTIVAR) 0.05 % ophthalmic solution azelastine (OPTIVAR) 0.05 % ophthalmic solution 2 mg Ophthalmic aborted Apply 2 mg to eye [facility] Losartan Potassium 50 MG Oral Tablet Los cleopatra Potassium 50 MG Oral Tablet (COZAAR) Losartan Potassium 50 MG Oral Tablet (COZAAR) 50 mg O ral aborted Take 50 mg by mouth daily [facility] Insurance Providers Payer name Policy type / Coverage type Policy ID Covered libertarian ID Covered libertarian's relationship to mccrary Policy Mccrary Plan Information Medicare Natl Govt Servic Medicare Primary [id number] Self [id number] Medicare Natl [facility] Medicare Primary [id number] Self [id number] Medicare Natl [facility] Medicare Primary [id number] Self [id number] Medicare Natl Govt Servic Medicare Primary [id number] Self [id number] Medicare Natl Govt Servic Medicare Primary [id number] Self [id number] Medicare Natl Govt Servic Medicare Primary [id number] Self [id number] Medicare Natl Govt Servic Medicare Primary [id number] Self [id number] Medicare Natl Govt Servic Medicare Primary [id number] Self [id number] Medicare Natl Govt Servic Medicare Primary [id number] Self [id number] Medicare Natl Govt Servic Medicare Primary [id number] Self [id number] Medicare Natl Govt Servic Medicare Primary [id number] Self [id number] Medicare Natl Govt Servic Medicare Primary [id number] Self [id number] Medicare Natl Govt Servic Medicare Primary [id number] Self MEDICARE A [id number] Self [id number] Medicare Part B Medicare Primary [id number] Self [id number] EXCELLUS C [id number] Self [id number] BLUE CARD C [id number] Self [id number] MEDICAID M [id number] Self [id number] BS [place] [employer] [id number] Family Dependent [id number] [place] 200/700 [id number] [id number] [place] Of [place] [id number] Self [id number] BS [facility] [id number] Family Dependent [id number] BS [facility] [id number] Family Dependent [id number] BS [facility] [id number] Family Dependent [id number] BS [facility] [id number] Family Dependent [id number] BLUE CROSS [id number] 18 [id number] MEDICARE PART A -O/P [id number] 18 [id number] BS [place] [employer] [id number] Family Dependent [id number] BS [facility] [id number] Family Dependent [id number] BS [facility] [id number] Family Dependent 200 BS Of [place] [id number] Self Medicare Part B Medicare Primary [id number] Self [place] BCBS S UNAVAILABLE P UNAV AILABLE BC[place] OF [place] S [id number] P XX [id number] [place] [id number] SP [id number] W [id number] A MEDICARE [id number] SP [id number] [place] 200/700 [id number] SP [id number] SELF PAY ONLY [id number] SP [id number] [id number] [id number] SP [id number] [place] BCBS B [id number] S [id number] [id number] MEDICARE C [id number] S [id number] Self Pay P UNAVAILABLE S UNAVAILA BLE MEDICARE [id number] SP [id number] A BC/[place] OF [place] B [id number] P XX [id number] BS [facility] [id number] Family Dependent [id number] BS [facility] [id number] Family Dependent [id number] BS [facility] [id number] Family Dependent [id number] BS [facility] [id number] Family Dependent [id number] [place] BCBS B [id number] S [id number] MEDICARE C [id number] S [id number] A BS [facility] [id number] Family Dependent [id number] Problems, Conditions, and Diagnoses Code Display Name Description Problem Type Effective Dates Data Source(s) C50.919 Malignant neoplasm of unspecified site o f unspecified female breast Malignant neoplasm of unspecified site of unspecified female breast Diagnosis 01/13/2021 02:36:00 PM [facility] G31.84 Mild cognitive disorder Mild cognitive disorder Proble m 07/26/2021 12:00:00 AM EDT [facility] ([facility] S06.0x0S Sequela of intracranial injury Sequela of intracranial injury Problem 07/26/2021 12:00:00 AM EDT [facility] ([facility] ) 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 Problem 01/23/2021 12:00:00 AM EDT [facility] ([facility]) 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 Problem 12/21/2020 12:00:00 AM EST [facility] ([facility]) Surgeries/Procedures Procedure Description Date Indications Data Source(s) OFFICE OUTPATIENT VISIT 25 MINUTES 07/26/2021 12:00:00 AM EDT [facility] ([facility] ) Chronic Care MGMT 20 Mins Clinical Staff Time Per Calendar [facility] 06/22/2021 12:00:00 AM EDT [facility] ([facility] ) OFFICE OUTPATIENT VISIT 40 MINUTES 05/27/2021 12:00:00 AM EDT [facility] ([facility], ) RESPIRATORY PATHOGEN PANEL <td>RESPIRATORY PATHOGEN PANEL</td><td>Routine</td><td>05/12/2021 10:47 AM EDT</td><td></td><td> </td> 05/12/2021 10:47:00 AM [facility] COVID-19 PCR <td>COVID-19 PCR</td><td>[place]</td><td>05/12/2021 10:47 AM EDT</td><td></td><td> </td> 05/12/2021 10:47:00 AM [facility] INITIAL NURSING FACILITY CARE/DAY HIGH SEVERITY 2020 12:00:00 AM EDT [facility] ([facility]) BLOOD COUNT COMPLETE AUTO&AUTO DIFRNTL WBC COUNT <td>C BC AND DIFFERENTIAL</td><td>Routine</td><td>05/09/2021 11:58 AM EDT</td><td></td><td> </td> 05/09/2021 11:58:00 AM [facility] BASIC METABOLIC PANEL CALCIUM TOTAL <td>BASIC METABOLI C PANEL</td><td>Routine</td><td>05/09/2021 11:58 AM EDT</td><td></td><td> </td> 05/09/2021 11:58:00 AM [facility] RESPIRATORY PATHOGEN PANEL <td>RESPIRATORY PATHOGEN PANEL</td><td>Routine</td><td>05/08/2021 10:15 PM EDT</td><td></td><td> </td> 05/08/2021 10:15:00 PM [facility] COVID-19 PCR <td>COVID-19 PCR</td><td>[place]</td><td>05/08/2021 10:15 PM EDT</td><td></td><td> </td> 05/08/2021 10:15:00 PM [facility] BASIC METABOLIC PANEL CALCIUM TOTAL <td>BASIC METABOLI C PANEL</td><td>Routine</td><td>05/07/2021 1:20 AM EDT</td><td></td><td> </td> 05/07/2021 01:20:00 AM [facility] BASIC METABOLIC PANEL CALCIUM TOTAL <td>BASIC METABOLI C PANEL</td><td>Routine</td><td>05/06/2021 1:10 AM EDT</td><td></td><td> </td> 05/06/2021 01:10:00 AM [facility] BLOOD COUNT COMPLETE AUTO&AUTO DIFRNTL WBC COUNT <td>C BC AND DIFFERENTIAL</td><td>Routine</td><td>05/05/2021 4:36 AM EDT</td><td></td><td> </td> 05/05/2021 04:36:00 AM [facility] BASIC METABOLIC PANEL CALCIUM TOTAL <td>BASIC METABOLI C PANEL</td><td>Routine</td><td>05/05/2021 4:36 AM EDT</td><td></td><td> </td> 05/05/2021 04:36:00 AM [facility] RADIOLOGY REPORT <td>RADIOLOGY REPORT</td><td ></td><td>05/04/2021 2:58 PM EDT</td><td></td><td></td> 05/04/2021 02:58:25 PM EDT [facility] ECHO TTHRC R-T 2D W/WOM-MODE COMPL SPEC&COLR DOP <td>E CHOCARDIOGRAM 2D COMPLETE</td><td>Pending Discharge</td><td>05/04/2021 1:06 PM EDT</td><td></td><td> </td> 05/04/2021 01:06:49 PM [facility] BLOOD COUNT COMPLETE AUTO&AUTO DIFRNTL WBC COUNT <td>C BC AND DIFFERENTIAL</td><td>Routine</td><td>05/04/2021 4:27 AM EDT</td><td></td><td> </td> 05/04/2021 04:27:00 AM [facility] BASIC METABOLIC PANEL CALCIUM TOTAL <td>BASIC METABOLI C PANEL</td><td>Routine</td><td>05/04/2021 4:27 AM EDT</td><td></td><td> </td> 05/04/2021 04:27:00 AM T [facility] 25 HYDROXY INCLUDES FRACTIONS IF PERFORMED <td>VITAMIN D 25 HYDROXY, TOTAL</td><td>Routine</td><td>05/03/2021 6:36 PM EDT</td><td></td><td> </td> 05/03/2021 06:36:00 PM [facility] VASC LAB US DOPPLER CAROTID BILATERAL COMP 75850 <td>V ASC LAB US DOPPLER CAROTID BILATERAL COMP 12182</td><td>Routine</td><td>05/03/2021 7:00 AM EDT</td><td></td><td></td> 05/03/2021 07:00:00 AM EDT [facility] CT ANGIOGRAPHY NECK W/CONTRAST/NONCONTRAST <td>CT BRITTNEE OGRAPHY NECK 62062</td><td>Urgent</td><td>05/03/2021 4:03 AM EDT</td><td></td><td> </td> 05/03/2021 04:03:34 AM [facility] CT ANGIOGRAPHY HEAD W/CONTRAST/NONCONTRAST <td>CT BRITTNEE OGRAPHY HEAD 44739</td><td>Urgent</td><td>05/03/2021 4:03 AM EDT</td><td></td><td> </td> 05/03/2021 04:03:34 AM [facility] URNLS DIP STICK/TABLET REAGENT AUTO MICROSCOPY <td>URI NALYSIS WITH MICROSCOPIC</td><td>Routine</td><td>05/03/2021 1:12 AM EDT</td><td></td><td> </td> 05/03/2021 01:12:00 AM [facility] TROPONIN T HIGH SENSITIVITY <td>TROPONIN T HIGH SENSITIVITY</td><td>Routine</td><td>05/03/2021 12:58 AM EDT</td><td></td><td> </td> 05/03/2021 12:58:00 AM [facility] BLOOD COUNT COMPLETE AUTO&AUTO DIFRNTL WBC COUNT <td>C BC AND DIFFERENTIAL</td><td>Routine</td><td>05/03/2021 12:58 AM EDT</td><td></td><td> </td> 05/03/2021 12:58:00 AM [facility] THYROID STIMULATING HORMONE TSH <td>TSH</td><td>Routin e</td><td>05/03/2021 12:58 AM EDT</td><td></td><td> </td> 05/03/2021 12:58:00 AM [facility] CYANOCOBALAMIN VITAMIN B-12 <td>VITAMIN B12</td><td>Ro utine</td><td>05/03/2021 12:58 AM EDT</td><td></td><td> </td> 05/03/2021 12:58:00 AM [facility] BASIC METABOLIC PANEL CALCIUM TOTAL <td>BASIC METABOLI C PANEL</td><td>Routine</td><td>05/03/2021 12:58 AM EDT</td><td></td><td> </td> 05/03/2021 12:58:00 AM [facility] CT HEAD/BRAIN W/O CONTRAST MATERIAL <td>CT HEAD WITHOU T CONTRAST 34014</td><td>Urgent</td><td>05/02/2021 11:18 PM EDT</td><td></td><td> </td> 05/02/2021 11:18:20 PM [facility] RESPIRATORY PATHOGEN PANEL <td>RESPIRATORY PATHOGEN PANEL</td><td>Routine</td><td>05/02/2021 8:13 PM EDT</td><td></td><td> </td> 05/02/2021 08:13:00 PM [facility] COVID-19 PCR <td>COVID-19 PCR</td><td>[place]</td><td>05/02/2021 8:13 PM EDT</td><td></td><td> </td> 05/02/2021 08:13:00 PM [facility] TROPONIN T HIGH SENSITIVITY <td>TROPONIN T HIGH SENSITIVITY</td><td>STAT</td><td>05/02/2021 8:09 PM EDT</td><td></td><td> </td> 05/02/2021 08:09:00 PM [facility] BLOOD COUNT COMPLETE AUTO&AUTO DIFRNTL WBC COUNT <td>C BC AND DIFFERENTIAL</td><td>Routine</td><td>05/02/2021 8:09 PM EDT</td><td></td><td> </td> 05/02/2021 08:09:00 PM [facility] BASIC METABOLIC PANEL CALCIUM TOTAL <td>BASIC METABOLI C PANEL</td><td>STAT</td><td>05/02/2021 8:09 PM EDT</td><td></td><td> </td> 05/02/2021 08:09:00 PM [facility] EKG 12-LEAD - CMAXX REPORT <td>EKG 12-LEAD - CMAXX REPORT</td><td></td><td>05/02/2021 5:05 PM EDT</td><td></td><td></td> 05/02/2021 05:05:25 PM [facility] EKG 12-LEAD - CMAXX REPORT <td>EKG 12-LEAD - CMAXX REPORT</td><td></td><td>05/02/2021 5:05 PM EDT</td><td></td><td></td> 05/02/2021 05:05:25 PM [facility] EKG 12-LEAD <td>EKG 12-LEAD</td><td>STAT </td><td>05/02/2021 5:05 PM EDT</td><td></td><td> </td> 05/02/2021 05:05:25 PM [facility] EKG 12-LEAD - CMAXX REPORT <td>EKG 12-LEAD - CMAXX REPORT</td><td></td><td>05/02/2021 5:05 PM EDT</td><td></td><td></td> 05/02/2021 05:05:00 PM [facility] Chronic Care MGMT 20 Mins Clinical Staff Time Per Calendar [facility] 03/10/2021 12:00:00 AM [facility] ([facility] ) OFFICE OUTPATIENT VISIT 25 MINUTES 02/22/2021 12:00:00 AM [facility] ([facility]) PHYSICIAN TELEPHONE EVALUATION 11-20 MIN 02/08/2021 12 :00:00 AM EDT [facility] ([facility]) Chronic Care MGMT 20 Mins Clinical Staff Time Per Calendar [facility] 01/31/2021 12:00:00 AM [facility] ([facility] ) ECG ROUTINE ECG W/LEAST 12 LDS W/I&R 01/04/2021 12:00: 00 AM EST [facility] ([facility]) OFFICE OUTPATIENT VISIT 25 MINUTES 01/04/2021 12:00:00 AM EST [facility] ([facility]) OFFICE OUTPATIENT VISIT 25 MINUTES 12/13/2020 12:00:00 AM EST [facility] ([facility]) Complex Chronic Care Management SVC 1St 60 Min 021 12:00:00 AM EST [facility] ([facility]) Complex Chronic Care MGMT Service Ea Addl 30 Min 12/09 12:00:00 AM EST [facility] ([facility]) OFFICE OUTPATIENT VISIT 25 MINUTES 11/23/2020 12:00:00 AM EST [facility] ([facility]) Mammogram 09/06/2020 12:00:00 AM EST M [facility] ([facility]) Mammogram 08/26/2020 12:00:00 AM EDT [facility] ([facility]) Mammogram 08/25/2020 12:00:00 AM EDT [facility] ([facility]) Mammogram 08/19/2020 12:00:00 AM EDT M [facility] ([facility]) Results ID Date Data Source [id number] 08/19/2021 10:23:00 AM EDT [facility] Name Value Range Interpretation Code Description Data Lavern rce(s) Supporting Document(s) SARS coronavirus 2 RNA [Presence] in Res piratory specimen by CAMERON with probe detection NEGATIVE [facility] This lab was ordered by [facility] a nd reported by [facility]. ID Date Data Source [id number] 08/15/2021 12:46:00 PM EDT [facility] Name Value Range Interpretation Code Description Data Lavern rce(s) Supporting Document(s) SARS coronavirus 2 RNA [Presence] in Res piratory specimen by CAMERON with probe detection NEGATIVE [facility] This lab was ordered by [facility] a nd reported by [facility]. ID Date Data Source [id number] 08/05/2021 07:56:00 AM EDT [facility] Name Value Range Interpretation Code Description Data Lavern rce(s) Supporting Document(s) SARS coronavirus 2 RNA [Presence] in Res piratory specimen by CAMERON with probe detection NEGATIVE [facility] This lab was ordered by [facility] a nd reported by [facility]. ID Date Data Source [id number] 08/01/2021 06:37:00 PM EDT [facility] Name Value Range Interpretation Code Description Data Lavern rce(s) Supporting Document(s) SARS coronavirus 2 RNA [Presence] in Res piratory specimen by CAMERON with probe detection NEGATIVE [facility] This lab was ordered by [facility] a nd reported by [facility]. ID Date Data Source [id number] 08/01/2021 06:37:00 PM EDT [facility] ([facility]) Name Value Range Interpretation Code Description Data Lavern rce(s) Supporting Document(s) Influenza A Amplification Laboratory test result [facility] ([facility]) Negative results do not preclude influen za or RSV virus infection and should not be used as the sole basis for treatment or other patient management decisions. Influenza B Amplification Laboratory test result [facility] ([facility]) Negative results do not preclude influen za or RSV virus infection and should not be used as the sole basis for treatment or other patient management decisions. RSV Amplification Laboratory test result [facility] ([facility]) Negative results do not preclude influen za or RSV virus infection and should not be used as the sole basis for treatment or other patient management decisions. Laboratory test finding (navigational concept) Laboratory test result [facility] ([facility]) A false negative result may occur if a s pecimen is improperly collected, transported or handled. False [...] pathogens. DISCLAIMER: Testing was performed using the [employer] SARS-CoV-2 test. This test was developed and its performance characteristics determined by [employer]. This test has not been FDA cleared [...] the authorization is terminated or revoked sooner. ID Date Data Source [id number] 08/01/2021 04:20:00 PM EDT [facility] ([facility]) Name Value Range Interpretation Code Description Data Lavern rce(s) Supporting Document(s) Appearance, Urine RFX Laboratory test result [facility] PH,Urine RFX 5.0 units 5.0-9.0 [facility] ([facility] Color, Urine RFX Laboratory test result [facility] Specific Adams Ur Auto RFX 1.025 1.002-1.035 [facility] Ketone, Urine Auto RFX Laboratory test result [facility] Protein, Urine Auto RFX Laboratory test result [facility] Glucose, Urine (Ua) Auto RFX Laboratory test result [facility] Urobilinogen, Urine Auto RFX 0.2 mg/dL 0.0-2.0 [facility] ([facility] Nitrite, Urine Auto RFX Laboratory test result [facility] Bilirubin, Urine Auto RFX Laboratory test result [facility] Leukocyte Esterase Ur Auto RFX Laboratory test result [facility] RBC, Urine Auto RFX 3 /HPF 0-3 [facility] Blood, Urine Blood RFX Laboratory test result [facility] WBC, Urine Auto RFX 16 /HPF 0-3 [facility] ([facility] Squam Epithelial Cell Ur Aurfx 1 /HPF 0-6 [facility] ([facility] Bacteria, Urine Auto RFX Laboratory test result [facility] Transitional Epithelial AU RFX 2 /HPF [facility] ([facility] Mucus, Urine RFX Laboratory test result [facility] Hyaline Cast, Urine Auto RFX 0 /LPF 0-1 [facility] ([facility] Calcium Oxalate Crystals RFX Laboratory test result [facility] ID Date Data Source [id number] 08/01/2021 03:05:00 PM EDT [facility] ([facility]) Name Value Range Interpretation Code Description Data Lavern rce(s) Supporting Document(s) Thyrotropin [Units/volume] in Serum or Plasma by Detec tion limit <= 0.05 mIU/L 1.210 uIU/ML 0.358-3.740 [facility] ([facility] ) ID Date Data Source [id number] 08/01/2021 03:05:00 PM EDT [facility] ([facility]) Name Value Range Interpretation Code Description Data Lavern rce(s) Supporting Document(s) Glucose, Fasting 100 mg/dL 70-100 [facility] ([facility]) Blood Urea Nitrogen 16 mg/dL 7-18 [facility] ([facility]) Glomerular Filtration Rate Laboratory test result [facility] ([facility]) <content>Units are mL/min/1.73 m2</content>
<content></content>
<content>Chronic Kidney Disease Staging per NKF:</content>
<content></content>
<content>Stage I & II GFR >=60 Normal to Mildly Decreased</content>
<content>Stage III GFR 30- 59 Moderately Decreased</content>
<content>Stage IV GFR 15-29 Severely Decreased</content>
<content>Stage V GFR <15 Very Little GFR Left</content>
<content>ESRD GFR <15 on SCOREKEEPER</content>
<content></content> Creatinine For GFR 0.83 mg/dL 0.55-1.30 [facility] ([facility]) Chloride Level 110 meq/L 98-107 [facility] ([facility]) Potassium Serum 4.6 meq/L 3.5-5.1 Significant change down [facility] ([facility]) Sodium Level 142 meq/L 136-145 [facility] ([facility]) Carbon Dioxide Level 27 meq/L 21-32 [facility] ([facility]) Calcium Level 9.2 mg/dL 8.8-10.2 [facility] ([facility]) Anion Gap 5 meq/L 8-16 [facility]) ID Date Data Source [id number] 08/01/2021 03:05:00 PM EDT [facility] ([facility]) Name Value Range Interpretation Code Description Data Lavern rce(s) Supporting Document(s) Ast/Sgot 20 U/L 7-37 [facility] Alt/SGPT 10 U/L 12-78 [facility] ([facility]) Alkaline Phosphatase 59 U/L 45-117 [facility] ([facility]) Bilirubin,Total 0.6 mg/dL 0.2-1.0 [facility] ([facility]) Bilirubin,Direct 0.1 mg/dL 0.0-0.2 [facility] ([facility]) Total Protein 6.0 GM/DL 6.4-8.2 [facility] ([facility]) Albumin 3.1 GM/DL 3.2-5.2 [facility] ([facility]) Albumin/Globulin Ratio 1.1 1.2-2.2 [facility] ([facility]) ID Date Data Source [id number] 08/01/2021 03:05:00 PM EDT [facility] ([facility]) Name Value Range Interpretation Code Description Data Lavern rce(s) Supporting Document(s) CPK Creatine Phosphokinase 130 U/L 26-192 [facility] ([facility]) CK-MB Value Mass 1.7 ng/mL [facility] ([facility]) MB/CK Relative Index 1.31 [facility] ([facility]) <content>DIAGNOSIS CRITERIA</content>
<content>MMB ng/ml Relative Index (RI)</content>
<content>NON-AMI < or = 5 N/A</content>
<content>WEBSTER ZONE > 5 < or = 4</content>
<content>AMI > 5 > 4</content>
<content></content> Troponin I Laboratory test result [facility] ([facility] <content>Troponin I Reference Interval f or Siemens [place] LOCI:</content>
<content></content>
<content>99th Percentile= 0.00-0.045 ng/ml</content>
<content></content>
<content>Risk Stratification:</content>
<content><= 0.10 ng/ml Decreased Risk for Adverse Clinical</content>
<content>Events.</content>
<content>0.10-1.50 ng/ml Increased Risk for Adverse Clinical</content>
<content>Events. Evaluation of additional</content>
<content>criterion and/or repeat testing in 2-6</content>
<content>hours is suggested to rule out myocardial</content>
<content>damage.</content>
<content>>= 1.50 ng/ml Indicative of Myocardial Injury.</content>
<content></content> ID Date Data Source [id number] 08/01/2021 03:05:00 PM EDT [facility] ([facility]) Name Value Range Interpretation Code Description Data Lavern rce(s) Supporting Document(s) Ammonia [Mass/volume] in Blood 12 uMOL/L [facility] ([facility]) Lactate [Mass/volume] in Serum or Plasma 1.3 mmol/L 0.4-2.0 [facility] ([facility]) Y/N query for Sepsis Lactate Rule: Y ID Date Data Source [id number] 08/01/2021 03:05:00 PM EDT [facility] ([facility]) Name Value Range Interpretation Code Description Data Lavern rce(s) Supporting Document(s) White Blood Count 5.3 10 4.0-10.0 [facility] ([facility]) Red Blood Count 3.87 10 4.00-5.40 [facility] ([facility]) Hemoglobin 12.4 g/dL 12.0-15.5 [facility] Mean Corpuscular Volume 92.5 fl 80.0-96.0 [facility] ([facility]) Mean Corpuscular Hemoglobin 32.0 pg 27.0-33.0 [facility] ([facility]) Hematocrit 35.8 % 36.0-47.0 [facility] Red Cell Distribution Width 13.6 % 11.5-14.5 [facility] ([facility]) Mean Corpuscular HGB Conc 34.6 g/dL 32.0-36.5 [facility] NT ([facility]) Lymph % 25.2 % 24.0-44.0 [facility]) Neutrophils % 58.7 % 36.0-66.0 [facility]) Platelet Count, Automated 276 10 150-450 [facility] NT ([facility]) Harlan % 11.3 % 2.0-8.0 [facility] Eos % 3.8 % 0.0-3.0 [facility] Immature Granulocyte % 0.4 % 0-3.0 [facility] ([facility]) Baso % 0.6 % 0.0-1.0 [facility] Neutrophils # 3.1 10 1.5-8.5 [facility] ([facility]) Nucleated Red Blood Cell % 0.0 % 0-0 [facility] ([facility]) Lymph # 1.3 10 1.5-5.0 [facility]) Harlan # 0.6 10 0.0-0.8 [facility] Eos # 0.2 10 0.0-0.5 [facility] Baso # 0.0 10 0.0-0.2 [facility]) ID Date Data Source [id number] 05/13/2021 06:18:[address] [facility] Name Value Range Interpretation Code Description Data Lavern rce(s) Supporting Document(s) Discharge Summary [facility] [id number] lbm [file] ID Date Data Source [id number] 05/12/2021 10:47:00 AM EDT [facility] Name Value Range Interpretation Code Description Data Lavern rce(s) Supporting Document(s) SARS-CoV-2 RNA 2019 nCoV Real-Time RT-PCR: NOT DETECTED [facility] This lab was ordered by [facility] and reported by [facility]. ID Date Data Source [id number] 05/12/2021 12:37:[address] [facility] Service Cmnt XXX-Imp : NoneRespiratory P CR Panel : PCR ResultsMicroorganism XXX Cult : See Labs Tab for 2019 nCoV RT-PCR resultsHAdV DNA QI CAMERON+non-probe : Not DetectedHCoV 229ERNA Nph QI CAMERON+non-probe : Not DetectedHCoV [id number] Nph QI CAMERON+non-probe : Not [id number] RNA Nph QI CAMERON+non-probe : Not [id number] RNA Upper resp QI CAMERON+probe : Not DetectedhMPV RNA Nph QINAA+non-probe : Not DetectedRV+EV RNA Nph QI CAMERON+non-probe : Not DetectedFLUAV RNA Nph QI CAMERON+ non-probe : Not DetectedFLUBV RNA Nph QI CAMERON+non-probe : Not DetectedHPIV1 RNA NphQINAA+non-probe : Not DetectedHPIV2 RNA Nph QINAA+non-probe : Not DetectedHPVI3 RNA Nph CAMERON+non-probe : Not DetectedHPIV4 RNA Nph Q CAMERON+non-probe : Not DetectedRSV RNA Nph Q CAMERON+non-probe : Not DetectedB pert.PT PrmtNph Q CAMERON+non-probe : Not DetectedC pneum DNA Nph Q CAMERON+non-probe : Not DetectedM pneum DNA Nph Q CAMERON+non-probe : Not DetectedB [id number] DNA Nph CAMERON+non-probe : Not Detected Name Value Range Interpretation Code Description Data Lavern rce(s) Supporting Document(s) ID Date Data Source [id number] 05/12/2021 12:36:[address] 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 ID Date Data Source [id number] 05/09/2021 12:11:[address] [facility] Name Value Range Interpretation Code Description Data Lavern rce(s) Supporting Document(s) Leukocytes [#/volume] in Blood by Automated count 6.7 10*3/uL 4-10 [facility] Erythrocytes [#/volume] in Blood by Automated count 3.98 10*6/uL 4.1- 5.3 L [facility] Hemoglobin [Mass/volume] in Blood 12.3 g/dL 11.5-15.5 [facility] Hematocrit [Volume Fraction] of Blood by Automated count 35.9 % 3 6-45 L [facility] Erythrocyte mean corpuscular volume [Entitic volume] by Auto mated count 90.4 fL 80-96 [facility] Erythrocyte mean corpuscular hemoglobin [Entitic mass] by Automated count 31.0 pg 27-33 [facility] Erythrocyte mean corpuscular hemoglobin concentration [Mass/volume] by Automated count 34.3 g[facility]dL [facility].0[facility] width [Ratio] by Automated count 14.1 % 11.5-14.5 [facility] Platelets [#/volume] in Blood by Automated count 261 10*3/uL 150-400 [facility] Differential cell count method - Blood [facility] Neutrophils/100 leukocytes in Blood by Automated count 77 % [facility] Lymphocytes/100 leukocytes in Blood by Automated count 12 % [facility] Monocytes/100 leukocytes in Blood by Automated count 8 % [facility] Eosinophils/100 leukocytes in Blood by Automated count 2 % [facility] Basophils/100 leukocytes in Blood by Automated count 1 % [facility] Neutrophils [#/volume] in Blood by Automated count 5.22 10*3/uL 1.8-7 .0 [facility] Lymphocytes [#/volume] in Blood by Automated count 0.78 10*3/uL 1.2-4 .0 L [facility] Monocytes [#/volume] in Blood by Automated count 0.55 10*3/uL 0-0.8 [facility] Eosinophils [#/volume] in Blood by Automated count 0.14 10*3/uL 0-0.5 [facility] Basophils [#/volume] in Blood by Automated count 0.06 10*3/uL 0-0.2 [facility] Nucleated erythrocytes/100 leukocytes [Ratio] in Blood by Automated count 0 /100{WBCs} 0-0 [facility] ID Date Data Source [id number] 05/09/2021 12:38:[address] [facility] Name Value Range Interpretation Code Description Data Lavern rce(s) Supporting Document(s) Bicarbonate [Moles/volume] in Serum 27 mmol/L 22-29 [facility] Chloride [Moles/volume] in Serum or Plasma 104 mmol/L 98-107 [facility] Creatinine [Mass/volume] in Serum or Plasma 0.88 mg/dL 0.50-0.90 [facility] Glucose [Mass/volume] in Serum or Plasma 123 mg/dL 70-140 [facility] Potassium [Moles/volume] in Serum or Plasma 4.1 mmol/L 3.4-5.1 [facility] Sodium [Moles/volume] in Serum or Plasma 140 mmol/L 136-145 [facility] Urea nitrogen [Mass/volume] in Serum or Plasma 17 mg/dL 8-23 [facility] Anion gap 3 in Serum or Plasma 9 mmol/L 8-15 [facility] Osmolality of Serum or Plasma by calculation 293 mosm/kg 275-300 [facility] Creatinine/Urea nitrogen [Mass Ratio] in Serum or Plasma 20 [facility] Calcium [Mass/volume] in Serum or Plasma 9.1 mg/dL 8.8-10.2 [facility] Glomerular filtration rate/1.73 sq M pre dicted among non-blacks [Volume Rate/Area] in Serum or Plasma by Creatinine-based formula (MDRD) 62 mL/min/1.73m2 >60 [facility] Glomerular filtration rate/1.73 sq M pre dicted among blacks [Volume Rate/Area] in Serum or Plasma by Creatinine-based formula (MDRD) 72 mL/min/1.73m2 >60 [facility] ID Date Data Source [id number] 05/08/2021 10:15:00 PM EDT [facility] Name Value Range Interpretation Code Description Data Lavern rce(s) Supporting Document(s) SARS-CoV-2 RNA 2019 nCoV Real-Time RT-PCR: NOT DETECTED [facility] This lab was ordered by [facility] and reported by [facility]. ID Date Data Source [id number] 05/08/2021 11:21:[address] 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 ID Date Data Source [id number] 05/08/2021 11:20:[address] [facility] Service Cmnt XXX-Imp : NoneRespiratory P CR Panel : PCR ResultsMicroorganism XXX Cult : See Labs Tab for 2019 nCoV RT-PCR resultsHAdV DNA QI CAMERON+non-probe : Not DetectedHCoV 229ERNA Nph QI CAMERON+non-probe : Not DetectedHCoV [id number] Nph QI CAMERON+non-probe : Not [id number] RNA Nph QI CAMERON+non-probe : Not [id number] RNA Upper resp QI CAMERON+probe : Not DetectedhMPV RNA Nph QINAA+non-probe : Not DetectedRV+EV RNA Nph QI CAMERON+non-probe : Not DetectedFLUAV RNA Nph QI CAMERON+ non-probe : Not DetectedFLUBV RNA Nph QI CAMERON+non-probe : Not DetectedHPIV1 RNA NphQINAA+non-probe : Not DetectedHPIV2 RNA Nph QINAA+non-probe : Not DetectedHPVI3 RNA Nph CAMERON+non-probe : Not DetectedHPIV4 RNA Nph Q CAMERON+non-probe : Not DetectedRSV RNA Nph Q CAMERON+non-probe : Not DetectedB pert.PT PrmtNph Q CAMERON+non-probe : Not DetectedC pneum DNA Nph Q CAMERON+non-probe : Not DetectedM pneum DNA Nph Q CAMERON+non-probe : Not DetectedB [id number] DNA Nph CAMERON+non-probe : Not Detected Name Value Range Interpretation Code Description Data Lavern rce(s) Supporting Document(s) ID Date Data Source [id number] 05/07/2021 03:11:[address] [facility] Name Value Range Interpretation Code Description Data Lavern rce(s) Supporting Document(s) Bicarbonate [Moles/volume] in Serum 24 mmol/L 22-29 [facility] Chloride [Moles/volume] in Serum or Plasma 107 mmol/L 98-107 [facility] Creatinine [Mass/volume] in Serum or Plasma 0.77 mg/dL 0.50-0.90 [facility] Glucose [Mass/volume] in Serum or Plasma 89 mg/dL 70-140 [facility] Potassium [Moles/volume] in Serum or Plasma 3.9 mmol/L 3.4-5.1 [facility] Sodium [Moles/volume] in Serum or Plasma 142 mmol/L 136-145 [facility] Urea nitrogen [Mass/volume] in Serum or Plasma 20 mg/dL 8-23 [facility] Anion gap 3 in Serum or Plasma 11 mmol/L 8-15 [facility] Osmolality of Serum or Plasma by calculation 296 mosm/kg 275-300 [facility] Creatinine/Urea nitrogen [Mass Ratio] in Serum or Plasma 26 [facility] Calcium [Mass/volume] in Serum or Plasma 8.8 mg/dL 8.8-10.2 [facility] Glomerular filtration rate/1.73 sq M pre dicted among non-blacks [Volume Rate/Area] in Serum or Plasma by Creatinine-based formula (MDRD) 79 mL/min/1.73m2 >60 [facility] Glomerular filtration rate/1.73 sq M pre dicted among blacks [Volume Rate/Area] in Serum or Plasma by Creatinine-based formula (MDRD) >60 [facility] ID Date Data Source [id number] 05/06/2021 02:07:29 AM EDT [facility] Name Value Range Interpretation Code Description Data Lavern rce(s) Supporting Document(s) Bicarbonate [Moles/volume] in Serum 27 mmol/L 22-29 [facility] Chloride [Moles/volume] in Serum or Plasma 104 mmol/L 98-107 [facility] Creatinine [Mass/volume] in Serum or Plasma 1.13 mg/dL 0.50-0.90 H [facility] Glucose [Mass/volume] in Serum or Plasma 100 mg/dL 70-140 [facility] Potassium [Moles/volume] in Serum or Plasma 4.2 mmol/L 3.4-5.1 [facility] Sodium [Moles/volume] in Serum or Plasma 141 mmol/L 136-145 [facility] Urea nitrogen [Mass/volume] in Serum or Plasma 30 mg/dL 8-23 H [facility] Anion gap 3 in Serum or Plasma 10 mmol/L 8-15 [facility] Osmolality of Serum or Plasma by calculation 298 mosm/kg 275-300 [facility] Creatinine/Urea nitrogen [Mass Ratio] in Serum or Plasma 27 [facility] Calcium [Mass/volume] in Serum or Plasma 8.9 mg/dL 8.8-10.2 [facility] Glomerular filtration rate/1.73 sq M pre dicted among non-blacks [Volume Rate/Area] in Serum or Plasma by Creatinine-based formula (MDRD) 46 mL/min/1.73m2 >60 L [facility] Glomerular filtration rate/1.73 sq M pre dicted among blacks [Volume Rate/Area] in Serum or Plasma by Creatinine-based formula (MDRD) 53 mL/min/1.73m2 >60 L [facility] ID Date Data Source [id number] 05/05/2021 05:53:59 AM EDT [facility] Name Value Range Interpretation Code Description Data Lavern rce(s) Supporting Document(s) Leukocytes [#/volume] in Blood by Automated count 9.1 10*3/uL 4-10 [facility] Erythrocytes [#/volume] in Blood by Automated count 4.76 10*6/uL 4.1- 5.3 [facility] Hemoglobin [Mass/volume] in Blood 14.5 g/dL 11.5-15.5 [facility] Hematocrit [Volume Fraction] of Blood by Automated count 44.2 % 3 6-45 [facility] Erythrocyte mean corpuscular volume [Entitic volume] by Auto mated count 92.9 fL 80-96 [facility] Erythrocyte mean corpuscular hemoglobin [Entitic mass] by Automated count 30.5 pg 27-33 [facility] Erythrocyte mean corpuscular hemoglobin concentration [Mass/volume] by Automated count 32.8 g/dL 32.0-36.[facility] width [Ratio] by Automated count 14.4 % 11.5-14.5 [facility] Platelets [#/volume] in Blood by Automated count 249 10*3/uL 150-400 [facility] Differential cell count method - Blood [facility] Neutrophils/100 leukocytes in Blood by Automated count 71 % [facility] Lymphocytes/100 leukocytes in Blood by Automated count 16 % [facility] Monocytes/100 leukocytes in Blood by Automated count 10 % [facility] Eosinophils/100 leukocytes in Blood by Automated count 2 % [facility] Basophils/100 leukocytes in Blood by Automated count 1 % [facility] Neutrophils [#/volume] in Blood by Automated count 6.49 10*3/uL 1.8-7 .0 [facility] Lymphocytes [#/volume] in Blood by Automated count 1.44 10*3/uL 1.2-4 .0 [facility] Monocytes [#/volume] in Blood by Automated count 0.91 10*3/uL 0-0.8 H [facility] Eosinophils [#/volume] in Blood by Automated count 0.19 10*3/uL 0-0.5 [facility] Basophils [#/volume] in Blood by Automated count 0.10 10*3/uL 0-0.2 [facility] Nucleated erythrocytes/100 leukocytes [Ratio] in Blood by Automated count 0 /100{WBCs} 0-0 [facility] ID Date Data Source [id number] 05/05/2021 06:17:52 AM EDT [facility] Name Value Range Interpretation Code Description Data Lavern rce(s) Supporting Document(s) Bicarbonate [Moles/volume] in Serum 24 mmol/L 22-29 [facility] Chloride [Moles/volume] in Serum or Plasma 97 mmol/L 98-107 L [facility] Creatinine [Mass/volume] in Serum or Plasma 1.18 mg/dL 0.50-0.90 H [facility] Glucose [Mass/volume] in Serum or Plasma 101 mg/dL 70-140 [facility] Potassium [Moles/volume] in Serum or Plasma 4.0 mmol/L 3.4-5.1 [facility] Hemolyzed Sodium [Moles/volume] in Serum or Plasma 135 mmol/L 136-145 L [facility] Urea nitrogen [Mass/volume] in Serum or Plasma 30 mg/dL 8-23 H [facility] Anion gap 3 in Serum or Plasma 14 mmol/L 8-15 [facility] Osmolality of Serum or Plasma by calculation 287 mosm/kg 275-300 [facility] Creatinine/Urea nitrogen [Mass Ratio] in Serum or Plasma 26 [facility] Calcium [Mass/volume] in Serum or Plasma 9.5 mg/dL 8.8-10.2 [facility] [facility] Glomerular filtration rate/1.73 sq M pre dicted among non-blacks [Volume Rate/Area] in Serum or Plasma by Creatinine-based formula (MDRD) 43 mL/min/1.73m2 >60 L [facility] Glomerular filtration rate/1.73 sq M pre dicted among blacks [Volume Rate/Area] in Serum or Plasma by Creatinine-based formula (MDRD) 50 mL/min/1.73m2 >60 L [facility] ID Date Data Source [id number] 05/04/2021 03:36:[address] [facility] Name Value Range Interpretation Code Description Data Lavern rce(s) Supporting Document(s) ED Provider Note [facility] OOJLVn1mRwYIBrAu50/HPRivNDEpl8HdJPwjOUg8NSawEDDwD8MaYOA7aM0sRGZ9OQxEOdFcPfWkFjW9 lbm PeKwuADfCcEUMkQjgXCeUpQCgxTzpnfLFgGP7DwVL2SBVfD47rBJYaLZHpC1FdXHX2UqQ+Hh1SWREfoR VzAR9QNekC6X1Xa5bHPu7pIR5Rq64WwW116vRNr8MIweTPA9OrGMFpLs+0RMvakSktRSfj/fZI58RZ3q 9gMtAOWtjR7VLv119uzh8bZGM0E2Wz1jNifKdt5JoK S7OyIr5+E0FyZll8wxfxdIO3ZBwu9NElpB1Rlf+Ff4/Lj7jAPGzF77b28Fq3vnG8fOBV7+pa90LBl8kk pOA4xUBNHDkxw05GQosGc5ErcW1/+EGM/sTHcdAsM8H+TF+r7UugrQJ4pXXxBuwKFt1Ct28h3Q+UoWQn mJHCgK8uznqxn6iuFpgXBWokRStMdEgiQx7R+LhMwn JA5NRkSbMw4Ei7FkcytNh5xOt9gjLd6iViow9v7faljsNhWLxWRjTv4UVF1ofUOVY2U3bSbjyQ+EjxY0 OTaOg4X7jcASfxVX6kGv/3QfWRz0Em8LbrPiy5lb8Mcz3tKdtsKOAnNrKQAJP5hGoODvuxhlAUUDQ6t2 z6wdKQudMP1GxYqrHgJgrbwueu9KCfmbRl2BYSWg67 xi1NgUJ54QxC9Eao9QloajrYFOq62VU8Yj9TdnfCreBPRLN+MXuLWivT/zWUUnhzwR1ReJi26CztSXNl 6VFzoZUxqlcnCnb2b3qa69OnfJWGWdf+nwbThURNIBWUFQmFyNyTe5YuntZyd2vYZj/josias/TK2Td7prv6 YdHU20P9E6WZoEmNc/VLTMhPHq1Q0sUYC+PbVa8k+s efYOeY23hNw1OwyUOJcueLeYdibXHlalWwc0BZs+6gh/56txahZNDKehvjvdbs31zbXe6ksYrUXK+YhL A7oubrim5Q7Kp+n3zchArSYkX1fYjDMj4d4zU2CKRwoVgPtrpUNFKwUG+N5NdujsfhWVBfj5MqOQTDZt vjED1ZprWJ0dnE9t9nAuS7MgAAbYAbxjTP+12Qxkp9 CUWJVWA23ip5QPWFwxqUSDw+NyYyatoGU4d4IRyybkVDWTJXG9N3ZeylxcOAWq/zFhczRBB3Wd/0DbMG xYTX4qfcTCdxVx+Khw+zvBS4AeZdyJ163jiV0RXYV8KYRVSIse7tnoXbCbbgD6ffHW8jd5rnXQa8PVO5 RIYaZ9bMULJGgdN/84nMRbfc37bxhJHkBhitob7vjN wxlsn60Mf+61igk8JsC7awa7v14KwTiHNg1eWTZ/vS0R7EHKzPudVJph6KurnBpSlRsiWpzC42D0IKY6 dUaBQkk/lDRljoZLtK1HLid4JUNR2fYrizoGHaM6EUSA1VyDTs2ZXa7UICwMPuQVm3zneOqCeNSfY1YB aHOQ/9cjEcPVrNjwy710jgXeMczP2e4owK09nRUWAZ cceXBK8ZE/w/dfF5UL1RgvrejwtXgHHpzc5vAQk2MKkeykKj8l1X6XK1tNIc9EalwQIJqHT/n50g0kkf SY7rFkJVTvPy/ThqCNIzRdxgQQo3tObcwS1esyvlyY3rzUwT9Wgvls7m8szOA/hcxAP9ygYI2LwVe0cP KKJoetnccN5BGlQ9Ae4nbWUMHi6JMbNTYbqZgwResA ArVkZq9cbhP+1pgrHnmFamfL/+Blayne+8/qgBqtRci8XObsl2LoGzo0Ea0VjrRzsksHlWfwtXqdLNHZWs [file] XquSs86mLkg6q1MtL5NiMH+1QDaVuQ/2iR8WBKTr3aPF7Et104YMAkUu9QqbEJoeOtXUq5Jarv1+D/evp operations +TnhCz4CNMzlWVV1TkDytgTu1N4LCFvavwzrdvsLoZ 483GZDKWdFPXLZtqyW3oO/YSKMPhuJcBAQfJPl62CWApWnBpGVlsMNnNRoZUgeFjoapQmNLfseBOAPZT U8yFYY6SeTJNvO3GQE7BJvhufWWtmxrOkzQSextruG4ZOvE7DWmcp1X4QdEASuBHmmLBYMJxcrs+r8oT cj5RM5hs+u2WKNJCMuAn5RONzOmVjEh5pXAJOQ7dOS 4lqGMtE2ePjHrTp7YBeCjR0oWt3jMoEZQcrPbGuHNFhbcjdVqHFFy8u7DvIfHc2n92nstGpS0xFC8DOs rWfl2pyjlX/+NF5UuMccuTCWYtr2qXhpYhLmxw9l8EhRuVTk2cra3wRTuyKcRApq7CeK2G6GEypdCNUI w8MwCwLVQY3Lzlh23d5MdT6qkMJirV1TifOfU3nJPE rPRx4TgzejP4fdKTpVnDZHoGECJqMzAGlI0HeM+NfRR94FI4SMMk6yUzDpfSicPH2jHKZaJCb/YZNVkV iQZzHv5pqL+KRFKyzrKLG13ftQjqXh2aNYs1AfFB97LqBWSI9xgcC7/s+LCDMwqlse2f1PVeHPpgEPU3 pmUk0GrjgHQ2pgaoObr6vQSPHrqTt55022OF3/xze2 G4a+ZfSsuKjZ6qvipUNWIZSihk7DV6QHBwpN+mkDBJWibEtjUiEwdU/qi2W5godBQI7ZZVPA0QMOVchT AHkOTdjG4nIxNjIETS+ztOFoP72evB93i79TgxUC//q8sTwsr/AGvucTx2lOmvvSkHTvSQ2TonGfE1lR 6d1vfWthVQVVIO/Oz+zll8hKnODGxAdRGmaUpp+xZ [file] A+Lj+Kz9QVULzBTTjBRFlWmZiUAAOJzIuW2GnS8PAn6AsR8EnAV47gPutvyShACtrWF9BEA6yANPlYZ KJLG7AxNVawS5cjpP9RyDrOMBVHjKqH33kiPMeABDtBIWeVDOmBg1FOWJiM9KvsoFwnZkndaZwPESnZK HNVK4VVJgnwxVrfNPswMxbVR28eTboRH9ERq5YAnSp TS0pgh9CvXOeJm2THIW3DJ7TADDaLVEtIPTmHOF6DIXsOhVeCPmqNZZxMMVeGMK6NIZmXSCsKS0BBjKk JHKpDfRvPHEmULNzSZUpwi3JQWSjUVY9CnI9YLLyTICrVENuEMjvKWDzNIRgJUB2GUPkWTEvGY8VMvVy AGUsYZDjSTFmOBIuHNYibb6FAAZpJPObIjYaYiFfZH YpRXBsRXcyCIBhFXO9MSe5LFMtPOTyNH6LGsCdWTDbIHL2NMUuRLNtXLIjcy3JRWSdGQIoBMz2MnPnJG YjJRVwWNivLEZvYUH5NQl2NBZtMBKaAY0IUdRyIAAbTSQiJAdvIWOsKPRlln8PMRGmFVMmWlN4WbEyEM SuADWiKVdhJTZkXZA1XYJ9ENQmPMJcFL9AAyLhQWRz ROFlPwAlQHRpPBOjab5AECEbZORoUyF3ToOlCHIeMTHgLNdiPIAiWZP8Mea8ILIoSZLpEK0RBsXqLDIb CzS2HRxcTUMrPHLwag8EMLZaJWBuTWt1EDZiZLZnSLZrEBvxURRwSBT1Daz0XSUvZJInZX5XHaBiEIDj SpA5SSTbZPJrRROnsp0IBKIcPNQwFHLeMISeNNDtHX OrQQwmSYExZZK2UpR7ZRHiMNXaBV3ZZxLxMYWhWzRyLdIfFRPeCNQila1ZCZZhPQKbWYA0SkSpXGIaGU NvOAxyRMRhHOJ9ZKN5UIMiHXDnTY2HEzMrDMBgExHhUFLuHLWdOSZvyf0MALVmYGOhRFN3CQIkBWLmYG DeCRuxRITsOBY6Lso6XZRbXEAbXV1CNdLwVIHySDBl YiNkJISjUSSezd8YWRWvXOJ9EmSyMAGaQTFwMHIyUBoqKMCfFXWzBqwtEEJiUZGaGD0EHpNyIUQpMUZ6 JVdyEPUoSUSbio0ZPOGxLOU3Wpt5LWRgLUXtEYSzCDzgJLCbRMV3AnK8CMHzNAUaYN5GReTdKXOnGWR4 PcFbIVEhMOVqsl5VLHOrESO8NFBqPEVcZKWjZEQoPZ wtOJZoGOU2IIr2HGXsHXThCQ0DNaQwFEZlNLZlGpVoNMYcIWXsnb7FXNUrPDP6FwE8ZNCbSSTcZRYeBA ekFRZbUEI4FBH2VBHqOBIuXO4GOuMiYFJrOPpjQpSwCOWaRBYawo1SOMVvLZK7QUM2FHQhRBJzZPBaKV ekGLRsBFR8QnMiFRMzDLOdHQ8VCpBeCLAsLDd8MARl DFOoBMEuhy8QARNtCSM2GHP2CUBqEXCiFAWpXLbwDZXhIFQ9MHl4KXCrFNVwXG0BFqIrJOOwCxGaZlFx FIOdMEFicn1CIWHeLOA6GJMyHPJjOODpXLYaBNtsLUMnMWJpAQiwDMJhRDYbBM7CTcRkHXVrAuStDxDn KYKbKYTljv6XURZkYLL7BYegNGGvMLDaGVBbLVunNV SsOEYlTaWrSPApWVKoTB9YWcIfFBZkWhP1EGLnSAPnMQXavn5SEBPhXNX4FpF6RBHjHRGzYWWmZHohEC VhLHRiQwBvEJNlZXKtZQ9IQdGxSHEdUpQ3VNXxRSSbOLIjhw0TXMNuYQX0WMFvSeCnMJUhMVWkCMvyVU QwKZT0JrVnWMTjGJVgCR4AIqPaDQckBGEZHod0IOcj M5b7GCK1XQ6SV4Zgq8FqTFoaLDSANZxlIG2yncIaEKRqTv8DA3tOYpshLbWtKRF6DlpiCTM9OwTuEqWz UUWlGhScMKIfHiXeTw1xREMvYgZtUmryGWO2CCioQUPfIyF8LKW7YqS0R4CoXPMzIdZiJA6GBl6SRfS1 BAU8xUNzGr8JUiC7MINJFvMgXC9GCLi= ID Date Data Source [id number] 05/04/2021 09:03:[address] [facility] Name Value Range Interpretation Code Description Data Lavern rce(s) Supporting Document(s) Consultation [facility] TZJKIo4iWtHSSxIp36/TCWimZJQvh5VwFHuqWGz3OLtaBWZqZ9PxFAG7jU2hSSV5JYvEFgSqYcAqUjZ7 lbm YkPevDUlFbBGQqAzyVFsFzSWjrOwrglOPoCS6TkHF3UPXqH31rJNGdCTFjB2GjMCT3Tsq+Bv4EFRHhlS HgWK6AJliZ6K4vvsh47f0c/EaUkId8msFoImFY+nOf6G3fSI0TZ1mvmkuNUQVeDmIUqG5Y+/UFCZDSOa CAmWmuiptsUvjD3Nse4gYconP//4SnYEX2s7X/ml/j jPl9Fmqkg4ujerXsFQeu4ULnuC7UP2RTjI8R//cLwc8340euQoovBgoKUxaxjX0sWgC6u96bYs9ees/Y hngYFKqfbiaj64KMRwCBefTp9nikjGqzjvRn2aSSv60l8N0vl+bMxipL0sjDZKEmK9EgT3KX9kujSZhl gmixLuBOImI/NT3u0H0dhdE4EIs1dl3BDqWfS08A6h mIqWnvj1IKOd2A7pIbZl09a9CHI6/lJwROAiIvz2x46VyoLz/4f6c52msajIWetal5sqEP8UINomDFRi +nECRsejMXW8duRwJfBadEn3CYXNKzx+WHndRGNRtMGCyBiU85G4kKDqaj1H+ycTqytE+ccEzfFAsq8y 79jP7KH6mPWtqwhtqt0iLgHRYgl5c0rGnH1oH33m9Q n6tv9ByR2OPHoj/JMlvTs6ZwKskbHs0UNDkHyDsuNyIhWkI2W/Iiv2YrLG7GvP9ZA+VbzO6KIhdaBy6N Bo0WeQ8kc3qr78Tk9hAEF1uelFrcfB7LTOdi6MWEU2Q9deahCrMniz9faDQoLu8idpMYl0pj7BjCT9kP dkKiH2u0pxwAlNtMXrvuyycRGhI1p/ndv4XopU4VI3 MARGARITA+Zwk+AbDX4vzY1DJmLlCeX6NlhSo4uPMIjfHt73WI3VNN4ZMymlBfdleMJFyLK3RcLlAZkLLJkZe7 [file] CEIiM7ZyPWOlJfRlFM5HLf5IXzW9AUJ1pRUoIw7XCQUzHSQWQgWfIM8OAZq= ID Date Data Source [id number] 05/04/2021 08:06:[address] [facility] Name Value Range Interpretation Code Description Data Lavern rce(s) Supporting Document(s) Consultation [facility] HLQYUm9gPnXXZxZv02/YELxiJFClx7CkIFijPKs6OJpvJWExM9FqNSC0uH2yQNW2MGlZJbJwTfWzDcV1 lbm [file] AgICAgICAgICAgICAgICAgICAgICAgICAgICAgICAgICAgICAgICAgICAgICAgICAgICAgICAgICAgIC AgICAgICAgICAgICAgICAgICAgICAgICAgICAgICAgICAgDQogICAgICAgICAgICAgICAgICAgICAgIC AgICAgICAgICAgICAgICAgICAgICAgICAgICAgICAg ICAgICAgICAgICAgICAgICAgICAgICAgICAgICAgICAgICAgICAgICAgICAgDQogICAgICAgICAgICAg ICAgICAgICAgICAgICAgICAgICAgICAgICAgICAgICAgICAgICAgICAgICAgICAgICAgICAgICAgICAg ICAgICAgICAgICAgICAgICAgICAgICAgICAgDQogIC AgICAgICAgICAgICAgICAgICAgICAgICAgICAgICAgICAgICAgICAgICAgICAgICAgICAgICAgICAgIC AgICAgICAgICAgICAgICAgICAgICAgICAgICAgICAgICAgICAgDQogICAgICAgICAgICAgICAgICAgIC AgICAgICAgICAgICAgICAgICAgICAgICAgICAgICAg ICAgICAgICAgICAgICAgICAgICAgICAgICAgICAgICAgICAgICAgICAgICAgICAgDQogICAgICAgICAg ICAgICAgICAgICAgICAgICAgICAgICAgICAgICAgICAgICAgICAgICAgICAgICAgICAgICAgICAgICAg ICAgICAgICAgICAgICAgICAgICAgICAgICAgICAgDQ ogICAgICAgICAgICAgICAgICAgICAgICAgICAgICAgICAgICAgICAgICAgICAgICAgICAgICAgICAgIC AgICAgICAgICAgICAgICAgICAgICAgICAgICAgICAgICAgICAgICAgDQogICAgICAgICAgICAgICAgIC AgICAgICAgICAgICAgICAgICAgICAgICAgICAgICAg ICAgICAgICAgICAgICAgICAgICAgICAgICAgICAgICAgICAgICAgICAgICAgICAgICAgDQogICAgICAg ICAgICAgICAgICAgICAgICAgICAgICAgICAgICAgICAgICAgICAgICAgICAgICAgICAgICAgICAgICAg ICAgICAgICAgICAgICAgICAgICAgICAgICAgICAgIC AgDQogICAgICAgICAgICAgICAgICAgICAgICAgICAgICAgICAgICAgICAgICAgICAgICAgICAgICAgIC OmOQMsZMSqCNXgZPRcFFHtNOEfXEZaMVYaBIKzTZYvBGNmQCZhXEByTPTsWZh2Y6jjKDIdGJTyWJ9pUL d3Jz8+TGdRKwMgDTR8bkMivJ8UKO7cg3IpBNfeNMEi s7HdQXe5NM5PYGScAXedHU3GONvkzc1KUEIqZMXteQMKq9huVrAwNNM3DVXpDrkrQA7MHROnP5fcywVj EUMwQZSIYDjhETGEEVddGBYBBXEqINDeNpGiHoRtLXOnESVwCXLZNH9FJxZkR7MykL98UMXPVb1+DQpl obFhYnfHIxLnQCKlu9RiOTj3DN0WLRThCfqsj9FxUl VeOKTZLXnxVR5TNBR5OXSgCMIcKl5HOWTsY962eyUlLR5LXe7LTjCtEE4hzo8VBzUpYHAcJilVDmr5SZ hiRW9WbTTyPSqIm29kfLt7prFqkRXhYRQxRMV3LBFtUT6baHRvVL1DKKW3ZWggPj8pDLJzHFD6PmZ1ID UACW8NCPEiXCQklKWeMKEtQBIHBJ5FALinDJL9GDDl xlVqxVLgOSvvUC2PAZJyfwVwOwWyLLCSUMb+Ls3QRH0te9PaDXvzXSPkYK5ccf5DROrTHyMgA3Z2zIHg W1I6BEzvMl0JCOGaBZZdUtAmRQLOELfsRR2OSV1iqoZ9GG8MlTTxONOqITCvlCDuQIk3B38nmJEoMAfv LA8VKTY+Lj+Vl6NDOIbTRNtJYPsPnOiLHCGYqEyJ9 EnQ2GJm6BpH8TkVJ63rLainjMtPKduYJ1EIX2wQNPbGWGHSD2QcFGwdE5qgxGgTjBqAFQHVuFpT59mfI QoZNUcEKPuTVOwQo3OCHHiL8TxbjZygNwkaaJzRBHtXFKBXY7VRRjhzqNamZHmfLrdIC51gWsuGF6MAe 4TRuEwET1ceh4SvTIsRh1WZONhZS0SJQNdSGTeBUGb FUY0MBGvZwEtODiwQHIsHDJgPJX6YDZxDWYyTE1FDhQzLYQzIaMqYkasDMZjTYDutk0XVZTaRDPnNrh5 TvHhZANuHSPoHKvzRVOhDMIvUXR1VTLwYDUzSW9XLtCsZKVoWTS4LoejJFLoGYHkfl8TSLCdCLAiNtWf TwMqWLJuAZJlZJuiQSCbEMD0IIB6CHAgCHDpKP8OKc LhBHGkUBxrAZPpRGItQRPuak4YZEPvCRZlWTZeTWVhAVNoBMTjPTffOERwZFHoLeX5JFOzCDRvIB2DDr SqIZWuZHG9EHIqSLAxREYvvf9OPVCzKZGdToHyEVVkETSrWENmNManOSPhMCM9SiJ3IOAtUOVcGM0PMk UqWISxUNE5RQXtDRVuNSDudg9VLSDoIMHiCEV5QhVn KSDkFDJiQJqlFLBkFPH0FXd8DWIwGYCgQQ0KCgLdIJEtCAm9EetsOPUfQSEjva4EKLKiWNYmLUAcNqJi TYGwYRDhWZquZNWnINPjNaE3SNUsLYDxVD3PZrYrFDKjWmLcLgryDJBvMHQytj4VDEAsIKNyPJN9UJHq HTKtKUKzGRwhBAXeXDTbASR0MLIeXJQePR7WPaUoVQ UlWhY5VxiePYGoFABfkq7LFKRePVZuSrnbXXRwSMLcBBVyBDirIVPjJDEnLZX4ATYfYXKyCF4VEkThUI UxSzJjLJXuIMQpGWYjal5JYGIoMVPzOPDuBEXwJLMbFQTmKJhgEGJrVPP3EEAaOFLdOMPxQA6ZIaLaRH PeMoCcRWyaXRXsABAjtk8LJZMpDHMgAEDvACZgOAKh OYTaHRuvVUOmYKW4IeNeTLJtKWEmJD4HSyOuUXNiTkdoOLBkQQKpQDOwzf1XZVWiZKWsAqG0BMOaVDLd GZDzXSxeTIFlTWK2MwV2VHZgXSAdWY6FSgMnYUqjVJCLRcf3ARqxJ7u1ZYWvTP5AW8Jaf2GeFlNyDDIC XAwgZG7ndpRnYJEnJq8BU2dOAzz5MZlgFfW5KsOcJh S9GpjxSQPwGwKuHpJnBmAtHJR1Wt0sFWLcYAXgKvNlCFW2SsEyEVI6NxEgSlZpMGIpU4R6ZkAtScNjNO 6XIi8NVuW7XZB7jEPzJp4ORdp7TJASVjJpQH4OYDx= ID Date Data Source [id number] 05/04/2021 05:02:17 AM EDT [facility] Name Value Range Interpretation Code Description Data Lavern rce(s) Supporting Document(s) Leukocytes [#/volume] in Blood by Automated count 9.0 10*3/uL 4-10 [facility] Erythrocytes [#/volume] in Blood by Automated count 4.47 10*6/uL 4.1- 5.3 [facility] Hemoglobin [Mass/volume] in Blood 13.5 g/dL 11.5-15.5 [facility] Hematocrit [Volume Fraction] of Blood by Automated count 40.3 % 3 6-45 [facility] Erythrocyte mean corpuscular volume [Entitic volume] by Auto mated count 90.3 fL 80-96 [facility] Erythrocyte mean corpuscular hemoglobin [Entitic mass] by Automated count 30.1 pg 27-33 [facility] Erythrocyte mean corpuscular hemoglobin concentration [Mass/volume] by Autom[facility] 33.4 g[facility] width [Ratio] by Automated count 14.2 % 11.5-14.5 [facility] Platelets [#/volume] in Blood by Automated count 287 10*3/uL 150-400 [facility] Differential cell count method - Blood [facility] Neutrophils/100 leukocytes in Blood by Automated count 88 % [facility] Lymphocytes/100 leukocytes in Blood by Automated count 8 % [facility] Monocytes/100 leukocytes in Blood by Automated count 4 % [facility] Eosinophils/100 leukocytes in Blood by Automated count 0 % [facility] Basophils/100 leukocytes in Blood by Automated count 0 % [facility] Neutrophils [#/volume] in Blood by Automated count 7.85 10*3/uL 1.8-7 .0 H [facility] Lymphocytes [#/volume] in Blood by Automated count 0.75 10*3/uL 1.2-4 .0 L [facility] Monocytes [#/volume] in Blood by Automated count 0.34 10*3/uL 0-0.8 [facility] Eosinophils [#/volume] in Blood by Automated count 0.03 10*3/uL 0-0.5 [facility] Basophils [#/volume] in Blood by Automated count 0.03 10*3/uL 0-0.2 [facility] Nucleated erythrocytes/100 leukocytes [Ratio] in Blood by Automated count 0 /100{WBCs} 0-0 [facility] ID Date Data Source [id number] 05/04/2021 05:38:02 AM EDT [facility] Name Value Range Interpretation Code Description Data Lavern rce(s) Supporting Document(s) Bicarbonate [Moles/volume] in Serum 25 mmol/L 22-29 [facility] Chloride [Moles/volume] in Serum or Plasma 102 mmol/L 98-107 [facility] Creatinine [Mass/volume] in Serum or Plasma 0.93 mg/dL 0.50-0.90 H [facility] Glucose [Mass/volume] in Serum or Plasma 132 mg/dL 70-140 [facility] Potassium [Moles/volume] in Serum or Plasma 3.7 mmol/L 3.4-5.1 [facility] Sodium [Moles/volume] in Serum or Plasma 137 mmol/L 136-145 [facility] Urea nitrogen [Mass/volume] in Serum or Plasma 25 mg/dL 8-23 H [facility] Confirmed Anion gap 3 in Serum or Plasma 9 mmol/L 8-15 [facility] Osmolality of Serum or Plasma by calculation 290 mosm/kg 275-300 [facility] Confirmed Creatinine/Urea nitrogen [Mass Ratio] in Serum or Plasma 27 [facility] Confirmed Calcium [Mass/volume] in Serum or Plasma 9.4 mg/dL 8.8-10.2 [facility] Glomerular filtration rate/1.73 sq M pre dicted among non-blacks [Volume Rate/Area] in Serum or Plasma by Creatinine-based formula (MDRD) 58 mL/min/1.73m2 >60 L [facility] Glomerular filtration rate/1.73 sq M pre dicted among blacks [Volume Rate/Area] in Serum or Plasma by Creatinine-based formula (MDRD) 67 mL/min/1.73m2 >60 [facility] ID Date Data Source [id number] 05/03/2021 07:45:[address] [facility] Name Value Range Interpretation Code Description Data Lavern rce(s) Supporting Document(s) Calcidiol [Mass/volume] in Serum or Plasma 96 ng/mL >30 [facility] ID Date Data Source [id number] 05/03/2021 05:23:[address] 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/dEtk8nGPPcHupqAakTPcO [file] MIGUEL+YUisFSjpuBi8kELmAQVdRh2AWLCgWRCqZDZtWRHoEFRvXMMsXOMmLALtOFPiLWHiNWGoUBVqXMNl ICAgICAgICAgICAgICAgICAgICAgICAgICAgICAgIC OnCYWiTNLwWGDgBBUjKFRvSEWeIBRmNDZmPOSbUR8DAYKnKUJvSVLwYZJvFZJlXDEfKCEjELLxFVNbFE AgICAgICAgICAgICAgICAgICAgICAgICAgICAgICAgICAgICAgICAgICAgICAgICAgICAgICAgICAgIC IzHVIdDMOeFNKxNO9XQYAtHPPhUFEzKROdKYMlZVMv ICAgICAgICAgICAgICAgICAgICAgICAgICAgICAgICAgICAgICAgICAgICAgICAgICAgICAgICAgICAg ULYdJYCbWNFuQIQhMUXjWOHhUXRoCE3PARVbGEIlFDUlDMSoDAOvITCfAJHpANLwPWDdNWYgORJsOAFc ICAgICAgICAgICAgICAgICAgICAgICAgICAgICAgIC WwCGKyURDyGINrTMWzTQUdFJMiBGIkLWFlVONdSLYjIX9VHMAmGJBaJWXqGTFqWNJaWSSyNYTlZACcZF AgICAgICAgICAgICAgICAgICAgICAgICAgICAgICAgICAgICAgICAgICAgICAgICAgICAgICAgICAgIC EjWIRxOGAoTLHpWSOtJU3ILKYkKZQaDOKlULQfVYCj ICAgICAgICAgICAgICAgICAgICAgICAgICAgICAgICAgICAgICAgICAgICAgICAgICAgICAgICAgICAg TETmCJIyJLYcAKCcBICqQPUkCSLdBOKdAK1CTYEoYYToPBGrQJNrOLNeXPGmZAEfAMRnWEQxCLAfZTSx ICAgICAgICAgICAgICAgICAgICAgICAgICAgICAgIC BqYOOxSZQzEIUwQFPvGOQlJBFyNNAiYNNrZVDzWZMlTMScXM4GUHAlXLZiBHRmHSFfPICqKVFbIVYtAB AgICAgICAgICAgICAgICAgICAgICAgICAgICAgICAgICAgICAgICAgICAgICAgICAgICAgICAgICAgIC MhUISlGYUyIDKjRGLjLEFpVK8DFEImPZYmNSNbHZLs ICAgICAgICAgICAgICAgICAgICAgICAgICAgICAgICAgICAgICAgICAgICAgICAgICAgICAgICAgICAg XCLwCKNvSZIjJTEtZCVwUWEwNIAoAJGiNCTqIP4SPQZaDAZbGOJlVXNaQVQwMTMsZFCvOKBzOZOkRKRr ICAgICAgICAgICAgICAgICAgICAgICAgICAgICAgIC ZpJNIfJZEnUNZmZGIcHTSiDJTyDJYpVLYzLPOxLTEvJVNoFLHrDC2DDE47mNHla6Y6LNDoNU6gjgg/Pg 6LUFkwusRnpOCgTQ4HRmIpVD2rvd9EBbAqVD6hac5ATMnWSkFtW9Q2cQKtHOUlPEHFNqZaX10oGBrtCc 40MGjcKJUjLjBsTUh4Iw7ELeUxO8pgTLEuBuN0YTWn ReU3UZCwHuB0CPFxWiGyBGAbQSHsOMYbUYZUQM2YDxFfT0ZkoK23JITCSd0+DQplbmRvYmoNCjQxIDAg b4PlGSg0ZX8ADQAdUeepu4CdUVHmXCNCMOllLV5CRWN1DEIiOZYcRt1FUGOrD818ooDvAQ6GUt6GGsSv KM7pbm5MXKPfTIPaGeiFEiy9QBtpKZ6JoAVtPVvMw4 3hsHt2wrPloNPQEBNrazVpMBVAwJTur6ArUS5VPVV8RGdiKa0zNSNyGUX4AsR7OVNOVD9PXDNfBKNtuN JsNRJrCZDGPU4UIZtqGTY6PJZpnxOqeUWtFFymFE0GATMfpxDaKRFxUQNOMKn+Zr4ACG0nb4OjPSk9Kt OhDA4qqd0IVKlXAmSwA9O8fXQvX9W7VCbcHl4IADDe OGPiYcxmTCBPYMgiPS0IYK9duoV3JU0IoUEuAKXqXLTbcCXeLEz5L38cyMVoDCxdBM5AXVR+Lj+Pg0K CWDzRTOdWAGlCySnMRJIRpSvK0OwP3JQk7RdS0RjIH34aSzlfqRlNYvqHX2OIT5iQTNnCIIIFX3IhBTn aY5mcoJ8CHFbBJYUZkTgT76ipNWwPKEsUMOwPAVzAq 8AUIUuZ6JtaqZtpOrcjdJeILWtYCIHMJ7ZURphfbYbhWDjxGrcDV81hImvPN3SPn1IAoYwNE1qsj8VeP NcBi6IOYB6PE8BPDUgXGJoGFNpDAE7QYUuFsGfQResVOCmAUNuCFG4FGOoUZLeJP6OFqAtSOYqHGdpKF DjWRPsFNTfvm6LBMJbSXN1BQGcEfNrAKZiTREnDUqe XLRyKXJfBNH7TCBxYGXgHC3IVpKjMOSmEXJjVwRcKTAwVDNwhl7OEQSoULLzPZCjVQElACBpJMOdSJdz CGJhBGT8IQY9APReOYCoNT3WQdUnCNKuEMzhPEesCUYaADUkus5KQQReXBIrECv9FGZvMTUeRFYyDUtz ZYAnFDHnYKRsOERlQWUhVN7QBzUrJQEcTTXrJQVwUJ FfSOXidv4LAEOdMBUxUZEbCFHaQRIvMRWyUHnmXDWuNKL1AIE2XMApQMJqBH5KAuBhYFUeZEwdTxQuWV EvOSJleu3ZTWArWLXaWUPzLTJrTGQcZCXnQAnkTYXoRMX5TXW6FQLeQNOpFJ3RWsNnYFZsBKa4MCSdAL LqJGVyrc6PPMUoTYQmSED8OEUlVVXaBNIcESisZFWf GWPlZHixVTOaBCLzUH2JUcKvIOLqPiIsJWbvPSGeBGWfew2DGWLwUSHlPiZeQEXoUGEtMMHyUFgvIMVa DQGuHoHqSCIgSJQbSZ9SDhClYLGjRmL0PJqdPCIqYUCfni9FWQSaTKPyIjZ3TFQgPMNgLUExQFutHMRo NCMzJPZ1PUFcVNEjQJ1LDwNkRKUaFrE5JWupWHEnPN Tgms4YNMFkSGFaMFFpOyEnMKIxZPRaYRtoKWNeGPN0EHAgHXSqEORaCE6IWqNxIAFyIcU8UwNdLPAfBZ Kexy1XOBHaNVKkZEs3TWHqQDFuDTLnXGghFRQzKJY8IQM7FGJwTPGpQX8WXsLyZIOpRsA5DJhvCFTpEN Cksm3BXDTyYVOjVpI1RWPfAPHqQYKyXNwoJNXcOKM6 JpC4SBDrOYLxEC3FHaDoKXLrPSbgUsXzLULtQXRubt3PXZOkXPD1LBImWXAlGDEdVMAwALhxNIRhXEB1 WsZkCMYgZXPsUP1BCcSkBJXmPNyqCZAyLOMhJASouf2MTNYpBHP3ACMcRdZsXPGsSKBiNIrdRKRoTMF4 Bkx0REDqZJXpVJ3OEpMzPWYhXxQvNlVeARMnINJpkj 3QMNWoSWP3XITpOlOmLQCuRPRnQPnjZXReEYJrTHs3SLEuMKCiOK4WEsBtYCrlWMRRIcz2ZJxkI9c2ID Y8QS0NX3Fay4BpDCNgHAVKUAgmUP6musZuVIKuIo2YS7gSSmmcVWYjV4KcEwT3DvLrDhJzEQX1LHjcEb HdM6T8TIVbFZ1xVDQxQLU9AhRaXTFrKxX3TAV2CKId Y6XjLDH2RgT3TVCiJgZbTI5NAb4MThT8PUP0wNDcEd0SNsX6GZqJThKjDF9SOLz= ID Date Data Source [id number] 05/03/2021 12:42:00 PM [facility] CT ANGIOGRAPHY HEAD [id number] RESULTInt erpreted by:Shaan Mead, MDCT ANGIOGRAPHY HEAD [id number], CT ANGIOGRAPHY NECK [id number] INDICATION: Evaluation for syncope and prior vascular neck surgery.TECHNIQUE: Contiguous axial CT images of the head were acquired from the base of the skull to the vertex without intravenous contrast administration. CT angiography of the head and neck was performed following intravenous administration of 75 mL of Omnipaque 350 injected at a rate of 5 cc/sec. Multiple MIP images in axial, coronal, and sagittal planes were then acquired using the source data. 3-D volume rendered images were not available at the time of this dictation. Automated dose lowering techniques and/or adjustment according to patient size were utilized for this examination.Assessment of stenosis of the internal carotid arteries is based on NASCET criteria.COMPARISON: CT head 05/02/2021.FINDINGS: Non-enhanced CT head: No evidence of acute infarction or intracranial hemorrhage. No mass effect, midline shift, or extra-axial fluid collections. The ventricles are normal in size. The basal cisterns are patent.No depressed calvarial fracture. Extracranial soft tissues are normal. There is opacification of the right maxillary sinus. The other imaged paranasal sinuses are clear. The mastoid air cells are clear.CT angiography:Aortic arch/great vessels: The imaged segments are patent. Atherosclerotic calcification within the proximal left subclavian artery without significant stenosis.Right common carotid: Patent without stenosis or dissection.Left common carotid: Patent without stenosis or dissection.Carotid bifurcations: There is atherosclerotic calcification at the right carotid bifurcation and the proximal right internal carotid artery resulting in less than 50% luminal diameter stenosis.Right internal carotid artery: There is moderate narrowing at the origin of the right internal carotid artery measuring 40 % according to NASCET criteria. .Left internal carotid artery: Surgical clips adjacent to the left common carotid bifurcation consistent with postsurgical changes. Mild atherosclerotic disease without significant stenosis or dissection.Right vertebral artery: Patent w ithout stenosis or dissection.Left vertebral artery: Patent without stenosis or dissection.Basilar artery: Patent without stenosis or dissection.Right ELIZABETH: Patent without stenosis or dissection.Right MCA: Patent without stenosis or dissection.Right PICK PULLING MACHINE OPERATOR: Patent without stenosis or dissection.Left ELIZABETH: Patent without stenosis or dissection.Left MCA: Patent without stenosis or dissection.Left PICK PULLING MACHINE OPERATOR: Persistent origin of the left PICK PULLING MACHINE OPERATOR. Patent without stenosis or dissection.OTHER: Parenchymal scarring within the apices bilaterally. Multilevel degenerative changes of the cervical and thoracic spine. 3 mm thyroid nodule in the left lobe. No large neck masses or suspicious lymph nodes. Surgical clips within the left side of the neck.IMPRESSION: 1. No evidence of acute infarction or intracranial hemorrhage.2. No large vessel occlusion in the arteries of the [place].3. Moderate narrowing at the origin of the right internal carotid artery measuring 40 % according to NASCET criteria.4. Postsurgical changes at the left common carotid bifurcation.5. Tiny 3 mm left thyroid lobe nodule.6. Right maxillary sinusitis.This document has been electronically signed by Nakul Hughes MD on 05/03/2021 12:39 PM Name Value Range Interpretation Code Description Data Lavern rce(s) Supporting Document(s) ID Date Data Source [id number] 05/03/2021 12:42:00 PM [facility] CT ANGIOGRAPHY NECK [id number] RESULTInt erpreted by:Shaan Mead [facility], MDCT ANGIOGRAPHY HEAD [id number], CT ANGIOGRAPHY NECK [id number] INDICATION: Evaluation for syncope and prior vascular neck surgery.TECHNIQUE: Contiguous axial CT images of the head were acquired from the base of the skull to the vertex without intravenous contrast administration. CT angiography of the head and neck was performed following intravenous administration of 75 mL of Omnipaque 350 injected at a rate of 5 cc/sec. Multiple MIP images in axial, coronal, and sagittal planes were then acquired using the source data. 3-D volume rendered images were not available at the time of this dictation. Automated dose lowering techniques and/or adjustment according to patient size were utilized for this examination.Assessment of stenosis of the internal carotid arteries is based on NASCET criteria.COMPARISON: CT head 05/02/2021.FINDINGS: Non-enhanced CT head: No evidence of acute infarction or intracranial hemorrhage. No mass effect, midline shift, or extra-axial fluid collections. The ventricles are normal in size. The basal cisterns are patent.No depressed calvarial fracture. Extracranial soft tissues are normal. There is opacification of the right maxillary sinus. The other imaged paranasal sinuses are clear. The mastoid air cells are clear.CT angiography:Aortic arch/great vessels: The imaged segments are patent. Atherosclerotic calcification within the proximal left subclavian artery without significant stenosis.Right common carotid: Patent without stenosis or dissection.Left common carotid: Patent without stenosis or dissection.Carotid bifurcations: There is atherosclerotic calcification at the right carotid bifurcation and the proximal right internal carotid artery resulting in less than 50% luminal diameter stenosis.Right internal carotid artery: There is moderate narrowing at the origin of the right internal carotid artery measuring 40 % according to NASCET criteria. .Left internal carotid artery: Surgical clips adjacent to the left common carotid bifurcation consistent with postsurgical changes. Mild atherosclerotic disease without significant stenosis or dissection.Right vertebral artery: Patent w ithout stenosis or dissection.Left vertebral artery: Patent without stenosis or dissection.Basilar artery: Patent without stenosis or dissection.Right ELIZABETH: Patent without stenosis or dissection.Right MCA: Patent without stenosis or dissection.Right PICK PULLING MACHINE OPERATOR: Patent without stenosis or dissection.Left ELIZABETH: Patent without stenosis or dissection.Left MCA: Patent without stenosis or dissection.Left PICK PULLING MACHINE OPERATOR: Persistent origin of the left PICK PULLING MACHINE OPERATOR. Patent without stenosis or dissection.OTHER: Parenchymal scarring within the apices bilaterally. Multilevel degenerative changes of the cervical and thoracic spine. 3 mm thyroid nodule in the left lobe. No large neck masses or suspicious lymph nodes. Surgical clips within the left side of the neck.IMPRESSION: 1. No evidence of acute infarction or intracranial hemorrhage.2. No large vessel occlusion in the arteries of the [place].3. Moderate narrowing at the origin of the right internal carotid artery measuring 40 % according to NASCET criteria.4. Postsurgical changes at the left common carotid bifurcation.5. Tiny 3 mm left thyroid lobe nodule.6. Right maxillary sinusitis.This document has been electronically signed by Nakul Hughes MD on 05/03/2021 12:39 PM Name Value Range Interpretation Code Description Data Lavern rce(s) Supporting Document(s) ID Date Data Source [id number] 05/03/2021 11:14:19 AM [facility] Name Value Range Interpretation Code Description Data Lavern rce(s) Supporting Document(s) [facility] KAGIPy8vTfGMHgCjq8RnHbMcWSXgAW0kodl8X9X1cXXfJ0GqoIJbr5vlQ1OlA0IdWBCoRNVQKW7HxQFp jb2 [file] wl9/8913X/71b17cJ086++8/Pn+VfXX/09ev4v/w6V wuba9P1Gtv1eM/9OV3H7/49JsvP//+y2++/fiOAkvuMe0qN80+xautn3/7+ddf/LCq126020O//leKPP rCU+Trb77+0wbwcbef87/21vE2F2Xk/+Lj+4///hrix+c///qbl1y/cnb1n7F/ptRT/wd04lqDo/jpYx Uu8mf7sYoxG988Zra94Mfah//m8y+/+gaxyQ6L0PAT nkJf/OmP//67P//hx3/7+B//6+M3v/v973/75z//+Nvf/9ePX/z2j7/78fcf//Xc9qaAt/340x8/9O/m 69rdwsEzJd70pNJh/+ov/nrzgHpqbfKHP/lid5TCzPnvg9tw//Mq0Ym7vHuYU+WX/y+3zey18I9zsi3V aW3kLsu7716nU7k9cSJbl4XQq1IV9phv9+qj/FRWhr PzPPDtj//+55w5s9t++3i9I//wy8+/kn73j765+/MsnFAWSgH//PoZCh7Lo1z1egaW5aFoW1YUrjNNvf 1xDwl17/z4x//8bx9//u1//vhW++s7/sQCn21M/sD/s5PY84eU/bT2w/z1tx+/++N//vjn//svOu/VH2 n+cydmq5S/SvWH+Y/ffvfxb//z1fnf/gpNJ97air00 lO6f5lN+8fu/+8fv/5V/9C4N/TJU2t9ef9TjrS7gzr9fcj1/tpDg/ay/xrEpIQr7bqvC15x/+/Zn33/8 9v/58T/+8r25/1xdP/vu069/2oUtmb67glG/rz//y9/+5OnzT/z9j3/47e/f/uP9xv/it//zX3/7H7/7 7R9/TlIM0qc/++NPy+f/tH//P/2l7JJic8/60x8++3 z9hH+G+9Wf/cQi5CrEKsI07MJT//7Hf/0///s7u29578AE+ebp2V150uNF/Nn/+M/GmMo9b9637lbxsz 9aCv/+n/6yXVNfbNTf/OpZ8b/3sSeA32k+/3/r3ED3D12c/te//T9+/Kgff/r3D/2ucfdm6qSfvcGlPm Upo21VO2C54OkwW/Ml8qPM/AR/8+6iEi81IvmRh/Cx GH3+xRff/ZK525ixik1T4rBu+v8A4IF+bQyaxiGztIWeWW0VUY8io5AiNeP1LGOzj5LsUPoeEPa6dKDy ASutrzKgp2TlyyxmY6Tfl5RhYcTqEPIpKqImXgv6KFHmBcR6bNShLpOvNVRsX5UkUWUrYpH7SaXwPYXY PL1PMBZwjmAxApCxZWF+DwCfYS8etbgaYXVty6VzMU egSJzzKFNaJ1S9iIeaQCKnB3JobT54JXJvK4GnwkL5UXK9GIBiTaUoGXQhxXNfDUClKJG+XbZfMW2nxn veJUBwg2SsWJubDND1jA3cLLvWSWARQEzXRKeeBaB2n80ejvSEQMHeHUSpNB6YjjEinAlcbiYerJUvYF T2WlFcMDR9OUNzUTQ0UXXWDBNfNHElWXGsZBTuM4Rt aEtqBIxDWNUDKLaDLOqlRxGje0G2WLEmkbZPEB7CGPgiOTqMXzZZIGWuZpx1Dfe8EzvsI8E9DbcvE0Xp VK5VP0LnKXPtCCIQOIAypjNsYX6TrnLcjV8lWGdWTRUFYOgVZOxpZuG1e12hcxXCMNKxCOGvTHqjEKQb HTHdPQHxZMAwNULcZQUkSCWuSJ2SY0PdECIiVBXTXX P2k7AoRTQwnwttkjmcXc2htpKpVnv+TtcaGHJne5TlUUzzU5Z1gPIyB4FrV8MoPJ1KeBGzUSczWPYbXH RvUJOmQ352llLtXI6+DZ2ev8OiZxfgKUKCRRKmBHSxFJMaMEC4HdVsYTTcYXFwPSDmLpX1CpGyOfBWWG KnYEY8GjcxQRNuHGHuWEUvRNlkZQQqCGziKBM2PUFx FRMaWB8sGrVaLQCqFaA5PxdsQYZkMBHimhUYDGUhFDTqGZDuZGB3WHYxWQMzFZcjQFLmYZBxUKK4HNPp DBIpGA4rRlNiDWUvJOUlCkdnSHJxONIeatMPXMUeFOQzTSI2WsImGLIdVCOzPGbfUJNzBAXsRnd4MGBe FYQjAT7qKuMzMJOiVWX1PShlQEAzOEVwplWOORHoVM ZrZEGiYkPtBXQvRXFyBWagDHXdWRIbOtChMHRqSLBrVV4qOrVmGJIaMWD1JVZnHELcXIHpmgPFKVTkMM HgHNb0SYYdTHOcRAUmAEdnSEYdRAKfJRF0KQQeGPNoJE8hAkBaAQUaDAXrITEpRSAxHBYlgnQAWYNqBE VkFKU6XQDoERRrPGBsIIanFPZpAZUbJdc2PSQoWYBx EO7hLvMfQHZmNXK5JLTvDUVqBKFcmpLFRWVqQKN7YkB1CXEcGMLuFRYdQQyjYWEpPJQdFsO7TLArRTNp LG5mYeDxHUIjJRV8TmQcKHLfDYHqqvHTTWHxAUJiKSU8JvLiVPXuWWQzLXiwHELnSPNrJTJhAJI6INV9 RUOkNpEdQBknIOCSYRzVV7SrvbFzHzMBZ9hhHo4rEj MlKVJAI0Hni1KxEVQaSRIFJm1+UzB6LMR2zRUjEwg6Opt0LEydOKJESn== ID Date Data Source [id number] 05/03/2021 10:36:[address] [facility] CT HEAD WITHOUT CONTRAST [id number] RESU LTInterpreted by:Yoshi Sheridan MBBSCLINICAL INDICATION: Status-post fall with hypertension, concern for ICHTECHNIQUE: Contiguous axial CT images of the head were acquired from the base of the skull to the vertex without intravenous contrast administration. Images were viewed in brain, subdural and bone windows. Coronal and sagittal reformatted images were also obtained. Automated dose lowering techniques and/or adjustment according to patient size were utilized for this exam.COMPARISON: None at time of this dictation. FINDINGS: There is no acute intracranial hemorrhage. There is no extraaxial fluid collection or shift of midline structures. Small focal encephalomalacia in the left occipital lobe. There is generalized cerebral volume loss with prominence of the sulci and commensurate enlargement of ventricles. Basal cisterns and foramen magnum are patent. Mild mucosal thickening is present in bilateral maxillary sinus. Partial opacificati on of right maxillary sinus. Remaining paranasal sinuses and mastoid air cells are clear. Fracture of the floor of the right orbit is noted. IMPRESSION: There is no acute intracranial hemorrhage. Fracture of the floor of the right orbit. As per medical record, clinical service is aware of the finding.This document has been electronically signed by Gaye Thurman MD on 05/03/2021 10:34 AM Name Value Range Interpretation Code Description Data Lavern rce(s) Supporting Document(s) ID Date Data Source [id number] 05/03/2021 09:54:[address] [facility] Name Value Range Interpretation Code Description Data Lavern rce(s) Supporting Document(s) Consultation [facility] WHPVBc6kBrEIGuTf81/OUPcjSMZew5OgVLgqPZc4OKohEYVyW3VtDRS6cD8kKAI9PJaUQcEkKtWcEsX8 [facility] [file] ZTY+DQ0nYEb+Id2Rc9QrnbN2neYhYDxcAkL9GO0FKXKMY2JUFh== ID Date Data Source [id number] 05/03/2021 03:06:[address] [facility] Name Value Range Interpretation Code Description Data Lavern rce(s) Supporting Document(s) History and Physical [facility] CQJWNh1yOoBNLeOa26/ZOFgkQDOwi1TmXDkwYSn9LGloKXJaP0OsQWT8gR3vTQY2PIkNYjKzVfGaHuI2 lbm [file] um9lRe2ST+m5+LV/Mrn5rX+fuGx8I6wpoQeNt2Ru//k0fW61s9I3JR+bulwark carpenter/0kdl/tUeNaRjIsjGcfjbpr [file] [id number] ID Date Data Source [id number] 05/03/2021 03:22:[address] [facility] Name Value Range Interpretation Code Description Data Lavern rce(s) Supporting Document(s) Color of Urine [facility] Clarity of Urine [facility] Specific gravity of Urine by Refractometry automated 1.019 1.003 -1.030 [facility] pH of Urine by Automated test strip 6.0 5.0-8.0 [facility] Protein [Mass/volume] in Urine by Automated test strip Neg [facility] Glucose [Mass/volume] in Urine by Automated test strip Neg [facility] Ketones [Mass/volume] in Urine by Automated test strip 5 mg/dL Neg [facility] Bilirubin.total [Presence] in Urine by Automated test strip Negative [facility] Hemoglobin [Presence] in Urine by Automated test strip Neg [facility] Leukocyte esterase [Presence] in Urine by Automated test strip Negative [facility] Nitrite [Presence] in Urine by Automated test strip Negati ve [facility] Leukocytes [#/area] in Urine sediment by Automated count 1 /HPF 0 -5 [facility] Erythrocytes [#/area] in Urine sediment by Automated count 6 /HPF 0-3 H [facility] Epithelial cells.squamous [#/area] in Urine sediment by Automate d count None A [facility] Mucus [#/area] in Urine sediment by Microscopy low power field None A [facility] ID Date Data Source [id number] 05/03/2021 01:31:40 AM EDT [facility] Name Value Range Interpretation Code Description Data Lavern rce(s) Supporting Document(s) Leukocytes [#/volume] in Blood by Automated count 9.5 10*3/uL 4-10 [facility] Erythrocytes [#/volume] in Blood by Automated count 4.69 10*6/uL 4.1- 5.3 [facility] Hemoglobin [Mass/volume] in Blood 14.3 g/dL 11.5-15.5 [facility] Hematocrit [Volume Fraction] of Blood by Automated count 42.1 % 3 6-45 [facility] Erythrocyte mean corpuscular volume [Entitic volume] by Auto mated count 89.7 fL 80-96 [facility] Erythrocyte mean corpuscular hemoglobin [Entitic mass] by Automated count 30.5 pg 27-33 [facility] Erythrocyte mean corpuscular hemoglobin concentration [Mass/volume] by Automated count 34.0 g/dL [facility].0[facility] width [Ratio] by Automated count 14.2 % 11.5-14.5 [facility] Platelets [#/volume] in Blood by Automated count 285 10*3/uL 150-400 [facility] Differential cell count method - Blood [facility] Neutrophils/100 leukocytes in Blood by Automated count 79 % [facility] Lymphocytes/100 leukocytes in Blood by Automated count 12 % [facility] Monocytes/100 leukocytes in Blood by Automated count 7 % [facility] Eosinophils/100 leukocytes in Blood by Automated count 1 % [facility] Basophils/100 leukocytes in Blood by Automated count 1 % [facility] Neutrophils [#/volume] in Blood by Automated count 7.55 10*3/uL 1.8-7 .0 H [facility] Lymphocytes [#/volume] in Blood by Automated count 1.16 10*3/uL 1.2-4 .0 L [facility] Monocytes [#/volume] in Blood by Automated count 0.66 10*3/uL 0-0.8 [facility] Eosinophils [#/volume] in Blood by Automated count 0.05 10*3/uL 0-0.5 [facility] Basophils [#/volume] in Blood by Automated count 0.06 10*3/uL 0-0.2 [facility] Nucleated erythrocytes/100 leukocytes [Ratio] in Blood by Automated count 0 /100{WBCs} 0-0 [facility] ID Date Data Source [id number] 05/03/2021 02:10:49 AM [facility] Name Value Range Interpretation Code Description Data Lavern rce(s) Supporting Document(s) Cardiactroponin T pnl SerPlHS 17 ng/L <14 H [facility] ID Date Data Source [id number] 05/03/2021 02:10:49 AM [facility] Name Value Range Interpretation Code Description Data Lavern rce(s) Supporting Document(s) Cobalamin (Vitamin B12) [Mass/volume] in Serum or Plasma 694 pg/ml 2 11-946 [facility] ID Date Data Source [id number] 05/03/2021 02:10:49 AM [facility] Name Value Range Interpretation Code Description Data Lavern rce(s) Supporting Document(s) Bicarbonate [Moles/volume] in Serum 23 mmol/L 22-29 [facility] Chloride [Moles/volume] in Serum or Plasma 102 mmol/L 98-107 [facility] Creatinine [Mass/volume] in Serum or Plasma 0.77 mg/dL 0.50-0.90 [facility] Glucose [Mass/volume] in Serum or Plasma 119 mg/dL 70-140 [facility] Potassium [Moles/volume] in Serum or Plasma 3.6 mmol/L 3.4-5.1 [facility] Sodium [Moles/volume] in Serum or Plasma 140 mmol/L 136-145 [facility] Urea nitrogen [Mass/volume] in Serum or Plasma 16 mg/dL 8-23 [facility] Anion gap 3 in Serum or Plasma 15 mmol/L 8-15 [facility] Osmolality of Serum or Plasma by calculation 292 mosm/kg 275-300 [facility] Creatinine/Urea nitrogen [Mass Ratio] in Serum or Plasma 21 [facility] Calcium [Mass/volume] in Serum or Plasma 9.4 mg/dL 8.8-10.2 [facility] Glomerular filtration rate/1.73 sq M pre dicted among non-blacks [Volume Rate/Area] in Serum or Plasma by Creatinine-based formula (MDRD) 79 mL/min/1.73m2 >60 [facility] Glomerular filtration rate/1.73 sq M pre dicted among blacks [Volume Rate/Area] in Serum or Plasma by Creatinine-based formula (MDRD) >60 [facility] ID Date Data Source [id number] 05/03/2021 02:10:[address] [facility] Name Value Range Interpretation Code Description Data Lavern rce(s) Supporting Document(s) Thyrotropin [Units/volume] in Serum or Plasma 1.300 u[IU]/mL 0.270-4. 200 [facility] ID Date Data Source [id number] 05/02/2021 08:13:00 PM EDT [facility] Name Value Range Interpretation Code Description Data Lavern rce(s) Supporting Document(s) SARS-CoV-2 RNA 2019 nCoV Real-Time RT-PCR: NOT DETECTED [facility] This lab was ordered by [facility] and reported by [facility]. ID Date Data Source [id number] 05/02/2021 09:37:[address] 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 ID Date Data Source [id number] 05/02/2021 09:37:[address] [facility] Service Cmnt XXX-Imp : NoneRespiratory P CR Panel : PCR ResultsMicroorganism XXX Cult : See Labs Tab for 2019 nCoV RT-PCR resultsHAdV DNA QI CAMERON+non-probe : Not DetectedHCoV 229ERNA Nph QI CAMERON+non-probe : Not DetectedHCoV QDV4GZK Nph QI CAMERON+non-probe : Not ChjkrpkaSDhODM40 RNA Nph QI CAMERON+non-probe : Not DdyalqmlPPnBVP11 RNA Upper resp QI CAMERON+probe : Not DetectedhMPV RNA Nph QINAA+non-probe : Not DetectedRV+EV RNA Nph QI CAMERON+non-probe : Not DetectedFLUAV RNA Nph QI CAMERON+ non-probe : Not DetectedFLUBV RNA Nph QI CAMERON+non-probe : Not DetectedHPIV1 RNA NphQINAA+non-probe : Not DetectedHPIV2 RNA Nph QINAA+non-probe : Not DetectedHPVI3 RNA Nph CAMERON+non-probe : Not DetectedHPIV4 RNA Nph Q CAMERON+non-probe : Not DetectedRSV RNA Nph Q CAMERON+non-probe : Not DetectedB pert.PT PrmtNph Q CAMERON+non-probe : Not DetectedC pneum DNA Nph Q CAMERON+non-probe : Not DetectedM pneum DNA Nph Q CAMERON+non-probe : Not DetectedB akllbWO842 DNA Nph CAMERON+non-probe : Not Detected Name Value Range Interpretation Code Description Data Lavern rce(s) Supporting Document(s) ID Date Data Source [id number] 05/02/2021 08:52:18 PM [facility] Name Value Range Interpretation Code Description Data Lavern rce(s) Supporting Document(s) Leukocytes [#/volume] in Blood by Automated count 8.5 10*3/uL 4-10 [facility] Erythrocytes [#/volume] in Blood by Automated count 4.61 10*6/uL 4.1- 5.3 [facility] Hemoglobin [Mass/volume] in Blood 14.1 g/dL 11.5-15.5 [facility] Hematocrit [Volume Fraction] of Blood by Automated count 41.6 % 3 6-45 [facility] Erythrocyte mean corpuscular volume [Entitic volume] by Auto mated count 90.2 fL 80-96 [facility] Erythrocyte mean corpuscular hemoglobin [Entitic mass] by Automated count 30.6 pg 27-33 [facility] Erythrocyte mean corpuscular hemoglobin concentration [Mass/volume] by Automated count 33.9 g/dL 32.0-36.0 [facility] distribution width [Ratio] by Automated count 13.8 % 11.5-14.5 [facility] Platelets [#/volume] in Blood by Automated count 282 10*3/uL 150-400 [facility] Differential cell count method - Blood [facility] Neutrophils/100 leukocytes in Blood by Automated count 82 % [facility] Lymphocytes/100 leukocytes in Blood by Automated count 12 % [facility] Monocytes/100 leukocytes in Blood by Automated count 6 % [facility] Eosinophils/100 leukocytes in Blood by Automated count 0 % [facility] Basophils/100 leukocytes in Blood by Automated count 0 % [facility] Neutrophils [#/volume] in Blood by Automated count 6.87 10*3/uL 1.8-7 .0 [facility] Lymphocytes [#/volume] in Blood by Automated count 1.05 10*3/uL 1.2-4 .0 L [facility] Monocytes [#/volume] in Blood by Automated count 0.49 10*3/uL 0-0.8 [facility] Eosinophils [#/volume] in Blood by Automated count 0.03 10*3/uL 0-0.5 [facility] Basophils [#/volume] in Blood by Automated count 0.03 10*3/uL 0-0.2 [facility] Nucleated erythrocytes/100 leukocytes [Ratio] in Blood by Automated count 0 /100{WBCs} 0-0 [facility] ID Date Data Source [id number] 05/02/2021 08:55:37 PM [facility] Name Value Range Interpretation Code Description Data Lavern rce(s) Supporting Document(s) Cardiactroponin T pnl SerPlHS 16 ng/L <14 H [facility] ID Date Data Source [id number] 05/02/2021 08:55:37 PM [facility] Name Value Range Interpretation Code Description Data Lavern rce(s) Supporting Document(s) Bicarbonate [Moles/volume] in Serum 26 mmol/L 22-29 [facility] Chloride [Moles/volume] in Serum or Plasma 102 mmol/L 98-107 [facility] Creatinine [Mass/volume] in Serum or Plasma 0.80 mg/dL 0.50-0.90 [facility] Glucose [Mass/volume] in Serum or Plasma 117 mg/dL 70-140 [facility] Potassium [Moles/volume] in Serum or Plasma 3.8 mmol/L 3.4-5.1 [facility] Sodium [Moles/volume] in Serum or Plasma 141 mmol/L 136-145 [facility] Urea nitrogen [Mass/volume] in Serum or Plasma 15 mg/dL 8- [facility] Anion gap 3 in Serum or Plasma 13 mmol/L 8- [facility] Osmolality of Serum or Plasma by calculation 294 mosm/kg 275-300 [facility] Creatinine/Urea nitrogen [Mass Ratio] in Serum or Plasma 19 [facility] Calcium [Mass/volume] in Serum or Plasma 9.5 mg/dL 8.8-10.2 [facility] Glomerular filtration rate/1.73 sq M pre dicted among non-blacks [Volume Rate/Area] in Serum or Plasma by Creatinine-based formula (MDRD) 70 mL/min/1.73m2 >60 [facility] Glomerular filtration rate/1.73 sq M pre dicted among blacks [Volume Rate/Area] in Serum or Plasma by Creatinine-based formula (MDRD) 81 mL/min/1.73m2 >60 [facility] ID Date Data Source [id number] 01/18/2021 12:00:00 AM EDT [facility] Name Value Range Interpretation Code Description Data Lavern rce(s) Supporting Document(s) SARS-CoV2 Rapid Antigen Negative [facility] This lab was ordered by [facility] and reported by [facility]. ID Date Data Source [id number] 01/18/2021 12:00:00 AM [facility]T [facility] Name Value Range Interpretation Code Description Data Lavern rce(s) Supporting Document(s) SARS coronavirus 2 Ag N [facility] This lab was ordered by [facility] and reported by [facility]. ID Date Data Source [id number] 01/18/2021 12:00:00 AM EDT [facility] Name Value Range Interpretation Code Description Data Lavern rce(s) Supporting Document(s) SARS coronavirus 2 Ag N [facility] This lab was ordered by [facility] and reported by [facility]. ID Date Data Source [id number] 01/14/2021 07:08:[address] [facility] Surgical Pathology ReportName: Jayant CHAMPIONRN: [id number] Number: [id number] Date: 01/13/2021 00:00Received Date: 01/13/2021 14:39Physician(s): PORTIA ORTA,DO TIM,CORINA,DARIUSZpecimen(s) ReceivedA: Material received for consultation, [place], [place] [id number] D0Uiusknas HistoryPlease do ER and MA. Outside diagnosis DCIS.DiagnosisIMMUNOHISTOCHEMISTRY, LEFT BREAST, EXCISIONAL BIOPSY (OUTSIDE [id number], 01/11/21):ESTROGEN RECEPTORS: Positive (strong, 95%).PROGESTERONE RECEPTORS: Positive (strong, 90%). Electronically Signed By Isael Benitez M.D., Attending Pathologist01/14/2021 19:08:05 Unless 'gross-only' is specified, the final diagnosis is based on amicroscopic examination of customer loyalty representative sections of tissue.Gross DescriptionReceived [facility] [place] [place] is one paraffinblock labeled [id number] with the corresponding pathology report./jrsThis report may include one or more immunohistochemical stain results thatuse analyte specific reagents. All positive and negative controls havebeen reviewed by the attending pathologist and are satisfactory. The testswere developed and their performance characteristics determined by [facility] Pathology department. They have not been cleared or approved by the USFood and Drug Administration. The FDA has determined that such clearanceor approval is not necessary. Name Value Range Interpretation Code Description Data Lavern rce(s) Supporting Document(s) ID Date Data Source [id number] 01/11/2021 06:33:00 AM EDT [facility] ([facility]) Name Value Range Interpretation Code Description Data Lavern rce(s) Supporting Document(s) Blood Type Laboratory test result [facility] ([facility]) AB Screen (Indirect Donald)Vis Laboratory test result [facility] ([facility]) ID Date Data Source [id number] 01/06/2021 09:45:00 AM EST [facility] Name Value Range Interpretation Code Description Data Lavern rce(s) Supporting Document(s) SARS coronavirus 2 RNA Not Detected [facility] This lab was ordered by [facility] and reported by [facility]. ID Date Data Source [id number] 01/04/2021 09:18:00 AM EST [facility] ([facility]) Name Value Range Interpretation Code Description Data Lavern rce(s) Supporting Document(s) Glucose [Mass/volume] in Serum or Plasma 93 mg/dL 74-99 [facility] ([facility]) 100-125 mg/dL PRE-DIABETES/FASTING >126 mg/dL DIABETES/FASTING Urea nitrogen [Mass/volume] in Serum or Plasma 19 mg/dL 7-18 [facility] ([facility]) Sodium [Moles/volume] in Serum or Plasma 143 meq/L 136-145 [facility] ([facility]) Creatinine 1.0 mg/dL 0.6-1.3 [facility] ([facility]) Carbon dioxide, total [Moles/volume] in Serum or Plasma 31 meq/L 21 -32 [facility] ([facility]) Chloride [Moles/volume] in Serum or Plasma 104 meq/L 98-107 [facility] ([facility]) Potassium [Moles/volume] in Serum or Plasma 4.3 meq/L 3.5-5.1 [facility] ([facility]) Calcium [Mass/volume] in Serum or Plasma 9.4 mg/dL 8.5-10.1 [facility] ([facility]) Alkaline phosphatase isoenzyme [Units/volume] in Serum or Pl asma 64 mg/dL 46-116 [facility] ([facility]) Total Bilirubin 0.6 mg/dL 0.2-1.0 [facility] ([facility]) Alanine aminotransferase [Enzymatic activity/volume] in Seru m or Plasma 9 U/L 12-78 [facility] ([facility]) NOTE: RESULT VERIFIED. Aspartate aminotransferase [Enzymatic activity/volume] in Serum or Plasma 18 U/L 15-37 [facility] ([facility] ) A/G Ratio 1.03 CALC 1.00-1.90 [facility]) Albumin [Mass/volume] in Serum or Plasma 3.6 g/dL 3.4-5.0 [facility] ([facility]) Proteinase 3 Ab [Units/volume] in Serum 7.1 g/dL 6.4-8.2 [facility] Glomerular filtration rate/1.73 sq M pre dicted among non-blacks [Volume Rate/Area] in Serum or Plasma by Creatinine-based formula (MDRD) 54 mL/min [facility] Glomerular filtration rate/1.73 sq M pre dicted among blacks [Volume Rate/Area] in Serum or Plasma by Creatinine-based formula (MDRD) Laboratory test result [facility] <content>CHRONIC KIDNEY DISEASE STAGING PER NKF</content>
<content></content>
<content>STAGE I & II GFR >= 60 NORMAL TO MILDLY DECREASED</content>
<content>STAGE III GFR 30-59 MODERATELY DECREASED</content>
<content>STAGE IV GFR 15-29 SEVERELY DECREASED</content>
<content>STAGE V GFR <15 VERY LITTLE GFR LEFT</content>
<content>ESRD GFR <15 ON SCOREKEEPER</content>
<content></content> ID Date Data Source [id number] 01/04/2021 09:18:00 AM EST [facility] [facility] Name Value Range Interpretation Code Description Data Lavern rce(s) Supporting Document(s) Leukocytes [#/volume] in Blood by Automated count 8.2 x10*3/UL 4.1-10 .9 [facility] ([facility]) Hemoglobin [Mass/volume] in Blood 14.3 g/dL 12.0-18.0 [facility] Erythrocytes [#/volume] in Blood by Automated count 4.63 x10*6/UL 4.2 0-6.30 [facility] ([facility]) MCV 89.1 fL 80.0-97.0 [facility] ([facility]) Hematocrit [Volume Fraction] of Blood by Automated count 41.3 % 3 7.0-51.0 [facility] ([facility]) MCH 30.9 pg 26.0-32.0 [facility] ([facility]) Erythrocyte distribution width [Ratio] by Automated count 13.5 % 11.6-13.7 [facility] ([facility]) MCHC 34.7 g/dL 31.0-38.0 [facility] Platelets [#/volume] in Blood by Automated count 288 x10*3/UL 140-440 [facility] ([facility]) MPV 8.6 FL 7.8-11.0 [facility] Mid % 6.2 % 1.7-9.3 [facility] Lymph % 21.3 % 10.0-58.5 [facility] Neut % 72.5 % 37.0-92.0 [facility]) Mid # 0.6 x10*3/UL 0.1-0.6 [facility] ([facility]) Lymph # 1.7 x10*3/UL 0.6-4.1 [facility] ([facility]) Neut # 5.9 x10*3/UL 2.0-7.8 [facility] ([facility]) ID Date Data Source [id number] 12/20/2020 09:00:00 AM EST [facility] Name Value Range Interpretation Code Description Data Lavern rce(s) Supporting Document(s) SARS coronavirus 2 RNA Not Detected [facility] This lab was ordered by [facility] and reported by [facility]. ID Date Data Source [id number] 12/13/2020 09:56:00 AM EST [facility] ([facility]) Name Value Range Interpretation Code Description Data Lavern rce(s) Supporting Document(s) Thyrotropin [Units/volume] in Serum or Plasma by Detec tion limit <= 0.05 mIU/L 0.85 uIU/mL 0.36-3.74 [facility] ([facility] ) ID Date Data Source [id number] 12/13/2020 09:56:00 AM EST [facility] ([facility]) Name Value Range Interpretation Code Description Data Lavern rce(s) Supporting Document(s) Creatinine 1.2 mg/dL 0.6-1.3 [facility] Glucose [Mass/volume] in Serum or Plasma 105 mg/dL 74-99 [facility] ([facility]) 100-125 mg/dL PRE-DIABETES/FASTING >126 mg/dL DIABETES/FASTING Urea nitrogen [Mass/volume] in Serum or Plasma 24 mg/dL 7-18 [facility] ([facility]) Potassium [Moles/volume] in Serum or Plasma 4.6 meq/L 3.5-5.1 [facility] ([facility]) Sodium [Moles/volume] in Serum or Plasma 145 meq/L 136-145 [facility] ([facility]) Calcium [Mass/volume] in Serum or Plasma 9.5 mg/dL 8.5-10.1 [facility] ([facility]) Carbon dioxide, total [Moles/volume] in Serum or Plasma 30 meq/L 21 -32 [facility] ([facility]) Chloride [Moles/volume] in Serum or Plasma 105 meq/L 98-107 [facility] ([facility]) Alkaline phosphatase isoenzyme [Units/volume] in Serum or Pl asma 62 mg/dL 46-116 [facility] ([facility]) Total Bilirubin 0.6 mg/dL 0.2-1.0 [facility] ([facility]) Albumin [Mass/volume] in Serum or Plasma 3.7 g/dL 3.4-5.0 [facility] ([facility]) Aspartate aminotransferase [Enzymatic activity/volume] in Serum or Plasma 21 U/L 15-37 [facility] ([facility] ) Alanine aminotransferase [Enzymatic activity/volume] in Seru m or Plasma 10 U/L 12-78 [facility] ([facility]) A/G Ratio 1.12 CALC 1.00-1.90 [facility] Proteinase 3 Ab [Units/volume] in Serum 7.0 g/dL 6.4-8.2 [facility] ([facility]) Glomerular filtration rate/1.73 sq M pre dicted among blacks [Volume Rate/Area] in Serum or Plasma by Creatinine-based formula (MDRD) 53 mL/min [facility] ([facility]) <content>CHRONIC KIDNEY DISEASE STAGING PER NKF</content>
<content></content>
<content>STAGE I & II GFR >= 60 NORMAL TO MILDLY DECREASED</content>
<content>STAGE III GFR 30-59 MODERATELY DECREASED</content>
<content>STAGE IV GFR 15-29 SEVERELY DECREASED</content>
<content>STAGE V GFR <15 VERY LITTLE GFR LEFT</content>
<content>ESRD GFR <15 ON SCOREKEEPER</content>
<content></content> Glomerular filtration rate/1.73 sq M pre dicted among non-blacks [Volume Rate/Area] in Serum or Plasma by Creatinine-based formula (MDRD) 44 mL/min [facility] ([facility]) ID Date Data Source [id number] 12/13/2020 09:56:00 AM EST [facility] ([facility]) Name Value Range Interpretation Code Description Data Lavern rce(s) Supporting Document(s) Leukocytes [#/volume] in Blood by Automated count 7.5 x10*3/UL 4.1-10 .9 [facility] ([facility]) Erythrocytes [#/volume] in Blood by Automated count 4.57 x10*6/UL 4.2 0-6.30 [facility] Hemoglobin [Mass/volume] in Blood 14.1 g/dL 12.0-18.0 [facility] MCV 89.9 fL 80.0-97.0 [facility] ([facility]) Hematocrit [Volume Fraction] of Blood by Automated count 41.1 % 3 7.0-51.0 [facility] Erythrocyte distribution width [Ratio] by Automated count 13.1 % 11.6-13.7 [facility] ([facility]) MCH 31.0 pg 26.0-32.0 [facility] ([facility]) MCHC 34.4 g/dL 31.0-38.0 [facility] ([facility]) Lymph % 21.2 % 10.0-58.5 [facility] ([facility]) Platelets [#/volume] in Blood by Automated count 282 x10*3/UL 140-440 [facility] ([facility]) MPV 8.7 FL 7.8-11.0 [facility]) Neut % 72.8 % 37.0-92.0 [facility]) Mid % 6.0 % 1.7-9.3 [facility]) Neut # 5.4 x10*3/UL 2.0-7.8 [facility] ([facility]) Lymph # 1.5 x10*3/UL 0.6-4.1 [facility] ([facility]) Mid # 0.6 x10*3/UL 0.1-0.6 [facility] ([facility]) ID Date Data Source [id number] 12/13/2020 09:00:00 AM EST [facility] Name Value Range Interpretation Code Description Data Lavern rce(s) Supporting Document(s) SARS coronavirus 2 RNA Not Detected [facility] [place] This lab was ordered by [facility] and reported by [facility]. ID Date Data Source [id number] 12/06/2020 06:30:00 AM EST [facility] Name Value Range Interpretation Code Description Data Lavern rce(s) Supporting Document(s) SARS coronavirus 2 RNA Not Detected [facility] [place] This lab was ordered by [facility] and reported by [facility]. ID Date Data Source [id number] 11/29/2020 08:00:00 AM EST [facility] Name Value Range Interpretation Code Description Data Lavern rce(s) Supporting Document(s) SARS coronavirus 2 RNA Not Detected [facility] [place] This lab was ordered by [facility] and reported by [facility]. ID Date Data Source [id number] 11/23/2020 12:57:00 PM EST [facility] ([facility]) Name Value Range Interpretation Code Description Data Lavern rce(s) Supporting Document(s) Glucose [Mass/volume] in Serum or Plasma 117 mg/dL 74-99 [facility] ([facility]) 100-125 mg/dL PRE-DIABETES/FASTING >126 mg/dL DIABETES/FASTING Creatinine 1.0 mg/dL 0.6-1.3 [facility] Urea nitrogen [Mass/volume] in Serum or Plasma 23 mg/dL 7-18 [facility] ([facility]) Sodium [Moles/volume] in Serum or Plasma 143 meq/L 136-145 [facility] ([facility]) Potassium [Moles/volume] in Serum or Plasma 3.9 meq/L 3.5-5.1 [facility] ([facility]) Calcium [Mass/volume] in Serum or Plasma 9.8 mg/dL 8.5-10.1 [facility] ([facility]) Carbon dioxide, total [Moles/volume] in Serum or Plasma 31 meq/L 21 -32 [facility] ([facility]) Chloride [Moles/volume] in Serum or Plasma 102 meq/L 98-107 [facility] Glomerular filtration rate/1.73 sq M pre dicted among blacks [Volume Rate/Area] in Serum or Plasma by Creatinine-based formula (MDRD) Laboratory test result [facility] <content>CHRONIC KIDNEY DISEASE STAGING PER NKF</content>
<content></content>
<content>STAGE I & II GFR >= 60 NORMAL TO MILDLY DECREASED</content>
<content>STAGE III GFR 30-59 MODERATELY DECREASED</content>
<content>STAGE IV GFR 15-29 SEVERELY DECREASED</content>
<content>STAGE V GFR <15 VERY LITTLE GFR LEFT</content>
<content>ESRD GFR <15 ON SCOREKEEPER</content>
<content></content> Glomerular filtration rate/1.73 sq M pre dicted among non-blacks [Volume Rate/Area] in Serum or Plasma by Creatinine-based formula (MDRD) 54 mL/min [facility] ID Date Data Source [id number] 11/22/2020 08:00:00 AM EST [facility] Name Value Range Interpretation Code Description Data Lavern rce(s) Supporting Document(s) SARS coronavirus 2 RNA Not Detected [facility] This lab was ordered by [facility] and reported by [facility]. ID Date Data Source [id number] 11/15/2020 12:00:00 PM EST [facility] Name Value Range Interpretation Code Description Data Lavern rce(s) Supporting Document(s) SARS coronavirus 2 RNA Not Detected [facility] [place] This lab was ordered by [facility] and reported by [facility]. ID Date Data Source [id number] 11/08/2020 06:00:00 AM EST [facility] Name Value Range Interpretation Code Description Data Lavern rce(s) Supporting Document(s) SARS coronavirus 2 RNA Not Detected [facility] [place] This lab was ordered by [facility] and reported by [facility]. ID Date Data Source [id number] 11/01/2020 07:30:00 AM EST [facility] Name Value Range Interpretation Code Description Data Lavern rce(s) Supporting Document(s) SARS coronavirus 2 RNA Not Detected [facility] [place] This lab was ordered by [facility] and reported by [facility]. ID Date Data Source [id number] 10/25/2020 08:05:00 AM EST [facility] Name Value Range Interpretation Code Description Data Lavern rce(s) Supporting Document(s) SARS coronavirus 2 RNA [facility] This lab was ordered by [facility] and reported by [facility]. ID Date Data Source [id number] 10/18/2020 09:00:00 AM EST [facility] Name Value Range Interpretation Code Description Data Lavern rce(s) Supporting Document(s) SARS coronavirus 2 RNA [facility] This lab was ordered by [facility] and reported by [facility]. ID Date Data Source [id number] 10/13/2020 12:06:00 PM EST [facility] Name Value Range Interpretation Code Description Data Lavern rce(s) Supporting Document(s) SARS coronavirus 2 RNA [facility] This lab was ordered by [facility] and reported by [facility]. ID Date Data Source [id number] 10/08/2020 01:19:00 PM EST [facility] Name Value Range Interpretation Code Description Data Lavern rce(s) Supporting Document(s) SARS coronavirus 2 RNA [facility] This lab was ordered by [facility] and reported by [facility]. ID Date Data Source [id number] 09/17/2020 12:00:00 AM EST [facility] Name Value Range Interpretation Code Description Data Lavern rce(s) Supporting Document(s) 2019-nCoV RNA XXX [facility]+probe-Imp [facility] This lab was ordered by [facility] and reported by [facility]. ID Date Data Source [id number] 09/06/2020 12:00:00 AM EST [facility] Lashell Gonzalez MD Patient Name: CHRISTIAN [id number] [facility] Date of : Floor Date of Exam: 09/06/2020[place] [id number]#: Fax: [phone] EXAM: STEREO BREAST BX 1ST LESIONCLINICAL INFORMATION: The patient has a history of a persistent tinyasymmetric nodule seen in the left breast on a previous mammogram date08/25/2020.This procedure was performed by Edson Michael [facility], under the generalsupervision of Dr. Obrien. All imaging was reviewed with Dr. Obrien prior to thebiopsy.The risks and benefits of the procedure were explain to the patient andinformed consent was obtained.A craniocaudal approach was utilized. the nodule was localized usingstereotactic mammographic guidance. The skin was prepped and draped in asterile fashion. 1% Lidocaine was used as a local anesthetic. A 10-gaugesuction assisted biopsy needle was inserted and six core biopsy sampleswere obtained. A marker clip was placed at the site of the biopsy. Thepatient tolerated the procedure well and there were no immediatecomplications.Jenaro Obrien MDJDW/jmcELECTRONICALLY SIGNED BY: Jenaro Obrien MD 09/07/2020 16:37 ADDENDUM:The left breast biopsy results were received and are positive. Our officeNurse, Linda Bach, called and spoke with Sandra to give results.Addendum was sent to Dr. Gonzalez on 09/14/2020 13:33.Recommend referral to breast surgeon.Thank you for referring CHRISTIAN CHAMPION to our office. Electronically Signed - JENARO OBRIEN MD 09/28/20 15:26 Name Value Range Interpretation Code Description Data Lavern rce(s) Supporting Document(s) ID Date Data Source [id number] 08/25/2020 12:00:00 AM EDT [facility] Lashell Gonzalez MD Patient Name: CHRISTIAN [id number] [facility] Date of : Floor [facility]: [facility] [id number] Fax: [phone] EXAM: MAMMO UNI DIAGNOSTIC INCLUD CAD AND ULTRASOUND BREAST UNI LIMITEDCLINICAL INFORMATION: Diagnostic left breast.Prior exams were reviewed. The prior screening examination of 08/19/2020showed a potential mariola-asymmetric density in the left breast inner aspectnear the 9 o'clock position for which diagnostic digital magnified spotcompression views were obtained in the CC and MLO projections along withultrasonography.The diagnostic digital magnified spot compression views show persistence ofthis tiny nodular asymmetric density.Diagnostic ultrasonography shows no evidence of a cystic or solid mass.IMPRESSION:BI-RADS Category 4 - Suspicious findings. Persistent tiny asymmetricnodularity seen in the left breast diagnostic spot views as described aboveand for which stereotactic breast biopsy is recommended.MARKO Steen/Lilly you for referring CHRISTIAN CHAPMION to our office. Electronically Signed - YUKI RUTLEDGE DO 08/25/20 14:35 Name Value Range Interpretation Code Description Data Lavern rce(s) Supporting Document(s) ID Date Data Source [id number] 08/25/2020 12:00:00 AM EDT [facility] Lashell Gonzalez MD Patient Name: CHRISTIAN [id number] [facility] Date of : Floor Date of Exam: [facility]2020[facility] [id number] Fax: [phone] EXAM: MAMMO UNI DIAGNOSTIC INCLUD CAD AND ULTRASOUND BREAST UNI LIMITEDCLINICAL INFORMATION: Diagnostic left breast.Prior exams were reviewed. The prior screening examination of 08/19/2020showed a potential mariola-asymmetric density in the left breast inner aspectnear the 9 o'clock position for which diagnostic digital magnified spotcompression views were obtained in the CC and MLO projections along withultrasonography.The diagnostic digital magnified spot compression views show persistence ofthis tiny nodular asymmetric density.Diagnostic ultrasonography shows no evidence of a cystic or solid mass.IMPRESSION:BI-RADS Category 4 - Suspicious findings. Persistent tiny asymmetricnodularity seen in the left breast diagnostic spot views as described aboveand for which stereotactic breast biopsy is recommended.MARKO Steen/Lilly you for referring CHRISTIAN CHAMPION to our office. Electronically Signed - YUKI RUTLEDGE DO 08/25/20 14:35 Name Value Range Interpretation Code Description Data Lavern rce(s) Supporting Document(s) ID Date Data Source [id number] 08/19/2020 12:00:00 AM EDT [facility] Lashell Gonzalez MD Patient Name: CHRISTIAN [id number] [facility] Date of : Floor Date of Exam: [facility]2020[facility] [id number] Fax: [phone] EXAM: MAMMO SCREENING WITH CADCLINICAL INFORMATION: Screening.Based on the personal and family history information your patient suppliedat the time of imaging, her lifetime risk of breast cancer estimated by theTyrer-Cuzick model is 1.8%. Given that this patient has less than 20% TCrisk score, no further medical management is currently recommended at thistime.Digital screening (2D) mammography was performed bilaterally in the CC andMLO projections. Additionally, breast tomosynthesis (3D mammography) wasperformed bilaterally in the CC and MLO projections. Today's exam wascompared to the prior exam(s).By history, the patient has no complaints of a palpable breast abnormalityor other significant breast complaints.The patient states she is unsure when her last clinical breast exam was.The breasts are unchanged in size and shape. Once again, scattered denseheterogeneous somewhat nodular fibroglandular elements are seen bilaterallyto such a degree that the sensitivity of the mammogram in detecting canceris decreased.In the left breast inner aspect near the 9 o'clock position, there is apotential mariola-asymmetric density. No other suspicious features are seen ineither breast. Stable benign appearing calcifications are again seenbilaterally.There is no skin thickening or nipple retraction.The Volpara volumetric breast density category is C, the breasts areheterogeneously dense which may obscure small masses.IMPRESSION:BI-RADS Category 0 - Incomplete: Needs Additional Imaging Evaluation.Potential mariola-density seen in the left breast as described above for whichdiagnostic digital magnified spot compressions views are recommended in theCC and MLO projections along with ultrasonography if needed.Our office will attempt to contact the patient for additional imaging.This mammogram was read with the assistance of [employer], an FDAapproved computer aided detection system for mammography.Negative x- ray reports should not delay surgical consultation if a dominantor clinically suspicious mass is present.Not all breast cancers can be identified by mammography. Therefore, werecommend that you continue to perform regular breast self-examination andphysical examination and then promptly contact your physician of anyconcerns or changes.Adenosis and dense breasts may obscure an underlying neoplasm.MARKO Steen/Lilly you for referring CHRISTIAN CHAMPION to our office. Electronically Signed - YUKI RUTLEDGE DO 08/19/20 16:49 Name Value Range Interpretation Code Description Data Lavern rce(s) Supporting Document(s) ID Date Data Source [id number] 08/11/2020 10:26:00 AM EDT [facility] ([facility]) Name Value Range Interpretation Code Description Data Lavern rce(s) Supporting Document(s) Glucose [Mass/volume] in Serum or Plasma 90 mg/dL 74-99 [facility] ([facility]) 100-125 mg/dL PRE-DIABETES/FASTING >126 mg/dL DIABETES/FASTING Creatinine 1.0 mg/dL 0.6-1.3 [facility] Urea nitrogen [Mass/volume] in Serum or Plasma 22 mg/dL 7-18 [facility] ([facility]) Sodium [Moles/volume] in Serum or Plasma 141 meq/L 136-145 [facility] ([facility]) Potassium [Moles/volume] in Serum or Plasma 4.2 meq/L 3.5-5.1 [facility] ([facility]) Chloride [Moles/volume] in Serum or Plasma 104 meq/L 98-107 [facility] Carbon dioxide, total [Moles/volume] in Serum or Plasma 31 meq/L 21 -32 [facility] ([facility]) Calcium [Mass/volume] in Serum or Plasma 9.5 mg/dL 8.5-10.1 [facility] Glomerular filtration rate/1.73 sq M pre dicted among non-blacks [Volume Rate/Area] in Serum or Plasma by Creatinine-based formula (MDRD) 54 mL/min [facility] ([facility]) Glomerular filtration rate/1.73 sq M pre dicted among blacks [Volume Rate/Area] in Serum or Plasma by Creatinine-based formula (MDRD) Laboratory test result [facility] ([facility]) <content>CHRONIC KIDNEY DISEASE STAGING PER NKF</content>
<content></content>
<content>STAGE I & II GFR >= 60 NORMAL TO MILDLY DECREASED</content>
<content>STAGE III GFR 30-59 MODERATELY DECREASED</content>
<content>STAGE IV GFR 15-29 SEVERELY DECREASED</content>
<content>STAGE V GFR <15 VERY LITTLE GFR LEFT</content>
<content>ESRD GFR <15 ON SCOREKEEPER</content>
<content></content> ID Date Data Source [id number] 08/02/2020 03:33:00 PM EDT [facility] Name Value Range Interpretation Code Description Data Lavern rce(s) Supporting Document(s) Thyrotropin [Units/volume] in Serum or Plasma by Detec tion limit <= 0.05 mIU/L 1.62 uIU/mL 0.36-3.74 [facility] ID Date Data Source [id number] 08/02/2020 03:33:00 PM EDT [facility] ([facility]) Name Value Range Interpretation Code Description Data Lavern rce(s) Supporting Document(s) Glucose [Mass/volume] in Serum or Plasma 85 mg/dL 74-99 [facility] ([facility]) 100-125 mg/dL PRE-DIABETES/FASTING >126 mg/dL DIABETES/FASTING Urea nitrogen [Mass/volume] in Serum or Plasma 31 mg/dL 7-18 [facility] ([facility]) Sodium [Moles/volume] in Serum or Plasma 142 meq/L 136-145 [facility] ([facility]) Creatinine 1.1 mg/dL 0.6-1.3 [facility] ([facility]) Chloride [Moles/volume] in Serum or Plasma 104 meq/L 98-107 [facility] ([facility]) Potassium [Moles/volume] in Serum or Plasma 4.1 meq/L 3.5-5.1 [facility] ([facility]) Alkaline phosphatase isoenzyme [Units/volume] in Serum or Pl asma 57 mg/dL 46-116 [facility] ([facility]) Calcium [Mass/volume] in Serum or Plasma 9.6 mg/dL 8.5-10.1 [facility] ([facility]) Carbon dioxide, total [Moles/volume] in Serum or Plasma 30 meq/L 21 -32 [facility] ([facility]) Alanine aminotransferase [Enzymatic activity/volume] in Seru m or Plasma 11 U/L 12-78 [facility] ([facility]) Aspartate aminotransferase [Enzymatic activity/volume] in Serum or Plasma 18 U/L 15-37 [facility] ([facility] ) Total Bilirubin 0.4 mg/dL 0.2-1.0 [facility] ([facility]) Albumin [Mass/volume] in Serum or Plasma 3.7 g/dL 3.4-5.0 [facility] ([facility]) Proteinase 3 Ab [Units/volume] in Serum 7.7 g/dL 6.4-8.2 [facility] ([facility]) A/G Ratio 0.93 CALC 1.00-1.90 [facility] Glomerular filtration rate/1.73 sq M pre dicted among non-blacks [Volume Rate/Area] in Serum or Plasma by Creatinine-based formula (MDRD) 48 mL/min [facility] ([facility]) Glomerular filtration rate/1.73 sq M pre dicted among blacks [Volume Rate/Area] in Serum or Plasma by Creatinine-based formula (MDRD) 58 mL/min [facility] <content>CHRONIC KIDNEY DISEASE STAGING PER NKF</content>
<content></content>
<content>STAGE I & II GFR >= 60 NORMAL TO MILDLY DECREASED</content>
<content>STAGE III GFR 30-59 MODERATELY DECREASED</content>
<content>STAGE IV GFR 15-29 SEVERELY DECREASED</content>
<content>STAGE V GFR <15 VERY LITTLE GFR LEFT</content>
<content>ESRD GFR <15 ON SCOREKEEPER</content>
<content></content> ID Date Data Source [id number] 08/02/2020 03:33:00 PM EDT [facility] Name Value Range Interpretation Code Description Data Lavern rce(s) Supporting Document(s) Erythrocytes [#/volume] in Blood by Automated count 4.62 x10*6/UL 4.2 0-6.30 [facility] ([facility]) Leukocytes [#/volume] in Blood by Automated count 7.1 x10*3/UL 4.1-10 .9 [facility] Hemoglobin [Mass/volume] in Blood 14.2 g/dL 12.0-18.0 [facility] ([facility]) Hematocrit [Volume Fraction] of Blood by Automated count 41.0 % 3 7.0-51.0 [facility] ([facility]) MCH 30.7 pg 26.0-32.0 [facility] MCV 88.6 fL 80.0-97.0 [facility] MCHC 34.6 g/dL 31.0-38.0 [facility] Erythrocyte distribution width [Ratio] by Automated count 12.6 % 11.6-13.7 [facility] ([facility]) Platelets [#/volume] in Blood by Automated count 249 x10*3/UL 140-440 [facility] ([facility]) MPV 8.3 FL 7.8-11.0 [facility] Lymph % 30.2 % 10.0-58.5 [facility] ([facility]) Mid % 8.4 % 1.7-9.3 MEDENT ([facility]) Mid # 0.6 x10*3/UL 0.1-0.6 MEDENT ([facility]) Lymph # 2.1 x10*3/UL 0.6-4.1 MEDENT ([facility]) Neut % 61.4 % 37.0-92.0 MEDENT ([facility]) Neut # 4.4 x10*3/UL 2.0-7.8 MEDENT ([facility]) Procedure Social History Code Duration Value Status Description Data Source(s ) Alcohol intake 05/02/2021 12:00:00 AM EDT Lifetime non-drinker (finding) completed Lifetime non-drinker (finding) [facility] Smoking 05/02/2021 12:00:00 AM EDT Never smoker completed Never s [facility] Smoking 02/07/2021 12:00:00 AM EDT Never Smoker completed Never S moker eCW1 ([facility]) Smoking 02/07/2021 12:00:00 AM EDT Never Smoker completed Never S moker eCW1 ([facility]) Smoking 02/07/2021 12:00:00 AM EDT Never Smoker completed Never S moker eCW1 ([facility]) Smoking 02/07/2021 12:00:00 AM EDT Never Smoker completed Never S moker eCW1 ([facility]) Smoking 01/17/2021 12:00:00 AM EDT Never Smoker completed Never S moker eCW1 ([facility]) Smoking 12/09/2020 12:00:00 AM EST Never Smoker completed Never S moker eCW1 ([facility]) Smoking 12/09/2020 12:00:00 AM EST Never Smoker completed Never S moker eCW1 ([facility]) Smoking 12/09/2020 12:00:00 AM EST Never Smoker completed Never S moker eCW1 ([facility]) Vital Signs ID Date Data Source UNK Name Value Range Interpretation Code Description Data Source(s) Heart rate 76 /min 76 /min MEDENT ([facility]) Body height 61 [in_i] 61 [in_i] MEDENT ([facility]) 5'1" Systolic blood pressure 112 mm[Hg] 112 mm[Hg] M EDENT ([facility]) RT Arm Body mass index (BMI) [Ratio] 26.5 kg/m2 26.5 k g/m2 MEDENT ([facility]) Diastolic blood pressure 54 mm[Hg] 54 mm[Hg] MEDENT ([facility]) RT Arm Body weight 140.50 [lb_av] 140.50 [lb_av] MEDEN T ([facility]) Body weight 140 [lb_av] 140 [lb_av] eCW1 ([facility]) Respiratory rate 18 /min 18 /min eCW1 ([facility]) Body temperature 98.9 [degF] 98.9 [degF] eCW1 ( [facility]) Systolic blood pressure 130 mm[Hg] 130 mm[Hg] e CW1 ([facility]) Diastolic blood pressure 72 mm[Hg] 72 mm[Hg] eCW1 ([facility]) Body weight 63.5 kg 63.5 kg eCW1 ([facility] Body height 61 [in_i] 61 [in_i] eCW1 ([facility]) Body mass index (BMI) [Ratio] 26.45 kg/m2 26.45 kg/m2 W1 ([facility]) Heart rate 61 /min 61 /min eCW1 ([facility]) Body weight 141 [lb_av] 141 [lb_av] eCW1 ([facility]) Body weight 63.96 kg 63.96 kg eCW1 ([facility] Body height 61 [in_i] 61 [in_i] eCW1 ([facility]) Body mass index (BMI) [Ratio] 26.64 kg/m2 26.64 kg/m2 eCW1 ([facility]) Heart rate 74 /min 74 /min eCW1 ([facility]) Respiratory rate 18 /min 18 /min eCW1 ([facility]) Body temperature 98.3 [degF] 98.3 [degF] eCW1 ( [facility]) Systolic blood pressure 138 mm[Hg] 138 mm[Hg] e CW1 ([facility]) Diastolic blood pressure 84 mm[Hg] 84 mm[Hg] eCW1 ([facility]) Systolic blood pressure 108 mm[Hg] 108 mm[Hg] M NITA ([facility]) RT Arm Diastolic blood pressure 64 mm[Hg] 64 mm[Hg] BROOKE ([facility]) RT Arm Body height 61 [in_i] 61 [in_i] BROOKE ([facility]) 5'1" Body weight 142.00 [lb_av] 142.00 [lb_av] MEDEN T ([facility]) Oxygen saturation in Arterial blood by Pulse oximetry --post exerci se 96 % 96 % BROOKE ([facility]) RM Air Body mass index (BMI) [Ratio] 26.8 kg/m2 26.8 k g/m2 BROOKE ([facility]) Heart rate 61 /min 61 /min BROOKE ([facility]) Systolic blood pressure 132 mm[Hg] 132 mm[Hg] M NITA ([facility]) RT Arm Diastolic blood pressure 78 mm[Hg] 78 mm[Hg] BROOKE ([facility]) RT Arm Systolic blood pressure--supine 132 mm[Hg] 132 mm[Hg] BROOKE ([facility]) p60 Systolic blood pressure--sitting 136 mm[Hg] 136 mm[Hg] BROOKE ([facility]) p-60 Diastolic blood pressure--sitting 72 mm[Hg] 72 mm[Hg] BROOKE ([facility]) p-60 Systolic blood pressure--standing 132 mm[Hg] 13 2 mm[Hg] MEDENT ([facility]) p64 Diastolic blood pressure--standing 72 mm[Hg] 7 2 mm[Hg] MEDENT ([facility]) p64 Heart rate 60 /min 60 /min MEDENT ([facility]) Body height 61 [in_i] 61 [in_i] MEDENT ([facility]) 5'1" Body weight 144.25 [lb_av] 144.25 [lb_av] MEDEN T ([facility]) Body mass index (BMI) [Ratio] 27.3 kg/m2 27.3 k g/m2 MEDENT ([facility]) Diastolic blood pressure--supine 78 mm[Hg] 78 mm[Hg] MEDENT ([facility]) p60 Body weight 145 [lb_av] 145 [lb_av] W1 ([facility]) Body weight 65.77 kg 65.77 kg W1 ([facility]) Body height 61 [in_i] 61 [in_i] eCW1 ([facility]) Body mass index (BMI) [Ratio] 27.39 kg/m2 27.39 kg/m2 W1 ([facility]) Heart rate 58 /min 58 /min eCW1 ([facility]) Respiratory rate 18 /min 18 /min W1 ([facility]) Body temperature 99 [degF] 99 [degF] eCW1 ([facility]) Systolic blood pressure 138 mm[Hg] 138 mm[Hg] e CW1 ([facility]) Diastolic blood pressure 78 mm[Hg] 78 mm[Hg] eCW1 ([facility]) Systolic blood pressure 122 mm[Hg] 122 mm[Hg] M EDENT ([facility]) RT Arm Diastolic blood pressure 62 mm[Hg] 62 mm[Hg] MEDENT ([facility]) RT Arm Heart rate 56 /min 56 /min MEDENT ([facility]) Body height 61 [in_i] 61 [in_i] MEDENT ([facility]) 5'1" Body weight 143.38 [lb_av] 143.38 [lb_av] MEDEN T ([facility]) Body mass index (BMI) [Ratio] 27.1 kg/m2 27.1 k g/m2 MEDENT ([facility]) Systolic blood pressure 146 mm[Hg] 146 mm[Hg] M EDENT ([facility]) RT Arm Diastolic blood pressure 70 mm[Hg] 70 mm[Hg] MEDENT ([facility]) RT Arm Heart rate 60 /min 60 /min MEDENT ([facility]) Body height 61 [in_i] 61 [in_i] MEDENT ([facility]) 5'1" Body weight 143.38 [lb_av] 143.38 [lb_av] MEDEN T ([facility]) Body mass index (BMI) [Ratio] 27.1 kg/m2 27.1 k g/m2 MEDENT ([facility]) Body weight 142.00 [lb_av] 142.00 [lb_av] MEDEN T ([facility]) Body mass index (BMI) [Ratio] 26.8 kg/m2 26.8 k g/m2 [facility] Systolic blood pressure 140 mm[Hg] 140 mm[Hg] M [facility] ([facility]) Diastolic blood pressure 82 mm[Hg] 82 mm[Hg] [facility] ([facility]) Systolic blood pressure 138 mm[Hg] 138 mm[Hg] [facility] ([facility]) Diastolic blood pressure 84 mm[Hg] 84 mm[Hg] [facility] ([facility]) Body height 61 [in_i] 61 [in_i] [facility] 5'1" Systolic blood pressure 172 mm[Hg] 172 mm[Hg] M [facility] ([facility]) RT Arm Diastolic blood pressure 70 mm[Hg] 70 mm[Hg] MEDENT ([facility]) RT Arm Heart rate 65 /min 65 /min MEDENT ([facility]) Body height 61 [in_i] 61 [in_i] MEDENT ([facility]) 5'1" Body weight 144.12 [lb_av] 144.12 [lb_av] KOBI Garzon ([facility]) Oxygen saturation in Arterial blood by Pulse oximetry --post exerci se 99 % 99 % MEDENT ([facility]) RM Air Body mass index (BMI) [Ratio] 27.2 kg/m2 27.2 k g/m2 MEDENT ([facility]) ID Date Data Source [id number] 05/30/2021 10:50:34 AM [facility] Name Value Range Interpretation Code Description Data Source(s) WEIGHT RECORDED 131 lb 131 lb [facility] Body height Measured 61 in 61 in [facility] TRANSFER FROM [facility] Patient Treatment Plan of Care Planned Activity Planned Date Details Description Data Source (s) Amlodipine 5 MG Oral Tablet 05/13/2021 12:00:00 AM [facility] Cholecalciferol 400 UNT Oral Tablet 05/13/2021 12:00:00 AM [facility] Losartan Potassium 100 MG Oral Tablet 05/13/2021 12:00:00 AM [facility] sennosides, MCFP 8.6 MG Oral Tablet 05/12/2021 12:00:00 AM [facility] Melatonin 5 MG Oral Tablet 05/12/2021 12:00:00 AM [facility] Mineral Oil 0.15 MG/MG / Petrolatum 0.83 MG/MG Ophthalmic Ointment [Lubrifresh P.M.] 05/12/2021 12:00:00 AM [facility] hypromellose 25 MG/ML Ophthalmic Solution 05/12/2021 12:00:00 AM [facility] hypromellose 25 MG/ML Ophthalmic Solution 05/04/2021 02:48:29 AM [facility] Mineral Oil 0.15 MG/MG / Petrolatum 0.83 MG/MG Ophthalmic Ointment [Lubrifresh P.M.] 05/03/2021 05:09:06 PM EDT [facility] Lorazepam 0.5 MG Oral Tablet [facility] Cholecalciferol 400 UNT Oral Tablet [facility] Calcium Citrate 950 MG Oral Tablet [facility] Azelastine hydrochloride 0.5 MG/ML Ophthalmic Solution [facility] Losartan Potassium 50 MG Oral Tablet [facility]
[2021-09-07] MEDS ORDERED: ARTIDRO OU (14:31)
[2021-09-07] MEDS ORDERED: ENSU1LIQ50 PO (14:31)
[2021-09-07] MEDS ORDERED: ASPI-161 PO (14:31)
[2021-09-07] MEDS ORDERED: [UNRECOGNIZED DRUG - CODE] IM (14:31)
[2021-09-07] MEDS ORDERED: COMT200T PO (14:31)
[2021-09-07] MEDS ORDERED: SERO1TAB3 PO (14:31)
[2021-09-07] MEDS ORDERED: MILKSUS3 PO (14:31)
[2021-09-07] MEDS ORDERED: DICL1GEL3 TOP (14:31)
[2021-09-07] MEDS ORDERED: APAP325T4 PO (14:31)
[2021-09-07] MEDS ORDERED: LOSA50TA88 PO (14:31)
[2021-09-07] MEDS ORDERED: CARB-89 PO (14:40)
[2021-09-07] MEDS ORDERED: HOME MED LIST COMPLETE! XX SCH (14:45)
--- NOTE | 2021-09-07 16:31 | REP ---
INDICATION: R sided weakness. COMPARISON: None. TECHNIQUE: Carotid ultrasonography was attempted. The patient refused the exam. FINDINGS: The images provided are nondiagnostic. IMPRESSION: Nondiagnostic incomplete exam. <Electronically signed by Kadeem Garcia > 09/07/21 [id number]
[2021-09-07] MEDS ORDERED: ACETAMINOPHEN 325 MG TAB PO PRN (17:10)
[2021-09-07] MEDS ORDERED: BISACODYL 10 MG SUPP PR PRN (17:10)
[2021-09-07] MEDS ORDERED: MIRALAX *UNIT DOSE* 17GM PACKET PO PRN (17:10)
--- NOTE | 2021-09-07 17:24 | HPEPDOC ---
[facility] Medical History & Physical Date of Admission Sep 07, 2021 Date of Service: Sep 07, 2021 Attending Physician: RAIN ESQUIVEL MD History and Physical CHIEF COMPLAINT: R sided weakness and drooling noted at 8am HISTORY OF PRESENT ILLNESS: 76 yo W with a medical history significant for breast Ca, Parkinson's disease with dyskinesia, CKD, HTN, frequent falls, who is a resident of [facility] and fell out of bed at 4.45am this morning which was her last noted normal, and at 8am this morning was found to have RUE nad RULE weakness and found by staff drooling though no facial droop was confirmed. She was brought to the ED for evaluation. On ED evaluation she is mildly hypertensive, breathing comfortably on room air, speaking fluently and RUE appears to be now back to 5/5 strength though there is persisting RLE weakness per ED provider. She is more frustrated with the recent changes that were made to her Parkinson's med as late as yesterday and she thinks ehr presenting symptoms may be connected to med changes. She denies recent fevers, chills, nausea, emesis, chest pain, palpitations, abdominal pain. ED provider noted a RUE bruise that staff reported was 2/2 recent vaccination an d also has a R mandibular bruise. She had a CT head that was negative for acute pathology and CXR that showed possible mild interstitial edema. WBC was 4.8, Hgb 9.3, Platelets 317, Na 144, K 4.4, Cr 0.8, torponin <0.02, EKG with NSR, has a history of known LBBB. Of note, she follows with Dr. Aranda of [facility]. She has been taking carbidopa/levidopa 1tab TID, is also on entecapone 200 BID, and propranolol 60mg daily and apparently began requip yesterday. 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 Park SOCIAL HISTORY: [facility] resident Denies hx of smoking, etoh use ALLERGIES: Please see below. REVIEW OF SYSTEMS: 10 point ROS conducted, relevant findings are noted in HPI. HOME MEDICATIONS: Please see below. PHYSICAL EXAMINATION: VITAL SIGNS: please see below General: NAD, comfortable HEENT: PERRLA, EOMI, sclerae clear Neck: supple, normal ROM, no JVD Respiratory: CTAB, no wheeze, no rales, no crackles CVS: RRR, normal S1, S2, no murmurs Abdo: soft, no masses, no hepatosplenomegaly, BS+, no rebound tenderness Extremities: no edema, pulses 2+ Neuro: moving all 4 extremities, RLE has 4/5 strength while the other 3 limbs are 5/5. CN3-12 intact. No nystagmus. Significant dyskinesia noted with severe bilateral upper extremity tremor. Psych: AOx3 LABORATORY DATA: Reviewed. See below for full details IMAGING: CT head wo contrast: No acute intracranial infarct, hemorrhage, or mass/mass effect. ASSESSMENT: 76 yo W with a medical history of breast Ca, Parkinson's disease with dyskinesia, CKD, HTN, frequent falls, who was sent in from [facility] for acute R sided weakness that has improved with persisting RLE weakness admitted to r/o stroke and neurology evaluation. PLAN: R sided weakness: Possible TIA vs. CVA vs. effect of med changes to movement disorder meds -CT head was negative -will order MRI brain, MRA brain and US of carotids -telemetry -will order TTE if MRI positive for CVA -consulted Dr. Aranda who is the patient neurologist for guidance given recent med changes --> thus far recommending QID sinemet (1 tab), 200mg QID entecapone, propranolol 60mg BID if BP allows. -q4h neuro checks -PT/OT/ARU screen -continue ASA 81 Frequent falls/Parkinson's with dyskinesia: increasing frequency of fall, no report of head injury this episode. -consulted Dr. Aranda who is the patient neurologist for guidance given recent med changes --> thus far recommending QID sinemet (1 tab), 200mg QID entecapone, propranolol 60mg BID if BP allows. 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 Park on 01/11/21. Follows with Dr. Archuleta and Dr. Martin. -Patient reports that she is in remission. To follow up outpatient HTN: -c/w propranolol but increase from daily to BID 60mg. Hold ARB. Depression: -c/w sertraline, Seroquel and QHS trazodone DVT ppx: lovenox Vital Signs Vital Signs Date Time Temp Pulse Resp B/P (MAP) Pulse Ox O2 Delivery O2 Flow Rate FiO2 09/07/21 12:07 60 97 09/07/21 10:52 97.3 16 152/67 (95) Laboratory Data Labs 24H Laboratory Tests 2 09/07/21 11:13: POC Glucose (Misc Panel) 94, POC Sodium (Misc Panel) 144, POC Potassium (Misc Panel) 4.2, POC Chloride (Misc Panel) 107, POC Total CO2 (Misc Panel) 25.0, POC Blood Urea Nitrogen (Misc Panel 14, POC Ionized Calcium (Misc Panel) 5.1, POC Creatinine (Misc Panel) 0.8, POC Hematocrit (Misc Panel) 31.0L 09/07/21 11:15: Immature Granulocyte % (Auto) 0.4, Neutrophils (%) (Auto) 72.5H, Lymphocytes (%) (Auto) 13.8L, Monocytes (%) (Auto) 9.6H, Eosinophils (%) (Auto) 2.9, Basophils (%) (Auto) 0.8, Neutrophils # (Auto) 3.5, Lymphocytes # (Auto) 0.7L, Monocytes # (Auto) 0.5, Eosinophils # (Auto) 0.1, Basophils # (Auto) 0.0, Nucleated Red Blood Cells % (auto) 0.0, Activated Partial Thromboplast Time 28.6, Total Creatine Kinase 40, Creatine Kinase MB 1.1, Creatine Kinase MB Relative Index 2.75, Troponin I < 0.02 09/07/21 11:30: Coronavirus (COVID-19)(PCR) NEGATIVE, Influenza Type A (RT-PCR) NEGATIVE, Influenza Type B (RT-PCR) NEGATIVE, Respiratory Syncytial Virus (PCR) NEGATIVE CBC/BMP Laboratory Tests 09/07/21 11:15 Home Medications Scheduled Acetaminophen (Acetaminophen 8 Hour) 650 Mg Tablet.er, 650 MG PO TID Aspirin (Aspirin EC) 81 Mg Tablet.dr, 81 MG PO DAILY Azelastine HCl (Azelastine HCl) 0.1% [place].pump, 2 SPRAY NARES BID Carbidopa/Levodopa (Sinemet 25-100 mg Tablet) 1 Each Tablet, 1 TAB PO DAILY AT 1400, BID ORDER D/C ON 09/06/21 Diclofenac Sodium (Diclofenac Sodium) 1% 100GM Gel..gram., 1 DOSE TOP TID APPLY TO NECK Entacapone (Comtan) 200 Mg Tablet, 200 MG PO BID FOR 14 DAYS STARTING 08/23/21 Flu Vacc [id number](65Yr Up)/Pf (Fluzone High-Dose Quad ) 240 Mcg/0.7 Ml Syringe, 240 MCG IM ONCE Glycerin/Propylene Glycol (Artificial Tears Drops) 15 Ml Drops, 1 DROP OU QPM Losartan Potassium (Losartan Potassium) 50 Mg Tablet, 50 MG PO DAILY Nut.tx.impaired Digest Fxn (Ensure Clear) 237 Ml Liquid, 120 ML PO BID Pravastatin Sodium (Pravastatin Sodium) 40 Mg Tablet, 40 MG PO DAILY Propranolol HCl (Propranolol HCl) 60 Mg Tablet, 60 MG PO DAILY Quetiapine Fumarate (Seroquel) 25 Mg Tablet, 12.5 MG PO BID Sertraline Hcl (Zoloft) 100 Mg Tablet, 100 MG PO DAILY Trazodone HCl (Trazodone HCl) 50 Mg Tablet, 50 MG PO QHS Scheduled PRN Acetaminophen (Acetaminophen) 325 Mg Tablet, 650 MG PO Q4H PRN for PAIN LEVEL 1- 5 Bisacodyl (Bisacodyl) 10 Mg Supp.rect, 10 MG [place] DAILY PRN for CONSTIPATION Magnesium Hydroxide (Milk of Magnesia) 400 Mg/5 Ml Oral.susp, 30 ML PO DAILY PRN for CONSTIPATION Polyethylene Glycol 3350 (Miralax) 119 Gm Powder, 17 GM PO DAILY PRN for CONSTIPATION Sodium Phosphate,Forest-Dibasic (Enema) 133 Ml Enema, 1 JP [place] DAILY PRN for CONSTIPATION Allergies Coded Allergies: enalaprilat (Verified Allergy, Unknown, anaphylaxis, 09/07/21) A-FIB/CHADSVASC A-FIB History Current/History of A-Fib/PAF?: No Current PO Anticoag Therapy: No Age/Risk Factor Scoring CHADSVASC: CHADSVASC Response (Comments) Value Age Risk Factor Age >/= 75 years old 2 Gender Risk Factor Female 1 Hx of CHF No 0 Hx of HTN Yes 1 Hx of Stroke/TIA/or VTE Yes 2 Hx of Diabetes No 0 Hx of Vascular Disease No 0 Total 6 Treatment Treatment ordered: NONE Reason Anticoagulant not given: Not indicated/[id number] RAIN ESQUIVEL MD Sep 07, 2021 14:03
[2021-09-07 20:29] VITALS: BP 168/72
--- NOTE | 2021-09-07 20:36 | ECGEPIP ---
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
[2021-09-07] MEDS ORDERED: ENTACAPONE 200MG TABLET (COMTAN) PO SCH (21:00)
[2021-09-07] MEDS: ENTACAPONE 200MG TABLET (COMTAN) PO SCH ×2 (21:21→23:05)
[2021-09-07] MEDS: SINEMET 25-100 MG TAB PO SCH ×2 (21:22→23:02)
[2021-09-07] MEDS: PROPRANOLOL 20 MG TAB PO SCH (23:03)
[2021-09-07] MEDS: QUEtiapine FUMARATE 12.5 MG HALF-TAB PO SCH (23:04)
[2021-09-07] MEDS: traZODone 50 MG TAB PO SCH (23:04)
[2021-09-07] MEDS: DICLOFENAC EPOLAMINE 1.3 % PATCH TOP SCH (23:12)
[2021-09-07] MEDS: ENOXAPARIN 40MG/0.4ML SYRINGE (J1650 PER 10MG) SC SCH (23:12)
[2021-09-07] MEDS: ACETAMINOPHEN 650MG ER TAB (TYLENOL ARTHRITIS) PO SCH (23:14)
[2021-09-07] MEDS: AZELASTINE 137MCG NASAL SPY 30 ML (ASTELIN) SCH (23:14)
[2021-09-07] MEDS: POLYVINYL ALCOHOL OPHTH SOLN 15 ML(LIQUITEARS) OU SCH (23:15)
[2021-09-08] VITALS: BP 113/55
[2021-09-08 04:00] VITALS: BP 152/67
[2021-09-08] MEDS: ENTACAPONE 200MG TABLET (COMTAN) PO SCH ×3 (05:59→18:39)
[2021-09-08] MEDS: SINEMET 25-100 MG TAB PO SCH ×3 (05:59→18:39)
[2021-09-08 08:00] VITALS: BP 177/77
[2021-09-08 08:40] LABS: HEMATOCRIT 33.1 % (36.0-47.0); HEMOGLOBIN 10.5 g/dl (12.0-15.5); MEAN CORPUSCULAR HEMOGLOBIN 30.6 pg (27.0-33.0); MEAN CORPUSCULAR HGB CONC 31.7 g/dl (32.0-36.5); MEAN CORPUSCULAR VOLUME 96.5 fl (80.0-96.0); PLATELET COUNT, AUTOMATED 284 10^3/uL (150-450); RED BLOOD COUNT 3.43 10^6/uL (4.00-5.40); WHITE BLOOD COUNT 5.6 10^3/uL (4.0-10.0)
[2021-09-08] MEDS: ENOXAPARIN 40MG/0.4ML SYRINGE (J1650 PER 10MG) SC SCH (09:00)
[2021-09-08] MEDS ORDERED: PROP60TA18 PO (09:01)
[2021-09-08] MEDS ORDERED: LOSA25TA14 PO (09:01)
[2021-09-08] MEDS ORDERED: COMT200T PO (09:04)
[2021-09-08] MEDS ORDERED: CARB-89 PO (09:04)
[2021-09-08 09:12] LABS: BLOOD UREA NITROGEN 14 MG/DL (7-18); CALCIUM LEVEL 9.2 MG/DL (8.8-10.2); CARBON DIOXIDE LEVEL 21 MEQ/L (21-32); CHLORIDE LEVEL 112 MEQ/L (98-107); CREATININE FOR GFR 0.76 MG/DL (0.55-1.30); GLOMERULAR FILTRATION RATE > 60.0 (>39); GLUCOSE, FASTING 73 MG/DL (70-100); MAGNESIUM LEVEL 2.1 MG/DL (1.8-2.4); POTASSIUM SERUM 3.7 MEQ/L (3.5-5.1); SODIUM LEVEL 139 MEQ/L (136-145)
[2021-09-08] MEDS: ACETAMINOPHEN 650MG ER TAB (TYLENOL ARTHRITIS) PO SCH ×3 (10:07→21:00)
[2021-09-08] MEDS: SERTRALINE 100 MG TAB PO SCH (10:07)
[2021-09-08] MEDS: QUEtiapine FUMARATE 12.5 MG HALF-TAB PO SCH ×2 (10:07→21:19)
[2021-09-08] MEDS: ASPIRIN 81MG ENTERIC TABLET PO SCH (10:07)
[2021-09-08] MEDS: PROPRANOLOL 20 MG TAB PO SCH (10:07)
[2021-09-08] MEDS: PRAVASTATIN 20 MG TAB PO SCH (10:07)
[2021-09-08] MEDS: AZELASTINE 137MCG NASAL SPY 30 ML (ASTELIN) SCH ×2 (10:08→20:34)
[2021-09-08] MEDS: DICLOFENAC EPOLAMINE 1.3 % PATCH TOP SCH ×2 (10:09→21:35)
[2021-09-08 12:00] VITALS: BP 142/65
--- NOTE | 2021-09-08 14:59 | IPNPDOC ---
Text Note Date of Service The patient was seen on 09/08/21. NOTE SUBJECTIVE: -Much improvement in her tremor and mobility. Very slight this morning, walked to bathroom, speech is clear, no noted asymmetry -refused neck US and MRI yesterday OBJECTIVE: VITAL SIGNS: please see below General: NAD, comfortable HEENT: PERRLA, EOMI, sclerae clear Neck: supple, normal ROM, no JVD Respiratory: CTAB, no wheeze, no rales, no crackles CVS: RRR, normal S1, S2, no murmurs Abdo: soft, no masses, no hepatosplenomegaly, BS+, no rebound tenderness Extremities: no edema, pulses 2+ Neuro: moving all 4 extremities, RLE has 4.5/5 strength while the other 3 limbs are 5/5. CN3-12 intact. No nystagmus. Much improved, now mild tremor Psych: AOx3 LABORATORY DATA: Reviewed. IMAGING: CT head wo contrast: No acute intracranial infarct, hemorrhage, or mass/mass effect. ASSESSMENT: 76 yo W with a medical history of breast Ca, Parkinson's disease with dyskinesia, CKD, HTN, frequent falls, who was sent in from [facility] for acute R sided weakness that has improved to near resolution and dyskinesia that has dramatically improved since implementing neuro recommended med changes. PLAN: R sided weakness: Likely CVA, most likely effect of med changes to movement disorder meds -CT head was negative -Declined MRI brain, MRA brain and US of carotids -telemetry unremarkable -consulted Dr. Aranda who is the patient neurologist for guidance given recent med changes --> thus far recommended QID sinemet (1 tab), 200mg QID entecapone, propranolol 60mg BID -q4h neuro checks -PT/OT -continue ASA 81 Frequent falls/Parkinson's with dyskinesia: increasing frequency of fall, no report of head injury this episode. -consulted Dr. Aranda who is the patient neurologist for guidance given recent med changes --> thus far recommended QID sinemet (1 tab), 200mg QID entecapone, propranolol 60mg BID -To be seen by Dr. Aranda CKD: at baseline -monitor BMP daily Breast Ca/DCIS: ER/CA+ Grade 3, s/p lumpectomy by Dr. Park on 01/11/21. Follows with Dr. Archuleta and Dr. Martin. -Patient reports that she is in remission. To follow up outpatient HTN: -c/w propranolol but increase from daily to BID 60mg. Hold ARB. Depression: -c/w sertraline, Seroquel and QHS trazodone DVT ppx: lovenox VS,Fishbone, I+O VS, Fishbone, I+O Laboratory Tests 09/07/21 11:15 09/08/21 08:29 Vital Signs Date Time Temp Pulse Resp B/P (MAP) Pulse Ox O2 Delivery O2 Flow Rate FiO2 09/08/21 08:00 97.9 61 19 177/77 (110) 98 Room Air I&O- Last 24 Hours up to 6 AM 09/08/21 06:00 Intake Total 50 ml Balance 50 ml RAIN ESQUIVEL MD Sep 08, 2021 09:48
[2021-09-08 16:00] VITALS: BP 137/62
[2021-09-08 20:00] VITALS: BP 144/80
[2021-09-08] MEDS: POLYVINYL ALCOHOL OPHTH SOLN 15 ML(LIQUITEARS) OU SCH (20:35)
[2021-09-08] MEDS ORDERED: PROPRANOLOL 20 MG TAB PO SCH (21:00)
[2021-09-08] MEDS: traZODone 50 MG TAB PO SCH (21:18)
[2021-09-09] VITALS: BP 144/61
[2021-09-09 00:05] VITALS: BP 143/65
[2021-09-09 04:00] VITALS: BP 156/96
[2021-09-09 05:35] LABS: HEMATOCRIT 28.7 % (36.0-47.0); HEMOGLOBIN 9.1 g/dl (12.0-15.5); MEAN CORPUSCULAR HEMOGLOBIN 30.4 pg (27.0-33.0); MEAN CORPUSCULAR HGB CONC 31.7 g/dl (32.0-36.5); PLATELET COUNT, AUTOMATED 309 10^3/uL (150-450); RED BLOOD COUNT 2.99 10^6/uL (4.00-5.40); WHITE BLOOD COUNT 4.6 10^3/uL (4.0-10.0)
[2021-09-09 05:57] LABS: BLOOD UREA NITROGEN 17 MG/DL (7-18); CALCIUM LEVEL 8.8 MG/DL (8.8-10.2); CARBON DIOXIDE LEVEL 26 MEQ/L (21-32); CHLORIDE LEVEL 111 MEQ/L (98-107); CREATININE FOR GFR 0.82 MG/DL (0.55-1.30); GLOMERULAR FILTRATION RATE > 60.0 (>39); GLUCOSE, FASTING 95 MG/DL (70-100); POTASSIUM SERUM 3.9 MEQ/L (3.5-5.1); SODIUM LEVEL 144 MEQ/L (136-145)
--- NOTE | 2021-09-09 07:35 | CR ---
CONSULTATION DATE: 09/08/2021 REFERRING PHYSICIAN: Inna Sarmiento MD REASON FOR CONSULTATION: Parkinsonism. HISTORY OF PRESENT ILLNESS: Carole Becker is a 76-year-old woman with advanced Parkinson's disease, dyskinesia, superimposed essential tremor who was living at [facility] until summer and developed increased tremor and dyskinesia and at [facility] several times in the last two months. She was sent to [facility]. She fell out of bed around 4:45 a.m. on the morning of admission. She was found to have right-sided weakness and found to have drooling without any facial weakness. She was brought to [facility]. In the emergency department, she was noted to have completely normal strength in both arms and legs. She was frustrated with changes made to her Parkinson's medications and found that her problems were related to changes in her medications. She was being tapered off her Sinemet, Comtan, propranolol and there was a plan to put her on ropinirole. The patient had failed ropinirole 10-11 years ago. PAST MEDICAL HISTORY: 1. Breast cancer. 2. Chronic kidney disease. 3. Hypertension. 4. Parkinson's disease. 5. Left bundle branch block. 6. Hypomagnesemia. 7. Left-sided excisional biopsy. SOCIAL HISTORY: The patient lives at [facility]. She denies smoking, alcohol or illicit drugs. FAMILY HISTORY: has Parkinsonism. REVIEW OF SYSTEMS: All systems were reviewed and found to be noncontributory except as mentioned in history of present illness. PHYSICAL EXAMINATION: VITAL SIGNS: Temperature 98.5, pulse 66, respiratory rate 16, blood pressure 137/62, 98% saturation on room air. HEART: Regular rate and rhythm. LUNGS: Clear to auscultation. ABDOMEN: Soft, nontender, nondistended. EXTREMITIES: No pedal edema. MUSCULOSKELETAL: No abnormalities. SKIN: No rash. NEUROLOGICAL: No signs of meningeal irritation. There is no dysmetria. The patient has prominent tremor of both arms with cogwheel rigidity on both sides. She is awake, alert, oriented to place, person and time. Normal speech, comprehension and repetition. Extraocular muscles are intact. No facial weakness. Tongue and uvula are midline. 5/5 strength in all four extremities. Normal sensation throughout. Gait is mildly unsteady and shuffling. DIAGNOSTIC STUDIES: CT scan of head was unremarkable for acute disease. Chest x-ray showed mild intersitial edema. WBC was 4.8, hemoglobin 9.3, platelet count 317 and EKG showed normal sinus rhythm with left bundle branch block. HOME MEDICATIONS: 1. Aspirin 81 mg p.o. daily. 2. Requip. 3. Losartan 50 mg p.o. daily. 4. Pravastatin 40 mg p.o. daily. 5. Quetiapine 12.5 mg p.o. b.i.d. 6. Zoloft 100 mg p.o. daily. 7. Trazodone 50 mg p.o. q.h.s. 8. Sinemet 25/100 mg in different doses ranging between 1-2 tablets p.o. q.i.d. 9. Comtan 200 mg p.o. q.i.d. with Sinemet. 10. Propranolol 60 mg p.o. b.i.d. ASSESSMENT: 1. Advanced Parkinson's disease with motor fluctuations, dyskinesias. 2. Superimposed essential tremor. PLAN: 1. Restart Sinemet 25/100 mg, Comtan 200 mg p.o. q.i.d. at 8, 12 in the morning, at noon, 3 p.m. and 7 p.m. 2. Restart propranolol 60 mg p.o. b.i.d. and if needed, we can make it frequent doses of 40 mg t.i.d. It can be increased if blood pressure and pulse allows. 3. We should avoid making abrupt changes in her Parkinsonian and tremor medications which she has been taking since 2001-3. 4. Follow with our office as planned.
[2021-09-09 08:00] VITALS: BP 165/77
[2021-09-09] MEDS: PROPRANOLOL 20 MG TAB PO SCH ×2 (08:37→11:45)
[2021-09-09] MEDS: SERTRALINE 100 MG TAB PO SCH (08:38)
[2021-09-09] MEDS: ACETAMINOPHEN 650MG ER TAB (TYLENOL ARTHRITIS) PO SCH (08:38)
[2021-09-09] MEDS: PRAVASTATIN 20 MG TAB PO SCH (08:38)
[2021-09-09] MEDS: ENTACAPONE 200MG TABLET (COMTAN) PO SCH ×2 (08:38→11:47)
[2021-09-09] MEDS: ASPIRIN 81MG ENTERIC TABLET PO SCH (08:38)
[2021-09-09] MEDS: SINEMET 25-100 MG TAB PO SCH ×2 (08:38→11:47)
[2021-09-09] MEDS: AZELASTINE 137MCG NASAL SPY 30 ML (ASTELIN) SCH (08:39)
[2021-09-09] MEDS: DICLOFENAC EPOLAMINE 1.3 % PATCH TOP SCH (08:39)
[2021-09-09] MEDS: ENOXAPARIN 40MG/0.4ML SYRINGE (J1650 PER 10MG) SC SCH ×2 (08:39→08:46)
--- NOTE | 2021-09-09 08:53 | DS.PDOC ---
Discharge Summary General Date of Admission Sep 07, 2021 at 13:31 Date of Discharge 09/09/2021 Attending Physician: RAIN ESQUIVEL MD Specialist/Consultants Involve: CHRISS GR MD Discharge Summary PROCEDURES PERFORMED DURING STAY: None ADMITTING DIAGNOSES: R sided weakness DISCHARGE DIAGNOSES: Parkinson's disease with exacerbation of dyskinesia and R sided weakness i/s/o med changes, improved Superimposed essential tremor. 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 HISTORY OF PRESENT ILLNESS: 76 yo W with a medical history significant for breast Ca, Parkinson's disease with dyskinesia, CKD, HTN, frequent falls, who is a resident of [facility] and fell out of bed at 4.45am on the morning of presentation which was her last noted normal, and at 8am was found to have RUE and RULE weakness and found by staff drooling though no facial droop was confirmed. She was brought to the ED for evaluation. HOSPITAL COURSE: On ED evaluation she is mildly hypertensive, breathing comfortably on room air, speaking fluently and RUE was now back to 5/5 strength though there is persisting RLE weakness per ED provider. She was more frustrated with the recent changes that were made to her Parkinson's med as late as yesterday and she suspected her presenting symptoms were connected to the med changes. She denied recent fevers, chills, nausea, emesis, chest pain, palpitations, abdominal pain. ED provider noted a RUE bruise that staff reported was 2/2 recent vaccination and also has a R mandibular bruise. She had a CT head that was negative for acute pathology and CXR that showed possible mild interstitial edema. WBC was 4.8, Hgb 9.3, Platelets 317, Na 144, K 4.4, Cr 0.8, torponin <0.02, EKG with NSR, has a history of known LBBB. Of note, she follows with Dr. Gr of [facility]. At presentation her meds were reported to be carbidopa/levidopa 1tab TID, entecapone 200 BID, and propranolol 60mg daily and apparently had begun requip the day before presentation. On speaking with Dr. Aniya estes whom I consulted, he told me that she had failed requip before and it was stopped so he was surprised that she was back on it. He recommended increasing the sinemet to 1tab QID, increasing entecapone to 200 QID, increasing the propanol to 60 BID. I ordered an MRI/MRA brain and US of carotids to r/o CVA but she declined these studies. By morning of day 2, her exam was dramatically improved, with very mild tremor that had been very severe and global at presentation and her weakness was barely noticeable in her RLE. She walked with a walker to the bathroom, and was cleared to return to [facility]. It is important to note the current parkinson's meds and I would recommend the receiving GP/PCP consult with Dr. Gr before making further changes. She is being discharged on sinemet 1tab QID, entecapone 200 QID, propranolol 60 BID, have stopped the requip, have reduced her losartan from 50mg to 25mg given that I have increased propranolol to 60 BID from 60 QD. DISCHARGE MEDICATIONS: Please see below. ALLERGIES: Please see below. PHYSICAL EXAMINATION ON DISCHARGE: VITAL SIGNS: Please see below. VITAL SIGNS: please see below General: NAD, comfortable HEENT: PERRLA, EOMI, sclerae clear Neck: supple, normal ROM, no JVD Respiratory: CTAB, no wheeze, no rales, no crackles CVS: RRR, normal S1, S2, no murmurs Abdo: soft, no masses, no hepatosplenomegaly, BS+, no rebound tenderness Extremities: no edema, pulses 2+ Neuro: moving all 4 extremities, Bilateral US with 5/5 strength, RLE with 5/5 st rength and LLE with 5/5 strength. Tremor is mild at this time. Speech is clear, CN3-12 intact, there is no nystagmus. Psych: AOx3 LABORATORY DATA: See below for full details IMAGING: CT head wo contrast: No acute intracranial infarct, hemorrhage, or mass/mass effect. CXR: The technique utilized in obtaining the radiograph has magnified the cardiac silhouette and accentuated the interstitial markings. There is mild cardiomegaly accentuated by technique. The interstitial markings are mildly increased and accentuated by technique. Patchy right upper lobe opacities may be developing. The pleural angles are again seen to be sharp. The osseous structures are stable and intact. IMPRESSION: Possible mild interstitial edema. PROGNOSIS: Good ACTIVITY: As tolerated DIET: 2g sodium DISCHARGE PLAN: SSV DISPOSITION: SSV DISCHARGE INSTRUCTIONS: She is being discharged on sinemet 1tab QID, entecapone 200 QID, propranolol 60 BID, have stopped the requip, have reduced her losartan from 50mg to 20mg given that I have increased propranolol to 60 BID from 60 QD. ITEMS TO FOLLOWUP ON ON OUTPATIENT: Parkinson's Essential tremor HTN DISCHARGE CONDITION: Stable TIME SPENT ON DISCHARGE: 44 minutes. Vital Signs/I&Os Vital Signs Date Time Temp Pulse Resp B/P (MAP) Pulse Ox O2 Delivery O2 Flow Rate FiO2 09/08/21 08:00 97.9 61 19 177/77 (110) 98 Room Air I&O- Last 24 Hours up to 6 AM 09/08/21 05:59 Intake Total 50 ml Balance 50 ml Laboratory Data Labs 24H Laboratory Tests 2 09/07/21 11:13: POC Glucose (Misc Panel) 94, POC Sodium (Misc Panel) 144, POC Potassium (Misc Panel) 4.2, POC Chloride (Misc Panel) 107, POC Total CO2 (Misc Panel) 25.0, POC Blood Urea Nitrogen (Misc Panel 14, POC Ionized Calcium (Misc Panel) 5.1, POC Creatinine (Misc Panel) 0.8, POC Hematocrit (Misc Panel) 31.0L 09/07/21 11:15: Immature Granulocyte % (Auto) 0.4, Neutrophils (%) (Auto) 72.5H, Lymphocytes (%) (Auto) 13.8L, Monocytes (%) (Auto) 9.6H, Eosinophils (%) (Auto) 2.9, Basophils (%) (Auto) 0.8, Neutrophils # (Auto) 3.5, Lymphocytes # (Auto) 0.7L, Monocytes # (Auto) 0.5, Eosinophils # (Auto) 0.1, Basophils # (Auto) 0.0, Nucleated Red Blood Cells % (auto) 0.0, Activated Partial Thromboplast Time 28.6, Total Creatine Kinase 40, Creatine Kinase MB 1.1, Creatine Kinase MB Relative Index 2.75, Troponin I < 0.02 09/07/21 11:30: Coronavirus (COVID-19)(PCR) NEGATIVE, Influenza Type A (RT-PCR) NEGATIVE, I nfluenza Type B (RT-PCR) NEGATIVE, Respiratory Syncytial Virus (PCR) NEGATIVE 09/08/21 08:29: Nucleated Red Blood Cells % (auto) 0.0 CBC/BMP Laboratory Tests 09/07/21 11:15 09/08/21 08:29 Discharge Medications Scheduled Acetaminophen (Acetaminophen 8 Hour) 650 Mg Tablet.er, 650 MG PO TID, (Reported) Aspirin (Aspirin EC) 81 Mg Tablet.dr, 81 MG PO DAILY, (Reported) Azelastine HCl (Azelastine HCl) 0.1% [place].pump, 2 SPRAY NARES BID, (Reported) Carbidopa/Levodopa (Sinemet 25-100 mg Tablet) 1 Each Tablet, 1 TAB PO QID Diclofenac Sodium (Diclofenac Sodium) 1% 100GM Gel..gram., 1 DOSE TOP TID, (Reported) APPLY TO NECK Entacapone (Comtan) 200 Mg Tablet, 200 MG PO QID Flu Vacc [id number](65Yr Up)/Pf (Fluzone High-Dose Quad ) 240 Mcg/0.7 Ml Syringe, 240 MCG IM ONCE, (Reported) Glycerin/Propylene Glycol (Artificial Tears Drops) 15 Ml Drops, 1 DROP OU QPM, (Reported) Losartan Potassium (Losartan Potassium) 25 Mg Tablet, 1 TAB PO DAILY Nut.tx.impaired Digest Fxn (Ensure Clear) 237 Ml Liquid, 120 ML PO BID, (Reported) Pravastatin Sodium (Pravastatin Sodium) 40 Mg Tablet, 40 MG PO DAILY, (Reported) Propranolol HCl (Propranolol HCl) 60 Mg Tablet, 60 MG PO BID Quetiapine Fumarate (Seroquel) 25 Mg Tablet, 12.5 MG PO BID, (Reported) Sertraline Hcl (Zoloft) 100 Mg Tablet, 100 MG PO DAILY, (Reported) Trazodone HCl (Trazodone HCl) 50 Mg Tablet, 50 MG PO QHS, (Reported) Scheduled PRN Acetaminophen (Acetaminophen) 325 Mg Tablet, 650 MG PO Q4H PRN for PAIN LEVEL 1- 5, (Reported) Bisacodyl (Bisacodyl) 10 Mg Supp.rect, 10 MG WA DAILY PRN for CONSTIPATION, (Reported) Magnesium Hydroxide (Milk of Magnesia) 400 Mg/5 Ml Oral.susp, 30 ML PO DAILY PRN for CONSTIPATION, (Reported) Polyethylene Glycol 3350 (Miralax) 119 Gm Powder, 17 GM PO DAILY PRN for CONSTIPATION, (Reported) Sodium Phosphate,[place]-Dibasic (Enema) 133 Ml Enema, 1 JP WA DAILY PRN for CONSTIPATION, (Reported) Allergies Coded Allergies: enalaprilat (Verified Allergy, Unknown, anaphylaxis, 09/07/21) RAIN ESQUIVEL MD Sep 08, 2021 08:56
[2021-09-09] MEDS ORDERED: PROP20TA PO (11:30)
[2021-09-09] MEDS ORDERED: CARB25TA9 PO (11:30)
[2021-09-09 11:45] VITALS: BP 175/77
[2021-09-09] MEDS: QUEtiapine FUMARATE 12.5 MG HALF-TAB PO SCH (11:45)
[2021-09-09 12:00] VITALS: BP 175/77
== END 2021-09-09 13:36 | DRG 57 ==
LOC: EDBD 10:35 → M ED 10:35 → M ED INP 13:31 → ENRESERV 16:50 → M PCU 20:30
PROVIDERS: ADMIT Internal Medicine; ATTEND Internal Medicine
DX: G20 Parkinson's disease (principal); R29.6 Repeated falls; G24.9 Dystonia, unspecified; I12.9 Hypertensive chronic kidney disease with stage 1 through stage 4 chronic kidney disease, or unspecified chronic kidney disease; Z79.82 Long term (current) use of aspirin; Z79.899 Other long term (current) drug therapy; Z88.8 Allergy status to other drugs, medicaments and biological substances; E83.42 Hypomagnesemia; Z85.3 Personal history of malignant neoplasm of breast; N18.9 Chronic kidney disease, unspecified; F32.9 Major depressive disorder, single episode, unspecified

== ENCOUNTER → 2021-09-07 | Outpatient (REF) | payer MEDICARE, BC, MEDICAID ==
[~2021-09-07] MED LIST changes: +APAP325T4 PO; +ASPI-161 PO; +CARB-89 PO; +COMT200T PO; +ENSU1LIQ50 PO; +MILKSUS3 PO; +PROP20TA PO; +SERO1TAB3 PO; +[UNRECOGNIZED DRUG - CODE] IM
== END ==
PROVIDERS: ATTEND Internal Medicine
DX: G20 Parkinson's disease (principal)

== ENCOUNTER → 2021-09-14 | Outpatient (REF) | payer MEDICARE, BC, MEDICAID ==
[~2021-09-14] MED LIST changes: +APAP325T4 PO; +ASPI-161 PO; +CARB-89 PO; +COMT200T PO; +ENSU1LIQ50 PO; +MILKSUS3 PO; +PROP20TA PO; +SERO1TAB3 PO; +[UNRECOGNIZED DRUG - CODE] IM
[2021-09-14 11:38] LABS: HEMATOCRIT 29.5 % (36.0-47.0); HEMOGLOBIN 9.2 g/dl (12.0-15.5); MEAN CORPUSCULAR HEMOGLOBIN 30.2 pg (27.0-33.0); MEAN CORPUSCULAR HGB CONC 31.2 g/dl (32.0-36.5); MEAN CORPUSCULAR VOLUME 96.7 fl (80.0-96.0); PLATELET COUNT, AUTOMATED 360 10^3/uL (150-450); RED BLOOD COUNT 3.05 10^6/uL (4.00-5.40); WHITE BLOOD COUNT 5.3 10^3/uL (4.0-10.0)
[2021-09-14 12:15] LABS: BLOOD UREA NITROGEN 18 MG/DL (7-18); CALCIUM LEVEL 9.2 MG/DL (8.8-10.2); CARBON DIOXIDE LEVEL 26 MEQ/L (21-32); CHLORIDE LEVEL 113 MEQ/L (98-107); CREATININE FOR GFR 0.76 MG/DL (0.55-1.30); GLOMERULAR FILTRATION RATE > 60.0 (>39); GLUCOSE, FASTING 82 MG/DL (70-100); MAGNESIUM LEVEL 2.3 MG/DL (1.8-2.4); POTASSIUM SERUM 4.6 MEQ/L (3.5-5.1); SODIUM LEVEL 143 MEQ/L (136-145)
== END ==
PROVIDERS: ATTEND Physician Assistant
DX: I10 Essential (primary) hypertension (principal)

== ENCOUNTER → 2021-09-28 | Outpatient (CLI) | payer MEDICARE, BC, MEDICAID ==
[~2021-09-28] MED LIST changes: -CHLO1.4S2 MT; +CHLO1.4S7 MT; +LOSA25TA13 PO; -LOSA25TA14 PO; +LOSA50TA28 PO; -LOSA50TA88 PO
== END ==
LOC: M ONCR 10:22
PROVIDERS: ATTEND General Practice
DX: D05.12 Intraductal carcinoma in situ of left breast (principal); G20 Parkinson's disease; Z92.3 Personal history of irradiation; Z88.1 Allergy status to other antibiotic agents; Z79.899 Other long term (current) drug therapy

== ENCOUNTER → 2021-11-09 | Outpatient (REF) | payer MEDICARE, BC, MEDICAID ==
[~2021-11-09] MED LIST changes: +CHLO1.4S2 MT; -CHLO1.4S7 MT
== END ==
PROVIDERS: ATTEND Internal Medicine
DX: Z20.822 Contact with and (suspected) exposure to COVID-19 (principal)

== ENCOUNTER → 2021-11-10 | Outpatient (REF) | payer MEDICARE, BC, MEDICAID ==
[2021-11-10 17:52] LABS: HEMATOCRIT 38.5 % (36.0-47.0); MEAN CORPUSCULAR HGB CONC 31.2 g/dl (32.0-36.5); MEAN CORPUSCULAR VOLUME 89.7 fl (80.0-96.0); PLATELET COUNT, AUTOMATED 306 10^3/uL (150-450); RED BLOOD COUNT 4.29 10^6/uL (4.00-5.40); WHITE BLOOD COUNT 6.3 10^3/uL (4.0-10.0)
[2021-11-10 18:24] LABS: BLOOD UREA NITROGEN 25 MG/DL (7-18); CARBON DIOXIDE LEVEL 26 MEQ/L (21-32); CHLORIDE LEVEL 108 MEQ/L (98-107); CREATININE FOR GFR 0.91 MG/DL (0.55-1.30); GLOMERULAR FILTRATION RATE > 60.0 (>39); GLUCOSE, FASTING 104 MG/DL (70-100); POTASSIUM SERUM 5.9 MEQ/L (3.5-5.1); SODIUM LEVEL 139 MEQ/L (136-145)
== END ==
PROVIDERS: ATTEND Internal Medicine
DX: U07.1 COVID-19 (principal); Z79.899 Other long term (current) drug therapy

== ENCOUNTER → 2021-11-11 | Outpatient (REF) | payer MEDICARE, BC, MEDICAID ==
[~2021-11-11] MED LIST changes: -CHLO1.4S2 MT; +CHLO1.4S7 MT
[2021-11-11 20:06] LABS: HEMATOCRIT 36.6 % (36.0-47.0); HEMOGLOBIN 11.5 g/dl (12.0-15.5); MEAN CORPUSCULAR HEMOGLOBIN 28.1 pg (27.0-33.0); MEAN CORPUSCULAR HGB CONC 31.4 g/dl (32.0-36.5); MEAN CORPUSCULAR VOLUME 89.5 fl (80.0-96.0); PLATELET COUNT, AUTOMATED 293 10^3/uL (150-450); RED BLOOD COUNT 4.09 10^6/uL (4.00-5.40); WHITE BLOOD COUNT 6.2 10^3/uL (4.0-10.0)
== END ==
PROVIDERS: ATTEND Internal Medicine
DX: E87.6 Hypokalemia (principal)

== ENCOUNTER → 2021-11-30 | Outpatient (REF) | payer MEDICARE, BC, MEDICAID ==
[2021-11-30 15:47] LABS: HEMATOCRIT 35.8 % (36.0-47.0); HEMOGLOBIN 11.5 g/dl (12.0-15.5); MEAN CORPUSCULAR HEMOGLOBIN 28.2 pg (27.0-33.0); MEAN CORPUSCULAR HGB CONC 32.1 g/dl (32.0-36.5); MEAN CORPUSCULAR VOLUME 87.7 fl (80.0-96.0); PLATELET COUNT, AUTOMATED 282 10^3/uL (150-450); RED BLOOD COUNT 4.08 10^6/uL (4.00-5.40)
[2021-11-30 16:29] LABS: BLOOD UREA NITROGEN 31 MG/DL (7-18); CARBON DIOXIDE LEVEL 32 MEQ/L (21-32); CHLORIDE LEVEL 107 MEQ/L (98-107); CREATININE FOR GFR 0.95 MG/DL (0.55-1.30); GLOMERULAR FILTRATION RATE > 60.0 (>39); GLUCOSE, FASTING 69 MG/DL (70-100); POTASSIUM SERUM 4.2 MEQ/L (3.5-5.1); SODIUM LEVEL 141 MEQ/L (136-145)
[2021-12-01 14:30] LABS: MAGNESIUM LEVEL 2.1 MG/DL (1.7-2.2)
== END ==
PROVIDERS: ATTEND Internal Medicine
DX: G20 Parkinson's disease (principal)

== ENCOUNTER → 2022-02-14 | Outpatient (REF) | payer MEDICARE, BC, MEDICAID ==
[2022-02-14 17:39] LABS: HEMATOCRIT 43.4 % (36.0-47.0); HEMOGLOBIN 14.3 g/dl (12.0-15.5); MEAN CORPUSCULAR HGB CONC 32.9 g/dl (32.0-36.5); MEAN CORPUSCULAR VOLUME 91.2 fl (80.0-96.0); PLATELET COUNT, AUTOMATED 270 10^3/uL (150-450); RED BLOOD COUNT 4.76 10^6/uL (4.00-5.40); WHITE BLOOD COUNT 9.3 10^3/uL (4.0-10.0)
[2022-02-14 18:04] LABS: ALBUMIN 3.7 GM/DL (3.2-5.2); BILIRUBIN,TOTAL 0.5 MG/DL (0.2-1.0); CALCIUM LEVEL 9.3 MG/DL (8.8-10.2); CREATININE FOR GFR 1.57 MG/DL (0.55-1.30); GLOMERULAR FILTRATION RATE 33.9 (>39); POTASSIUM SERUM 4.2 MEQ/L (3.5-5.1); TOTAL PROTEIN 6.7 GM/DL (6.4-8.2)
== END ==
PROVIDERS: ATTEND Physician Assistant
DX: R10.11 Right upper quadrant pain (principal)

== ENCOUNTER → 2022-02-16 | Outpatient (REF) | payer MEDICARE, BC, MEDICAID ==
[2022-02-16 08:47] LABS: BLOOD UREA NITROGEN 26 MG/DL (7-18); CALCIUM LEVEL 9.3 MG/DL (8.8-10.2); CARBON DIOXIDE LEVEL 27 MEQ/L (21-32); CHLORIDE LEVEL 110 MEQ/L (98-107); CREATININE FOR GFR 0.86 MG/DL (0.55-1.30); GLOMERULAR FILTRATION RATE > 60.0 (>39); GLUCOSE, FASTING 88 MG/DL (70-100); POTASSIUM SERUM 4.2 MEQ/L (3.5-5.1); SODIUM LEVEL 146 MEQ/L (136-145)
== END ==
PROVIDERS: ATTEND Physician Assistant
DX: N18.9 Chronic kidney disease, unspecified (principal)

== ENCOUNTER → 2022-02-17 | Outpatient (CLI) | payer MEDICARE, MEDICAID | LOC: M RAD 10:38 | PROVIDERS: ATTEND Physician Assistant | DX: N28.1 Cyst of kidney, acquired (principal); R10.9 Unspecified abdominal pain ==

== ENCOUNTER → 2022-02-17 | Outpatient (REF) | payer MEDICARE, BC, MEDICAID ==
[2022-02-17 11:15] LABS: BLOOD UREA NITROGEN 23 MG/DL (7-18); CALCIUM LEVEL 8.9 MG/DL (8.8-10.2); CARBON DIOXIDE LEVEL 27 MEQ/L (21-32); CHLORIDE LEVEL 111 MEQ/L (98-107); CREATININE FOR GFR 0.89 MG/DL (0.55-1.30); GLOMERULAR FILTRATION RATE > 60.0 (>39); GLUCOSE, FASTING 74 MG/DL (70-100); SODIUM LEVEL 140 MEQ/L (136-145)
== END ==
PROVIDERS: ATTEND Physician Assistant
DX: N18.9 Chronic kidney disease, unspecified (principal)

== ENCOUNTER → 2022-02-27 | Outpatient (REF) | payer MEDICARE, MEDICAID ==
[2022-02-27 11:10] LABS: BLOOD UREA NITROGEN 24 MG/DL (7-18); CALCIUM LEVEL 9.3 MG/DL (8.8-10.2); CARBON DIOXIDE LEVEL 31 MEQ/L (21-32); CHLORIDE LEVEL 109 MEQ/L (98-107); CREATININE FOR GFR 0.94 MG/DL (0.55-1.30); GLOMERULAR FILTRATION RATE > 60.0 (>39); GLUCOSE, FASTING 80 MG/DL (70-100); POTASSIUM SERUM 4.1 MEQ/L (3.5-5.1); SODIUM LEVEL 143 MEQ/L (136-145)
== END ==
PROVIDERS: ATTEND Physician Assistant
DX: N17.9 Acute kidney failure, unspecified (principal)

== ENCOUNTER → 2022-03-01 | Outpatient (REF) | payer MEDICARE, MEDICAID ==
[~2022-03-01] MED LIST changes: +CITRACAL MAXIMU1 TAB PO; -CITRTAB16 PO
[2022-03-01 13:15] LABS: HEMATOCRIT 40.4 % (36.0-47.0); HEMOGLOBIN 13.6 g/dl (12.0-15.5); MEAN CORPUSCULAR HEMOGLOBIN 30.2 pg (27.0-33.0); MEAN CORPUSCULAR HGB CONC 33.7 g/dl (32.0-36.5); MEAN CORPUSCULAR VOLUME 89.8 fl (80.0-96.0); PLATELET COUNT, AUTOMATED 252 10^3/uL (150-450); WHITE BLOOD COUNT 5.9 10^3/uL (4.0-10.0)
[2022-03-01 20:12] LABS: ALBUMIN 3.5 GM/DL (3.2-5.2); ALT/SGPT 7 U/L (12-78); BILIRUBIN,DIRECT 0.1 MG/DL (0.0-0.2); BILIRUBIN,TOTAL 0.6 MG/DL (0.2-1.0); BLOOD UREA NITROGEN 16 MG/DL (7-18); CALCIUM LEVEL 9.7 MG/DL (8.8-10.2); CARBON DIOXIDE LEVEL 26 MEQ/L (21-32); CHLORIDE LEVEL 111 MEQ/L (98-107); CREATININE FOR GFR 0.79 MG/DL (0.55-1.30); GLOMERULAR FILTRATION RATE > 60.0 (>39); GLUCOSE, FASTING 95 MG/DL (70-100); MAGNESIUM LEVEL 2.2 MG/DL (1.8-2.4); POTASSIUM SERUM 4.4 MEQ/L (3.5-5.1); SODIUM LEVEL 143 MEQ/L (136-145); THYROID STIMULATING HORMONE 0.833 uIU/ML (0.358-3.740); TOTAL PROTEIN 6.5 GM/DL (6.4-8.2)
== END ==
PROVIDERS: ATTEND Internal Medicine
DX: E03.9 Hypothyroidism, unspecified (principal)

== ENCOUNTER → 2022-03-14 | Outpatient (REF) | payer MEDICARE, MEDICAID ==
[2022-03-14 17:56] LABS: HEMATOCRIT 42.6 % (36.0-47.0); HEMOGLOBIN 14.3 g/dl (12.0-15.5); MEAN CORPUSCULAR HEMOGLOBIN 31.2 pg (27.0-33.0); MEAN CORPUSCULAR HGB CONC 33.6 g/dl (32.0-36.5); MEAN CORPUSCULAR VOLUME 92.8 fl (80.0-96.0); PLATELET COUNT, AUTOMATED 261 10^3/uL (150-450); RED BLOOD COUNT 4.59 10^6/uL (4.00-5.40); WHITE BLOOD COUNT 6.9 10^3/uL (4.0-10.0)
[2022-03-14 18:21] LABS: CALCIUM LEVEL 9.4 MG/DL (8.8-10.2); CREATININE FOR GFR 1.33 MG/DL (0.55-1.30); GLOMERULAR FILTRATION RATE 41.1 (>39); POTASSIUM SERUM 4.6 MEQ/L (3.5-5.1); THYROID STIMULATING HORMONE 1.04 uIU/ML (0.358-3.740)
== END ==
PROVIDERS: ATTEND Physician Assistant
DX: R53.83 Other fatigue (principal)

== ENCOUNTER → 2022-05-31 | Outpatient (REF) | payer MEDICARE, MEDICAID ==
[2022-05-31 11:58] LABS: HEMATOCRIT 40.6 % (36.0-47.0); HEMOGLOBIN 13.5 g/dl (12.0-15.5); MEAN CORPUSCULAR HEMOGLOBIN 30.4 pg (27.0-33.0); MEAN CORPUSCULAR HGB CONC 33.3 g/dl (32.0-36.5); MEAN CORPUSCULAR VOLUME 91.4 fl (80.0-96.0); PLATELET COUNT, AUTOMATED 242 10^3/uL (150-450); RED BLOOD COUNT 4.44 10^6/uL (4.00-5.40); WHITE BLOOD COUNT 5.3 10^3/uL (4.0-10.0)
[2022-05-31 14:26] LABS: BLOOD UREA NITROGEN 17 MG/DL (7-18); CALCIUM LEVEL 9.1 MG/DL (8.8-10.2); CARBON DIOXIDE LEVEL 27 MEQ/L (21-32); CHLORIDE LEVEL 108 MEQ/L (98-107); CREATININE FOR GFR 0.88 MG/DL (0.55-1.30); GLOMERULAR FILTRATION RATE > 60.0 (>39); GLUCOSE, FASTING 84 MG/DL (70-100); MAGNESIUM LEVEL 2.2 MG/DL (1.8-2.4); POTASSIUM SERUM 4.1 MEQ/L (3.5-5.1); SODIUM LEVEL 142 MEQ/L (136-145)
== END ==
PROVIDERS: ATTEND Internal Medicine
DX: G20 Parkinson's disease (principal)

== ENCOUNTER → 2022-06-05 | Outpatient (REF) | payer MEDICARE, MEDICAID ==
[2022-06-05 18:55] LABS: BASO % 0.6 % (0.0-1.0); EOS # 0.2 10^3/uL (0.0-0.5); EOS % 2.9 % (0.0-3.0); HEMATOCRIT 40.3 % (36.0-47.0); HEMOGLOBIN 13.4 g/dl (12.0-15.5); LYMPH # 1.1 10^3/uL (1.5-5.0); LYMPH % 15.3 % (24.0-44.0); MEAN CORPUSCULAR HEMOGLOBIN 30.9 pg (27.0-33.0); MEAN CORPUSCULAR HGB CONC 33.3 g/dl (32.0-36.5); MEAN CORPUSCULAR VOLUME 92.9 fl (80.0-96.0); MONO # 0.4 10^3/uL (0.0-0.8); MONO % 5.1 % (2.0-8.0); NEUTROPHILS # 5.2 10^3/uL (1.5-8.5); NEUTROPHILS % 75.7 % (36.0-66.0); PLATELET COUNT, AUTOMATED 234 10^3/uL (150-450); RED BLOOD COUNT 4.34 10^6/uL (4.00-5.40); WHITE BLOOD COUNT 6.9 10^3/uL (4.0-10.0)
[2022-06-05 20:41] LABS: CALCIUM LEVEL 9.4 MG/DL (8.8-10.2); CREATININE FOR GFR 0.96 MG/DL (0.55-1.30); GLOMERULAR FILTRATION RATE 59.8 (>39); POTASSIUM SERUM 5.4 MEQ/L (3.5-5.1)
== END ==
PROVIDERS: ATTEND Physician Assistant
DX: R11.0 Nausea (principal)

== ENCOUNTER 2022-07-10 02:07 | Emergency (ER) | payer MEDICARE, MEDICAID ==
[~2022-07-10] VITALS: Ht 154.9 cm; Wt 50.0 kg
[2022-07-10] MEDS ORDERED: ACETAMINOPHEN TAB 650MG DOSE (2X325MG) PO ONE (05:00)
[2022-07-10 05:39] VITALS: BP 144/56
== END 2022-07-10 07:02 | disposition home or self-care (01) ==
LOC: EDBD 02:07 → M ED 02:07
DX: M25.511 Pain in right shoulder (principal); W06.XXXA Fall from bed, initial encounter; I10 Essential (primary) hypertension; G20 Parkinson's disease; Z88.8 Allergy status to other drugs, medicaments and biological substances; Z79.899 Other long term (current) drug therapy; Y99.9 Unspecified external cause status

== ENCOUNTER → 2022-09-06 | Outpatient (REF) | payer MEDICARE, BC, MEDICAID ==
[2022-09-06 10:10] LABS: HEMATOCRIT 37.8 % (36.0-47.0); HEMOGLOBIN 12.5 g/dl (12.0-15.5); MEAN CORPUSCULAR HEMOGLOBIN 30.9 pg (27.0-33.0); MEAN CORPUSCULAR HGB CONC 33.1 g/dl (32.0-36.5); MEAN CORPUSCULAR VOLUME 93.3 fl (80.0-96.0); PLATELET COUNT, AUTOMATED 238 10^3/uL (150-450); RED BLOOD COUNT 4.05 10^6/uL (4.00-5.40)
[2022-09-06 11:28] LABS: ALBUMIN 3.5 GM/DL (3.2-5.2); ALT/SGPT 14 U/L (12-78); BILIRUBIN,DIRECT 0.1 MG/DL (0.0-0.2); BILIRUBIN,TOTAL 0.6 MG/DL (0.2-1.0); BLOOD UREA NITROGEN 23 MG/DL (7-18); CALCIUM LEVEL 9.2 MG/DL (8.8-10.2); CARBON DIOXIDE LEVEL 27 MEQ/L (21-32); CHLORIDE LEVEL 106 MEQ/L (98-107); CREATININE FOR GFR 0.94 MG/DL (0.55-1.30); GLOMERULAR FILTRATION RATE > 60.0 (>39); GLUCOSE, FASTING 89 MG/DL (70-100); MAGNESIUM LEVEL 2.2 MG/DL (1.8-2.4); POTASSIUM SERUM 3.8 MEQ/L (3.5-5.1); SODIUM LEVEL 141 MEQ/L (136-145); TOTAL PROTEIN 6.4 GM/DL (6.4-8.2)
== END ==
PROVIDERS: ATTEND Internal Medicine
DX: G20 Parkinson's disease (principal); Z79.899 Other long term (current) drug therapy

== ENCOUNTER → 2022-10-11 | Outpatient (CLI) | payer MEDICARE, BC | LOC: M ONCR 09:50 | PROVIDERS: ATTEND General Practice | DX: Z08 Encounter for follow-up examination after completed treatment for malignant neoplasm (principal); Z85.3 Personal history of malignant neoplasm of breast; G20 Parkinson's disease; Z79.82 Long term (current) use of aspirin; Z79.899 Other long term (current) drug therapy; Z88.8 Allergy status to other drugs, medicaments and biological substances ==

== ENCOUNTER → 2022-10-16 | Outpatient (REF) | payer MEDICARE, BC | PROVIDERS: ATTEND Physician Assistant | DX: R05.9 Cough, unspecified (principal) ==

== ENCOUNTER → 2022-11-28 | Outpatient (REF) | payer MEDICARE, BC ==
[~2022-11-28] MED LIST changes: +CARB-113 PO; -CARB-89 PO
[2022-11-28 15:34] LABS: HEMATOCRIT 35.2 % (36.0-47.0); MEAN CORPUSCULAR HGB CONC 34.1 g/dl (32.0-36.5); MEAN CORPUSCULAR VOLUME 93.9 fl (80.0-96.0); PLATELET COUNT, AUTOMATED 244 10^3/uL (150-450); RED BLOOD COUNT 3.75 10^6/uL (4.00-5.40); WHITE BLOOD COUNT 5.6 10^3/uL (4.0-10.0)
[2022-11-28 16:02] LABS: THYROID STIMULATING HORMONE 1.499 uIU/ML (0.55-4.78)
[2022-11-28 16:26] LABS: CREATININE FOR GFR 1.07 MG/DL (0.55-1.30); GLOMERULAR FILTRATION RATE 52.7 (>39); POTASSIUM SERUM 4.4 MMOL/L (3.5-5.1)
== END ==
PROVIDERS: ATTEND Physician Assistant
DX: R29.6 Repeated falls (principal); Z79.899 Other long term (current) drug therapy

== ENCOUNTER → 2022-11-29 | Outpatient (REF) | payer MEDICARE, BC ==
[2022-11-29 11:38] LABS: HEMATOCRIT 37.8 % (36.0-47.0); HEMOGLOBIN 12.8 g/dl (12.0-15.5); MEAN CORPUSCULAR HEMOGLOBIN 32.6 pg (27.0-33.0); MEAN CORPUSCULAR HGB CONC 33.9 g/dl (32.0-36.5); MEAN CORPUSCULAR VOLUME 96.2 fl (80.0-96.0); PLATELET COUNT, AUTOMATED 235 10^3/uL (150-450); RED BLOOD COUNT 3.93 10^6/uL (4.00-5.40); WHITE BLOOD COUNT 4.7 10^3/uL (4.0-10.0)
[2022-11-29 12:02] LABS: BLOOD UREA NITROGEN 29 MG/DL (9-23); CALCIUM LEVEL 9.1 MG/DL (8.3-10.6); CARBON DIOXIDE LEVEL 27 MMOL/L (20-31); CHLORIDE LEVEL 110 MMOL/L (98-107); CREATININE FOR GFR 0.93 MG/DL (0.55-1.30); GLOMERULAR FILTRATION RATE > 60.0 (>39); GLUCOSE, FASTING 105 MG/DL (74-106); MAGNESIUM LEVEL 2.1 MG/DL (1.8-2.4); POTASSIUM SERUM 4.1 MMOL/L (3.5-5.1); SODIUM LEVEL 142 MMOL/L (136-145)
== END ==
PROVIDERS: ATTEND Physician Assistant
DX: G20 Parkinson's disease (principal)

== ENCOUNTER → 2022-12-27 | Outpatient (REF) | payer MEDICARE, BC ==
[2022-12-27 12:40] LABS: HEMATOCRIT 36.1 % (36.0-47.0); MEAN CORPUSCULAR HEMOGLOBIN 32.3 pg (27.0-33.0); MEAN CORPUSCULAR HGB CONC 33.2 g/dl (32.0-36.5); PLATELET COUNT, AUTOMATED 235 10^3/uL (150-450); RED BLOOD COUNT 3.72 10^6/uL (4.00-5.40); WHITE BLOOD COUNT 5.5 10^3/uL (4.0-10.0)
[2022-12-27 14:15] LABS: ALBUMIN 3.6 G/DL (3.2-5.2); BILIRUBIN,TOTAL 0.4 MG/DL (0.3-1.2); CALCIUM LEVEL 9.4 MG/DL (8.3-10.6); CREATININE FOR GFR 1.08 MG/DL (0.55-1.30); GLOMERULAR FILTRATION RATE 52.1 (>39); POTASSIUM SERUM 3.6 MMOL/L (3.5-5.1); TOTAL 25(OH) VITAMIN D 26.8 NG/ML (20.0-100.0); TOTAL PROTEIN 6.3 G/DL (5.7-8.2)
== END ==
PROVIDERS: ATTEND Physician Assistant
DX: R53.83 Other fatigue (principal); Z79.899 Other long term (current) drug therapy

== ENCOUNTER → 2023-01-16 | Outpatient (REF) | payer MEDICARE, BC, MEDICAID | PROVIDERS: ATTEND Physician Assistant | DX: R05.9 Cough, unspecified (principal) ==

== ENCOUNTER → 2023-02-06 | Outpatient (REF) | payer MEDICARE, BC, MEDICAID ==
[2023-02-06 11:00] LABS: BASO % 0.6 % (0.0-1.0); EOS # 0.3 10^3/uL (0.0-0.5); EOS % 6.5 % (0.0-3.0); HEMATOCRIT 38.6 % (36.0-47.0); HEMOGLOBIN 12.8 g/dl (12.0-15.5); LYMPH # 1.6 10^3/uL (1.5-5.0); LYMPH % 33.5 % (24.0-44.0); MEAN CORPUSCULAR HEMOGLOBIN 32.2 pg (27.0-33.0); MEAN CORPUSCULAR HGB CONC 33.2 g/dl (32.0-36.5); MEAN CORPUSCULAR VOLUME 97.2 fl (80.0-96.0); MONO # 0.4 10^3/uL (0.0-0.8); MONO % 8.6 % (2.0-8.0); NEUTROPHILS # 2.5 10^3/uL (1.5-8.5); NEUTROPHILS % 50.6 % (36.0-66.0); PLATELET COUNT, AUTOMATED 253 10^3/uL (150-450); RED BLOOD COUNT 3.97 10^6/uL (4.00-5.40); WHITE BLOOD COUNT 4.9 10^3/uL (4.0-10.0)
[2023-02-06 11:30] LABS: THYROID STIMULATING HORMONE 2.815 uIU/ML (0.55-4.78); TOTAL 25(OH) VITAMIN D 31.8 NG/ML (20.0-100.0)
[2023-02-06 11:31] LABS: ALBUMIN 3.6 G/DL (3.2-5.2); ALKALINE PHOSPHATASE 54 U/L (46-116); ALT/SGPT 11 U/L (7.0-40); AST/SGOT 30 U/L (<34); BILIRUBIN,DIRECT < 0.1 MG/DL (<0.4); BILIRUBIN,TOTAL 0.3 MG/DL (0.3-1.2); BLOOD UREA NITROGEN 27 MG/DL (9-23); CALCIUM LEVEL 9.3 MG/DL (8.3-10.6); CARBON DIOXIDE LEVEL 28 MMOL/L (20-31); CHLORIDE LEVEL 112 MMOL/L (98-107); CREATININE FOR GFR 0.99 MG/DL (0.55-1.30); GLOMERULAR FILTRATION RATE 57.6 (>39); GLUCOSE, FASTING 79 MG/DL (74-106); MAGNESIUM LEVEL 1.8 MG/DL (1.8-2.4); POTASSIUM SERUM 4.7 MMOL/L (3.5-5.1); SODIUM LEVEL 142 MMOL/L (136-145); TOTAL PROTEIN 6.4 G/DL (5.7-8.2)
[2023-02-06 11:32] LABS: VITAMIN B12 LEVEL 363 PG/ML (211-911)
== END ==
PROVIDERS: ATTEND Physician Assistant
DX: R53.83 Other fatigue (principal); Z79.899 Other long term (current) drug therapy

== ENCOUNTER → 2023-02-28 | Outpatient (REF) | payer MEDICARE, BC, MEDICAID ==
[~2023-02-28] MED LIST changes: +LORA1TAB23 PO; -LORA1TAB4 PO
[2023-02-28 11:24] LABS: HEMATOCRIT 35.8 % (36.0-47.0); HEMOGLOBIN 12.1 g/dl (12.0-15.5); MEAN CORPUSCULAR HEMOGLOBIN 32.4 pg (27.0-33.0); MEAN CORPUSCULAR HGB CONC 33.8 g/dl (32.0-36.5); MEAN CORPUSCULAR VOLUME 95.7 fl (80.0-96.0); PLATELET COUNT, AUTOMATED 238 10^3/uL (150-450); RED BLOOD COUNT 3.74 10^6/uL (4.00-5.40); WHITE BLOOD COUNT 4.7 10^3/uL (4.0-10.0)
[2023-02-28 11:50] LABS: ALBUMIN 3.7 G/DL (3.2-5.2); ALKALINE PHOSPHATASE 50 U/L (46-116); ALT/SGPT < 9 U/L (7.0-40); AST/SGOT 13 U/L (<34); BILIRUBIN,DIRECT 0.1 MG/DL (<0.4); BILIRUBIN,TOTAL 0.4 MG/DL (0.3-1.2); BLOOD UREA NITROGEN 23 MG/DL (9-23); CALCIUM LEVEL 8.8 MG/DL (8.3-10.6); CARBON DIOXIDE LEVEL 28 MMOL/L (20-31); CHLORIDE LEVEL 107 MMOL/L (98-107); CREATININE FOR GFR 1.01 MG/DL (0.55-1.30); GLOMERULAR FILTRATION RATE 56.3 (>39); GLUCOSE, FASTING 116 MG/DL (74-106); POTASSIUM SERUM 3.6 MMOL/L (3.5-5.1); SODIUM LEVEL 141 MMOL/L (136-145); TOTAL PROTEIN 6.3 G/DL (5.7-8.2)
[2023-02-28 11:51] LABS: THYROID STIMULATING HORMONE 3.699 uIU/ML (0.55-4.78)
== END ==
PROVIDERS: ATTEND Internal Medicine
DX: G20 Parkinson's disease (principal); Z79.899 Other long term (current) drug therapy

== ENCOUNTER → 2023-06-06 | Outpatient (REF) | payer MEDICARE, BC, MEDICAID ==
[~2023-06-06] MED LIST changes: +DICL100G10 TOP; -DICL1GEL3 TOP
[2023-06-06 10:24] LABS: HEMOGLOBIN 11.9 g/dl (12.0-15.5); MEAN CORPUSCULAR HEMOGLOBIN 32.2 pg (27.0-33.0); MEAN CORPUSCULAR VOLUME 94.9 fl (80.0-96.0); PLATELET COUNT, AUTOMATED 210 10^3/uL (150-450); RED BLOOD COUNT 3.69 10^6/uL (4.00-5.40); WHITE BLOOD COUNT 3.9 10^3/uL (4.0-10.0)
[2023-06-06 11:48] LABS: CALCIUM LEVEL 8.6 MG/DL (8.3-10.6); CREATININE FOR GFR 1.14 MG/DL (0.55-1.30); GLOMERULAR FILTRATION RATE 48.9 (>39); POTASSIUM SERUM 3.7 MMOL/L (3.5-5.1)
== END ==
PROVIDERS: ATTEND Internal Medicine
DX: G20 Parkinson's disease (principal)

== ENCOUNTER → 2023-09-03 | Outpatient (REF) | payer MEDICARE, BC, MEDICAID ==
[2023-09-03 11:34] LABS: HEMATOCRIT 33.1 % (36.0-47.0); HEMOGLOBIN 11.7 g/dl (12.0-15.5); MEAN CORPUSCULAR HEMOGLOBIN 33.6 pg (27.0-33.0); MEAN CORPUSCULAR HGB CONC 35.3 g/dl (32.0-36.5); MEAN CORPUSCULAR VOLUME 95.1 fl (80.0-96.0); PLATELET COUNT, AUTOMATED 271 10^3/uL (150-450); RED BLOOD COUNT 3.48 10^6/uL (4.00-5.40); WHITE BLOOD COUNT 5.4 10^3/uL (4.0-10.0)
[2023-09-03 11:53] LABS: ALBUMIN 3.5 G/DL (3.2-5.2); ALKALINE PHOSPHATASE 33 U/L (46-116); ALT/SGPT < 9 U/L (7.0-40); AST/SGOT 11 U/L (<34); BILIRUBIN,DIRECT 0.1 MG/DL (<0.4); BILIRUBIN,TOTAL 0.4 MG/DL (0.3-1.2); BLOOD UREA NITROGEN 30 MG/DL (9-23); CALCIUM LEVEL 9.6 MG/DL (8.3-10.6); CARBON DIOXIDE LEVEL 33 MMOL/L (20-31); CHLORIDE LEVEL 107 MMOL/L (98-107); CREATININE FOR GFR 1.19 MG/DL (0.55-1.30); GLOMERULAR FILTRATION RATE 46.5 (>32); GLUCOSE, FASTING 108 MG/DL (74-106); MAGNESIUM LEVEL 1.9 MG/DL (1.8-2.4); POTASSIUM SERUM 3.4 MMOL/L (3.5-5.1); SODIUM LEVEL 145 MMOL/L (136-145); TOTAL PROTEIN 6.2 G/DL (5.7-8.2)
[2023-09-03 11:55] LABS: THYROID STIMULATING HORMONE 1.382 uIU/ML (0.55-4.78)
== END ==
PROVIDERS: ATTEND Physician Assistant
DX: G20.C Parkinsonism, unspecified (principal); Z79.899 Other long term (current) drug therapy

== ENCOUNTER → 2023-09-10 | Outpatient (REF) | payer MEDICARE, BC, MEDICAID ==
[2023-09-10 11:27] LABS: HEMATOCRIT 31.7 % (36.0-47.0); MEAN CORPUSCULAR HGB CONC 34.7 g/dl (32.0-36.5); MEAN CORPUSCULAR VOLUME 95.2 fl (80.0-96.0); PLATELET COUNT, AUTOMATED 223 10^3/uL (150-450); RED BLOOD COUNT 3.33 10^6/uL (4.00-5.40); WHITE BLOOD COUNT 5.2 10^3/uL (4.0-10.0)
[2023-09-10 11:55] LABS: ALBUMIN 3.4 G/DL (3.2-5.2); ALKALINE PHOSPHATASE 30 U/L (46-116); ALT/SGPT < 9 U/L (7.0-40); AST/SGOT 10 U/L (<34); BILIRUBIN,DIRECT < 0.1 MG/DL (<0.4); BILIRUBIN,TOTAL 0.3 MG/DL (0.3-1.2); BLOOD UREA NITROGEN 30 MG/DL (9-23); CALCIUM LEVEL 9.1 MG/DL (8.3-10.6); CARBON DIOXIDE LEVEL 29 MMOL/L (20-31); CHLORIDE LEVEL 107 MMOL/L (98-107); GLOMERULAR FILTRATION RATE 56.8 (>32); GLUCOSE, FASTING 117 MG/DL (74-106); POTASSIUM SERUM 3.6 MMOL/L (3.5-5.1); SODIUM LEVEL 141 MMOL/L (136-145); TOTAL PROTEIN 5.9 G/DL (5.7-8.2)
[2023-09-10 11:57] LABS: THYROID STIMULATING HORMONE 1.829 uIU/ML (0.55-4.78)
== END ==
PROVIDERS: ATTEND Physician Assistant
DX: R53.83 Other fatigue (principal)

== ENCOUNTER → 2023-09-27 | Outpatient (REF) | payer MEDICARE, BC, MEDICAID | PROVIDERS: ATTEND Physician Assistant | DX: N39.0 Urinary tract infection, site not specified (principal) ==

== ENCOUNTER 2023-10-06 19:47 | Inpatient (IN) | payer MEDICARE, BC, MEDICAID ==
[~2023-10-06] VITALS: Ht 162.6 cm; Wt 53.9 kg
[2023-10-06 20:19] LABS: BASO % 0.5 % (0.0-1.0); EOS # 0.2 10^3/uL (0.0-0.5); EOS % 3.1 % (0.0-3.0); HEMATOCRIT 31.7 % (36.0-47.0); HEMOGLOBIN 11.4 g/dl (12.0-15.5); LYMPH # 1.5 10^3/uL (1.5-5.0); LYMPH % 23.4 % (24.0-44.0); MEAN CORPUSCULAR HEMOGLOBIN 34.1 pg (27.0-33.0); MEAN CORPUSCULAR VOLUME 94.9 fl (80.0-96.0); MONO # 0.5 10^3/uL (0.0-0.8); MONO % 7.6 % (2.0-8.0); NEUTROPHILS # 4.2 10^3/uL (1.5-8.5); NEUTROPHILS % 65.2 % (36.0-66.0); PLATELET COUNT, AUTOMATED 200 10^3/uL (150-450); RED BLOOD COUNT 3.34 10^6/uL (4.00-5.40); WHITE BLOOD COUNT 6.5 10^3/uL (4.0-10.0)
[2023-10-06 20:39] LABS: ALBUMIN 3.9 G/DL (3.2-5.2); ALKALINE PHOSPHATASE 30 U/L (46-116); ALT/SGPT 10 U/L (7.0-40); AST/SGOT 31 U/L (<34); BILIRUBIN,DIRECT 0.1 MG/DL (<0.4); BILIRUBIN,TOTAL 0.4 MG/DL (0.3-1.2); BLOOD UREA NITROGEN 37 MG/DL (9-23); CALCIUM LEVEL 13.7 MG/DL (8.3-10.6); CARBON DIOXIDE LEVEL 30 MMOL/L (20-31); CHLORIDE LEVEL 116 MMOL/L (98-107); CREATININE FOR GFR 1.47 MG/DL (0.55-1.30); GLOMERULAR FILTRATION RATE 36.4 (>32); GLUCOSE, FASTING 117 MG/DL (74-106); POTASSIUM SERUM 3.1 MMOL/L (3.5-5.1); SODIUM LEVEL 145 MMOL/L (136-145); TOTAL PROTEIN 6.4 G/DL (5.7-8.2)
[2023-10-06 20:42] LABS: THYROID STIMULATING HORMONE 1.385 uIU/ML (0.55-4.78)
[2023-10-06] MEDS ORDERED: FUROSEMIDE 100MG/10ML VIAL IV ONE (21:50)
[2023-10-06] MEDS ORDERED: NS 1,000 ML IV ONE (21:50)
[2023-10-06] MEDS ORDERED: NS 1,000 ML IV SCH (22:00)
[2023-10-06 22:20] LABS: PTH INTACT < 6.3 PG/ML (18.5-88.0)
[2023-10-06] MEDS ORDERED: CARB1TAB97 PO (22:50)
[2023-10-06] MEDS ORDERED: COMT200T PO (22:50)
[2023-10-06] MEDS ORDERED: CALTTAB6 PO (22:50)
[2023-10-06] MEDS ORDERED: MEMA1TAB3 PO (22:50)
[2023-10-06] MEDS ORDERED: ACET-683 PO (22:50)
[2023-10-06] MEDS ORDERED: CARB25TA9 PO (22:50)
[2023-10-06] MEDS ORDERED: PROP40TA62 PO (22:50)
[2023-10-06] MEDS ORDERED: VALS1TAB67 PO (22:50)
[2023-10-06] MEDS ORDERED: HOME MED LIST COMPLETE! XX SCH (22:55)
[2023-10-07 00:31] VITALS: BP 150/83; TEMP 98.4; O2SAT 96
[2023-10-07] MEDS ORDERED: ACETAMINOPHEN TAB 650MG DOSE (2X325MG) PO PRN (03:05)
[2023-10-07] MEDS ORDERED: NS 500 ML IV ONE (03:10)
[2023-10-07] MEDS ORDERED: hydrALAZINE 20MG/ML 1ML VIAL IV PRN (03:10)
[2023-10-07] MEDS ORDERED: NORCO, ANEXSIA 5/325MG TABLET (HYDROcodone/ACETAMINOPHEN) PO PRN (04:15)
[2023-10-07] MEDS: CALCITONIN SALMON (MIACALCIN) 400INTERNATIONAL UNITS/2ML VIAL SC SCH ×2 (06:01→18:12)
[2023-10-07 06:46] VITALS: BP 109/59; TEMP 97.3; O2SAT 91
[2023-10-07 07:26] LABS: BLOOD UREA NITROGEN 36 MG/DL (9-23); CALCIUM LEVEL 12.5 MG/DL (8.3-10.6); CARBON DIOXIDE LEVEL 37 MMOL/L (20-31); CHLORIDE LEVEL 111 MMOL/L (98-107); CREATININE FOR GFR 1.55 MG/DL (0.55-1.30); GLOMERULAR FILTRATION RATE 34.2 (>32); GLUCOSE, FASTING 101 MG/DL (74-106); POTASSIUM SERUM 2.9 MMOL/L (3.5-5.1); SODIUM LEVEL 143 MMOL/L (136-145)
[2023-10-07] MEDS ORDERED: BISACODYL 10MG SUPP PR PRN (07:55)
[2023-10-07] MEDS: ENTACAPONE 200MG TABLET (COMTAN) PO SCH ×4 (08:00→21:00)
[2023-10-07] MEDS ORDERED: NS 1,000 ML IV ONE (08:00)
[2023-10-07] MEDS: KCL 10MEQ/100ML SWI (KRUN) 10 MEQ in IV 1 EA IV SCH ×4 (08:22→11:28)
[2023-10-07] MEDS: PRAVASTATIN 20 MG TAB PO SCH (08:30)
[2023-10-07] MEDS: SINEMET 25-100 MG TAB PO SCH ×3 (08:30→16:06)
[2023-10-07] MEDS: SERTRALINE HCL 25 MG TABLET PO SCH (08:31)
[2023-10-07] MEDS: HEPARIN SOD (PORCINE) 5000UNITS/ML 1ML VIAL/SYRINGE SC SCH ×2 (08:31→21:01)
[2023-10-07] MEDS: MEMANTINE 5MG TABLET (NAMENDA) PO SCH ×2 (08:31→21:00)
[2023-10-07] MEDS: SERTRALINE 100 MG TAB PO SCH (08:31)
[2023-10-07] MEDS: PROPRANOLOL 10 MG TAB PO SCH ×3 (08:32→21:00)
[2023-10-07] MEDS ORDERED: SERTRALINE 100 MG TAB PO SCH (09:00)
[2023-10-07] MEDS ORDERED: POTASSIUM CHLORIDE 10MEQ SR TABLET PO ONE (09:00)
[2023-10-07 09:11] LABS: MAGNESIUM LEVEL 1.9 MG/DL (1.8-2.4)
[2023-10-07] MEDS: cefTRIAXone SOD 2 GM in D5W MINI-BAG PLUS 50 ML IV SCH (12:32)
[2023-10-07 14:00] VITALS: BP 151/74; TEMP 98.8; O2SAT 98
[2023-10-07 15:37] LABS: BLOOD UREA NITROGEN 35 MG/DL (9-23); CARBON DIOXIDE LEVEL 31 MMOL/L (20-31); CHLORIDE LEVEL 115 MMOL/L (98-107); CREATININE FOR GFR 1.32 MG/DL (0.55-1.30); GLOMERULAR FILTRATION RATE 41.2 (>32); GLUCOSE, FASTING 119 MG/DL (74-106); POTASSIUM SERUM 3.8 MMOL/L (3.5-5.1); SODIUM LEVEL 143 MMOL/L (136-145)
[2023-10-07] MEDS: NS 1,000 ML IV SCH (16:02)
[2023-10-07 20:00] VITALS: BP 94/61; TEMP 98.6; O2SAT 92
[2023-10-07] MEDS: QUEtiapine FUMARATE 25 MG TAB PO SCH (21:00)
[2023-10-07] MEDS ORDERED: VALSARTAN 80 MG TAB (DIOVAN) PO SCH (21:00)
[2023-10-07] MEDS: SINEMET**CR** 25/100 TABCR PO SCH (21:58)
[2023-10-07 22:17] VITALS: BP 124/62
[2023-10-08 06:00] VITALS: BP 113/62; TEMP 98.6; O2SAT 93
[2023-10-08] MEDS: CALCITONIN SALMON (MIACALCIN) 400INTERNATIONAL UNITS/2ML VIAL SC SCH ×2 (06:10→17:02)
[2023-10-08] MEDS: cefTRIAXone SOD 2 GM in D5W MINI-BAG PLUS 50 ML IV SCH (08:05)
[2023-10-08] MEDS: PRAVASTATIN 20 MG TAB PO SCH (08:07)
[2023-10-08] MEDS: ENTACAPONE 200MG TABLET (COMTAN) PO SCH ×4 (08:07→20:55)
[2023-10-08] MEDS: SERTRALINE 100 MG TAB PO SCH (08:08)
[2023-10-08] MEDS: PROPRANOLOL 10 MG TAB PO SCH ×3 (08:08→20:56)
[2023-10-08] MEDS: SERTRALINE HCL 25 MG TABLET PO SCH (08:08)
[2023-10-08] MEDS: SINEMET 25-100 MG TAB PO SCH ×3 (08:09→17:03)
[2023-10-08] MEDS: MEMANTINE 5MG TABLET (NAMENDA) PO SCH ×2 (08:09→20:55)
[2023-10-08] MEDS: HEPARIN SOD (PORCINE) 5000UNITS/ML 1ML VIAL/SYRINGE SC SCH ×2 (08:09→20:54)
[2023-10-08] MEDS: NS 1,000 ML IV SCH ×2 (10:52→21:00)
[2023-10-08 12:50] LABS: ALBUMIN 3.3 G/DL (3.2-5.2); ALKALINE PHOSPHATASE 29 U/L (46-116); ALT/SGPT < 9 U/L (7.0-40); AST/SGOT 15 U/L (<34); BILIRUBIN,TOTAL 0.2 MG/DL (0.3-1.2); BLOOD UREA NITROGEN 28 MG/DL (9-23); CALCIUM LEVEL 9.7 MG/DL (8.3-10.6); CARBON DIOXIDE LEVEL 30 MMOL/L (20-31); CHLORIDE LEVEL 116 MMOL/L (98-107); CREATININE FOR GFR 1.04 MG/DL (0.55-1.30); GLOMERULAR FILTRATION RATE 54.3 (>32); GLUCOSE, FASTING 118 MG/DL (74-106); POTASSIUM SERUM 3.3 MMOL/L (3.5-5.1); SODIUM LEVEL 145 MMOL/L (136-145)
[2023-10-08 14:00] VITALS: BP 158/68; TEMP 97.7; O2SAT 94
[2023-10-08] MEDS: KCL 10MEQ/100ML SWI (KRUN) 10 MEQ in IV 1 EA IV SCH ×2 (20:55→22:01)
[2023-10-08] MEDS: SINEMET**CR** 25/100 TABCR PO SCH (20:55)
[2023-10-08] MEDS: QUEtiapine FUMARATE 25 MG TAB PO SCH (20:55)
[2023-10-08 22:00] VITALS: BP 150/60; TEMP 98.1; O2SAT 95
[2023-10-09 06:00] VITALS: BP 149/61; TEMP 97.9; O2SAT 95
[2023-10-09 06:12] LABS: ALBUMIN 3.2 G/DL (3.2-5.2); ALKALINE PHOSPHATASE 27 U/L (46-116); ALT/SGPT < 9 U/L (7.0-40); AST/SGOT 14 U/L (<34); BILIRUBIN,TOTAL 0.3 MG/DL (0.3-1.2); BLOOD UREA NITROGEN 19 MG/DL (9-23); CALCIUM LEVEL 9.1 MG/DL (8.3-10.6); CARBON DIOXIDE LEVEL 27 MMOL/L (20-31); CHLORIDE LEVEL 120 MMOL/L (98-107); CREATININE FOR GFR 0.82 MG/DL (0.55-1.30); GLOMERULAR FILTRATION RATE > 60.0 (>32); GLUCOSE, FASTING 112 MG/DL (74-106); PHOSPHORUS LEVEL 1.7 MG/DL (2.4-5.1); POTASSIUM SERUM 3.4 MMOL/L (3.5-5.1); SODIUM LEVEL 145 MMOL/L (136-145); TOTAL PROTEIN 5.6 G/DL (5.7-8.2)
[2023-10-09] MEDS: NS 1,000 ML IV SCH ×2 (06:36→19:58)
[2023-10-09 08:05] VITALS: BP 148/66; TEMP 98.6; O2SAT 96
[2023-10-09] MEDS: NEUTRA-PHOS 1.5 GM PACKET PO SCH ×2 (09:00→19:51)
[2023-10-09] MEDS ORDERED: POTASSIUM CHLORIDE 10MEQ SR TABLET PO SCH (09:00)
[2023-10-09] MEDS: cefTRIAXone SOD 2 GM in D5W MINI-BAG PLUS 50 ML IV SCH (09:23)
[2023-10-09] MEDS: SERTRALINE HCL 25 MG TABLET PO SCH (09:26)
[2023-10-09] MEDS: MEMANTINE 5MG TABLET (NAMENDA) PO SCH ×2 (09:26→19:51)
[2023-10-09] MEDS: SERTRALINE 100 MG TAB PO SCH (09:26)
[2023-10-09] MEDS: HEPARIN SOD (PORCINE) 5000UNITS/ML 1ML VIAL/SYRINGE SC SCH ×2 (09:27→19:51)
[2023-10-09] MEDS: SINEMET 25-100 MG TAB PO SCH ×3 (09:27→15:22)
[2023-10-09] MEDS: PRAVASTATIN 20 MG TAB PO SCH (09:27)
[2023-10-09] MEDS: PROPRANOLOL 10 MG TAB PO SCH (09:45)
[2023-10-09] MEDS: POTASSIUM CHLORIDE 10MEQ SR TABLET PO SCH (09:45)
[2023-10-09] MEDS: ENTACAPONE 200MG TABLET (COMTAN) PO SCH ×4 (09:45→19:51)
[2023-10-09 14:00] VITALS: BP 149/66; TEMP 97.5; O2SAT 97
[2023-10-09] MEDS ORDERED: POTASSIUM PHOSPHATE INJ 15 MMOL in D5W 250 ML IV ONE (15:00)
[2023-10-09] MEDS: PROPRANOLOL 20 MG TAB PO SCH ×2 (15:23→19:52)
[2023-10-09] MEDS: QUEtiapine FUMARATE 25 MG TAB PO SCH (19:51)
[2023-10-09] MEDS: SINEMET**CR** 25/100 TABCR PO SCH (19:52)
[2023-10-09 22:01] VITALS: BP 153/73; TEMP 98.6; O2SAT 99
[2023-10-10] MEDS: NS 1,000 ML IV SCH (03:37)
[2023-10-10 04:41] VITALS: BP 139/63; TEMP 97.9; O2SAT 97
[2023-10-10 07:34] VITALS: BP 139/63
[2023-10-10] MEDS: SERTRALINE HCL 25 MG TABLET PO SCH (07:34)
[2023-10-10] MEDS: SERTRALINE 100 MG TAB PO SCH (07:34)
[2023-10-10] MEDS: PROPRANOLOL 20 MG TAB PO SCH (07:34)
[2023-10-10] MEDS: SINEMET 25-100 MG TAB PO SCH (07:34)
[2023-10-10] MEDS: NEUTRA-PHOS 1.5 GM PACKET PO SCH (07:34)
[2023-10-10] MEDS: ENTACAPONE 200MG TABLET (COMTAN) PO SCH (07:34)
[2023-10-10] MEDS: POTASSIUM CHLORIDE 10MEQ SR TABLET PO SCH (07:35)
[2023-10-10] MEDS: MEMANTINE 5MG TABLET (NAMENDA) PO SCH (07:35)
[2023-10-10] MEDS: PRAVASTATIN 20 MG TAB PO SCH (07:35)
[2023-10-10] MEDS: HEPARIN SOD (PORCINE) 5000UNITS/ML 1ML VIAL/SYRINGE SC SCH (07:36)
[2023-10-10 09:56] LABS: BASO % 0.3 % (0.0-1.0); EOS # 0.4 10^3/uL (0.0-0.5); EOS % 4.3 % (0.0-3.0); HEMATOCRIT 30.8 % (36.0-47.0); HEMOGLOBIN 10.8 g/dl (12.0-15.5); LYMPH # 1.4 10^3/uL (1.5-5.0); LYMPH % 16.4 % (24.0-44.0); MEAN CORPUSCULAR HEMOGLOBIN 33.6 pg (27.0-33.0); MEAN CORPUSCULAR HGB CONC 35.1 g/dl (32.0-36.5); MONO # 0.4 10^3/uL (0.0-0.8); NEUTROPHILS # 6.4 10^3/uL (1.5-8.5); NEUTROPHILS % 73.7 % (36.0-66.0); PLATELET COUNT, AUTOMATED 207 10^3/uL (150-450); RED BLOOD COUNT 3.21 10^6/uL (4.00-5.40); WHITE BLOOD COUNT 8.7 10^3/uL (4.0-10.0)
[2023-10-10 10:05] LABS: IONIZED CALCIUM 3.7 MG/DL (4.5-5.3)
[2023-10-10 10:23] LABS: BLOOD UREA NITROGEN 15 MG/DL (9-23); CALCIUM LEVEL 8.3 MG/DL (8.3-10.6); CARBON DIOXIDE LEVEL 22 MMOL/L (20-31); CHLORIDE LEVEL 122 MMOL/L (98-107); CREATININE FOR GFR 0.72 MG/DL (0.55-1.30); GLOMERULAR FILTRATION RATE > 60.0 (>32); GLUCOSE, FASTING 125 MG/DL (74-106); MAGNESIUM LEVEL 1.3 MG/DL (1.8-2.4); SODIUM LEVEL 144 MMOL/L (136-145)
[2023-10-12 18:07] LABS: PTH RELATED PEPTIDE < 2.0 pmol/L (.); VITAMIN D 1,25 DIHYDROXY 7.8 pg/mL (24.8-81.5)
== END 2023-10-10 10:02 | DRG 640 ==
LOC: EDBD 19:47 → M ED 19:47 → M ED INP 21:57 → M MSPAV 10-07 00:31
PROVIDERS: ADMIT Internal Medicine; ATTEND General Practice
DX: E83.52 Hypercalcemia (principal); G93.41 Metabolic encephalopathy; N17.9 Acute kidney failure, unspecified; R17 Unspecified jaundice; F03.90 Unspecified dementia, unspecified severity, without behavioral disturbance, psychotic disturbance, mood disturbance, and anxiety; I10 Essential (primary) hypertension; G20.A1 Parkinson's disease without dyskinesia, without mention of fluctuations; E87.6 Hypokalemia; R26.89 Other abnormalities of gait and mobility; Z66 Do not resuscitate; Z88.8 Allergy status to other drugs, medicaments and biological substances; Z79.899 Other long term (current) drug therapy; E78.00 Pure hypercholesterolemia, unspecified; Z85.3 Personal history of malignant neoplasm of breast; Z92.3 Personal history of irradiation; R91.1 Solitary pulmonary nodule

== ENCOUNTER → 2023-10-11 | Outpatient (CLI) | payer MEDICARE, BC, MEDICAID ==
[~2023-10-11] MED LIST changes: +ACET-683 PO; +CALTTAB6 PO; +CARB1TAB97 PO; +MEMA1TAB3 PO; +PROP40TA62 PO; +VALS1TAB67 PO
== END ==
LOC: M ONCR 09:11
PROVIDERS: ATTEND General Practice
DX: Z08 Encounter for follow-up examination after completed treatment for malignant neoplasm (principal); Z85.3 Personal history of malignant neoplasm of breast; Z71.2 Person consulting for explanation of examination or test findings; Z79.899 Other long term (current) drug therapy; Z88.8 Allergy status to other drugs, medicaments and biological substances; Z92.3 Personal history of irradiation

== ENCOUNTER → 2023-10-12 | Outpatient (REF) | payer MEDICARE, BC, MEDICAID ==
[2023-10-12 10:27] LABS: HEMATOCRIT 27.1 % (36.0-47.0); HEMOGLOBIN 9.4 g/dl (12.0-15.5); MEAN CORPUSCULAR HEMOGLOBIN 33.2 pg (27.0-33.0); MEAN CORPUSCULAR HGB CONC 34.7 g/dl (32.0-36.5); MEAN CORPUSCULAR VOLUME 95.8 fl (80.0-96.0); PLATELET COUNT, AUTOMATED 198 10^3/uL (150-450); RED BLOOD COUNT 2.83 10^6/uL (4.00-5.40); WHITE BLOOD COUNT 9.7 10^3/uL (4.0-10.0)
[2023-10-12 11:00] LABS: ALBUMIN 3.5 G/DL (3.2-5.2); ALKALINE PHOSPHATASE 38 U/L (46-116); ALT/SGPT < 9 U/L (7.0-40); AST/SGOT 16 U/L (<34); BILIRUBIN,DIRECT 0.1 MG/DL (<0.4); BILIRUBIN,TOTAL 0.3 MG/DL (0.3-1.2); BLOOD UREA NITROGEN 20 MG/DL (9-23); CALCIUM LEVEL 7.6 MG/DL (8.3-10.6); CARBON DIOXIDE LEVEL 25 MMOL/L (20-31); CHLORIDE LEVEL 117 MMOL/L (98-107); CREATININE FOR GFR 0.86 MG/DL (0.55-1.30); GLOMERULAR FILTRATION RATE > 60.0 (>32); GLUCOSE, FASTING 90 MG/DL (74-106); MAGNESIUM LEVEL 1.6 MG/DL (1.8-2.4); POTASSIUM SERUM 3.7 MMOL/L (3.5-5.1); SODIUM LEVEL 143 MMOL/L (136-145); THYROID STIMULATING HORMONE 2.987 uIU/ML (0.55-4.78); TOTAL PROTEIN 5.9 G/DL (5.7-8.2)
[2023-10-15 11:27] LABS: IRON (FE) 57 UG/DL (50-170)
[2023-10-15 11:29] LABS: VITAMIN B12 LEVEL 285 PG/ML (211-911)
== END ==
PROVIDERS: ATTEND Physician Assistant
DX: E83.52 Hypercalcemia (principal)

== ENCOUNTER → 2023-10-12 | Outpatient (REF) | payer MEDICARE, BC, MEDICAID | PROVIDERS: ATTEND Physician Assistant | DX: D64.9 Anemia, unspecified (principal); Z53.8 Procedure and treatment not carried out for other reasons ==

== ENCOUNTER → 2023-10-15 | Outpatient (REF) | payer MEDICARE, BC, MEDICAID ==
[2023-10-15 11:13] LABS: HEMATOCRIT 27.7 % (36.0-47.0); HEMOGLOBIN 9.5 g/dl (12.0-15.5); MEAN CORPUSCULAR HEMOGLOBIN 33.5 pg (27.0-33.0); MEAN CORPUSCULAR HGB CONC 34.3 g/dl (32.0-36.5); MEAN CORPUSCULAR VOLUME 97.5 fl (80.0-96.0); PLATELET COUNT, AUTOMATED 248 10^3/uL (150-450); RED BLOOD COUNT 2.84 10^6/uL (4.00-5.40); WHITE BLOOD COUNT 8.2 10^3/uL (4.0-10.0)
[2023-10-15 11:30] LABS: BLOOD UREA NITROGEN 17 MG/DL (9-23); CARBON DIOXIDE LEVEL 23 MMOL/L (20-31); CHLORIDE LEVEL 122 MMOL/L (98-107); CREATININE FOR GFR 0.84 MG/DL (0.55-1.30); GLOMERULAR FILTRATION RATE > 60.0 (>32); GLUCOSE, FASTING 112 MG/DL (74-106); POTASSIUM SERUM 3.5 MMOL/L (3.5-5.1); SODIUM LEVEL 147 MMOL/L (136-145)
[2023-10-16 09:52] LABS: IRON (FE) 49 UG/DL (50-170); PERCENT SATURATION 16.3 % (13.2-45.0); TOTAL IRON BINDING CAPACITY 300 UG/DL (250-425)
[2023-10-16 09:55] LABS: FERRITIN 34.2 NG/ML (7.3-270.7)
== END ==
PROVIDERS: ATTEND Physician Assistant
DX: D64.9 Anemia, unspecified (principal)

== ENCOUNTER → 2023-10-15 | Outpatient (REF) | payer MEDICARE, BC, MEDICAID | PROVIDERS: ATTEND Physician Assistant | DX: D64.9 Anemia, unspecified (principal); Z53.8 Procedure and treatment not carried out for other reasons ==

== ENCOUNTER → 2023-10-17 | Outpatient (REF) | payer MEDICARE, BC, MEDICAID ==
[2023-10-17 11:13] LABS: BLOOD UREA NITROGEN 14 MG/DL (9-23); CALCIUM LEVEL 7.3 MG/DL (8.3-10.6); CARBON DIOXIDE LEVEL 26 MMOL/L (20-31); CHLORIDE LEVEL 119 MMOL/L (98-107); CREATININE FOR GFR 0.76 MG/DL (0.55-1.30); GLOMERULAR FILTRATION RATE > 60.0 (>32); GLUCOSE, FASTING 82 MG/DL (74-106); POTASSIUM SERUM 3.8 MMOL/L (3.5-5.1); SODIUM LEVEL 144 MMOL/L (136-145)
== END ==
PROVIDERS: ATTEND Physician Assistant
DX: E86.0 Dehydration (principal)

== ENCOUNTER → 2023-10-19 | Outpatient (REF) | payer MEDICARE, BC, MEDICAID ==
[2023-10-19 09:07] LABS: HEMATOCRIT 27.5 % (36.0-47.0); HEMOGLOBIN 9.4 g/dl (12.0-15.5); MEAN CORPUSCULAR HEMOGLOBIN 33.6 pg (27.0-33.0); MEAN CORPUSCULAR HGB CONC 34.2 g/dl (32.0-36.5); MEAN CORPUSCULAR VOLUME 98.2 fl (80.0-96.0); PLATELET COUNT, AUTOMATED 243 10^3/uL (150-450)
[2023-10-19 09:40] LABS: BLOOD UREA NITROGEN 13 MG/DL (9-23); CALCIUM LEVEL 8.9 MG/DL (8.3-10.6); CARBON DIOXIDE LEVEL 25 MMOL/L (20-31); CHLORIDE LEVEL 119 MMOL/L (98-107); CREATININE FOR GFR 0.76 MG/DL (0.55-1.30); GLOMERULAR FILTRATION RATE > 60.0 (>32); GLUCOSE, FASTING 128 MG/DL (74-106); POTASSIUM SERUM 4.2 MMOL/L (3.5-5.1); SODIUM LEVEL 145 MMOL/L (136-145)
== END ==
PROVIDERS: ATTEND Physician Assistant
DX: E87.5 Hyperkalemia (principal)

== ENCOUNTER → 2023-10-26 | Outpatient (REF) | payer MEDICARE, BC, MEDICAID | PROVIDERS: ATTEND Physician Assistant | DX: E87.5 Hyperkalemia (principal); Z53.8 Procedure and treatment not carried out for other reasons ==

== ENCOUNTER → 2023-11-01 | Outpatient (REF) | payer MEDICARE, BC, MEDICAID | PROVIDERS: ATTEND Internal Medicine | DX: R05.9 Cough, unspecified (principal) ==

== ENCOUNTER → 2023-11-12 | Outpatient (REF) | payer MEDICARE, BC, MEDICAID ==
[2023-11-12 17:22] LABS: BASO % 0.6 % (0.0-1.0); EOS # 0.2 10^3/uL (0.0-0.5); EOS % 4.1 % (0.0-3.0); HEMATOCRIT 32.5 % (36.0-47.0); HEMOGLOBIN 10.6 g/dl (12.0-15.5); LYMPH # 1.3 10^3/uL (1.5-5.0); LYMPH % 25.1 % (24.0-44.0); MEAN CORPUSCULAR HEMOGLOBIN 32.4 pg (27.0-33.0); MEAN CORPUSCULAR HGB CONC 32.6 g/dl (32.0-36.5); MEAN CORPUSCULAR VOLUME 99.4 fl (80.0-96.0); MONO # 0.4 10^3/uL (0.0-0.8); MONO % 8.6 % (2.0-8.0); NEUTROPHILS # 3.1 10^3/uL (1.5-8.5); NEUTROPHILS % 61.2 % (36.0-66.0); PLATELET COUNT, AUTOMATED 234 10^3/uL (150-450); RED BLOOD COUNT 3.27 10^6/uL (4.00-5.40); WHITE BLOOD COUNT 5.1 10^3/uL (4.0-10.0)
[2023-11-12 17:48] LABS: ALBUMIN 3.3 G/DL (3.2-5.2); ALKALINE PHOSPHATASE 52 U/L (46-116); ALT/SGPT < 9 U/L (7.0-40); AST/SGOT < 8 U/L (<34); BILIRUBIN,DIRECT < 0.1 MG/DL (<0.4); BILIRUBIN,TOTAL 0.3 MG/DL (0.3-1.2); BLOOD UREA NITROGEN 15 MG/DL (9-23); CALCIUM LEVEL 8.7 MG/DL (8.3-10.6); CARBON DIOXIDE LEVEL 30 MMOL/L (20-31); CHLORIDE LEVEL 114 MMOL/L (98-107); GLOMERULAR FILTRATION RATE 56.8 (>32); GLUCOSE, FASTING 117 MG/DL (74-106); POTASSIUM SERUM 3.7 MMOL/L (3.5-5.1); SODIUM LEVEL 143 MMOL/L (136-145); TOTAL PROTEIN 5.9 G/DL (5.7-8.2)
== END ==
PROVIDERS: ATTEND Physician Assistant
DX: R53.83 Other fatigue (principal)

== ENCOUNTER → 2024-01-09 | Outpatient (REF) | payer MEDICARE, BC, MEDICAID ==
[~2024-01-09] MED LIST changes: -ASPI-161 PO; +ASPI-615 PO; -BISA10SU20 PR; +BISA10SU59 PR
[2024-01-09 10:35] LABS: HEMATOCRIT 36.3 % (36.0-47.0); HEMOGLOBIN 11.9 g/dl (12.0-15.5); MEAN CORPUSCULAR HEMOGLOBIN 31.2 pg (27.0-33.0); MEAN CORPUSCULAR HGB CONC 32.8 g/dl (32.0-36.5); PLATELET COUNT, AUTOMATED 242 10^3/uL (150-450); RED BLOOD COUNT 3.82 10^6/uL (4.00-5.40); WHITE BLOOD COUNT 4.4 10^3/uL (4.0-10.0)
[2024-01-09 11:06] LABS: ALBUMIN 3.1 G/DL (3.2-5.2); ALKALINE PHOSPHATASE 51 U/L (46-116); ALT/SGPT < 9 U/L (7.0-40); AST/SGOT 11 U/L (<34); BILIRUBIN,TOTAL 0.4 MG/DL (0.3-1.2); BLOOD UREA NITROGEN 21 MG/DL (9-23); CALCIUM LEVEL 8.6 MG/DL (8.3-10.6); CARBON DIOXIDE LEVEL 29 MMOL/L (20-31); CHLORIDE LEVEL 113 MMOL/L (98-107); CREATININE FOR GFR 0.79 MG/DL (0.55-1.30); GLOMERULAR FILTRATION RATE > 60.0 (>32); GLUCOSE, FASTING 85 MG/DL (74-106); POTASSIUM SERUM 3.9 MMOL/L (3.5-5.1); PTH INTACT 73.2 PG/ML (18.5-88.0); SODIUM LEVEL 143 MMOL/L (136-145); TOTAL 25(OH) VITAMIN D 33.9 NG/ML (20.0-100.0); TOTAL PROTEIN 5.6 G/DL (5.7-8.2)
[2024-01-10 19:07] LABS: VITAMIN D 1,25 DIHYDROXY 29.4 pg/mL (24.8-81.5)
== END ==
PROVIDERS: ATTEND Physician Assistant
DX: E83.52 Hypercalcemia (principal)

== ENCOUNTER → 2024-03-17 | Outpatient (REF) | payer MEDICARE, MEDICAID ==
[2024-03-17 11:35] LABS: HEMATOCRIT 39.8 % (36.0-47.0); HEMOGLOBIN 13.4 g/dl (12.0-15.5); MEAN CORPUSCULAR HEMOGLOBIN 31.3 pg (27.0-33.0); MEAN CORPUSCULAR HGB CONC 33.7 g/dl (32.0-36.5); PLATELET COUNT, AUTOMATED 221 10^3/uL (150-450); RED BLOOD COUNT 4.28 10^6/uL (4.00-5.40); WHITE BLOOD COUNT 4.7 10^3/uL (4.0-10.0)
[2024-03-17 12:00] LABS: BLOOD UREA NITROGEN 23 MG/DL (9-23); CARBON DIOXIDE LEVEL 26 MMOL/L (20-31); CHLORIDE LEVEL 113 MMOL/L (98-107); CREATININE FOR GFR 0.93 MG/DL (0.55-1.30); GLOMERULAR FILTRATION RATE > 60.0 (>32); GLUCOSE, FASTING 102 MG/DL (74-106); POTASSIUM SERUM 4.3 MMOL/L (3.5-5.1); SODIUM LEVEL 140 MMOL/L (136-145)
[2024-03-17 12:03] LABS: THYROID STIMULATING HORMONE 1.986 uIU/ML (0.55-4.78)
== END ==
PROVIDERS: ATTEND Physician Assistant
DX: R53.83 Other fatigue (principal)

== ENCOUNTER → 2024-04-02 | Outpatient (REF) | payer MEDICARE, MEDICAID ==
[2024-04-02 11:13] LABS: HEMATOCRIT 37.8 % (36.0-47.0); HEMOGLOBIN 12.5 g/dl (12.0-15.5); MEAN CORPUSCULAR HEMOGLOBIN 31.4 pg (27.0-33.0); MEAN CORPUSCULAR HGB CONC 33.1 g/dl (32.0-36.5); PLATELET COUNT, AUTOMATED 232 10^3/uL (150-450); RED BLOOD COUNT 3.98 10^6/uL (4.00-5.40); WHITE BLOOD COUNT 5.1 10^3/uL (4.0-10.0)
[2024-04-02 11:40] LABS: ALBUMIN 3.6 G/DL (3.2-5.2); ALKALINE PHOSPHATASE 55 U/L (46-116); ALT/SGPT < 9 U/L (7.0-40); AST/SGOT 8 U/L (<34); BILIRUBIN,DIRECT 0.2 MG/DL (<0.4); BILIRUBIN,TOTAL 0.6 MG/DL (0.3-1.2); BLOOD UREA NITROGEN 20 MG/DL (9-23); CALCIUM LEVEL 9.4 MG/DL (8.3-10.6); CARBON DIOXIDE LEVEL 28 MMOL/L (20-31); CHLORIDE LEVEL 113 MMOL/L (98-107); GLOMERULAR FILTRATION RATE > 60.0 (>32); GLUCOSE, FASTING 108 MG/DL (74-106); POTASSIUM SERUM 4.1 MMOL/L (3.5-5.1); SODIUM LEVEL 144 MMOL/L (136-145); TOTAL PROTEIN 6.3 G/DL (5.7-8.2)
[2024-04-02 11:41] LABS: THYROID STIMULATING HORMONE 1.531 uIU/ML (0.55-4.78)
== END ==
PROVIDERS: ATTEND Physician Assistant
DX: E87.5 Hyperkalemia (principal); Z79.899 Other long term (current) drug therapy

== ENCOUNTER → 2024-04-12 | Outpatient (CLI) | payer MEDICARE, MEDICAID ==
[2024-04-12 12:17] LABS: APPEARANCE, URINE MANUAL CLEAR (CLEAR)
[2024-04-12 12:18] LABS: COLOR, URINE MANUAL AMBER (YELLOW)
[2024-04-12 12:19] LABS: GLUCOSE, URINE (UA) MANUAL NEGATIVE (NEGATIVE); KETONE, URINE MANUAL OBSCURED mg/dL (NEGATIVE); PROTEIN, URINE MANUAL NEGATIVE (NEGATIVE); UROBILINOGEN, URINE MANUAL NORMAL (NORMAL)
[2024-04-12 12:20] LABS: BILIRUBIN, URINE MANUAL 1+ (NEGATIVE); BLOOD URINE MANUAL NEGATIVE (NEGATIVE); LEUKOCYTE ESTERASE, URINE MAN POSITIVE (NEGATIVE); NITRITE, URINE MANUAL NEGATIVE (NEGATIVE)
[2024-04-12 12:23] LABS: BACTERIA, URINE SMALL AMOUNT; HYALINE CAST, URINE NONE SEEN /lpf (0-1); RBC, URINE 0-1 /hpf (0-3); SQUAMOUS EPITHELIAL CELL URINE SMALL AMOUNT /hpf (SMALL AMT)
== END ==
LOC: M LAB 11:50
PROVIDERS: ATTEND Internal Medicine
DX: R41.0 Disorientation, unspecified (principal)

== ENCOUNTER → 2024-04-14 | Outpatient (REF) | payer MEDICARE, MEDICAID ==
[2024-04-14 12:01] LABS: BASO # 0.1 10^3/uL (0.0-0.2); BASO % 0.7 % (0.0-1.0); EOS # 0.4 10^3/uL (0.0-0.5); EOS % 6.1 % (0.0-3.0); HEMATOCRIT 38.6 % (36.0-47.0); HEMOGLOBIN 12.8 g/dl (12.0-15.5); LYMPH # 1.6 10^3/uL (1.5-5.0); LYMPH % 24.2 % (24.0-44.0); MEAN CORPUSCULAR HEMOGLOBIN 31.4 pg (27.0-33.0); MEAN CORPUSCULAR HGB CONC 33.2 g/dl (32.0-36.5); MEAN CORPUSCULAR VOLUME 94.6 fl (80.0-96.0); MONO # 0.5 10^3/uL (0.0-0.8); MONO % 7.1 % (2.0-8.0); NEUTROPHILS # 4.2 10^3/uL (1.5-8.5); NEUTROPHILS % 61.6 % (36.0-66.0); PLATELET COUNT, AUTOMATED 224 10^3/uL (150-450); RED BLOOD COUNT 4.08 10^6/uL (4.00-5.40); WHITE BLOOD COUNT 6.8 10^3/uL (4.0-10.0)
[2024-04-14 12:21] LABS: CALCIUM LEVEL 8.9 MG/DL (8.3-10.6); GLOMERULAR FILTRATION RATE 56.8 (>32); POTASSIUM SERUM 4.1 MMOL/L (3.5-5.1)
[2024-04-14 12:26] LABS: THYROID STIMULATING HORMONE 1.555 uIU/ML (0.55-4.78)
[2024-04-14 12:27] LABS: TOTAL 25(OH) VITAMIN D 29.4 NG/ML (20.0-100.0)
== END ==
PROVIDERS: ATTEND Physician Assistant
DX: G20.C Parkinsonism, unspecified (principal); Z79.899 Other long term (current) drug therapy

== ENCOUNTER 2024-05-18 01:41 | Emergency (ER) | payer MEDICARE, MEDICAID ==
[~2024-05-18] VITALS: Ht 154.9 cm; Wt 55.3 kg
[2024-05-18] MEDS: LIDOCAINE W/EPINEPHRINE 1% 20ML VIAL SC ONE (02:05)
[2024-05-18] MEDS: BOOSTRIX VACCINE (TETANUS/DIPHTH/ACEL. PERTUSSIS) 0.5ML SYR IM ONE (02:50)
[2024-05-18 05:16] VITALS: BP 130/68
[2024-05-18] MEDS: OLMESARTAN MEDOXOMIL 20 MG TAB (BENICAR) PO ONE (05:16)
[2024-05-18 05:41] VITALS: BP 158/80; TEMP 97.4; O2SAT 97
== END 2024-05-18 05:56 | disposition home or self-care (01) ==
LOC: M ED 01:41
DX: S01.81XA Laceration without foreign body of other part of head, initial encounter (principal); W01.198A Fall on same level from slipping, tripping and stumbling with subsequent striking against other object, initial encounter; Y92.009 Unspecified place in unspecified non-institutional (private) residence as the place of occurrence of the external cause; Y93.01 Activity, walking, marching and hiking; Y99.8 Other external cause status; G20.C Parkinsonism, unspecified; Z88.8 Allergy status to other drugs, medicaments and biological substances; Z79.899 Other long term (current) drug therapy; Z23 Encounter for immunization

== ENCOUNTER → 2024-06-04 | Outpatient (CLI) | payer MEDICARE, MEDICAID | LOC: M RAD 10:46 | PROVIDERS: ATTEND Internal Medicine | DX: S20.211A Contusion of right front wall of thorax, initial encounter (principal); W19.XXXA Unspecified fall, initial encounter; Y92.9 Unspecified place or not applicable; Y93.9 Activity, unspecified; M84.48XA Pathological fracture, other site, initial encounter for fracture ==

== ENCOUNTER → 2024-06-20 | Outpatient (CLI) | payer MEDICARE, MEDICAID | LOC: M RAD 08:24 | PROVIDERS: ATTEND Physician Assistant | DX: M54.14 Radiculopathy, thoracic region (principal) ==

== ENCOUNTER → 2024-07-02 | Outpatient (REF) | payer MEDICARE, MEDICAID ==
[2024-07-02 11:50] LABS: HEMATOCRIT 38.1 % (36.0-47.0); HEMOGLOBIN 12.9 g/dl (12.0-15.5); MEAN CORPUSCULAR HEMOGLOBIN 32.4 pg (27.0-33.0); MEAN CORPUSCULAR HGB CONC 33.9 g/dl (32.0-36.5); MEAN CORPUSCULAR VOLUME 95.7 fl (80.0-96.0); PLATELET COUNT, AUTOMATED 218 10^3/uL (150-450); RED BLOOD COUNT 3.98 10^6/uL (4.00-5.40); WHITE BLOOD COUNT 5.3 10^3/uL (4.0-10.0)
[2024-07-02 12:16] LABS: BLOOD UREA NITROGEN 22 MG/DL (9-23); CALCIUM LEVEL 9.5 MG/DL (8.3-10.6); CARBON DIOXIDE LEVEL 30 MMOL/L (20-31); CHLORIDE LEVEL 115 MMOL/L (98-107); CREATININE FOR GFR 0.89 MG/DL (0.55-1.30); GLOMERULAR FILTRATION RATE > 60.0 (>32); GLUCOSE, FASTING 87 MG/DL (74-106); MAGNESIUM LEVEL 2.1 MG/DL (1.8-2.4); POTASSIUM SERUM 4.2 MMOL/L (3.5-5.1); SODIUM LEVEL 142 MMOL/L (136-145)
== END ==
PROVIDERS: ATTEND Physician Assistant
DX: E87.5 Hyperkalemia (principal)

== ENCOUNTER → 2024-07-30 | Outpatient (REF) | payer MEDICARE, MEDICAID ==
[2024-07-30 14:40] LABS: BASO % 0.5 % (0.0-1.0); EOS # 0.3 10^3/uL (0.0-0.5); EOS % 4.2 % (0.0-3.0); HEMATOCRIT 36.5 % (36.0-47.0); HEMOGLOBIN 12.5 g/dl (12.0-15.5); LYMPH # 1.2 10^3/uL (1.5-5.0); MEAN CORPUSCULAR HGB CONC 34.2 g/dl (32.0-36.5); MEAN CORPUSCULAR VOLUME 96.3 fl (80.0-96.0); MONO # 0.5 10^3/uL (0.0-0.8); MONO % 8.2 % (2.0-8.0); NEUTROPHILS % 66.8 % (36.0-66.0); PLATELET COUNT, AUTOMATED 236 10^3/uL (150-450); RED BLOOD COUNT 3.79 10^6/uL (4.00-5.40)
[2024-07-30 15:12] LABS: BLOOD UREA NITROGEN 24 MG/DL (9-23); CARBON DIOXIDE LEVEL 24 MMOL/L (20-31); CHLORIDE LEVEL 115 MMOL/L (98-107); CREATININE FOR GFR 0.89 MG/DL (0.55-1.30); GLOMERULAR FILTRATION RATE > 60.0 (>32); GLUCOSE, FASTING 81 MG/DL (74-106); POTASSIUM SERUM 4.2 MMOL/L (3.5-5.1); SODIUM LEVEL 141 MMOL/L (136-145)
== END ==
PROVIDERS: ATTEND Physician Assistant
DX: R41.82 Altered mental status, unspecified (principal)

== ENCOUNTER → 2024-10-01 | Outpatient (REF) | payer MEDICARE, MEDICAID ==
[~2024-10-01] MED LIST changes: -AZEL0.1S NARES; +AZEL137S8 NARES
[2024-10-01 09:55] LABS: HEMATOCRIT 38.2 % (36.0-47.0); MEAN CORPUSCULAR HEMOGLOBIN 32.3 pg (27.0-33.0); MEAN CORPUSCULAR VOLUME 94.8 fl (80.0-96.0); PLATELET COUNT, AUTOMATED 212 10^3/uL (150-450); RED BLOOD COUNT 4.03 10^6/uL (4.00-5.40); WHITE BLOOD COUNT 4.7 10^3/uL (4.0-10.0)
[2024-10-01 10:17] LABS: ALBUMIN 3.3 G/DL (3.2-5.2); ALKALINE PHOSPHATASE 54 U/L (35-104); ALT/SGPT 10 U/L (7.0-40); AST/SGOT 9 U/L (<34); BILIRUBIN,DIRECT 0.2 MG/DL (<0.4); BILIRUBIN,TOTAL 0.5 MG/DL (0.3-1.2); BLOOD UREA NITROGEN 27 MG/DL (9-23); CALCIUM LEVEL 9.4 MG/DL (8.3-10.6); CARBON DIOXIDE LEVEL 27 MMOL/L (20-31); CHLORIDE LEVEL 110 MMOL/L (98-107); CREATININE FOR GFR 0.88 MG/DL (0.55-1.30); GLOMERULAR FILTRATION RATE > 60.0 (>32); GLUCOSE, FASTING 78 MG/DL (74-106); POTASSIUM SERUM 4.1 MMOL/L (3.5-5.1); SODIUM LEVEL 142 MMOL/L (136-145)
[2024-10-01 10:18] LABS: THYROID STIMULATING HORMONE 1.742 uIU/ML (0.55-4.78)
== END ==
PROVIDERS: ATTEND Internal Medicine
DX: E87.5 Hyperkalemia (principal); Z79.899 Other long term (current) drug therapy

== ENCOUNTER → 2024-12-29 | Outpatient (REF) | payer MEDICARE, MEDICAID ==
[2024-12-29 11:46] LABS: HEMOGLOBIN 13.1 g/dl (12.0-15.5); MEAN CORPUSCULAR HEMOGLOBIN 31.6 pg (27.0-33.0); MEAN CORPUSCULAR HGB CONC 32.8 g/dl (32.0-36.5); MEAN CORPUSCULAR VOLUME 96.4 fl (80.0-96.0); PLATELET COUNT, AUTOMATED 239 10^3/uL (150-450); RED BLOOD COUNT 4.15 10^6/uL (4.00-5.40); WHITE BLOOD COUNT 4.6 10^3/uL (4.0-10.0)
[2024-12-29 12:17] LABS: CALCIUM LEVEL 9.2 MG/DL (8.3-10.6); CREATININE FOR GFR 0.98 MG/DL (0.55-1.30); MAGNESIUM LEVEL 2.1 MG/DL (1.8-2.4); POTASSIUM SERUM 4.4 MMOL/L (3.5-5.1)
== END ==
PROVIDERS: ATTEND Internal Medicine
DX: E87.5 Hyperkalemia (principal)

== ENCOUNTER → 2025-03-13 | Outpatient (CLI) | payer MEDICARE, MEDICAID ==
[~2025-03-13] MED LIST changes: -HYDR28CR33 TOP; +HYDR28CR52 TOP
== END ==
LOC: M WHC 08:26
PROVIDERS: ATTEND Internal Medicine
DX: Z12.31 Encounter for screening mammogram for malignant neoplasm of breast (principal); M85.89 Other specified disorders of bone density and structure, multiple sites

== ENCOUNTER → 2025-05-12 | Outpatient (REF) | payer MEDICARE, MEDICAID ==
[~2025-05-12] MED LIST changes: -PRAV40TA2 PO; +PRAV40TA85 PO
[2025-05-12 18:27] LABS: APPEARANCE, URINE CLEAR (CLEAR); BACTERIA, URINE AUTO NEGATIVE (NEGATIVE); BILIRUBIN, URINE AUTO NEGATIVE (NEGATIVE); BLOOD, URINE BLOOD NEGATIVE (NEGATIVE); GLUCOSE, URINE (UA) AUTO NEGATIVE (NEGATIVE); KETONE, URINE AUTO TRACE mg/dL (NEGATIVE); LEUKOCYTE ESTERASE, URINE AUTO 1+ (NEGATIVE); MUCUS, URINE SMALL (NEGATIVE); NITRITE, URINE AUTO NEGATIVE (NEGATIVE); PROTEIN, URINE AUTO NEGATIVE (NEGATIVE); RBC, URINE AUTO 1 /HPF (0-3); SPECIFIC GRAVITY URINE AUTO 1.021 (1.002-1.035); SQUAMOUS EPITHELIAL CELL UR AU 2 /HPF (0-6); UROBILINOGEN, URINE AUTO 0.2 mg/dL (0.0-2.0); WBC, URINE AUTO 7 /HPF (0-3)
== END ==
PROVIDERS: ATTEND Internal Medicine
DX: R41.82 Altered mental status, unspecified (principal)

== ENCOUNTER → 2025-05-13 | Outpatient (REF) | payer MEDICARE, MEDICAID ==
[2025-05-13 10:34] LABS: BASO # 0.0 10^3/uL (0.0-0.2); BASO % 0.7 % (0.0-1.0); EOS # 0.2 10^3/uL (0.0-0.5); EOS % 4.6 % (0.0-3.0); LYMPH # 1.4 10^3/uL (1.5-5.0); LYMPH % 32.3 % (24.0-44.0); MONO # 0.3 10^3/uL (0.0-0.8); MONO % 6.2 % (2.0-8.0); NEUTROPHILS # 2.4 10^3/uL (1.5-8.5); NEUTROPHILS % 56.0 % (36.0-66.0); PLATELET COUNT, AUTOMATED 211 10^3/uL (150-450)
[2025-05-13 11:02] LABS: CALCIUM LEVEL 9.0 MG/DL (8.3-10.6); CARBON DIOXIDE LEVEL 27.0 MMOL/L (20-31); CHLORIDE LEVEL 114.0 MMOL/L (98-107); CREATININE FOR GFR 0.92 MG/DL (0.55-1.30); GLOMERULAR FILTRATION RATE 62.6 (>32); POTASSIUM SERUM 4.1 MMOL/L (3.5-5.1); SODIUM LEVEL 144.0 MMOL/L (136-145)
== END ==
PROVIDERS: ATTEND Internal Medicine
DX: R41.82 Altered mental status, unspecified (principal)

== ENCOUNTER → 2025-05-21 | Outpatient (CLI) | payer MEDICARE, MEDICAID | LOC: M RAD 07:22 | PROVIDERS: ATTEND Physician Assistant | DX: R41.82 Altered mental status, unspecified (principal) ==

== ENCOUNTER → 2025-07-08 | Outpatient (REF) | payer MEDICARE, MEDICAID ==
[2025-07-08 12:07] LABS: PLATELET COUNT, AUTOMATED 170 10^3/uL (150-450)
[2025-07-08 12:34] LABS: CALCIUM LEVEL 9.1 MG/DL (8.3-10.6); CARBON DIOXIDE LEVEL 26 MMOL/L (20-31); CHLORIDE LEVEL 121 MMOL/L (98-107); CREATININE FOR GFR 0.90 MG/DL (0.55-1.30); GLOMERULAR FILTRATION RATE 64.2 (>32); MAGNESIUM LEVEL 2.2 MG/DL (1.8-2.4); POTASSIUM SERUM 4.6 MMOL/L (3.5-5.1); SODIUM LEVEL 144 MMOL/L (136-145)
== END ==
PROVIDERS: ATTEND Internal Medicine
DX: D64.9 Anemia, unspecified (principal)

== ENCOUNTER → 2025-07-28 | Outpatient (REF) | payer MEDICARE, MEDICAID | PROVIDERS: ATTEND Physician Assistant | DX: R29.6 Repeated falls (principal); Z53.8 Procedure and treatment not carried out for other reasons ==

== ENCOUNTER → 2025-07-29 | Outpatient (REF) | payer MEDICARE, MEDICAID ==
[2025-07-29 11:20] LABS: PLATELET COUNT, AUTOMATED 230 10^3/uL (150-450)
[2025-07-29 11:53] LABS: CALCIUM LEVEL 8.7 MG/DL (8.3-10.6); CARBON DIOXIDE LEVEL 29 MMOL/L (20-31); CHLORIDE LEVEL 118 MMOL/L (98-107); CREATININE FOR GFR 1.11 MG/DL (0.55-1.30); GLOMERULAR FILTRATION RATE 49.6 (>32); POTASSIUM SERUM 4.1 MMOL/L (3.5-5.1); SODIUM LEVEL 142 MMOL/L (136-145)
== END ==
PROVIDERS: ATTEND Physician Assistant
DX: R29.6 Repeated falls (principal)

== ENCOUNTER → 2025-08-07 | Outpatient (REF) | payer MEDICARE, MEDICAID ==
[2025-08-07 18:24] LABS: BASO # 0.0 10^3/uL (0.0-0.2); BASO % 0.4 % (0.0-1.0); EOS # 0.2 10^3/uL (0.0-0.5); EOS % 2.6 % (0.0-3.0); LYMPH # 1.9 10^3/uL (1.5-5.0); LYMPH % 26.4 % (24.0-44.0); MONO # 0.7 10^3/uL (0.0-0.8); MONO % 9.6 % (2.0-8.0); NEUTROPHILS # 4.4 10^3/uL (1.5-8.5); NEUTROPHILS % 60.7 % (36.0-66.0); PLATELET COUNT, AUTOMATED 250 10^3/uL (150-450)
[2025-08-07 18:46] LABS: CALCIUM LEVEL 8.8 MG/DL (8.3-10.6); CARBON DIOXIDE LEVEL 28.0 MMOL/L (20-31); CHLORIDE LEVEL 115.0 MMOL/L (98-107); CREATININE FOR GFR 0.99 MG/DL (0.55-1.30); GLOMERULAR FILTRATION RATE 56.9 (>32); POTASSIUM SERUM 4.9 MMOL/L (3.5-5.1); SODIUM LEVEL 145.0 MMOL/L (136-145)
== END ==
PROVIDERS: ATTEND Physician Assistant
DX: N39.0 Urinary tract infection, site not specified (principal)

== ENCOUNTER → 2025-08-25 | Outpatient (REF) | payer MEDICARE, MEDICAID | PROVIDERS: ATTEND Physician Assistant | DX: R63.4 Abnormal weight loss (principal); A04.72 Enterocolitis due to Clostridium difficile, not specified as recurrent ==

== ENCOUNTER → 2025-09-02 | Outpatient (REF) | payer MEDICARE, MEDICAID | PROVIDERS: ATTEND Internal Medicine | DX: R63.4 Abnormal weight loss (principal); R19.7 Diarrhea, unspecified ==

== ENCOUNTER → 2025-09-08 | Outpatient (REF) | payer MEDICARE, MEDICAID | PROVIDERS: ATTEND Physician Assistant | DX: R63.4 Abnormal weight loss (principal) ==

== ENCOUNTER → 2025-09-14 | Outpatient (REF) | payer MEDICARE, MEDICAID ==
[2025-09-14 11:19] LABS: PLATELET COUNT, AUTOMATED 282 10^3/uL (150-450)
[2025-09-14 12:20] LABS: CALCIUM LEVEL 8.9 MG/DL (8.3-10.6); CARBON DIOXIDE LEVEL 26 MMOL/L (20-31); CHLORIDE LEVEL 129 MMOL/L (98-107); CREATININE FOR GFR 0.90 MG/DL (0.55-1.30); GLOMERULAR FILTRATION RATE 63.8 (>32); POTASSIUM SERUM 4.4 MMOL/L (3.5-5.1); SODIUM LEVEL 145 MMOL/L (136-145)
== END ==
PROVIDERS: ATTEND Physician Assistant
DX: Z79.899 Other long term (current) drug therapy (principal); R53.83 Other fatigue

== ENCOUNTER → 2025-09-14 | Outpatient (REF) | payer MEDICARE, MEDICAID | PROVIDERS: ATTEND Physician Assistant | DX: R63.4 Abnormal weight loss (principal); R53.83 Other fatigue ==

== ENCOUNTER → 2025-09-23 | Outpatient (CLI) | payer MEDICARE, MEDICAID | LOC: M RAD 08:20 | PROVIDERS: ATTEND Physician Assistant | DX: R63.4 Abnormal weight loss (principal); Z85.3 Personal history of malignant neoplasm of breast; K59.00 Constipation, unspecified ==

== ENCOUNTER → 2025-09-28 | Outpatient (REF) | payer MEDICARE, MEDICAID ==
[2025-09-28 12:48] LABS: PLATELET COUNT, AUTOMATED 224 10^3/uL (150-450)
[2025-09-28 13:30] LABS: ALT/SGPT < 9 U/L (7.0-40); AST/SGOT 12 U/L (<34); CALCIUM LEVEL 8.5 MG/DL (8.3-10.6); CARBON DIOXIDE LEVEL 29 MMOL/L (20-31); CHLORIDE LEVEL 125 MMOL/L (98-107); CREATININE FOR GFR 0.80 MG/DL (0.55-1.30); GLOMERULAR FILTRATION RATE 73.5 (>32); MAGNESIUM LEVEL 2.1 MG/DL (1.8-2.4); POTASSIUM SERUM 4.1 MMOL/L (3.5-5.1); SODIUM LEVEL 146 MMOL/L (136-145)
== END ==
PROVIDERS: ATTEND Internal Medicine
DX: D64.9 Anemia, unspecified (principal)

== ENCOUNTER → 2025-10-15 | Outpatient (REF) | payer MEDICARE, MEDICAID ==
[2025-10-15 12:58] LABS: PLATELET COUNT, AUTOMATED 223 10^3/uL (150-450)
[2025-10-15 13:34] LABS: CALCIUM LEVEL 8.8 MG/DL (8.3-10.6); CARBON DIOXIDE LEVEL 27 MMOL/L (20-31); CHLORIDE LEVEL 120 MMOL/L (98-107); CREATININE FOR GFR 0.86 MG/DL (0.55-1.30); GLOMERULAR FILTRATION RATE 67.4 (>32); POTASSIUM SERUM 4.7 MMOL/L (3.5-5.1); SODIUM LEVEL 142 MMOL/L (136-145)
== END ==
PROVIDERS: ATTEND Physician Assistant
DX: R41.82 Altered mental status, unspecified (principal)